=== PATIENT | male | born 1950 | race Caucasian/White ===

== ENCOUNTER 2019-05-08 11:36 | Outpatient (CLI) | payer MEDICARE, SELFPAY ==
[2019-05-08 14:24] LABS: CREATININE 1.03 mg/dL (0.70-1.30); Calculated LDL 111 mg/dL; Cholesterol 195 mg/dL (50-200); HDL Cholesterol 29 mg/dL (40-60); Potassium 4.7 mmol/L (3.5-5.1); Triglyceride 279 mg/dL (30-150)
== END 2019-05-08 11:56 ==
PROVIDERS: PCP Family Medicine; Visit Provider Family Medicine
DX: I10 Essential (primary) hypertension (principal)
CPT/HCPCS: 36415; 80061; 83721; 82565; 84132

== ENCOUNTER 2019-08-12 09:14 | Outpatient (CLI) | payer MEDICARE, SELFPAY ==
[2019-08-12 11:46] LABS: HCT 46.8 % (40.0-50.0); HGB 15.9 g/dL (13.5-17.5); Mean Corpuscular Hemoglobin 30.2 pg (27.0-33.0); Mean Corpuscular Volume 88.8 fL (80-95); Mean Platelet Volume 10.3 fL (8.0-11.0); Platelet Count 277 x1000/uL (130-400); RBC 5.27 m/cumm (4.50-6.00); RBC Distribution Width 13.5 % (11.8-14.1); White Blood Cell Count 7.42 k/cumm (4.4-10.8)
[2019-08-12 12:37] LABS: ESR 10 mm/hr (1-20)
[2019-08-13 11:43] LABS: Rheumatoid Factor <7.5 IU/mL (<12.5)
== END 2019-08-12 09:34 ==
PROVIDERS: PCP Family Medicine; Visit Provider Family Medicine
DX: M25.50 Pain in unspecified joint (principal)
CPT/HCPCS: 36415; 85027; 85652; 86140; 86431

== ENCOUNTER 2019-11-24 15:08 | Emergency (ER) | payer MEDICARE, SELFPAY ==
--- NOTE | 2019-11-24 15:00 | DI.CT_ITS ---
EXAM: CT HEAD - STROKE PROTOCOL CLINICAL HISTORY: L arm weakness TECHNIQUE: Noncontrast COMPARISON: No exams were available for comparison FINDINGS: There is moderate underlying atrophy. No intracranial hemorrhage, mass or acute infarct is seen. Th ere is no evidence skull fracture. The sinuses and mastoid air cells appear clear where visualized. The ventricles are not not abnormally dilated. IMPRESSION: Atrophy. No acute abnormality.
[2019-11-24 15:12] VITALS: BP 141/90; PULSE 105; RESP 23; TEMP 36.4; O2SAT 97
--- NOTE | 2019-11-24 15:15 | DI.RAD_ITS ---
EXAM: XR PORTABLE CHEST AP INDICATION: L arm weakness. COMPARISON: No exams were available for comparison TECHNIQUE: 2D digital imaging was performed. FINDINGS: Heart size is normal. Leads overlie the chest. The lungs are not well inflated but appear clear. No pneumothorax, infiltrate or effusion is seen. IMPRESSION: Limited exam. No acute abnormality. DATA REPOSITORY: RADIATION DOSE DELIVERED:
--- NOTE | 2019-11-24 15:20 | ED.GENADUL_ITS ---
Discharge Plan Disposition Patient Disposition: [facility] Condition: Serious Discharge Details Chief Complaint: CVA/TIA Clinical Impression: Stenosis of right internal carotid artery, Acute CVA (cerebrovascular accident) Primary Care Provider: Mario Williamson ED Provider: Samuel Koo Home Meds and New Rx's Prescriptions: No Action lisinopril-hydrochlorothiazide 10-12.5 mg tablet 1 tab PO DAILY Qty: 90 RF: 3 acetaminophen [Tylenol] 325 MG tablet 650 mg PO Q6H PRN RF: 0 calcium carbonate [Tums] 200 MG tablet,chewable 200 mg PO PRN PRNRF: 0 Discharge Data Discharge Date/Time-TO BE ENTERED AT DEPARTURE: 11/24/19 18:12 Medical Decision Making 69-year-old male with a history of hypertension, former smoker, presents from home via EMS after the abrupt onset of left arm and leg weakness associated with slurred speech at home approximately 45 minutes prior to presentation. His daughter states she was speaking to him on the phone when he abruptly slurred his speech. She called 911 and went to the house. 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 EMS transported to the ED and by the time of arrival reported improving weakness but that the left arm and leg feel heavy. Family states his speech remains slightly slurred but improved. He arrives afebrile with a blood pressure 141/90, able to speak and relate a history. His initial exam reveals left arm and leg weakness without evidence of significant facial droop. CT head without acute findings. I discussed the case with Dr. Lucian Alvarado at [facility] and we agreed to proceed with CTA. CT angiogram here reveals right proximal ICA soft plaque with 80 to 90% stenosis. No intracranial findings. Patient's exam continues to improve and by 4:30 PM he is able to lift the left arm overhead against gravity. Following receipt of the findings of the CT angiogram, I again discussed the case with Dr. Lucian Alvarado. Given the patients ongoing improvement of left-sided strength, do not feel the risk/benefit of thrombolysis weighs in favor of proceeding. We will load with aspirin and Plavix and the patient will be ac cepted in transfer to the neurology service at [facility]. Lab Data Lab results reviewed: Yes I reviewed the patient's lab results. Labs: Laboratory Results - last 24 hr 11/24/19 11/24/19 15:20 15:20 WBC 9.02 RBC 5.34 Hgb 16.3 Hct 45.9 MCV 86.0 MCH 30.5 MCHC 35.5 RDW 13.6 Plt Count 273 MPV 9.5 Immature Gran % 0.1 Neutrophils % 72.6 Lymphocytes % 17.8 Monocytes % 8.3 Eosinophils % 0.9 Basophils % 0.3 Absolute Neutrophils 6.54 Absolute Lymphocytes 1.61 Absolute Monocytes 0.75 H Absolute Eosinophils 0.08 Absolute Basophils 0.03 Sodium 139 Potassium 3.7 Chloride 102 Carbon Dioxide 26.5 Anion Gap 10.5 BUN 21 H Creatinine 1.15 Estimated GFR/1.73 m2 >= 60.00 Glucose 132 H Calcium 9.1 Magnesium 2.0 Total Bilirubin 0.4 AST 19 ALT 26 Alkaline Phosphatase 79 Troponin I < 0.05 Total Protein 7.7 Albumin 3.9 ECG Data Attestation: I personally reviewed and interpreted this ECG (s) as follows: Interpretation: EKG at 1520 hrs. shows borderline sinus tachycardia with a regular rhythm, rate of 100, narrow complex QRS, first-degree AV block, no ST segment elevation HPI General Mode of arrival: ambulatory . Date/Time Provider Initiated Documentation: 11/24/19 15:09 . Limitations to Documentation: no limitations . Information obtained by: patient and EMS . History of Present Illness 69 year old M presents to the emergency department with the chief complaint of Abrupt onset left leg, left arm weakness with slurred speech, Quality is described as constant, and is localized to the left, upper extremity and lower extremity. Patient reports no radiation. Patient started experiencing this minute(s) and it has been other (improving). No relieving factors improve symptom(s), No exacerbating factors reported . Patient did receive the following treatments prior to arrival, none Related Data Home Medications Medication Instructions Recorded Confirmed acetaminophen [Tylenol] 650 mg PO Q6H PRN tab-cap 11/25/12 11/24/19 calcium carbonate [Tums] 200 mg PO PRN PRN 12/27/12 11/24/19 lisinopril 10 1 tab PO DAILY #90 tab 05/08/19 11/24/19 mg-hydrochlorothiazide 12.5 mg tablet Previous Rx's Medication Instructions Recorded lisinopril 10 1 tab PO DAILY #90 tab 05/08/19 mg-hydrochlorothiazide 12.5 mg tablet Allergies Allergy/AdvReac Type Severity Reaction Status Date / Time No Known Allergies Allergy Unverified 11/24/19 15:22 Review of Systems Narrative: Denies headache. No fall or injury. Has a history of hypertension. [facility], LAT[facility] Medical History Arthralgia (Acute) Cold extremities (Acute) Essential hypertension History of prostate cancer Hypertriglyceridemia Osteoarthritis of right knee Surgical History (Updated 03/27/19 @ 12:11 by Fabio Copeland) Prostatectomy 2009; [facility] Repair of inguinal hernia Bilateral 03/25/18-LEFT;DR. MORSE Replacement of total knee joint BILATERAL WITH A RECURRANCE ON THE LEFT WITH REPAIR AGAIN 2009 Total replacement of hip 1996 LEFT 2009 RIGHT Family History Mother , 83 COPD (chronic obstructive pulmonary disease) Diabetes Father , 83 Asthma Sister Stroke Brother No problems noted. Maternal Grandfather , 72 COPD (chronic obstructive pulmonary disease) Paternal Grandfather , 95 No problems noted. Maternal Grandmother , 97 No problems noted. Brother No problems noted. Brother Alcohol abuse Son Alcohol abuse Daughter Depression Son Substance abuse Brother No problems noted. Social History (Updated 04/01/19 @ 10:50 by Kyler Pizano) Smoking/Tobacco Use Status: Former Tobacco Use Second Hand Exposure: Yes Alcohol Intake: current Alcohol Intake frequency: a few times a month Alcohol type: beer Drug use: Never Caregiver/Support person: No Housing: house Communication Needs: None Do you need help understanding health information?: Often Pets and animals: Yes Pets and animals: cat(s) Sexually active: No Do you think of yourself as: straight/heterosexual Current gender identity: male What is your relationship status?: How often do you talk on the phone with friends or family?: three or more times per week How often do you get together with friends or relatives?: three or more times per week How often do you attend oriental orthodox or yarsani services?: decline to answer Do you belong to any clubs or organized social groups?: no Panel score (0-1 are the most socially isolated patients): 1 What type of physical activity do you participate in: none Duration: 15-30 minutes/day Frequency: 1-2 times per week Ana/Scientology: None Special ana needs: No Seatbelt use: always Helmet use: No Drive intox or ride w/intox van driver helper: No Do you feel safe in your relationship?: Yes Exam Narrative Exam Narrative: GEN: awake, alert. Pleasant, well groomed, interactive. HEAD: Normocephalic, atraumatic ENT: Mucous membranes moist, oropharynx unremarkable, External ear exam unr emarkable EYES: PERRL, EOMI NECK: Full ROM, no GARRET, no menigismus CHEST/RESP: Nontender, clear to auscultation bilateral, no wheeze/rhonchi/rales CARDIOVASCULAR: RRR, no murmur, rub channing. 2+ Rad pulse bilateral ABDOMEN: Soft, nontender, no mass. +Bowel sounds EXT: Left arm patient is able to lift against gravity but not against resistance. Patient is able to lift the left leg against gravity, but not against resistance. Right upper and lower extremity unremarkable. Neuro: Patient is conversant, speech is slightly slurred. Do not appreciate significant facial droop. He has left arm and leg weakness as above. Cranial nerves otherwise unremarkable. Psych: Speech fluent, thoughts congruent, affect normal Critical Care Time Critical Care Time Critical Care Time: Yes Attestation: Including bedside care, review of records, review of images, discussion with exchange underwriting consultant and family.
--- NOTE | 2019-11-24 15:30 | DI.CT_ITS ---
EXAM: CT BRAIN AND NECK CTA CLINICAL HISTORY: L ARM/LEG WEAKNESS TECHNIQUE: Post IV contrast during the arterial phase. Axial CT angiography was performed with multi slice acquisition and multiplanar and/or 3D reconstructions. COMPARISON: CT HEAD - STROKE PROTOCOL from 11/24/2019 FINDINGS: There is mainly noncalcified plaque seen at the proximal right internal carotid artery causing severe stenosis. The clot extends over a length of 2.5 cm. Distal to this level, the vessel is normal in di ameter and shows mild calcification. There is tortuosity seen distally. The intracranial internal car otid artery shows mild calcification as well as tortuosity. There is mild to moderate calcific plaque at the proximal left internal carotid artery but no significant stenosis. The distal left internal c arotid artery is also tortuous. The intracranial portion shows mild calcification. The anterior, midd le and posterior cerebral arteries appear patent. Degenerative changes are seen in the cervical spine . There is respiratory motion at the lung apices, which appear grossly clear. IMPRESSION: 2.5 centimeter length of soft plaque is seen in the proximal right internal carotid artery causing se poonam stenosis of 80-90 percent. No significant stenosis in the left internal carotid artery or intra cranial vasculature.
--- NOTE | 2019-11-24 15:35 | NUR.NOTE ---
L forearm 18 G started by EMS prior to arrival
[2019-11-24 15:37] LABS: Abs Immature Grans 0.01 k/cumm (0.0-0.09); Absolute Basophil Count 0.03 k/cumm (0.0-0.2); Absolute Eosinophil Count 0.08 k/cumm (0.0-0.7); Absolute Lymphocyte Count 1.61 k/cumm (1.2-3.4); Absolute Monocyte Count 0.75 k/cumm (0.11-0.7); Absolute Neutrophil Count 6.54 k/cumm (1.2-6.7); Basophils % 0.3; Eosinophils % 0.9; HCT 45.9 % (40.0-50.0); HGB 16.3 g/dL (13.5-17.5); Immature Grans % 0.1 %; Lymphocytes % 17.8; Mean Corp. HGB Concentration 35.5 g/dL (32.0-36.0); Mean Corpuscular Hemoglobin 30.5 pg (27.0-33.0); Mean Platelet Volume 9.5 fL (8.0-11.0); Monocytes % 8.3; Neutrophils % 72.6; Platelet Count 273 x1000/uL (130-400); RBC 5.34 m/cumm (4.50-6.00); RBC Distribution Width 13.6 % (11.8-14.1); White Blood Cell Count 9.02 k/cumm (4.4-10.8)
--- NOTE | 2019-11-24 15:51 | NUR.NOTE ---
pt to CTA
[2019-11-24 15:59] LABS: ALT 26 U/L (16-63); AST 19 U/L (15-37); Albumin 3.9 g/dL (3.4-5.0); Alkaline Phosphatase 79 U/L (46-116); Anion Gap 10.5 mmol/L (3-11); BUN 21 mg/dL (7-18); Bilirubin, Total 0.4 mg/dL (0.2-1.0); CO2 26.5 mmol/L (21.0-32.0); CREATININE 1.15 mg/dL (0.70-1.30); Calcium 9.1 mg/dL (8.5-10.1); Chloride 102 mmol/L (98-107); Glucose 132 mg/dL (74-106); Potassium 3.7 mmol/L (3.5-5.1); Sodium 139 mmol/L (136-145); Total Protein 7.7 g/dL (6.4-8.2)
[2019-11-24 16:02] LABS: Troponin I < 0.05 ng/Ml (<0.06)
[2019-11-24] MEDS: Normal Saline 1,000 ML 1000 ML IV (16:02)
[2019-11-24 16:04] VITALS: BP 128/78; PULSE 95; RESP 15; O2SAT 95
[2019-11-24] MEDS: Normal Saline - Diluent 50 ML VIAL IV (16:11)
[2019-11-24] MEDS: Omnipaque 350 MG/ML 100 ML BTL IJ (16:11)
[2019-11-24 16:39] VITALS: BP 150/85; PULSE 93; RESP 16; TEMP 36.8; O2SAT 99
--- NOTE | 2019-11-24 16:39 | NUR.NOTE ---
Pt able to lift L arm up off the bed, arm drift present
[2019-11-24] MEDS: Aspirin 325 MG TAB PO (16:56)
[2019-11-24] MEDS: Clopidogrel 300 MG TAB 600 MG PO (16:57)
--- NOTE | 2019-11-24 17:29 | NUR.NOTE ---
speech improving, able to swallow and take medication orally. Left arm limited range of motion, unable to move fingers/hand purposely. able to lift L upper extremity off the bed into air, unable to hold it there. able to lift L lower extremity. no deficits on R
--- NOTE | 2019-11-24 17:50 | NUR.NOTE ---
Sitting in bed visiting with family. Alert and oriented, respirations even and unlabored.
[2019-11-24 18:09] VITALS: BP 150/94; PULSE 109; RESP 16; O2SAT 96
--- NOTE | 2019-11-24 18:09 | NUR.NOTE ---
pt stood with assist and voided in urinal. Vish Tripathi arrived for transport, pt transferred to EMS stretcher
== END 2019-11-24 18:12 | disposition short-term general hospital (02) ==
PROVIDERS: Emergency Provider Emergency Medicine; PCP Family Medicine
DX: I63.231 Cerebral infarction due to unspecified occlusion or stenosis of right carotid arteries (principal); R47.81 Slurred speech; I10 Essential (primary) hypertension; Z87.891 Personal history of nicotine dependence
CPT/HCPCS: 36415; 36416; 70496; 70498; 80053; 82962; 93005; 96360; 96361; 99285; 70450; 71045; 83735; 84484; 85025; 93010; J3490

== ENCOUNTER 2020-07-26 09:10 | Outpatient (CLI) | payer MEDICARE, SELFPAY ==
[2020-07-26 12:28] LABS: Uric Acid 6.5 mg/dL (3.5-7.2)
[2020-07-26 12:30] LABS: C-Reactive Protein < 0.05 mg/dL (0.0-0.3)
[2020-07-26 13:12] LABS: Hemoglobin A1C 5.6 % (<5.7)
[2020-07-26 13:50] LABS: ESR 11 mm/hr (1-20)
[2020-08-02 17:36] LABS: Rheumatoid Factor <15 IU/mL (<15)
== END 2020-07-26 09:30 ==
PROVIDERS: PCP Family Medicine; Referring Provider Family Medicine; Visit Provider Family Medicine
DX: R73.9 Hyperglycemia, unspecified (principal); M79.641 Pain in right hand; M79.642 Pain in left hand; F48.8 Other specified nonpsychotic mental disorders; M79.674 Pain in right toe(s); I10 Essential (primary) hypertension
CPT/HCPCS: 36415; 85652; 83036; 84550; 86140; 86431

== ENCOUNTER 2021-03-14 08:59 | Outpatient (CLI) | payer MEDICARE, SELFPAY ==
[2021-03-14 14:00] LABS: CREATININE 1.1 mg/dL (0.70-1.30); Calculated LDL 44 mg/dL (<100); Cholesterol 113 mg/dL (<200); HDL Cholesterol 36 mg/dL (40-60); Triglyceride 168 mg/dL (<150)
[2021-03-14 17:03] LABS: PSA, Diagnostic <0.1 ng/mL (0.0-4.5)
== END 2021-03-14 09:00 | disposition home or self-care (01) ==
LOC: LOS 08:59
PROVIDERS: PCP Family Medicine; Referring Provider Family Medicine; Visit Provider Family Medicine
DX: E11.65 Type 2 diabetes mellitus with hyperglycemia (principal); E78.5 Hyperlipidemia, unspecified; C61 Malignant neoplasm of prostate
CPT/HCPCS: 36415; 80061; 82565; 84153

== ENCOUNTER → 2021-09-11 09:24 | Outpatient (BNVA) | payer MEDICARE, SELFPAY | PROVIDERS: PCP Family Medicine; Referring Provider Family Medicine; Visit Provider Physical Therapy Assistant | DX: Z12.11 Encounter for screening for malignant neoplasm of colon (principal); I10 Essential (primary) hypertension ==

== ENCOUNTER 2021-09-27 03:33 | Outpatient (CLI) | payer MEDICARE, SELFPAY ==
[2021-09-27 11:24] LABS: Source Nasal/Nares
[2021-09-27 15:38] LABS: COVID-19 PCR Negative (Negative)
== END 2021-09-27 03:34 | disposition home or self-care (01) ==
LOC: LBO 03:33
PROVIDERS: PCP Family Medicine; Visit Provider Surgery
DX: Z20.822 Contact with and (suspected) exposure to COVID-19 (principal); Z01.818 Encounter for other preprocedural examination
CPT/HCPCS: 87635

== ENCOUNTER 2021-09-29 09:19 | Day surgery (SDC) | payer MEDICARE, SELFPAY ==
--- NOTE | 2021-09-28 17:55 | W.COLOREPORT ---
Colonoscopy Report Date of procedure: 09/29/21 Pre-op diagnosis general: Family history of colorectal cancer Anesthesia Type: General LMA/ETT Disposition: same day Prep: Miralax/Dulcolax Retraction Time: 10 Procedure Description: After informed consent was obtained the patient was taken to the procedure room and placed in a left decubitous position. Monitors were applied and a time out was done. The patients name, date of , procedure, allergies to medications and metal in their body was reviewed. The patient was then sedated. Once sedated and comfortable a rectal exam was done. External exam was normal. Internal exam revealed a normal sphincter tone and no palpable masses. The scope was then introduced and retrofelexed. No internal hemorrhoids were identified. The scope was then advanced to the cecum w/out difficulty. The TI and appendiceal orifice were identified. The prep :-the warner of the colon are covered with liquid stool that is rather thick. The colon is irrigated with a liter of saline, however, lesion is smaller than 5 mm may have been missed. The scope was then slowly retracted over 10 minutes back into the rectum. Minor diverticular disease confined to the sigmoid colon. There are no polyps. the scope was removed and the patient was woken up and taken back to Same day surgery in stable condition. The patient tolerated the procedure well and there were no immediate complications. Follow up: The patient should follow up in 10 years unless they develop changes in bowel habits or other new gastrointestinal complaints, but provided they are healthy for anesthesia.
--- NOTE | 2021-09-28 17:56 | PDOC.DSDIS_ITS ---
Discharge Plan Disposition Patient Disposition: HOME Condition: Good Discharge Details Reason For Visit: colon scope Attending Provider: Moira Mcmanus Primary Care Provider: Mario Williamson Home Meds and New Rx's Prescriptions: No Action Centrum Silver Men 300-600-300 mcg tablet 1 tab PO DAILY RF: 0 metoprolol succinate 25 mg tablet extended release 24 hr 25 mg PO DAILY Qty: 30 RF: 2 acetaminophen [Tylenol] 325 MG tablet 650 mg PO Q6H PRN RF: 0 aspirin [Adult Low Dose Aspirin] 81 mg tablet,delayed release (DR/EC) 81 mg PO DAILY RF: 0 atorvastatin 80 mg tablet 80 mg PO QHS Qty: 90 RF: 3 calcium carbonate [Tums] 200 MG tablet,chewable 200 mg PO PRN PRNRF: 0 Discharge Instructions Additional Instructions: DSU Colonoscopy Post- Op Instructions Instructions for Everyone who is given Anesthesia: For your safety, please do the following for the next twenty-four (24) hours: *Do Not operate a motor vehicle (car, truck, motorcycle, etc.) *Do Not drink alcoholic beverages or use any recreational drugs for the first 24 hours or while taking pain medications. The medications in your body may have a reaction that can be dangerous. *Do Not make any important decisions or sign any important papers. Findings: Minor diverticular disease confined to the sigmoid colon Follow up: Repeat scope in 5 years if still healthy for anesthesia 1. No lifting over 20 pounds or strenuous activity for the first 24 hours after your procedure. After 24 hours there are no restrictions on your activity but you may feel fatigued for a few days. 2. After you arrive home you may have a light meal and return to your normal diet as you can tolerate it without feeling sick to your stomach. 3. You may have a bloated, gaseous feeling in your belly (abdomen) after a colonoscopy. Passing gas and belching will help. Walking or lying down on your left side with your knees flexed may relieve the discomfort. Call the office at [phone] (Office) or [phone] (Hospital) right away if you notice any of the following: a.Vomiting of blood or ?coffee ground stools?. b.Rectal bleeding 1Tbsp, blood clots or continuous bleeding. c.Severe belly (abdominal) pain. d.A hard distended belly (abdomen) and an inability to pass gas. 4. Please don?t expect to have a normal BM (bowel movement) for 2-3 days after your procedure. 5. If there are questions regarding the findings of your procedure, please contact your doctor 6. If you are unable to contact your doctor with a problem, contact the hospital at [phone]. 7. Continue all your regular medications unless directed otherwise. I understand the above instructions and have no questions. Signature of Patient or Adult Escort Name of Responsible Adult Escort Signature of Nurse Date/Time Activity:: See above Diet:: See above Discharge Orders Discharge Orders: Discharge Order (Routine); Ordered 09/28/21 Ordered By: Moira Mcmanus DS: Diagnosis Discharge Diagnosis (1) Screening for colon cancer: Status: Acute (2) Carotid stenosis, symptomatic w/o infarct: Status: Acute (3) History of right MCA stroke: Status: Acute (4) Hypertension: Status: Chronic (5) Smoker: Status: Acute (6) Family history of malignant neoplasm of colon in relative diagnosed when older than 50 years of age: Status: Acute (7) Diverticula of colon: Status: Acute
[2021-09-29 09:34] VITALS: BP 136/103; PULSE 114; RESP 18; TEMP 36.2; O2SAT 99
[2021-09-29] MEDS: Lactated Ringers 1,000 ML 80 ML IV (09:54)
[2021-09-29 09:58] VITALS: BP 124/89
[2021-09-29 11:26] VITALS: BMI 35.4
--- NOTE | 2021-09-29 11:26 | W.ANESPRE ---
General Info Date of Service Date Performed: 09/29/21 Height: 5 ft 5.5 in Weight: 97.9 kg Body Mass Index (BMI): 35.4 Surgical Procedure: Operation Date: 09/29/21 10:20 Proposed Procedures Side Surgeon johann Mcmanus, DO Meds Allergies and Home Medications Allergies Allergy/AdvReac Type Severity Reaction Status Date / Time No Known Allergies Allergy Verified 09/29/21 09:31 Home Medication Medication Instructions Recorded acetaminophen [Tylenol] 650 mg PO Q6H PRN tab-cap 11/25/12 calcium carbonate [Tums] 200 mg PO PRN PRN 12/27/12 aspirin 81 mg tablet,delayed 81 mg PO DAILY 12/11/19 release qqztunfl-wml-kmohf acid 300 1 tab PO DAILY 02/12/20 mcg-lycopene 600 mcg-lutein 300 mcg tablet atorvastatin 80 mg tablet 80 mg PO QHS #90 tab 12/19/20 metoprolol succinate 25 mg 25 mg PO DAILY #30 tab 09/13/21 tablet,extended release 24 hr Current Visit Medications: Current Medications Generic Name Dose Route Start Last Admin Trade Name Freq PRN Reason Stop Dose Admin Hyoscyamine Sulfate 0.125 mg 09/28/21 17:49 Hyoscyamine 0.125 Mg Sl/Oral/Chew SL DIRECTED PRN Ringer's Solution 1,000 mls @ 80 mls/hr 09/29/21 06:00 09/29/21 09:54 IV 10/28/21 23:59 80 mls/hr INFUSION LYNDA Administration IV Miscellaneous Supplies 1 each 09/29/21 06:00 Iv Access IV 10/28/21 23:59 DIRECTED LYNDA Ondansetron HCl 4 mg 09/28/21 17:49 Ondansetron 4 Mg/2 Ml Vial IVP Q4H PRN PRN Nausea / Vomiting Sodium Chloride 0 ml 09/29/21 06:00 Normal Saline Flush 10 Ml Syr IV 10/28/21 23:59 PRN PRN Sodium Chloride 0 ml 09/29/21 06:00 Normal Saline 10 Ml Vial IJ 10/28/21 23:59 DIRECTED PRN Sterile Water 0 ml 09/29/21 06:00 Water,Injection,Sterile 10 Ml Vial IJ 10/28/21 23:59 DIRECTED PRN PFSH Active Problems Active Problems: Problem Status Onset Code Family history of malignant neoplasm of colon in relative diagnosed when older than 50 years of age Z80.0 Osteoarthritis of right knee Screening for colon cancer Z12.11 Carotid stenosis, symptomatic w/o infarct ~11/24/19 I65.29 History of right MCA stroke ~11/25/19 Z86.73 Hypertension I10 Essential hypertension 09/14/13 I10 Osteoarthritis 11/25/12 M19.90 Primary osteoarthritis of right knee 07/29/17 M17.11 Smoker 03/15/14 F17.200 Medical History Medical History Arthralgia Cellulitis of foot, right Cold extremities Essential hypertension History of prostate cancer Hypertriglyceridemia Ileus Increased BMI better Primary malignant neoplasm of prostate (05/23/10) prostatectomy 2010 [facility] 6 SBO (small bowel obstruction) Surgical History Surgical History History of prostatectomy Prostatectomy 2009; [facility] Repair of inguinal hernia Bilateral 03/25/18-LEFT;DR. [facility]OR[facility] Replacement of total knee joint BILATERAL WITH A RECURRANCE ON THE LEFT WITH REPAIR AGAIN 2009 Status post hip replacement Status post total knee replacement Total replacement of hip 1996 LEFT 2009 RIGHT Tobacco Smoking/Tobacco Use Status: Former Tobacco Use Tobacco: How many years used: 15 Passive smoking exposure: Yes Second hand exposure: Yes Alcohol Alcohol Intake: current Alcohol intake frequency: a few times a week Alcohol type: beer and hard liquor Substance Use Substance use: Never Vital Signs and Lab Results Vital Signs Most Recent Vital Signs in EMR: Most Recent Vital Signs Temp Pulse Resp BP Pulse Ox 36.2 C L 114 H 18 124/89 99 09/29/21 09:34 09/29/21 09:34 09/29/21 09:34 09/29/21 09:58 09/29/21 09:34 Lab Results Blood Type / Crossmatch: No Data to Display Complete Blood Count: No Data to Display Complete Metabolic Panel: No Data to Display Liver Function Panel: No Data to Display Coagulation Panel: No Data to Display Cardiac Panel: No Data to Display Arterial Blood Gas: No Data to Display Venous Blood Gas: No Data to Display Pancreas Panel: No Data to Display Thyroid Panel: No Data to Display Infectious Disease: Coronavirus (COVID-19)(PCR) Negative (Negative) 09/27/21 09:20 09/27/21 Coronavirus 2019 Source Nasal/Nares 09/27/21 09:20 09/27/21 Blood Cultures: No Data to Display Toxicology Panel: No Data to Display Imaging and Studies Imaging and Studies Study information below may be from another EMR and interpreted by another provider. Please see original notes in EMR for more complete details. Echocardiogram Summary: 11/26/19: [facility] [place] EF 65%, Valves normal Anesthesia Assessment and Plan Anesthesia History Personal History: No History of Anesthesia Complications Family History: No Family History of Anesthesia Complications Exercise Tolerance Exercise Tolerance: Metabolic Equivalents<4 Pertinent Negatives Pertinent Negatives: No Symptoms of GERD and No Major Cardiovascular Symptoms or Complaints Cardiac & Pulmonary Exam Cardiac Exam: Normal S1/S2 Heart Sounds Pulmonary Exam: Clear Bilateral Breath Sounds Implantable Cardiac Device Does patient have a Pacemaker or an ICD?: No Airway Exam Known Difficult Airway: No Mallampati Class: 1 Mouth Opening: Normal (> 3cm) Thyromental Distance: Greater than 3 cm Neck Range of Motion: Full ROM Neck Circumference: Normal Teeth Condition: Generalized Poor Dentition ASA Classification ASA Score: ASA 3 Emergency Case?: No NPO Status NPO Status: NPO Clears >2 hours, Solids >8 hours Anesthesia Plan Resuscitation Status: Full Code Anesthesia Technique: General Anesthesia Airway Planned: Natural Airway Monitors Used: Standard Monitors
[2021-09-29 13:03] VITALS: BP 115/79; PULSE 74; RESP 18; TEMP 36.1; O2SAT 95
--- NOTE | 2021-09-29 13:05 | W.ANESPOSTOP ---
Postoperative Evaluation Date, Time and Location Date Performed: 09/29/21 Time Performed: 13:05 Patient Location: Day Surgery Unit Vital Signs Most Recent Imported Vital Signs: Most Recent Vital Signs Temp Pulse Resp BP Pulse Ox 36.1 C L 74 18 115/79 93 09/29/21 13:03 09/29/21 13:03 09/29/21 13:03 09/29/21 13:03 09/29/21 13:03 Pain Score Most Recent Pain Score: Most Recent Pain Score Pain Level 0 09/29/21 13:03 Assessment Mental Status: Awake (Alert & Oriented to Patient Baseline) Airway and Respiratory Function: Patent airway with normal (patient baseline) respiratory exam Cardiovascular Function: Hemodynamically Stable Hydration Status: Adequately Hydrated Nausea & Vomiting: No Nausea or Vomiting Pain: Pt. Denies Any Pain Peripheral Nerve Block: Patient did not receive a nerve block
[2021-09-29 13:34] VITALS: BP 117/93; PULSE 77; RESP 16; TEMP 36.3; O2SAT 96
== END 2021-09-29 14:20 | disposition home or self-care (01) ==
PROVIDERS: PCP Family Medicine; Visit Provider Surgery
PROC: 0DJD8ZZ Inspection of Lower Intestinal Tract, Via Natural or Artificial Opening Endoscopic (ICD-10-PCS; CPT 45378; principal; 2021-09-29 10:15)
DX: Z12.11 Encounter for screening for malignant neoplasm of colon (principal); Z80.0 Family history of malignant neoplasm of digestive organs; I10 Essential (primary) hypertension; F17.210 Nicotine dependence, cigarettes, uncomplicated
CPT/HCPCS: G0105

== ENCOUNTER 2022-06-27 02:58 | Outpatient (CLI) | payer MEDICARE, SELFPAY ==
[2022-06-27 12:41] LABS: Hemoglobin A1C 5.9 % (<5.7)
[2022-06-27 13:19] LABS: Calculated LDL 40 mg/dL (<100); Cholesterol 105 mg/dL (<200); HDL Cholesterol 40 mg/dL (40-60); Triglyceride 129 mg/dL (<150)
== END 2022-06-27 02:59 | disposition home or self-care (01) ==
LOC: LOS 02:59
PROVIDERS: PCP Family Medicine; Visit Provider Family Medicine
DX: E78.5 Hyperlipidemia, unspecified (principal); R73.9 Hyperglycemia, unspecified
CPT/HCPCS: 36415; 80061; 83036

== ENCOUNTER 2023-09-03 09:44 | Outpatient (CLI) | payer MEDICARE, SELFPAY ==
[2023-09-03 13:04] LABS: Hemoglobin A1C 5.6 % (<5.7)
[2023-09-03 13:19] LABS: TSH (W/Ref FT4) 2.08 uIU/mL (0.36-3.74); Vitamin B12 482 pg/mL (193-986)
[2023-09-04 09:21] LABS: Syphilis Serology (RPR) Negative (Negative)
== END 2023-09-03 09:45 | disposition home or self-care (01) ==
LOC: LOS 09:44
PROVIDERS: PCP Family Medicine; Referring Provider Family Medicine; Visit Provider Family Medicine
DX: E11.51 Type 2 diabetes mellitus with diabetic peripheral angiopathy without gangrene; R41.3 Other amnesia; E03.9 Hypothyroidism, unspecified
CPT/HCPCS: 36415; 82607; 83036; 84443; 86592

== ENCOUNTER → 2023-10-31 01:39 | Outpatient (CLI) | payer MEDICARE, SELFPAY ==
--- NOTE | 2023-10-31 | DI.RAD_ITS ---
Exam(s) XR CERVICAL SPINE COMP 4-5V EXAM: XR CERVICAL SPINE COMP 4-5V CLINICAL HISTORY: M54.2 Cervicalgia neck pain. TECHNIQUE: 2D digital imaging was performed. Five views were performed. COMPARISON: No exams were available for comparison FINDINGS: BONES: No fracture or destructive lesion. Vertebral bodies are unremarkable. DISKS: Moderate narrowing of the C5-6 and C6-7 disc spaces. Endplate osteophytes projecting mainly a nteriorly. The right neural foramen are suboptimally profiled. There is no left neural foraminal na rrowing. Mild facet degenerative changes. ALIGNMENT: Cervical spinal alignment is within normal limits. The odontoid and atlantoaxial articulat ions are normal. SOFT TISSUE: Right carotid artery stents. The lung apices are clear. Chronic appearing posterior s oft tissue calcifications. IMPRESSION: Degenerative disc changes at C5-6 and C6-7. Facet degenerative changes DATA REPOSITORY: RADIATION DOSE DELIVERED:
== END ==
PROVIDERS: PCP Family Medicine; Visit Provider Family Medicine
DX: M50.123 Cervical disc disorder at C6-C7 level with radiculopathy (principal)
CPT/HCPCS: 72050

== ENCOUNTER 2024-05-28 20:52 | Emergency (ER) | payer MEDICARE, SELFPAY ==
[2024-05-28 20:58] VITALS: BP 136/83; PULSE 85; RESP 15; TEMP 36.8; O2SAT 96
--- NOTE | 2024-05-28 21:00 | DI.CT_ITS ---
Exam(s) CT HEAD CERVICAL SPINE WO EXAM: CT HEAD CERVICAL SPINE WO CLINICAL HISTORY: Fall, forehead strike. TECHNIQUE: Imaging Protocol: Axial computed tomography images with coronal and sagittal reformatted images were created and reviewed COMPARISON: CT CT BRAIN NECK CTA from 11/24/2019 FINDINGS: There is artifact seen in the posterior fossa limiting evaluation. CT Head: Ventricles and Extra axial spaces: Normal in size and morphology for the patient's age. Hemorrhage: None. Cerebral parenchyma: Subtle areas of decreased attenuation are seen in the white matter most suggesti ve of chronic microvascular ischemic disease. No acute mass effect is seen. No findings to suggest an acute territorial infarct are present. Midline shift: None. Brainstem/Cerebellum: Normal. Calvarium: Normal. Visualized Paranasal sinuses/Mastoids: Clear. Soft Tissues: Unremarkable. CT Cervical Spine: Bones: No acute fracture or subluxation. 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 Ag e-appropriate degenerative changes are seen in the cervical spine. Soft Tissues: There is a right carotid artery stent. There is a 1.8 x 1.1 cm hypodense nodule in the left lobe the thyroid gland. Nonemergent thyroid ultrasound is recommended. Lung Apices: Clear. IMPRESSION: 1. No acute intracranial process. 2. No acute fracture or subluxation in the cervical spine. 3. Left thyroid nodule. Unexpected findings RADIATION DOSE DELIVERED: 1,443.6mGy.cm Total DLP DATA REPOSITORY: All CT scans at this facility are submitted to the National Radiology Data Registry (NRDR) Dose Index Registry (DIR) with the [employer] (A[employer]). RADIATION OPTIMIZATION: All CT scans at this facility use at least one of these dose optimization te chniques: automated exposure control; mA and/or kV adjustment per patient size (includes targeted exa ms where dose is matched to clinical indication); or iterative reconstruction.
--- NOTE | 2024-05-28 21:00 | RT.EKG_ITS ---
APPROVED REPORT Exam: Resting ECG Reason for Exam: Fall Patient Location: E HR:76 bpm ECG Measurements Heart Rate 76 AXIS DC 253 P 83 QRSd 103 QRS -17 QT 365 T 26 QTc 411 Conclusion Sinus rhythm, rate 76 1st degree HB with DC interval 253 No ectopy No STEMI
--- OUTSIDE RECORDS SUMMARY | 2024-05-28 21:19 | XMS_ITS | Encounter Summary ---
[place] [address] Care Team Providers Care Regional Sales Associate Name Role Phone Mario Williamson MD Primary Care Provider [phone] Encounter Details Date Type Department Care Team (Late st Contact Info) Description 04/13/2020 12:30 PM EDT Tech Visit [place] [id number] Rita Waters, SKYLER Carotid stenosis, symptomatic, with infarction Social History Tobacco Use Types Packs/Day Years Used Date Smoking Tobacco: Former Cigarettes Smokeless Tobacco: Never Sex and Gender Information Value Date Recorded Sex Assigned at Not on file Gender Identity Not on file Sexual Orientation Not on file documented as of this encounter Plan of Treatment Not on file documented as of this encounter Procedures Procedure Name Priority Date/Time Associated Diagnosis Comments CAROTID DUPLEX, BILATERAL Routine 04/13/2020 12:31 PM EDT Carotid stenosis, symptomatic, with infarction documented in this encounter Results * Carotid Duplex, Bilateral (04/13/2020 12:31 PM EDT) VB Text Report Department: Vascular Surgery Lab Patient: [id number] (JEANNIE MARTE) CPT: 42831 ICD10: I63.239;I65.23 Referring Physician: SAMEERA LUONG MD ?? Phone: Indications: ??S/P R TCAR ICD10 Diagnosis Code: I63.239 Findings: ICA Proximal, Right ? PSV (cm/s): 52 ? EDV (cm/s): 17 ? ICA/CCA: 0.6 ? %Stenosis: 16-49% ICA Middle, Right ? PSV (cm/s): 44 ? EDV (cm/s): 14 ? ICA/CCA: 0.5 ICA Distal, Right ? PSV (cm/s): 46 ? EDV (cm/s): 17 ? ICA/CCA: 0.5 CCA Distal, Right ? PSV (cm/s): 84 ? EDV (cm/s): 23 ? %Stenosis: <50% CCA Proximal, Right ? PSV (cm/s): 70 ? EDV (cm/s): 13 External Carotid Artery, Right ? PSV (cm/s): 232 ? EDV (cm/s): 42 ? %Stenosis: >50% Vertebral, Right ? PSV (cm/s): 36 ? EDV (cm/s): 12 ? Direction of Flow: Antegrade ICA Proximal, Left ? PSV (cm/s): 54 ? EDV (cm/s): 16 ? ICA/CCA: 0.7 ? Plaque Structure: Echogenic ? Plaque Surface: Irregular ? %Stenosis: <15% ICA Middle, Left ? PSV (cm/s): 54 ? EDV (cm/s): 16 ? ICA/CCA: 0.7 ICA Distal, Left ? PSV (cm/s): 43 ? EDV (cm/s): 17 ? ICA/CCA: 0.6 CCA Distal, Left ? PSV (cm/s): 77 ? EDV (cm/s): 18 ? %Stenosis: Minimal CCA Proximal, Left ? PSV (cm/s): 70 ? EDV (cm/s): 17 External Carotid Artery, Left ? PSV (cm/s): 86 ? EDV (cm/s): 14 ? %Stenosis: <50% Vertebral, Left ? PSV (cm/s): 39 ? EDV (cm/s): 14 ? Direction of Flow: Antegrade Interpretation: RIGHT: Widely patent proximal internal carotid artery stent with an hour glass shape causing 16-49% stenosis when compared to the more distal [place] internal carotid artery. No identifiable change from previous exam. The bifurcation level is in the mid neck. LEFT: There is irregular plaque in the proximal internal carotid artery causing <15% stenosis when compared to the more distal internal carotid artery. The bifurcation level is in the mid neck. Vertebral Artery Data: Patent vertebral arteries with normal antegrade Doppler waveforms and velocities bilaterally. Previous Carotid Studies: Date ?RIGHT ICA Stenosis ??PSV ?? Ratio ?? LEFT ICA Stenosis ?? PSV ?? Ratio ? 16-49% ? 82 ?1.00 ? <15% ? 54 ?1.10 Current Exam ? 16-49% ? 52 ?0.60 ? <15% ? 54 ?0.70 Electronically Signed by: SAMEERA LUONG MD on 2020-04-14 08:43:15 AM VASCUBASE VB Text Report End of Report VASCUBASE 04/13/2020 12:3 1 PM EDT Sameera Luong MD VASCULAR ORDERABLES VASCUBASE documented in this encounter Visit Diagnoses Diagnosis Carotid stenosis, symptomatic, with infarction Occlusion and stenosis of carotid artery with cerebral infarction documented in this encounter Care Teams Regional Sales Associate Relationship Specialty Start Date End Date Mario Williamson MD [address] [place] [address] [address] [place] [address] PCP - General Family Medicine 11/24/19 documented as of this encounter
--- OUTSIDE RECORDS SUMMARY | 2024-05-28 21:19 | XMS_ITS | Encounter Summary ---
Author Organization [facility] [place] [address] Care Team Providers Care Line Manager Name Role Phone Mario Williamson MD Primary Care Provider [phone] Reason for Visit * Consultation (Routine) - Closed Specialty Diagnoses / Procedures Referred By Contaleks t Referred To Contact Neurology Diagnoses stroke Inez Mari MD [address] [place] [id number] [facility] [address] [place] [id number] Referral ID Status Reason Start Date Expiration Date Visits Re quested Visits Authorized [id number] Closed 12/01/2019 11/30/2020 1 1 Encounter Details Date Type Department Care Team (Latest Contact Info) Description 01/12/2020 9:00 AM EDT TH Visit (TeleHealth) [place] [phone] Kiran Galdamez PA [facility] [place] [address] Cerebrovascular accident (CVA), unspecified mechanism Social History Tobacco Use Types Packs/Day Years Used Date Smoking Tobacco: Never Assessed Sex and Gender Information Value Date Recorded Sex Assigned at Not on file Gender Identity Not on file Sexual Orientation Not on file documented as of this encounter Progress Notes * Kiran Galdamez PA - 01/12/2020 9:00 AM EDT [facility] Disease [facility] Stroke Program Department [place] [address] t: [phone] / f: [phone] TELEPHONE ENCOUNTER Date of Appointment: 01/12/2020 Purpose of visit: Post-discharge follow-up I provided care to the patient today via telephone call. The total time associated with this visit was 12 minutes. Patient verbally consents to this telephone visit and understands that this visit may be billed, similar to a clinic office visit. 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 He was admitted to after deferring TPA at [facility] for R MCA symptoms of left hemiparesis, facial droop, dysarthria with NIHSS 3. CTA showed R ICA bifurcation stenotic plaque. Transferred for considerationsurgical intervention.S/p TCAR w/ stent 3/ (Dr Nice). Was discharged on dual antiplatelet therapy. Ziopatch placed at discharged showed no Afib. Today, he reports doing well. Feels he has returned to normal and is back at home. No repeat eventsor new symptoms. Had about 5 days of acute rehab ad [facility]. Left hand still feels a little numb when he uses it but doesn't interfere with his activities. He denies problems with vision, speech,memory, strength, sensation, balance, coordination, walking. He is fully retired. Works around the house, has a car he likes to kesha on. Has new blood pressure cuff, bp 125/81 this morning. Just got off the phone with his PCP who is following closely. Medications recently filled and is compliant with these. Had telephone follow-up with Dr. Nice his vascular surgeon, who recommended he stay of dual antiplatelet therapy for now until f/u CUS can be arranged. Modified [place] Scale (MRS) 0: No symptoms at all 1: No significant disability despite symptoms; able to carry out all usual duties and activities 2: Slight disability; unable to carry out all previous activities, but able to look after own affairs without assistance 3: Moderate disability; requiring some help, but able to walk without assistance 4: Moderate disability; unable to walk without assistance and unable to attend to own bodily needs without assistance 5: Severe disability; bedridden, incontinent and requiring constant nursing care and attention 6: DECISION MAKING/PLAN Skye Morris??is a 69 y.o.??right handed male with right MCA infarcts in November 2019. Stable from a stroke perspective and has made a good functional recovery. He inquired about driving and from his description I do not hear anything that should prevent him from driving. 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
--- OUTSIDE RECORDS SUMMARY | 2024-05-28 21:19 | XMS_ITS | Encounter Summary ---
[place] [address] Care Team Providers Care Corporate Pilot Name Role Phone Mario Williamson MD Primary Care Provider [phone] Encounter Details Date Type Department Care Team (Late st Contact Info) Description 07/20/2022 12:30 PM EDT Tech [place] [phone] Ayan Acosta, RVT Carotid stenosis, symptomatic, with infarction; Cerebrovascular accident (CVA), unspecified mechanism Social History Tobacco Use Types Packs/Day Years Used Date Smoking Tobacco: Former Cigarettes 0.5 20 Cigars Smokeless Tobacco: Former Quit: 1999 Sex and Gender Information Value Date Recorded Sex Assigned at Not on file Gender Identity Not on file Sexual Orientation Not on file documented as of this encounter Plan of Treatment Not on file documented as of this encounter Procedures Procedure Name Priority Date/Time Associated Diagnosis Comments CAROTID DUPLEX, BILATERAL Routine 07/20/2022 12:37 PM EDT Carotid stenosis, symptomatic, with infarction Cerebrovascular accident (CVA), unspecified mechanism documented in this encounter Results * Carotid Duplex, Bilateral (07/20/2022 12:37 PM EDT) VB Text Report Department: Vascular Surgery Lab Patient: [id number] (SKYE MARTE) CPT: 44707 Referring Physician: SAMEERA LUONG MD ?? Phone: Indications: hx RIGHT TCAR Findings: Stent 1 - Pre ? PSV (cm/s): 78 ? EDV (cm/s): 20 ? Location: Right Stent Stent 1 - Prox ? PSV (cm/s): 72 ? EDV (cm/s): 20 ? Location: Right Stent Stent 1 - Mid ? PSV (cm/s): 46 ? EDV (cm/s): 13 ? Location: Right Stent Stent 1 - Distal ? PSV (cm/s): 43 ? EDV (cm/s): 13 ? Location: Right Stent Stent 1 - Post ? PSV (cm/s): 59 ? EDV (cm/s): 14 ? Location: Right Stent ICA Proximal, Right ? PSV (cm/s): 46 ? EDV (cm/s): 16 ? ICA/CCA: 0.6 ? Plaque Structure: Echogenic ? Plaque Surface: Irregular ? %Stenosis: 16-49% ICA Distal, Right ? PSV (cm/s): 51 ? EDV (cm/s): 18 ? ICA/CCA: 0.7 CCA Distal, Right ? PSV (cm/s): 73 ? EDV (cm/s): 19 ? %Stenosis: <50% CCA Proximal, Right ? PSV (cm/s): 69 ? EDV (cm/s): 18 External Carotid Artery, Right ? PSV (cm/s): 187 ? EDV (cm/s): 25 ? %Stenosis: <50% Vertebral, Right ? PSV (cm/s): 39 ? EDV (cm/s): 11 ? Direction of Flow: Antegrade ICA Proximal, Left ? PSV (cm/s): 48 ? EDV (cm/s): 18 ? ICA/CCA: 0.7 ? Plaque Structure: Echogenic ? Plaque Surface: Irregular ? %Stenosis: 16-49% ICA Distal, Left ? PSV (cm/s): 46 ? EDV (cm/s): 18 ? ICA/CCA: 0.7 CCA Distal, Left ? PSV (cm/s): 70 ? EDV (cm/s): 19 ? %Stenosis: Minimal CCA Proximal, Left ? PSV (cm/s): 99 ? EDV (cm/s): 20 External Carotid Artery, Left ? PSV (cm/s): 103 ? EDV (cm/s): 22 ? %Stenosis: <50% Vertebral, Left ? PSV (cm/s): 59 ? EDV (cm/s): 20 ? Direction of Flow: Antegrade Interpretation: RIGHT: There is smooth plaque in the common carotid artery causing <50% stenosis. Hourglass shaped stent in the proximal internal carotid artery causing 16-49% stenosis when compared to the more distal internal carotid artery. The bifurcation level is in the mid neck. No significant change compared to previous exam. LEFT: There is bulky irregular plaque in the proximal internal carotid artery causing 16-49% stenosis (low end of range) when compared to the more distal internal carotid artery. The bifurcation level is in the mid neck. No significant change compared to previous exam. Vertebral Artery Data: Patent vertebral arteries with normal antegrade Doppler waveforms and velocities bilaterally. Previous Carotid Studies: Date ?RIGHT ICA Stenosis ??PSV ?? Ratio ?? LEFT ICA Stenosis ?? PSV ?? Ratio ? 16-49% ? 82 ?1.00 ? <15% ? 54 ?1.10 ? 16-49% ? 52 ?0.60 ? <15% ? 54 ?0.70 ? 16-49% ? 71 ?0.90 ? 16-49% ? 55 ?0.60 ? 16-49% ? 91 ?1.20 ? 16-49% ? 65 ?0.90 Current Exam ? 16-49% ? 46 ?0.70 ? 16-49% ? 48 ?0.70 Electronically Signed by: SAMEERA LUONG MD on 2022-07-24 10:57:00 AM VASCUBASE VB Text Report End of Report VASCUBASE 07/20/2022 12:3 7 PM EDT Sameera Luong MD VASCULAR ORDERABLES VASCUBASE documented in this encounter Visit Diagnoses Diagnosis Carotid stenosis, symptomatic, with infarction Occlusion and stenosis of carotid artery with cerebral infarction Cerebrovascular accident (CVA), unspecified mechanism documented in this encounter Care Teams Corporate Pilot Relationship Specialty Start Date End Date Mario Williamson MD [address] [place] [address] [address] [place] [address] PCP - General Family Medicine 11/24/19 documented as of this encounter
--- OUTSIDE RECORDS SUMMARY | 2024-05-28 21:19 | XMS_ITS | Encounter Summary ---
Author Organization [facility] [place] [address] Care Team Providers Care Health Unit Clerk Name Role Phone Mario Williamson MD Primary Care Provider [phone] Encounter Details Date Type Department Care Team (Late st Contact Info) Description 09/26/2020 2:00 PM EST Office Visit [place] [address] Sameera Luong MD [facility] [place] [address] Carotid stenosis, symptomatic, with infarction; Cerebrovascular accident (CVA), unspecified mechanism Social History Tobacco Use Types Packs/Day Years Used Date Smoking Tobacco: Former Cigarettes 0.5 20 Cigars Smokeless Tobacco: Former Quit: 1999 Sex and Gender Information Value Date Recorded Sex Assigned at Not on file Gender Identity Not on file Sexual Orientation Not on file documented as of this encounter Last Filed Vital Signs Vital Sign Reading Time Taken Comments Blood Pressure 136/81 09/26/2020 2:01 PM EST Pulse 83 09/26/2020 2:01 PM EST Temperature - - Respiratory Rate 16 09/26/2020 2:01 PM EST Oxygen Saturation - - Inhaled Oxygen Concentration - - Weight 102.1 kg (225 lb) 09/26/2020 2:01 PM EST Height 167.6 cm (5' 6) 09/26/2020 2:01 PM EST Body Mass Index 36.32 09/26/2020 2:01 PM EST documented in this encounter Progress Notes * Sameera Luong MD - 09/26/2020 2:00 PM EST Images from the original note were not included. Section of Vascular Surgery [facility] [place] [address] [address] OUTPATIENT VASCULAR SURGERY FOLLOW-UP SERVICE DATE: 09/26/2020 SERVICE TIME: 2:17 PM PRIMARY CARE PHYSICIAN: Mario Williamson MD REFERRING PROVIDER: Mario Williamson MD [address] [place] [address] [address] Consult requested for an opinion regarding the evaluation and treatment of the above. My final impression and recommendations will be communicated back to the requesting physician by way of the shared medical record or letter via US mail. Reason for Visit: f/u R TCAR History of Present Illness: Skye Marte is a 69 y.o. male s/p R TCAR (11/25/2019 - [place]) for symptomatic carotid stenosis and R MCA stroke. Since procedure he denies any new neurologic events. Patientdenies any new symptoms of TIA/stroke, history of numbness or weakness of upper of lower extremities, amaurosis fugax, or speech or word finding difficulties. He reports since stroke he has shorter temper. Continues to have mild L hand numbness, but not disruptive t live. Workup regarding event otherwise unremakrable. Ziopatch negative. Continues on ASA 81mg and atorvastatin 80mg daily. Currently not taking any BP meds. Currently not smoking Past Medical History: Diagnosis Date ??? Carotid stenosis, symptomatic w/o infarct, right 11/27/2019 11/25/2019: Right internal carotid artery TCAR (transcarotid artery revascularization) with ENROUTE transcarotid neuroprotection and stent system (10x30 Enroute Stent, 10x 40 Enroute Stent) ??? 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 PRO PLACE TRANSCATHETER STENT, CCA W EMBOLIC PROECT Right 11/25/2019 @TRANSCATH INTRAVASCULAR STENT,CAROTID,PERC,W\EMBOLIC PROT. (WRVU 18) performed by Sameera Luong MD at [facility] MAIN OR No family history on file. Social History Tobacco Use ??? Smoking status: Former Smoker Packs/day: 0.50 Years: 20.00 Pack years: 10.00 Types: Cigarettes, Cigars ??? Smokeless tobacco: Former User Quit date: 1999 Substance Use Topics ??? Alcohol use: Not on file ??? Drug use: Not on file Current Outpatient Medications Medication Sig Dispense Refill ??? multivitamin with minerals and lutein (Multivitamin 50 Plus) Tablet Take by mouth. ??? atorvastatin (Lipitor) 80 mg Tablet Take 1 tablet by mouth every evening. 90 tablet 3 ??? aspirin 81 mg Tablet, Chewable Take 81 mg by mouth daily. 30 tablet 3 ??? acetaminophen (Tylenol) 500 mg Tablet Take 1 tablet by mouth every 6 hours as needed for Pain or Fever (pain or temperature greater than 100 degrees F (measured by mouth)). 30 tablet 1 No current facility-administered medications for this visit. No Known Allergies COMPLETE REVIEW OF SYSTEMS GENERAL: No weight loss, malaise or fevers. HEENT: Negative for frequent or significant headaches NECK: Negative for pain and significant neck swelling RESPIRATORY: Negative for cough, wheezing or shortness of breath. CARDIOVASCULAR: Negative for chest pain, or palpitations. GI: Negative for abdominal discomfort, change in bowel habits, hematochezia, melena, nausea, vomiting : No history of dysuria, negative for CKD or ESRD Endo: No hx of DM MUSCULOSKELETAL: Negative for new joint pain. SKIN: Negative for new lesions. Chronic skin changes/ulcers PSYCH: Negative HEMATOLOGY/LYMPHOLOGY: Negative for prolonged bleeding, no history of clotting. NEURO: No new symptoms of TIA, amaurosis, weakness, or difficultly speaking +see HPI All other reviewed and negative other than HPI. Physical Exam: PHYSICAL EXAM Physical Exam Performed BP 136/81 (BP Location (NBP): Right arm, Patient Position: Sitting, BP Cuff Sizes: Adult (25-34 cm)) Pulse 83 Resp 16 Ht 167.6 cm (5' 6) Wt 102.1 kg (225 lb) BMI 36.32 kg/m?? CONSTITUTIONAL: alert, well developed, well nourished, in no acute distress NEUROLOGIC/PSYCHIATRIC: Grossly normal HEENT: normal atraumatic, no neck masses, normal thyroid, no jvd. R neck incision well healed LUNGS: breathing comfortably on RA HEART: regular rate and rhythm INTEGUMENTARY: Wound - nonr SURGICAL SITES: Rneck incision well healed MUSCULOSKELETAL: negative Pulses/Signals: b/l 2+ radial and brachial pulses DATA: Radiology: 09/26/2019 - Carotid duplex Stent 1 - Pre ?PSV (cm/s): 89 ?EDV (cm/s): 25 ?Location: Right CCA Distal Stent 1 - Prox ?PSV (cm/s): 82 ?EDV (cm/s): 22 ?Location: Right CCA Distal Stent 1 - Mid ?PSV (cm/s): 71 ?EDV (cm/s): 17 ?Location: Right ICA Prox Stent 1 - Distal ?PSV (cm/s): 44 ?EDV (cm/s): 18 ?Location: Right ICA Mid Stent 1 - Post ?PSV (cm/s): 49 ?EDV (cm/s): 17 ?Location: Right ICA Mid ICA Proximal, Right ?PSV (cm/s): 71 ?EDV (cm/s): 17 ?ICA/CCA: 0.9 ?Plaque Structure: Echogenic ?Plaque Surface: Smooth ?%Stenosis: 16-49% ICA Distal, Right ?PSV (cm/s): 46 ?EDV (cm/s): 16 ?ICA/CCA: 0.6 CCA Distal, Right ?PSV (cm/s): 75 ?EDV (cm/s): 19 ?Plaque Structure: Echogenic ?Plaque Surface: Irregular ?%Stenosis: <50% CCA Proximal, Right ?PSV (cm/s): 92 ?EDV (cm/s): 19 External Carotid Artery, Right ?PSV (cm/s): 158 ?EDV (cm/s): 22 ?%Stenosis: <50% Vertebral, Right ?PSV (cm/s): 28 ?EDV (cm/s): 9 ?Direction of Flow: Antegrade ICA Proximal, Left ?PSV (cm/s): 55 ?EDV (cm/s): 18 ?ICA/CCA: 0.6 ?Plaque Structure: Echogenic ?Plaque Surface: Irregular ?%Stenosis: 16-49% ICA Middle, Left ?PSV (cm/s): 48 ?EDV (cm/s): 20 ?ICA/CCA: 0.5 ICA Distal, Left ?PSV (cm/s): 46 ?EDV (cm/s): 17 ?ICA/CCA: 0.5 CCA Distal, Left ?PSV (cm/s): 88 ?EDV (cm/s): 21 ?%Stenosis: Minimal CCA Proximal, Left ?PSV (cm/s): 93 ?EDV (cm/s): 19 External Carotid Artery, Left ?PSV (cm/s): 133 ?EDV (cm/s): 21 ?%Stenosis: <50% Vertebral, Left ?PSV (cm/s): 39 ?EDV (cm/s): 16 ?Direction of Flow: Antegrade ? Interpretation: ?? RIGHT: The proximal margin of the stent has plaque extending from the [place] common carotid artery causing 30-40% stenosis by e-calipers. This represents a progression compared to previous exam. The proximal internal carotid artery mid stent has an hour glass shape causing 16-49% stenosis when compared to the more distal internal carotid artery. The remainder of the stent is patent with no evidence of plaque. The bifurcation level is in the mid neck. ? LEFT: There is bulky irregular plaque in the proximal internal carotid artery causing 16-49% stenosis when compared to the more distal internal carotid artery. Progression when compared to the previous exam. The bifurcation level is in the mid neck. ? Vertebral Artery Data: Patent vertebral arteries with normal antegrade Doppler waveforms and velocities bilaterally. ?? Previous Carotid Studies: Date ?RIGHT ICA Stenosis ??PSV ?? Ratio ?? LEFT ICA??Stenosis ?? PSV ?? Ratio ? 16-49% ? 82 ?1.00 ? <15% ? 54 ?1.10 ? 16-49% ? 52 ?0.60 ? <15% ? 54 ?0.70 Current Exam ? 16-49% ? 71 ?0.90 ? 16-49% ? 55 ?0.60 ?? 12/02/2019 - Ziopatch 1. Predominant rhythm is sinus. 2. No reported symptoms. 3. No sustained arrhythmias. 4. No atrial fibrillation or atrial flutter is observed. ??11/25/2019 - Echo 1. The left ventricular chamber size is normal. The quantitative left ventricular ejection fraction by biplane Valles's method is 65%. There are no left ventricular segmental wall motion abnormalities. Left ventricular diastolic function is normal. 2. Right ventricular global systolic function is normal. Pulmonary artery hypertension could not be assessed due to inadequate tricuspid regurgitation jet. 3. The left atrium is normal in size. The right atrium appears normal. 4. There are no hemodynamically significant valvular lesions. 5. The inferior vena cava is poorly visualized. 6. There are no prior echocardiograms available for comparison. I have personally reviewed the following images/data: duplex Impression: 69 y.o. male 9mo s/p R TCAR for R MCA stroke and symptomatic carotid stenosis. Remains w/out new neurologic events. Mild R CCA stenosis otherwise no evidence of significant stenosis w/in R ICA stent. Will plan to continue ASA and statin and surveillance. Congratulated him on remaining abstinent from cigarettes. Given age 69, past hx >100cig in lifetime recommended AAA screening which he has not had yet at next visit. Plan: - AAA screening - carotd duplex 6 mo - continue ASA and statin indefinitely SIGNATURE: Sameera Luong MD PATIENT NAME: Skye Marte DATE: September 26, 2020 TIME: 2:17 PM documented in this encounter Plan of Treatment Not on file documented as of this encounter Results * AAA Duplex, Complete/Bilateral (06/14/2021 8:33 AM EDT) VB Text Report Department: Vascular Surgery Lab Patient: [id number] (SKYE MARTE) CPT: 48512 ICD10: I63.239;I63.9 Referring Physician: SAMEERA LUONG MD ?? Phone: Indications: ??hx stroke ICD10 Diagnosis Code: I63.239, I63.9 Findings: Unilateral ?PSV (cm/s) ??EDV (cm/s) ??Diam AP (cm) ??Diam Lateral (cm) ?? Distal Aorta ?82 ? 1 ? 2.0 ?2.1 ?? Right ?PSV (cm/s) ??EDV (cm/s) ?? External Iliac Artery, Proximal ?47 ? 1 ?? External Iliac Artery, Mid ? 60 ? 1 ?? External Iliac Artery, Distal ?49 ? 1 ?? Left ? PSV (cm/s) ??EDV (cm/s) ?? External Iliac Artery, Proximal ?36 ? 0 ?? External Iliac Artery, Mid ? 45 ? 1 ?? External Iliac Artery, Distal ?43 ? 1 ?? Interpretatio n: Much of the abdominal aorta as well as the bilateral common iliac arteries not visualized due to bowel gas. The distal aorta is patent and without evidence of stenosis or aneurysm. Patent external iliac arteries with no evidence of stenosis. Comparison: ??No previous study in our vascular lab database for comparison. Electronicall y Signed by: SAMEERA LUONG MD on 2021-06-15 07:03:36 AM [facility] VB Text Report End of Report [facility] 06/14/2021 8:33 AM EDT Sameera Luong MD VASCULAR ORDERABLES [facility] * Carotid Duplex, Bilateral (06/14/2021 8:33 AM EDT) VB Text Report Department: Vascular Surgery Lab Patient: [id number] (SKYE MARTE) CPT: 15888 ICD10: I63.9;I63.239;I 65.23 Referring Physician: SAMEERA LUONG MD ?? Phone: Indications: hx RIGHT TCAR ICD10 Diagnosis Code: I63.9, I63.239 Findings: Stent 1 - Pre ? PSV (cm/s): 86 ? EDV (cm/s): 24 ? Location: Right Stent Stent 1 - Prox ? PSV (cm/s): 71 ? EDV (cm/s): 20 ? Location: Right Stent Stent 1 - Mid ? PSV (cm/s): 72 ? EDV (cm/s): 18 ? Location: Right Stent Stent 1 - Distal ? PSV (cm/s): 41 ? EDV (cm/s): 14 ? Location: Right Stent Stent 1 - Post ? PSV (cm/s): 39 ? EDV (cm/s): 15 ? Location: Right Stent ICA Proximal, Right ? PSV (cm/s): 91 ? EDV (cm/s): 31 ? ICA/CCA: 1.2 ? Plaque Structure: Echogenic ? Plaque Surface: Irregular ? %Stenosis: 16-49% ICA Distal, Right ? PSV (cm/s): 61 ? EDV (cm/s): 25 ? ICA/CCA: 0.8 CCA Distal, Right ? PSV (cm/s): 73 ? EDV (cm/s): 26 ? %Stenosis: <50% CCA Proximal, Right ? PSV (cm/s): 105 ? EDV (cm/s): 26 External Carotid Artery, Right ? PSV (cm/s): 145 ? EDV (cm/s): 13 ? %Stenosis: <50% Vertebral, Right ? PSV (cm/s): 41 ? EDV (cm/s): 14 ? Direction of Flow: Antegrade ICA Proximal, Left ? PSV (cm/s): 65 ? EDV (cm/s): 26 ? ICA/CCA: 0.9 ? Plaque Structure: Echogenic ? Plaque Surface: Irregular ? %Stenosis: 16-49% ICA Distal, Left ? PSV (cm/s): 51 ? EDV (cm/s): 20 ? ICA/CCA: 0.7 CCA Distal, Left ? PSV (cm/s): 72 ? EDV (cm/s): 20 ? %Stenosis: Minimal CCA Proximal, Left ? PSV (cm/s): 113 ? EDV (cm/s): 29 External Carotid Artery, Left ? PSV (cm/s): 88 ? EDV (cm/s): 15 ? %Stenosis: <50% Vertebral, Left ? PSV (cm/s): 74 ? EDV (cm/s): 27 ? Direction of Flow: Antegrade Interpretation: RIGHT: [...] 71 ?0.90 ? 16-49% ? 55 ?0.60 Current Exam ? 16-49% ? 91 ?1.20 ? 16-49% ? 65 ?0.90 Electronically Signed by: SAMEERA LUONG MD on 2021-06-15 07:02:54 AM [facility] VB Text Report End of Report [facility] 06/14/2021 8:33 AM EDT Sameera Luong MD VASCULAR ORDERABLES Performing Organization Address City/State/[facility] Co de Phone Number VASCU[facility] documented in this encounter Visit Diagnoses Diagnosis Carotid stenosis, symptomatic, with infarction Occlusion and stenosis of carotid artery with cerebral infarction Cerebrovascular accident (CVA), unspecified mechanism documented in this encounter Care Teams Health Unit Clerk Relationship Specialty Start Date End Date Mario Williamson MD [address] [place] [address] PCP - General Family Medicine 11/24/19 documented as of this encounter
--- OUTSIDE RECORDS SUMMARY | 2024-05-28 21:19 | XMS_ITS | Encounter Summary ---
Author Organization [facility] Address [address] [place] [address] Care Team Providers Care Shingle Inspector Name Role Phone Israel Aguirre DO Primary Care Provider [phone] Encounter Details Date Type Department Care Team (Late st Contact Info) Description 05/26/2010 Results Only [facility] [phone] Reggie Sanchez MD [address] [address] Social History Tobacco Use Types Packs/Day Years Used Date Smoking Tobacco: Never Assessed Sex and Gender Information Value Date Recorded Sex Assigned at Not on file Gender Identity Not on file Sexual Orientation Not on file documented as of this encounter Plan of Treatment Not on file documented as of this encounter Procedures Procedure Name Priority Date/Time Associated Diagnosis Comments SURGICAL PATHOLOGY Routine 05/26/2010 0:00 EDT documented in this encounter Results * SURGICAL PATHOLOGY (05/26/2010 0:00 EDT) Pathology Report: SURGICAL PATHOLOGY REPORT ? Reports generated via electronic interface contain original data; ? however they are lacking the format of the original report. ? Caution should be taken when reading/interpreti ng unformatted reports. ? Name: ? ROSANNA, SKYE C ? Accession #: ? [id number] ? : ? 1950 (Age: 59) ??M ? Collect Date: ? 05/26/2010 ? Location: ? [facility] ? Receive Date: ? 05/27/2010 ? Provider: REGGIE NISBET MD ? Copy to: DELROY DARIUS PA ? Final Pathologic Diagnosis: ? A. ?Prostate, right medial apex, needle biopsy: ? 1. ?Atypical small acinar proliferation (AYAN). ? B. ?Prostate, right lateral apex, needle biopsy: ? 1. ?Benign prostatic tissue. ? 2. ? Negative for malignancy. ? C. ?Prostate, right medial mid, needle biopsy: ? 1. ?Benign prostatic tissue. ? 2. ? Negative for prostatic adenocarcinoma. ? D. ?Prostate, right lateral mid, needle biopsy: ? 1. ?Adenocarcinoma. ? - Histologic grade: ?- Primary (predominant) Concordia pattern: ??Grade 3. ?- Secondary (worst remaining) David pattern: ??Grade 3. ?- Total Concordia score: ??6. ? - Number of cores positive/total number of cores: ??1/1. ? - 60% of the core involved by tumor. ? - Perineural invasion: ??Not identified. ?2. ?? High grade prostatic intraepithelial neoplasia (PIN): ??Not ? identified. ? E. ?? Prostate, right medial base, needle biopsy: ? 1. ?? Benign prostatic tissue. ? 2. ?? Negative for prostatic adenocarcinoma. ? F. ?? Prostate, right lateral base, needle biopsy: ? 1. ?? Benign prostatic tissue. ? 2. ?? Negative for prostatic adenocarcinoma. ? G. ?? Prostate, left medial apex, needle biopsy: ? 1. ?? Focal acute prostatitis and atrophy. ? 2. ?? Negative for prostatic adenocarcinoma. ? H. ?? Prostate, left lateral apex, needle biopsy: ? 1. ?? Prostatic atrophy. ? 2. ?? Negative for prostatic adenocarcinoma. ? I. ? Prostate, left medial mid, needle biopsy: ?1. ?? Focal chronic prostatitis. ?2. ?? Negative for prostatic adenocarcinoma. ? J. ?Prostate, left lateral mid, needle biopsy: ?1. ?? Benign prostatic tissue. ?2. ?? Negative for prostatic adenocarcinoma. ? K. ?? Prostate, left medial base, needle biopsy: ?1. ?? Benign prostatic tissue. ?2. ?? Negative for prostatic adenocarcinoma. ? L. ?? Prostate, left lateral base, needle biopsy: ?1. ?? Benign prostatic tissue. ?2. ?? Negative for prostatic adenocarcinoma. ?3. ?? Fragment of normal colonic mucosa ? Document reviewed and electronically signed by: ? Cintia Mclean MD ? Report ??Date: 06/01/2010 15:48 ? By the signature above, the attending physician certifies that he/she has ? personally conducted a gross and/or microscopic examination of the described ? specimens and rendered or confirmed the above diagnosis. ? Specimen(s) Received: ? TRUS bx prostate: ? A. ?Rt med apex (#1) ? B. ? Rt lat apex (#2) ? C. ? Rt med mid (#3) ? D. ? Rt lat mid (#4) ? E. ? Rt med base (#5) ? F. ? Rt lat base (#6) ? G. ? Lt med apex (#7) ? H. ? Lt lat apex (#8) ? I. ? Lt med mid (#9) ? J. ? Lt lat mid (#10) ? K. ? Lt med base (#11) ? L. ? Lt lat base (#12) ? Clinical History: ? Elevated PSA ? Gross Description: ? Received in formalin labelled [place], Skye and right medial apex is a ? single 1.3 cm in length by 0.1 cm in diameter garcia-white soft tissue core. ? Submitted in toto in (A). ? Received in formalin labelled Skye Morris and right lateral apex is a single 0.7 cm in length by 0.1 cm in diameter garcia-white soft tissue core. ??Submitted in toto in (B). ? Received in formalin labelled Skye Morris and right medial mid is a single ?? 1.4 cm in length by 0.1 cm in diameter garcia-white soft tissue core. ??Submitted in toto in (C). ? Received in formalin labelled Skye Morris and right lateral mid is a single ?? 0.7 cm in length by 0.1 cm in diameter garcia-white white soft tissue core. ? Submitted in toto in (D). ? Received in formalin labelled Skye Morris and right medial base is a single ?? 1.2 cm in length by 0.1 cm in diameter soft tissue core. ??Submitted in toto in ?? (E). ? Received in formalin labelled Skye Morris and right lateral base is a single 0.5 cm in length by 0.1 cm in diameter garcia-white soft tissue core. ??Submitted in toto in (F). ? Received in formalin labelled Skye Morris and left medial apex is a single ?? 1.9 cm in length by 0.1 cm in diameter garcia-white soft tissue core. ??Submitted in toto in (G). ? Received in formalin labelled Skye Morris and left lateral apex is a single ?? 1.7 cm in length by 0.1 cm in diameter garcia-white soft tissue core. ??Submitted in toto in (H). ? Received in formalin labelled Skye Morris and left medial mid is a single 1.6 cm in length by 0.1 cm in diameter garcia-white soft tissue core. ??Submitted in ? toto in (I). ? Received in formalin labelled Skye Morris and left lateral mid is a single ?? 1.7 cm in length by 0.1 cm in diameter garcia-white soft tissue core. ??Submitted in toto in (J). ? Received in formalin labelled Skye Morris and left medial base is a single ?? 1.4 cm in length by 0.1 cm in diameter garcia-white soft tissue core. ??Submitted in toto in (K). ? Received in formalin labelled [place], Skye and left lateral base is a single ?? 1.3 cm in length by 0.1 cm in diameter garcia-white soft tissue core. ??Submitted in toto in (L). ??(L. [place])/mms ? End of Report ? [facility] 05/26/2010 05/27/2010 8:3 8 EDT Reggie Sanchez MD PATHOLOGY ORDERABLES [facility] [address] [place] [address] documented in this encounter Visit Diagnoses Not on filedocumented in this encounter Care Teams Shingle Inspector Relationship Specialty Start Date End Date Israel Aguirre, [address] [place] [address] PCP - General 03/02/09 05/31/10 documented as of this encounter
--- OUTSIDE RECORDS SUMMARY | 2024-05-28 21:19 | XMS_ITS | Encounter Summary ---
Author Organization [facility] Address [address] [place] [address] Care Team Providers Care Distribution Lead Name Role Phone Unknown, Provider Primary Care Provider [phone] Encounter Details Date Type Department Care Team ([facility] st Contact Info) Description 09/03/2023 Lab Requisition [facility] Pathology & Laboratory Medicine - [address] [address] Outr Resulting Lab, Provider Social History Tobacco Use Types Packs/Day Years Used Date Smoking Tobacco: Never Assessed Sex and Gender Information Value Date Recorded Sex Assigned at Not on file Gender Identity Not on file Sexual Orientation Not on file documented as of this encounter Plan of Treatment Not on file documented as of this encounter Procedures Procedure Name Priority Date/Time Associated Diagnosis Comments SYPHILIS SEROLOGY Routine 09/03/2023 9:32 EST documented in this encounter Results * SYPHILIS SEROLOGY (09/03/2023 9:32 EST) Syphilis Serology Negative Negative 09/04/2023 9:16 EST [facility] Blood VENOUS BLOOD / Unknown 09/03/2023 9:32 EST 09/03/2023 17:15 EST Provider Outr Resulting Lab IMMUNOLOGY A ND SEROLOGY ORDERABLES [facility] [address] [place] [address] documented in this encounter Visit Diagnoses Not on filedocumented in this encounter Care Teams Distribution Lead Relationship Specialty Start Date End Date Unknown, ProviderMD PCP - General 06/01/10 documented as of this encounter
--- OUTSIDE RECORDS SUMMARY | 2024-05-28 21:19 | XMS_ITS | Clinical Summary ---
Author Organization [facility] Address [address] [place] [address] Care Team Providers Care General Education Instructor Name Role Phone Unknown, Provider Primary Care Provider [phone] Social History Tobacco Use Types Packs/Day Years Used Date Smoking Tobacco: Never Assessed Sex and Gender Information Value Date Recorded Sex Assigned at Not on file Gender Identity Not on file Sexual Orientation Not on file Plan of Treatment Health Maintenance Due Date Last Done Comments Hepatitis C Screen 1950 RSV Immunization ( o r 60+ Years) (1 - 1-dose 60+ series) 2011 Fall Risk Screening 2016 COVID-19 Vaccine ( season) 2023 Care Teams General Education Instructor Relationship Specialty Start Date End Date Unknown, Provider, PCP - General 06/01/10
--- OUTSIDE RECORDS SUMMARY | 2024-05-28 21:19 | XMS_ITS | Encounter Summary ---
Author Organization [facility] Address [place] [id number] Care Team Providers Care Marketing Operations Manager Name Role Phone Mario Williamson MD Primary Care Provider [phone] Reason for Referral * Diagnostic Test (Routine) - Closed Specialty Diagnoses / Procedures Referred By Contac t Referred To Contact Diagnoses Cerebrovascular accident (CVA), unspecified mechanism Procedures Kiran Sorensen PA [facility] [place] [address] Referral ID Status Reason Start Date Expiration Date V isits Requested Visits Authorized [id number] Closed Specialty Service Requested 11/26/2019 11/25/2020 1 1 Reason for Visit * Diagnostic Test (Routine) - Closed Specialty Diagnoses / Procedures Referred By Contac t Referred To Contact Diagnoses Cerebrovascular accident (CVA), unspecified mechanism Procedures Kiran Sorensen PA [facility] [place] [address] Referral ID Status Reason Start Date Expiration Date V isits Requested Visits Authorized [id number] Closed Specialty Service Requested 11/26/2019 11/25/2020 1 1 Encounter Details Date Type Department Care Team (Latest Contact Info) Description 12/02/2019 10:25 AM EDT - 12/02/2019 11:59 PM EDT Hospital Encounter Non[place] [address] Martha Price MD [facility] [place] [address] Cerebrovascular accident (CVA), unspecified mechanism Discharge Disposition: Home Social History Tobacco Use Types Packs/Day Years Used Date Smoking Tobacco: Never Assessed Sex and Gender Information Value Date Recorded Sex Assigned at Not on file Gender Identity Not on file Sexual Orientation Not on file documented as of this encounter Medications at Time of Discharge Medication Sig Dispensed Refills Start Date End Date atorvastatin (Lipitor) 80 mg Tablet Take 1 tablet by mouth every evening. 90 tablet 3 11/27/2019 aspirin 81 mg Tablet, Chewable Take 81 mg by mouth daily. 30 tablet 3 11/28/2019 acetaminophen (Tylenol) 500 mg Tablet Take 1 tablet by mouth every 6 hours as needed for Pain or Fever (pain or temperature greater than 100 degrees F (measured by mouth)). 30 tablet 1 11/27/2019 clopidogreL (Plavix) 75 mg Tablet Take 1 tablet by mouth daily. 90 tablet 3 11/28/2019 09/26/2020 documented as of this encounter Plan of Treatment Not on file documented as of this encounter Procedures Procedure Name Priority Date/Time Associated Diagnosis Comments ZIOPATCH Routine 12/02/2019 10:40 AM EDT Cerebrovascular accident (CVA), unspecified mechanism documented in this encounter Results * Ziopatch (12/02/2019 10:40 AM EDT) Anatomical Region Laterality Modality Other Narrative 12/22/2019 8:[address] [facility] ? Zio Patch? Ambulatory Cardiac Event Monitor Report Indication: stroke Duration of recording ? 13 days 22 hours Summary Data Predominant rhythm ? sinus rhythm with prolonged [place] interval Wenckebach physiology is noted during normal sleeping hours. Minimum sinus rate 48 bpm Maximum sinus rate 149 bpm Average heart rate 83 bpm Atrial fibrillation none Ectopic beats <1% atrial premature beats (APC? s) <1% ventricular premature beats (VPC's) No runs of SVT were detected No high grade ectopy Triggered and Patient Diary Events There were 0 triggered and 0 patient diary events: Conclusion(s): ?? 1) Predominant rhythm is sinus. 2) No reported symptoms. 3) No sustained arrhythmias. 4) No atrial fibrillation or atrial flutter is observed. Ayan Silva MD [facility] Cardiac Electrophysiology 12/22/2019 8:31 AM Martha Price MD [facility] documented in this encounter Visit Diagnoses Diagnosis Cerebrovascular accident (CVA), unspecified mechanism documented in this encounter Care Teams Marketing Operations Manager Relationship Specialty Start Date End Date Mario Williamson MD [address] [place] [address] PCP - General Family Medicine 11/24/19 documented as of this encounter
--- OUTSIDE RECORDS SUMMARY | 2024-05-28 21:19 | XMS_ITS | Encounter Summary ---
[place] [address] Care Team Providers Care Exhibit Preparator Name Role Phone Mario Williamson MD Primary Care Provider [phone] Encounter Details Date Type Department Care Team (Late st Contact Info) Description 07/02/2023 Telephone [place] [address] Selma Vogel Social History Tobacco Use Types Packs/Day Years Used Date Smoking Tobacco: Former Cigarettes 0.5 20 Cigars Smokeless Tobacco: Former Quit: 2000 Sex and Gender Information Value Date Recorded Sex Assigned at Not on file Gender Identity Not on file Sexual Orientation Not on file documented as of this encounter Miscellaneous Notes * Telephone Encounter - Selma Vogel - 07/02/2023 4:22 PM EDT LVM X1 SG B CAR DUP - Carotid Stenosis 1Y f/u with Dr Nice, Jenelle Michael or Molly Peña 07-02-23 sg documented in this encounter Plan of Treatment Not on file documented as of this encounter Visit Diagnoses Not on filedocumented in this encounter Care Teams Exhibit Preparator Relationship Specialty Start Date End Date Mario Williamson MD [address] [place] [address] PCP - General Family Medicine 11/24/19 documented as of this encounter
--- OUTSIDE RECORDS SUMMARY | 2024-05-28 21:19 | XMS_ITS | Referral Summary ---
Author Organization [facility] Address [address] [place] [address] Care Team Providers Care Rehab Nursing Tech Name Role Phone Unknown, Provider Primary Care Provider [phone] Social History Tobacco Use Types Packs/Day Years Used Date Smoking Tobacco: Never Assessed Sex and Gender Information Value Date Recorded Sex Assigned at Not on file Gender Identity Not on file Sexual Orientation Not on file Plan of Treatment Not on file Care Teams Rehab Nursing Tech Relationship Specialty Start Date End Date Unknown, Provider, PCP - General 06/01/10
--- OUTSIDE RECORDS SUMMARY | 2024-05-28 21:19 | XMS_ITS | Encounter Summary ---
[place] [address] Care Team Providers Care Restaurant Assistant Name Role Phone Mario Williamson MD Primary Care Provider [phone] Encounter Details Date Type Department Care Team (Late st Contact Info) Description 09/20/2023 2:00 PM EST Tech Visit [place] [address] Ayan Acosta, RVT Presence of internal carotid stent Social History Tobacco Use Types Packs/Day Years [...] Associated Diagnosis Comments CAROTID DUPLEX, BILATERAL Routine 09/20/2023 1:48 PM EST Presence of internal carotid stent documented in this encounter Results * Carotid Duplex, Bilateral (09/20/2023 1:48 PM EST) VB Text Report Department: Vascular Surgery Lab Patient: [id number] (SKYE MARTE) CPT: 86078 Referring Physician: SAMEERA LUONG MD ?? Phone: Indications: hx RIGHT ICA stenting Findings: Stent 1 - Pre ? PSV (cm/s): 89 ? EDV (cm/s): 24 ? Location: Right Stent Stent 1 - Prox ? PSV (cm/s): 90 ? EDV (cm/s): 25 ? Location: Right Stent Stent 1 - Mid ? PSV (cm/s): 62 ? EDV (cm/s): 16 ? Location: Right Stent Stent 1 - Distal ? PSV (cm/s): 46 ? EDV (cm/s): 17 ? Location: Right Stent Stent 1 - Post ? PSV (cm/s): 39 ? EDV (cm/s): 12 ? Location: Right Stent ICA Proximal, Right ? PSV (cm/s): 65 ? EDV (cm/s): 15 ? ICA/CCA: 0.8 ? Plaque Structure: Echogenic ? Plaque Surface: Irregular ? %Stenosis: 16-49% ICA Distal, Right ? PSV (cm/s): 51 ? EDV (cm/s): 20 ? ICA/CCA: 0.6 CCA Distal, Right ? PSV (cm/s): 83 ? EDV (cm/s): 22 ? %Stenosis: <50% CCA Proximal, Right ? PSV (cm/s): 115 ? EDV (cm/s): 26 External Carotid Artery, Right ? PSV (cm/s): 171 ? EDV (cm/s): 19 ? %Stenosis: <50% Vertebral, Right ? PSV (cm/s): 38 ? EDV (cm/s): 8 ? Direction of Flow: Antegrade ICA Proximal, Left ? PSV (cm/s): 57 ? EDV (cm/s): 23 ? ICA/CCA: 0.8 ? Plaque Structure: Echogenic ? Plaque Surface: Irregular ? %Stenosis: 16-49% ICA Distal, Left ? PSV (cm/s): 53 ? EDV (cm/s): 22 ? ICA/CCA: 0.7 CCA Distal, Left ? PSV (cm/s): 72 ? EDV (cm/s): 18 ? %Stenosis: <50% CCA Proximal, Left ? PSV (cm/s): 131 ? EDV (cm/s): 25 External Carotid Artery, Left ? PSV (cm/s): 119 ? EDV (cm/s): 23 ? %Stenosis: <50% Vertebral, Left ? PSV (cm/s): 36 ? EDV (cm/s): 12 ? Direction of Flow: Antegrade Interpretation: RIGHT: [...] 91 ?1.20 ? 16-49% ? 65 ?0.90 ? 16-49% ? 46 ?0.70 ? 16-49% ? 48 ?0.70 Current Exam ? 16-49% ? 65 ?0.80 ? 16-49% ? 57 ?0.80 Electronically Signed by: CARMEN IVY on 2023-09-24 04:44:58 PM [facility] VB Text Report End of Report [facility] 09/20/2023 1:48 PM EST Sameera Luong MD VASCULAR ORDERABLES [facility] documented in this encounter Visit Diagnoses Diagnosis Presence of internal carotid stent documented in this encounter Care Teams Restaurant Assistant Relationship Specialty Start Date End Date Mario Williamson MD [address] [place] [address] PCP - General Family Medicine 11/24/19 documented as of this encounter
--- OUTSIDE RECORDS SUMMARY | 2024-05-28 21:19 | XMS_ITS | Encounter Summary ---
Author Organization [facility] Address [address] [place] [address] Care Team Providers Care Head Porter Baggage Name Role Phone Unknown, Provider MD Primary Care Provider Encounter Details Date Type Department Care Team (Late st Contact Info) Description 03/14/2021 Lab Requisition [facility] Pathology & Laboratory Medicine - [address] [address] Outr Resulting Lab, Provider Social History Tobacco [...] Procedure Name Priority Date/Time Associated Diagnosis Comments PSA TOTAL, DIAGNOSTIC Routine 03/14/2021 9:32 EDT documented in this encounter Results * PSA TOTAL, DIAGNOSTIC (03/14/2021 9:32 EDT) PSA <0.1 0.0 - 4.5 ng/mL 03/14/2021 16:58 EDT [facility] Blood VENOUS BLOOD / Unknown 03/14/2021 9:32 EDT 03/14/2021 15:51 EDT Narrative [facility] - 03/14/2021 16:58 EDT NOTE: Serum PSA concentration should not be interpreted as absolute evidence for the presence or absence of malignant disease. Assayed on Siemens OutsmartIA Healthy Harvestaur XPT using chemiluminescent technology.??Values obtained by using different assay methods cannot be used interchangeably. Provider Outr Resulting Lab CHEMISTRY & BLOOD GAS ORDERABLES [facility] [address] [place] [address] documented in this encounter Visit Diagnoses Not on filedocumented in this encounter Care Teams Head Porter Baggage Relationship Specialty Start Date End Date Unknown, Provider, PCP - General 06/01/10 documented as of this encounter
--- OUTSIDE RECORDS SUMMARY | 2024-05-28 21:19 | XMS_ITS | Encounter Summary ---
Author Organization [facility] [place] [address] Care Team Providers Care Electrician Rectifier Maintenance Name Role Phone Mario Williamson MD Primary Care Provider [phone] Reason for Referral * Diagnostic Test (Priority 1) - Closed Specialty Diagnoses / Procedures Referred By Contac t Referred To Contact Diagnoses Presence of internal carotid stent Procedures Carotid Duplex, Bilateral Sameera Luong MD [facility] [place] [place] [address] [facility] Vascular Lab [address], [place] [address] Referral ID Status Reason Start Date Expiration Date V isits Requested Visits Authorized [id number] Closed Specialty Service Requested 07/20/2022 07/20/2023 1 1 Encounter Details Date Type Department Care Team (Late st Contact Info) Description 07/20/2022 1:45 PM EDT Office [place] [address] Sameera Luong MD [facility] [place] [address] Internal carotid artery stent present; Presence of internal carotid stent Social History [...] Sign Reading Time Taken Comments Blood Pressure 111/72 07/20/2022 1:40 PM EDT Pulse 80 07/20/2022 1:36 PM EDT Temperature - - Respiratory Rate - - Oxygen Saturation 98% 07/20/2022 1:36 PM EDT Inhaled Oxygen Concentration - - Weight 95.3 kg (210 lb) 07/20/2022 1:36 PM EDT Height 167.6 cm (5' 6) 07/20/2022 1:36 PM EDT p atient reporte Body Mass Index 33.89 07/20/2022 1:36 PM EDT documented in this encounter Progress Notes * Sameera Luong MD - 07/20/2022 1:45 PM EDT Images from the original note were not included. Section of Vascular Surgery [facility] [place] [address] OUTPATIENT VASCULAR SURGERY FOLLOW-UP SERVICE DATE: 07/20/2022 SERVICE TIME: 2:08 PM PRIMARY CARE PHYSICIAN: Mario Williamson MD REFERRING PROVIDER: Mario Williamson MD [address] [address] Reason for Visit: Follow up after TCAR History of Present Illness: Skye Marte is a 71 y.o. 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 He is here for his routine duplex follow up. Hehas been otherwise feeling well with no changes in his health. He denies TIA, weakness, numbness, slurred speech, amarosis fugax. He takes ASA and atorvastatin. Blood pressure is well controlled. He is to smoke pipes and cigars, however he has remained abstinent. He denies any new hospitalizations or medical issues. He is enjoying walking with his new grand puppy. Past Medical History: Diagnosis Date ??? Carotid [...] 18) performed by Sameera Luong MD at [facility] MAIN OR No family history on file. Social History Tobacco Use ??? Smoking status: Former Smoker Packs/day: 0.50 Years: 20.00 Pack years: 10.00 Types: Cigarettes, Cigars ??? Smokeless tobacco: Former User Quit date: 1999 Current Outpatient Medications Medication Sig Dispense Refill [...] F (measured by mouth)). 30 tablet 1 ??? metoprolol succinate XL (Toprol-XL) 25 mg Tablet Sustained Release 24 hr Take 25 mg by mouth daily. No current facility-administered medications for this visit. No Known Allergies COMPLETE REVIEW OF SYSTEMS All other reviewed and negative other than HPI. Physical Exam: PHYSICAL EXAM Physical Exam Performed BP 111/72 (BP Location (NBP): Left arm, Patient Position: Sitting, BP Cuff Sizes: Large Adult (32-43 cm)) Pulse 80 Ht 167.6 cm (5' 6) Comment: patient reporte Wt 95.3 kg (210 lb) SpO2 98% BMI 33.89 kg/m?? CONSTITUTIONAL: alert, well developed, well nourished, in no acute distress NEUROLOGIC/PSYCHIATRIC: Grossly normal HEENT: normal atraumatic. No audible carotid bruits b/l. Right neck incision well-healed. LUNGS: Normal. HEART: RRR ABDOMEN: soft, nontender, no palpable masses, obese SURGICAL SITES: well healed scar on the R clavicle MUSCULOSKELETAL: negative Pulses/Signals: 2+ radial pulses bilaterally, bilateral femoral pulses DATA: Radiology: I have personally reviewed the following images/data: Carotid duplex 07/20/2022 carotid duplex Stent 1 - Pre ?PSV (cm/s): 78 ?EDV (cm/s): 20 ?Location: Right Stent Stent 1 - Prox ?PSV (cm/s): 72 ?EDV (cm/s): 20 ?Location: Right Stent Stent 1 - Mid ?PSV (cm/s): 46 ?EDV (cm/s): 13 ?Location: Right Stent Stent 1 - Distal ?PSV (cm/s): 43 ?EDV (cm/s): 13 ?Location: Right Stent Stent 1 - Post ?PSV (cm/s): 59 ?EDV (cm/s): 14 ?Location: Right Stent ICA Proximal, Right ?PSV (cm/s): 46 ?EDV (cm/s): 16 ?ICA/CCA: 0.6 ?Plaque Structure: Echogenic ?Plaque Surface: Irregular ?%Stenosis: 16-49% ICA Distal, Right ?PSV (cm/s): 51 ?EDV (cm/s): 18 ?ICA/CCA: 0.7 CCA Distal, Right ?PSV (cm/s): 73 ?EDV (cm/s): 19 ?%Stenosis: <50% CCA Proximal, Right ?PSV (cm/s): 69 ?EDV (cm/s): 18 External Carotid Artery, Right ?PSV (cm/s): 187 ?EDV (cm/s): 25 ?%Stenosis: <50% Vertebral, Right ?PSV (cm/s): 39 ?EDV (cm/s): 11 ?Direction of Flow: Antegrade ICA Proximal, Left ?PSV (cm/s): 48 ?EDV (cm/s): 18 ?ICA/CCA: 0.7 ?Plaque Structure: Echogenic ?Plaque Surface: Irregular ?%Stenosis: 16-49% ICA Distal, Left ?PSV (cm/s): 46 ?EDV (cm/s): 18 ?ICA/CCA: 0.7 CCA Distal, Left ?PSV (cm/s): 70 ?EDV (cm/s): 19 ?%Stenosis: Minimal CCA Proximal, Left ?PSV (cm/s): 99 ?EDV (cm/s): 20 External Carotid Artery, Left ?PSV (cm/s): 103 ?EDV (cm/s): 22 ?%Stenosis: <50% Vertebral, Left ?PSV (cm/s): 59 ?EDV (cm/s): 20 ?Direction of Flow: Antegrade ? Interpretation: ?? RIGHT: There is smooth plaque in the common carotid artery causing <50% stenosis. Hourglass shaped stent in the proximal internal carotid artery causing 16-49% stenosis when compared to the more distal internal carotid artery. The bifurcation level is in the mid neck. No significant change compared to previous exam. ? LEFT: There is bulky irregular plaque in the proximal internal carotid artery causing 16-49% stenosis (low end of range) when compared to the more distal internal carotid artery. The bifurcation level is in the mid neck. No significant change compared to previous exam. ? Vertebral Artery Data: Patent vertebral arteries with normal antegrade Doppler waveforms and velocities bilaterally. ? Previous Carotid Studies: Date ?RIGHT ICA Stenosis [...] 46 ?0.70 ? 16-49% ? 48 ?0.70 ?? Personally reviewed carotid duplex. Impression: Skye Marte is a 70 y.o. male with history of R TCAR 11/2019 from a R MCA stroke who hasbeen doing well since his last follow up visit. Remains asymptomatic from a neurologic standpoint and without evidence of restenosis on duplex. He has repeat duplex that has been stable and his AAA screening shows no aneurysm. Plan: Follow up in 1 year with carotid duplex or earlier with any symptoms. Continue ASA 81mg and lipitor 80mg daily indefinitely SIGNATURE: Sameera Luong MD PATIENT NAME: Skye Marte DATE: July 20, 2022 TIME: 2:08 PM documented in this encounter Plan of Treatment Not on file documented as of this encounter Results * Carotid Duplex, Bilateral (09/20/2023 1:48 PM EST) VB Text Report Department: Vascular Surgery Lab Patient: [id number] (SKYE MARTE) CPT: 25818 Referring Physician: SAMEERA LUONG MD ?? Phone: [...] documented in this encounter Visit Diagnoses Diagnosis Internal carotid artery stent present Presence of internal carotid stent documented in this encounter Care Teams Electrician Rectifier Maintenance Relationship Specialty Start Date End Date Mario Williamson MD [address] [place] [address] [address] [place] [address] PCP - General Family Medicine 11/24/19 documented as of this encounter
--- OUTSIDE RECORDS SUMMARY | 2024-05-28 21:19 | XMS_ITS | Encounter Summary ---
Author Organization [facility] Address [address] [place] [address] Care Team Providers Care Log Skidder Name Role Phone Unknown, Provider Primary Care Provider Encounter Details Date Type Department Care Team ([facility] st Contact Info) Description 08/12/2019 Lab Requisition [facility] Pathology & Laboratory Medicine - [facility] [address] [place] [address] Unknown, Provider, Social History Tobacco Use Types Packs/Day Years Used Date Smoking Tobacco: Never Assessed Sex and Gender Information Value Date Recorded Sex Assigned at Not on file Gender Identity Not on file Sexual Orientation Not on file documented as of this encounter Plan of Treatment Not on file documented as of this encounter Procedures Procedure Name Priority Date/Time Associated Diagnosis Comments RHEUMATOID FACTOR Routine 08/12/2019 9:17 EST documented in this encounter Results * RHEUMATOID FACTOR (08/12/2019 9:17 EST) Rheumatoid Factor <7.5 <12.5 IU/mL 08/13/2019 11:39 EST [facility] Blood VENOUS BLOOD / Unknown Non-Lab Collect / Unknown 08/12/2019 9:17 EST 08/12/2019 16:48 EST Provider Unknown CHEMISTRY & BLOOD GA S ORDERABLES [facility] [address] [place] [address] documented in this encounter Visit Diagnoses Not on filedocumented in this encounter Care Teams Log Skidder Relationship Specialty Start Date End Date Unknown, Provider, PCP - General 06/01/10 documented as of this encounter
--- OUTSIDE RECORDS SUMMARY | 2024-05-28 21:19 | XMS_ITS | Encounter Summary ---
Author Organization [facility] Address [place] [address] Care Team Providers Care Log Turner Name Role Phone Mario Williamson MD Primary Care Provider [phone] [phone] Encounter Details Date Type Department Care Team (Late st Contact Info) Description 06/14/2021 10:30 AM EDT Office Visit [place] [address] Renetta Nice MD [facility] [place] [address] Carotid stenosis, symptomatic, with infarction; Cerebrovascular accident (CVA), unspecified mechanism; Internal carotid artery stent present Social History Tobacco Use Types Packs/Day Years Used Date Smoking Tobacco: Former Cigarettes 0.5 20 Cigars Smokeless Tobacco: Former Quit: 1999 Sex and Gender Information Value Date Recorded Sex Assigned at Not on file Gender Identity Not on file Sexual Orientation Not on file documented as of this encounter Last Filed Vital Signs Vital Sign Reading Time Taken Comments Blood Pressure 130/93 06/14/2021 9:55 AM EDT Pulse 76 06/14/2021 9:54 AM EDT Temperature - - Respiratory Rate - - Oxygen Saturation - - Inhaled Oxygen Concentration - - Weight 102.1 kg (225 lb) 06/14/2021 9:54 AM EDT Height 167.6 cm (5' 6) 06/14/2021 9:54 AM EDT Body Mass Index 36.32 06/14/2021 9:54 AM EDT documented in this encounter Progress Notes * Kira Danielson MD - 06/14/2021 10:30 AM EDT Images from the original note were not included. Section of Vascular Surgery [facility] [place] [place] [address] [place] [address] OUTPATIENT VASCULAR SURGERY FOLLOW-UP SERVICE DATE: 06/14/2021 SERVICE TIME: 10:29 AM PRIMARY CARE PHYSICIAN: Mario Williamson MD REFERRING PROVIDER: Mario Williamson MD [address] [place] [address] [address] [facility] [address] [place] [address] Reason for Visit: Follow up after TCAR History of Present Illness: Skye Morris is a 70 y.o. 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 He is here for his routine duplex follow up. Hehas been otherwise feeling well with no changes in his health. He denies TIA, weakness, numbness, slurred speech, amarosis fugax. He continues to not smoke. He takes ASA and atorvastatin. Past Medical History: Diagnosis Date ??? Carotid [...] INTRAVASCULAR STENT,CAROTID,PERC,W\EMBOLIC PROT. (WRVU 18) performed by Renetta Nice MD at [facility] MAIN OR No family history on [...] Exam: PHYSICAL EXAM Physical Exam Performed BP (!) 130/93 (BP Location (NBP): Left arm, Patient Position: Sitting, BP Cuff Sizes: Adult (25-34 cm)) Pulse 76 Ht 167.6 cm (5' 6) Wt 102.1 kg (225 lb) BMI 36.32 kg/m?? CONSTITUTIONAL: alert, well developed, well nourished, in no acute distress NEUROLOGIC/PSYCHIATRIC: Grossly normal HEENT: normal atraumatic. No audible carotid bruits b/l LUNGS: Normal. HEART: RRR ABDOMEN: soft, nontender, no palpable masses, obese SURGICAL SITES: well healed scar on the R clavicle MUSCULOSKELETAL: negative Pulses/Signals: 2+ radial pulses bilaterally, bilateral femoral pulses DATA: Radiology: I have personally reviewed the following images/data: Carotid duplex 06/14/2021 carotid duplex Findings: ?? Stent 1 - Pre ?PSV (cm/s): 86 ?EDV (cm/s): 24 ?Location: Right Stent Stent 1 - Prox ?PSV (cm/s): 71 ?EDV (cm/s): 20 ?Location: Right Stent Stent 1 - Mid ?PSV (cm/s): 72 ?EDV (cm/s): 18 ?Location: Right Stent Stent 1 - Distal ?PSV (cm/s): 41 ?EDV (cm/s): 14 ?Location: Right Stent Stent 1 - Post ?PSV (cm/s): 39 ?EDV (cm/s): 15 ?Location: Right Stent ICA Proximal, Right ?PSV (cm/s): 91 ?EDV (cm/s): 31 ?ICA/CCA: 1.2 ?Plaque Structure: Echogenic ?Plaque Surface: Irregular ?%Stenosis: 16-49% ICA Distal, Right ?PSV (cm/s): 61 ?EDV (cm/s): 25 ?ICA/CCA: 0.8 CCA Distal, Right ?PSV (cm/s): 73 ? EDV (cm/s): 26 ?%Stenosis: <50% CCA Proximal, Right ?PSV (cm/s): 105 ?EDV (cm/s): 26 External Carotid Artery, Right ?PSV (cm/s): 145 ?EDV (cm/s): 13 ?%Stenosis: <50% Vertebral, Right ?PSV (cm/s): 41 ?EDV (cm/s): 14 ?Direction of Flow: Antegrade ICA Proximal, Left ?PSV (cm/s): 65 ?EDV (cm/s): 26 ?ICA/CCA: 0.9 ?Plaque Structure: Echogenic ?Plaque Surface: Irregular ?%Stenosis: 16-49% ICA Distal, Left ?PSV (cm/s): 51 ?EDV (cm/s): 20 ?ICA/CCA: 0.7 CCA Distal, Left ?PSV (cm/s): 72 ?EDV (cm/s): 20 ?%Stenosis: Minimal CCA Proximal, Left ?PSV (cm/s): 113 ?EDV (cm/s): 29 External Carotid Artery, Left ?PSV (cm/s): 88 ?EDV (cm/s): 15 ?%Stenosis: <50% Vertebral, Left ?PSV (cm/s): 74 ?EDV (cm/s): 27 ?Direction of Flow: Antegrade ? Interpretation: ?? [...] ?0.60 Current Exam ? 16-49% ? 91 ? 1.20 ? 16-49% ? 65 ?0.90 Impression: Skye Morris is a 70 y.o. male with history of R TCAR 11/2019 from a R MCA stroke who hasbeen doing well since his last follow up visit. He has repeat duplex that has been stable and his AAA screening shows no aneurysm. Plan: Follow up in 1 year with carotid duplex or earlier with any symptoms. SIGNATURE: Kira Danielson MD PATIENT NAME: Skye Morris DATE: June 14, 2021 TIME: 10:29 AM I have seen the patient in person and reviewed the resident's above history and I agree with the details as written. The assessment and plan were formulated in discussion with me and I agree with them as documented. Mr. Morris is here for follow-up after right TCAR in November 2019 after a right MCA stroke with concernfor embolic event. Patient has done well and remains on his aspirin and statin, as well as abstinent of cigarettes. His carotid duplex today remains stable with less than 50% bilateral carotid stenosis without significant changes in these velocities. He also remains asymptomatic from a neurologic st andpoint without any symptoms of TIA or stroke, no new numbness or weakness on either side of his body changes in his speech or visual changes. Otherwise he remains healthy, got his Covid vaccines, and has not had any new hospitalizations or medical issues. AAA duplex where visible no aneurysm of distal aorta or iliacs. Discussed with him I recommend continuation of medical management we will see him back in 1 year with a repeat carotid duplex. Renetta Nice MD documented in this encounter Plan of Treatment Not on file documented as of this encounter Visit Diagnoses Diagnosis Carotid stenosis, symptomatic, with infarction Occlusion and stenosis of carotid artery with cerebral infarction Cerebrovascular accident (CVA), unspecified mechanism Internal carotid artery stent present documented in this encounter Care Teams Log Turner Relationship Specialty Start Date End Date Mario Williamson MD [address] [place] [address] [address] [place] [address] PCP - General Family Medicine 11/24/19 documented as of this encounter
--- OUTSIDE RECORDS SUMMARY | 2024-05-28 21:19 | XMS_ITS | Encounter Summary ---
Author Organization [facility] Address [facility] [place] [address] Care Team Providers Care Clinical Nursing Manager Name Role Phone Mario Williamson MD Primary Care Provider [phone] [phone] Encounter Details Date Type Department Care Team (Latest Contact Info) Description 12/25/2019 11:00 AM EDT TH Visit (TeleHealth) [place] [address] Renetta Nice MD [facility] [place] [address] Cerebrovascular accident (CVA), unspecified mechanism; Carotid stenosis, symptomatic, with infarction; Postop check Social History Tobacco Use Types Packs/Day Years Used Date Smoking Tobacco: Never Assessed Sex and Gender Information Value Date Recorded Sex Assigned at Not on file Gender Identity Not on file Sexual Orientation Not on file documented as of this encounter Progress Notes * Renetta Nice MD - 12/25/2019 11:00 AM EDT Images from the original note were not included. Section of Vascular Surgery [facility] [place] [address] VASCULAR SURGERY POSTOP FOLLOW-UP - PHONE APPOINTMENT SERVICE DATE: 12/25/2019 SERVICE TIME:11:06 AM PRIMARY CARE PHYSICIAN: Mario Williamson MD REFERRING PROVIDER: Mario Williamson MD [address] [place] [address] Patient verbally consents to this telephone visit and understands that this visit may be billed, similar to a clinic office visit. Operation: 11/25/2019 ([place]) - R TCAR History of Present Illness: Skye Morris is a 69 y.o. male here for one-month follow-up after his right trans-carotid artery revascularization and stenting for symptomatic right carotid stenosis and MCA stroke. Patient states that he is doing well since discharge. He was at rehab and feels that he is continuing to get stronger. He reports that he does have some stiffness in his left hand, most notably his thumb, however this has improved since his admission. He denies any new neurologic symptoms, specifically no new numbness or weakness in his upper or lower extremities, speech difficulties, or issues with his vision or amaurosis fugax. He continues on his aspirin and Plavix daily. He reports that his incision up over his carotid is well-healed without issues. Impression: 69 y.o. male 1 month postop for right TCAR for symptomatic carotid stenosis and MCA stroke with continued improvement of his neurologic deficits, and no new symptoms. He is well-healed from his incision and continues on his aspirin and Plavix without any issues. He reports that he does have refills. Given the current COVID pandemic we did not bring him in for a carotid duplex, however we will try to do this in the next few months. I discussed with him that he has to be on Plavix for a minimum of1 month, which is he he has essentially completed, however I would like to maintain him on Plavix if he is able to tolerate for a minimum of 3 months, however I will reassess his duplex once safe to bring him in from a pandemic standpoint and based on the appearance of his duplex will make a final decision as to how long we would like to continue the Plavix. He will need to be on aspirin and statin indefinitely. Plan: - follow-up when safe to do so from COVID pandemic standpoint with carotid duplex - continue ASA and plavix until follow-up at that time will decide duration of plavix, will need landon on statin and ASA indefinitely SIGNATURE: Renetta Nice MD PATIENT NAME: Skye Morris DATE: December 25, 2019 TIME: 11:06 AM I provided care to the patient today via telephone call. The total time associated with this visit was 11 minutes. documented in this encounter Plan of Treatment Not on file documented as of this encounter Visit Diagnoses Diagnosis Cerebrovascular accident (CVA), unspecified mechanism Carotid stenosis, symptomatic, with infarction Occlusion and stenosis of carotid artery with cerebral infarction Postop check Follow-up examination, following unspecified surgery documented in this encounter Care Teams Clinical Nursing Manager Relationship Specialty Start Date End Date Mario Williamson MD [address] [place] [address] PCP - General Family Medicine 11/24/19 documented as of this encounter
--- OUTSIDE RECORDS SUMMARY | 2024-05-28 21:19 | XMS_ITS | Encounter Summary ---
[place] [address] Care Team Providers Care Assistant Professor Of History Name Role Phone Mario Williamson MD Primary Care Provider [phone] [phone] Reason for Referral * Diagnostic Test (Routine) - Authorized Specialty Diagnoses / Procedures Referred By Contac t Referred To Contact Diagnoses Presence of internal carotid stent Cerebrovascular accident (CVA), unspecified mechanism Procedures Carotid Duplex, Bilateral Jenelle Michael APRN [facility] [place] [address] [facility] Vascular Lab [address] [address] Referral ID Status Reason Start Date Expiration Date Visits Requested Visits Authorized [id number] Authorized Specialty Service Requested 10/03/2023 10/02/2024 1 1 Encounter Details Date Type Department Care Team (Late st Contact Info) Description 09/20/2023 3:00 PM EST Office Visit [place] [address] Jenelle Michael APRN [facility] [place] [address] Presence of internal carotid stent; Cerebrovascular accident (CVA), unspecified mechanism Social History [...] Sign Reading Time Taken Comments Blood Pressure 111/71 09/20/2023 2:34 PM EST Pulse 90 09/20/2023 2:34 PM EST Temperature - - Respiratory Rate - - Oxygen Saturation - - Inhaled Oxygen Concentration - - Weight 93.4 kg (206 lb) 09/20/2023 2:34 PM EST Height 167.6 cm (5' 6) 09/20/2023 2:34 PM EST Body Mass Index 33.25 09/20/2023 2:34 PM EST documented in this encounter Progress Notes * Jenelle Michael, BUILDING MAINTENANCE SUPERINTENDENT - 09/20/2023 3:00 PM EST Images from the original note were not included. Section of Vascular Surgery [facility] [place] [address] OUTPATIENT VASCULAR SURGERY FOLLOW-UP SERVICE DATE: 10/03/2023 SERVICE TIME: 1:18 PM PRIMARY CARE PHYSICIAN: Mario Williamson MD REFERRING PROVIDER: No referring provider defined for this encounter. Reason for Visit: Follow up after TCAR History of Present Illness: Skye Morris is a 72 y.o. 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 He is here for his routine duplex follow up. Hehas been otherwise feeling well with no changes in his health. He denies TIA, weakness, numbness, slurred speech, amarosis fugax. Pt's daughter endorses worsening memory difficulty, pt was started onAricept by PCP recently. He takes ASA and atorvastatin. He is a former cigar smoker. Past Medical History: Diagnosis Date Carotid stenosis, symptomatic w/o infarct, right 11/27/2019 11/25/2019: Right internal carotid artery TCAR (transcarotid artery revascularization) with ENROUTE transcarotid neuroprotection and stent system (10x30 Enroute Stent, 10x 40 Enroute Stent) Stroke due to embolism of right middle cerebral artery Past Surgical History: Procedure Laterality Date PRO PLACE TRANSCATHETER STENT, CCA W EMBOLIC PROECT Right 11/25/2019 @TRANSCATH INTRAVASCULAR STENT,CAROTID,PERC,W\EMBOLIC PROT. (WRVU 18) performed by Renetta Nice MD at [facility] MAIN OR No family history on file. Social History Tobacco Use Smoking status: Former Packs/day: 0.50 Years: 20.00 Additional pack years: 0.00 Total pack years: 10.00 Types: Cigarettes, Cigars Smokeless tobacco: Former Quit date: 1999 Current Outpatient Medications Medication Sig Dispense Refill donepeziL (Aricept) 5 mg tablet Take 1 tablet by mouth daily. multivitamin with minerals and lutein (Multivitamin 50 Plus) Tablet Take by mouth. atorvastatin (Lipitor) 80 mg Tablet Take 1 tablet by mouth every evening. 90 tablet 3 aspirin 81 mg Tablet, Chewable Take 81 mg by mouth daily. 30 tablet 3 acetaminophen (Tylenol) 500 mg Tablet Take 1 tablet by mouth every 6 hours as needed for Pain or Fever (pain or temperature greater than 100 degrees F (measured by mouth)). 30 tablet 1 metoprolol succinate XL (Toprol-XL) 25 mg Tablet Sustained Release 24 hr Take 25 mg by mouth daily. No current facility-administered medications for this visit. No Known Allergies COMPLETE REVIEW OF SYSTEMS All other reviewed and negative other than HPI. Physical Exam: PHYSICAL EXAM Physical Exam Performed BP 111/71 (BP Location (NBP): Right arm, Patient Position: Sitting, BP Cuff Sizes: Adult (25-34 cm)) Pulse 90 Ht 167.6 cm (5' 6) Wt 93.4 kg (206 lb) BMI 33.25 kg/m?? CONSTITUTIONAL: alert, well developed, well nourished, in no acute distress NEUROLOGIC/PSYCHIATRIC: Grossly normal HEENT: normal atraumatic. No audible carotid bruits b/l. Right neck incision well-healed. LUNGS: Normal. HEART: RRR ABDOMEN: soft, nontender, no palpable masses, obese SURGICAL SITES: well healed scar on the R clavicle MUSCULOSKELETAL: negative Pulses/Signals: 2+ radial pulses bilaterally, bilateral femoral pulses DATA Studies: 09/20/2023 Carotid Duplex Findings: Stent 1 - Pre PSV (cm/s): 89 EDV (cm/s): 24 Location: Right Stent Stent 1 - Prox PSV (cm/s): 90 EDV (cm/s): 25 Location: Right Stent Stent 1 - Mid PSV (cm/s): 62 EDV (cm/s): 16 Location: Right Stent Stent 1 - Distal PSV (cm/s): 46 EDV (cm/s): 17 Location: Right Stent Stent 1 - Post PSV (cm/s): 39 EDV (cm/s): 12 Location: Right Stent ICA Proximal, Right PSV (cm/s): 65 EDV (cm/s): 15 ICA/CCA: 0.8 Plaque Structure: Echogenic Plaque Surface: Irregular %Stenosis: 16-49% ICA Distal, Right PSV (cm/s): 51 EDV (cm/s): 20 ICA/CCA: 0.6 CCA Distal, Right PSV (cm/s): 83 EDV (cm/s): 22 %Stenosis: <50% CCA Proximal, Right PSV (cm/s): 115 EDV (cm/s): 26 External Carotid Artery, Right PSV (cm/s): 171 EDV (cm/s): 19 %Stenosis: <50% Vertebral, Right PSV (cm/s): 38 EDV (cm/s): 8 Direction of Flow: Antegrade ICA Proximal, Left PSV (cm/s): 57 EDV (cm/s): 23 ICA/CCA: 0.8 Plaque Structure: Echogenic Plaque Surface: Irregular %Stenosis: 16-49% ICA Distal, Left PSV (cm/s): 53 EDV (cm/s): 22 ICA/CCA: 0.7 CCA Distal, Left PSV (cm/s): 72 EDV (cm/s): 18 %Stenosis: <50% CCA Proximal, Left PSV (cm/s): 131 EDV (cm/s): 25 External Carotid Artery, Left PSV (cm/s): 119 EDV (cm/s): 23 %Stenosis: <50% Vertebral, Left PSV (cm/s): 36 EDV (cm/s): 12 Direction of Flow: Antegrade Interpretation: RIGHT: There [...] normal antegrade Doppler waveforms and velocities bilaterally. Impression: 72 y.o. male with history of R TCAR 11/2019 from a R MCA stroke who has been doing well since his last follow up visit. Remains asymptomatic from a neurologic standpoint and without evidence of restenosis on duplex today. L ICA stenosis remains stable, 16-49%. Reviewed with pt and daughter that carotid stenosis would not contribute to memory issues and they should continue with PCP recs. May consider neurology referral in future, defer to PCP. Plan: Follow up in 1 year with carotid duplex or earlier with any symptoms. Continue ASA 81mg and lipitor 80mg daily indefinitely. Jenelle Michael APRN Department of Vascular Surgery documented in this encounter Plan of Treatment Not on file documented as of this encounter Visit Diagnoses Diagnosis Presence of internal carotid stent Cerebrovascular accident (CVA), unspecified mechanism documented in this encounter Care Teams Assistant Professor Of History Relationship Specialty Start Date End Date Mario Williamson MD [address] [place] [address] PCP - General Family Medicine 11/24/19 documented as of this encounter
--- OUTSIDE RECORDS SUMMARY | 2024-05-28 21:19 | XMS_ITS | Encounter Summary ---
Author [place] [address] Care Team Providers Care Toggler Name Role Phone Mario Williamson MD Primary Care Provider [phone] [phone] Encounter Details Date Type Department Care Team (Late st Contact Info) Description 09/26/2020 1:00 PM EST Tech [place] [id number] Luis Reich, SKYLER Carotid stenosis, symptomatic, with infarction Social [...] Associated Diagnosis Comments CAROTID DUPLEX, BILATERAL Routine 09/26/2020 12:34 PM EST Carotid stenosis, symptomatic, with infarction documented in this encounter Results * Carotid Duplex, Bilateral (09/26/2020 12:34 PM EST) VB Text Report Department: Vascular Surgery Lab Patient: [id number] (SKYE MARTE) CPT: 95794 ICD10: I63.239;I65.23 Referring Physician: SAMEERA LUONG MD ?? Phone: Indications: TCAR, right CCA to ICA stent. ICD10 Diagnosis Code: I63.239 Findings: Stent 1 - Pre ? PSV (cm/s): 89 ? EDV (cm/s): 25 ? Location: Right CCA Distal Stent 1 - Prox ? PSV (cm/s): 82 ? EDV (cm/s): 22 ? Location: Right CCA Distal Stent 1 - Mid ? PSV (cm/s): 71 ? EDV (cm/s): 17 ? Location: Right ICA Prox Stent 1 - Distal ? PSV (cm/s): 44 ? EDV (cm/s): 18 ? Location: Right ICA Mid Stent 1 - Post ? PSV (cm/s): 49 ? EDV (cm/s): 17 ? Location: Right ICA Mid ICA Proximal, Right ? PSV (cm/s): 71 ? EDV (cm/s): 17 ? ICA/CCA: 0.9 ? Plaque Structure: Echogenic ? Plaque Surface: Smooth ? %Stenosis: 16-49% ICA Distal, Right ? PSV (cm/s): 46 ? EDV (cm/s): 16 ? ICA/CCA: 0.6 CCA Distal, Right ? PSV (cm/s): 75 ? EDV (cm/s): 19 ? Plaque Structure: Echogenic ? Plaque Surface: Irregular ? %Stenosis: <50% CCA Proximal, Right ? PSV (cm/s): 92 ? EDV (cm/s): 19 External Carotid Artery, Right ? PSV (cm/s): 158 ? EDV (cm/s): 22 ? %Stenosis: <50% Vertebral, Right ? PSV (cm/s): 28 ? EDV (cm/s): 9 ? Direction of Flow: Antegrade ICA Proximal, Left ? PSV (cm/s): 55 ? EDV (cm/s): 18 ? ICA/CCA: 0.6 ? Plaque Structure: Echogenic ? Plaque Surface: Irregular ? %Stenosis: 16-49% ICA Middle, Left ? PSV (cm/s): 48 ? EDV (cm/s): 20 ? ICA/CCA: 0.5 ICA Distal, Left ? PSV (cm/s): 46 ? EDV (cm/s): 17 ? ICA/CCA: 0.5 CCA Distal, Left ? PSV (cm/s): 88 ? EDV (cm/s): 21 ? %Stenosis: Minimal CCA Proximal, Left ? PSV (cm/s): 93 ? EDV (cm/s): 19 External Carotid Artery, Left ? PSV (cm/s): 133 ? EDV (cm/s): 21 ? %Stenosis: <50% Vertebral, Left ? PSV (cm/s): 39 ? EDV (cm/s): 16 ? Direction of Flow: Antegrade Interpretation: RIGHT: The proximal margin of the stent has plaque extending from the [place] common carotid artery causing 30-40% stenosis by e-calipers. This represents a progression compared to previous exam. The proximal internal carotid artery mid stent has an hour glass shape causing 16-49% stenosis when compared to the more distal internal carotid artery. The remainder of the stent is patent with no evidence of plaque. The bifurcation level is in the mid neck. LEFT: There is bulky irregular plaque in [...] 71 ?0.90 ? 16-49% ? 55 ?0.60 Electronically Signed by: SAMEERA LUONG MD on 2020-09-27 07:35:12 AM [facility] VB Text Report End of Report [facility] 09/26/2020 12:3 4 PM EST Sameera Luong MD VASCULAR ORDERABLES [facility] documented in this encounter Visit Diagnoses Diagnosis Carotid stenosis, symptomatic, with infarction Occlusion and stenosis of carotid artery with cerebral infarction documented in this encounter Care Teams Toggler Relationship Specialty Start Date End Date Mario Williamson MD [address] [place] [address] PCP - General Family Medicine 11/24/19 documented as of this encounter
--- OUTSIDE RECORDS SUMMARY | 2024-05-28 21:19 | XMS_ITS | Encounter Summary ---
Author Organization [facility] [place] [address] Care Team Providers Care Public Policy Analyst Name Role Phone Mario Williamson MD Primary Care Provider [phone] [phone] Encounter Details Date Type Department Care Team (Latest Contact Info) Description 09/20/2023 Travel Social History Tobacco Use Types Packs/Day Years [...] on filedocumented in this encounter Care Teams Public Policy Analyst Relationship Specialty Start Date End Date Mario Williamson MD [address] [place], [place] [id number] PCP - General Family Medicine 11/24/19 documented as of this encounter
--- OUTSIDE RECORDS SUMMARY | 2024-05-28 21:19 | XMS_ITS | Encounter Summary ---
Author Organization [facility] [place] [address] Care Team Providers Care Laborer Pipelines Name Role Phone Mario Williamson MD Primary Care Provider [phone] Encounter Details Date Type Department Care Team (Latest Contact Info) Description 07/20/2022 Travel Social History Tobacco Use Types Packs/Day [...] on filedocumented in this encounter Care Teams Laborer Pipelines Relationship Specialty Start Date End Date Mario Williamson MD [address] [place], [place] [id number] PCP - General Family Medicine 11/24/19 documented as of this encounter
--- OUTSIDE RECORDS SUMMARY | 2024-05-28 21:19 | XMS_ITS | Encounter Summary ---
Author Organization [facility] [place] [address] Care Team Providers Care Scarfer Operator Name Role Phone Mario Williamson MD Primary Care Provider [phone] [phone] Reason for Visit * Reason Onset Date Comments TeleHealth 01/11/2020 Appt 01/12/20 Encounter Details Date Type Department Care Team (Late st Contact Info) Description 01/11/2020 [place] [address] Kiran Galdamez PA [facility] [place] [address] TeleHealth (Appt 01/12/20) Social History Tobacco Use Types Packs/Day Years Used Date Smoking Tobacco: Never Assessed Sex and Gender Information Value Date Recorded Sex Assigned at Not on file Gender Identity Not on file Sexual Orientation Not on file documented as of this encounter Miscellaneous Notes * Telephone Encounter - Alisson Cooper CMA - 01/11/2020 1:02 PM EDT Spoke with patient to review medications and allergies prior to upcoming tele- appointment scheduled with Neurology provider. documented in this encounter Plan of Treatment Not on file documented as of this encounter Visit Diagnoses Not on filedocumented in this encounter Care Teams Scarfer Operator Relationship Specialty Start Date End Date Mario Williamson MD [address] [facility] 1 [place] [address] PCP - General Family Medicine 11/24/19 documented as of this encounter
--- OUTSIDE RECORDS SUMMARY | 2024-05-28 21:19 | XMS_ITS | Encounter Summary ---
Author Organization Health system Address [address] [place] [address] Care Team Providers Care Genetics Physician Name Role Phone Unknown, Provider Primary Care Provider Encounter Details Date Type Department Care Team (Late st Contact Info) Description 08/17/2020 Lab Requisition [facility] Pathology & Laboratory Medicine - [address] [address] Outr Resulting Lab, Provider Social History Tobacco [...] on filedocumented in this encounter Care Teams Genetics Physician Relationship Specialty Start Date End Date Unknown, ProviderMD PCP - General 06/01/10 documented as of this encounter
--- OUTSIDE RECORDS SUMMARY | 2024-05-28 21:19 | XMS_ITS | Encounter Summary ---
Author Organization [facility] [place] [address] Care Team Providers Care Drafter Directional Survey Name Role Phone Mario Williamson MD Primary Care Provider [phone] [phone] Reason for Referral * Diagnostic Test (Routine) - Closed Specialty Diagnoses / Procedures Referred By Contac t Referred To Contact Diagnoses Carotid stenosis, symptomatic, with infarction Cerebrovascular accident (CVA), unspecified mechanism Procedures Carotid Duplex, Bilateral Sameera Luong MD [facility] [place] [address] [facility] Vascular Lab [address] [place] [address] Referral ID Status Reason Start Date Expiration Date V isits Requested Visits Authorized [id number] Closed Specialty Service Requested 06/26/2021 06/26/2022 1 1 Encounter Details Date Type Department Care Team (Late st Contact Info) Description 06/14/2021 Orders [place] [address] Radha Coughlin RN Carotid stenosis, symptomatic, with infarction; Cerebrovascular accident [...] Text Report Department: Vascular Surgery Lab Patient: [id number] (SKYE MARTE) CPT: 64915 Referring Physician: SAMEERA LUONG MD ?? Phone: [...] mechanism documented in this encounter Care Teams Drafter Directional Survey Relationship Specialty Start Date End Date Mario Williamson MD [address] [place] [address] PCP - General Family Medicine 11/24/19 documented as of this encounter
--- OUTSIDE RECORDS SUMMARY | 2024-05-28 21:19 | XMS_ITS | Encounter Summary ---
[place] [address] Care Team Providers Care Engineer Conductor Name Role Phone Mario Williamson MD Primary Care Provider [phone] [phone] Encounter Details Date Type Department Care Team (Late st Contact Info) Description 06/14/2021 8:30 AM EDT Tech [place] [id number] Ayan Acosta, RVT Carotid stenosis, symptomatic, with [...] Procedure Name Priority Date/Time Associated Diagnosis Comments PRG DUPLEX SCAN AORTA,IVC,ILIAC VASCL,BP GRFT; COMPLETE STUDY Routine 06/14/2021 8:33 AM EDT Carotid stenosis, symptomatic, with infarction Cerebrovascular accident (CVA), unspecified mechanism PRG DUPLEX SCAN EXTRACRANIAL ART; COMPLETE BILAT STUDY Routine 06/14/2021 8:33 AM EDT Carotid stenosis, symptomatic, with infarction Cerebrovascular accident (CVA), unspecified mechanism documented in this encounter Results * Carotid Duplex, Bilateral (06/14/2021 8:33 AM EDT) VB Text Report Department: Vascular Surgery Lab Patient: [id number] (SKYE MARTE) CPT: 46177 ICD10: I63.9;I63.239;I 65.23 Referring Physician: SAMEERA LUONG [...] Sameera Luong MD VASCULAR ORDERABLES VASCUBASE * AAA Duplex, Complete/Bilateral (06/14/2021 8:33 AM EDT) VB Text Report Department: Vascular Surgery Lab Patient: [id number] (SKYE MARTE) CPT: 93887 ICD10: I63.239;I63.9 Referring Physician: SAMEERA LUONG MD [...] mechanism documented in this encounter Care Teams Engineer Conductor Relationship Specialty Start Date End Date Mario Williamson MD [address] [facility] 1 [place] [address] PCP - General Family Medicine 11/24/19 documented as of this encounter
--- OUTSIDE RECORDS SUMMARY | 2024-05-28 21:19 | XMS_ITS | Encounter Summary ---
Author Organization [facility] Address [address] [place] [address] Care Team Providers Care Bakery Pastry Internship Name Role Phone TimothyIsrael mcfarland DO Primary Care Provider [phone]- [phone] Encounter Details Date Type Department Care Team (Late st Contact Info) Description 03/02/2009 Orders Only [facility] Laboratory Services - [facility] [address] [place], [place] [id number] Jm Edwards MD [address] [place] [address] [place] [address] Social History Tobacco Use Types Packs/Day Years Used Date Smoking Tobacco: Never Assessed Sex and Gender Information Value Date Recorded Sex Assigned at Not on file Gender Identity Not on file Sexual Orientation Not on file documented as of this encounter Plan of Treatment Not on file documented as of this encounter Procedures Procedure Name Priority Date/Time Associated Diagnosis Comments SURGICAL PATHOLOGY Routine 03/02/2009 0:00 EDT documented in this encounter Results * SURGICAL PATHOLOGY (03/02/2009 0:00 EDT) Pathology Report: SURGICAL PATHOLOGY REPORT ? Reports generated via electronic interface contain original data; ? however they are lacking the format of the original report. ? Caution should be taken when reading/interpreting unformatted reports. ? Name: ? SKYE MARTE ? Accession #: ? [id number] ? : ? 1950 (Age: 58) ??M ? Collect Date: ? 03/02/2009 ? Location: ? [facility] ? Receive Date: ? 03/02/2009 ? Provider: JM EDWARDS MD ? Copy to: DEVYN LYNNE MD ? Final Pathologic Diagnosis: ? Bone and soft tissue of hip, left, biopsy: ? 1. ?Fragments of viable bone and reactive soft tissue with foreign body giant cell reaction to polarizable material. ? 2. ? Abundant portions of necrotic tissue with calcifications. ? 3. ? No evidence for acute or chronic osteomyelitis. ??See comment. ? Comment: ? This case was reviewed at the intradepartmental consultation conference. ?? In addition, this case was discussed with Dr. Jm Edwards via telephone on ?? March 10, 2009. ??(Dr. Gandhi)/katherinen ? Document reviewed and electronically signed by: ? Gurinder Gandhi MD ? Report ??Date: 03/10/2009 14:59 ? By the signature above, the attending physician certifies that he/she has ? personally conducted a gross and/or microscopic examination of the described ? specimens and rendered or confirmed the above diagnosis. ? Specimen(s) Received: ? Lt hip bx ? Clinical History: ? 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 # polys/HPF; osteolysis Lt hip, R/O infection ? Gross Description: ? Received in formalin labelled Skye Marte and Lt hip bx is a 4.0 x 2.5 x 1.0 cm aggregate of multiple light garcia and garcia-white, soft to friable fragments of tissue as well as a 2.0 x 1.5 x 1.0 cm aggregate of several hard fragments of light garcia bone. ??The fragments of bone on one side have garcia-fortune to focally ? white periosteum. ??Senior Java Software Developer sections of the specimen are submitted as ? follows: ? BLOCK CAT ? A1, A2 ?Soft to focally friable tissue ? A3 ?Three sections of bone, submitted for decalcification ? (J. Tessitore)/kmm ? End of Report ? RENATA KELLY 03/02/2009 03/02/2009 10: 20 EDT Jm Edwards MD PATHOLOGY ORDERABLE S [facility] [address] [place] [address] documented in this encounter Visit Diagnoses Not on filedocumented in this encounter Care Teams Bakery Pastry Internship Relationship Specialty Start Date End Date Israel Aguirre DO [address] [place] [address] PCP - General 03/02/09 05/31/10 documented as of this encounter
--- OUTSIDE RECORDS SUMMARY | 2024-05-28 21:19 | XMS_ITS | Encounter Summary ---
Author Organization [facility] Address [facility] [place] [address] Care Team Providers Care Pearl Technician Name Role Phone Mario Williamson MD Primary Care Provider [phone] [phone] Reason for Visit * Reason Comments Carotid Stenosis carotid stenosis Encounter Details Date Type Department Care Team (Late st Contact Info) Description 04/13/2020 2:00 PM EDT Office [place] [address] Sameera Luong MD [facility] [place] [address] Carotid stenosis, symptomatic, with infarction Social History Tobacco Use Types Packs/Day Years Used Date Smoking Tobacco: Former Cigarettes Smokeless Tobacco: Never Sex and Gender Information Value Date Recorded Sex Assigned at Not on file Gender Identity Not on file Sexual Orientation Not on file documented as of this encounter Last Filed Vital Signs Vital Sign Reading Time Taken Comments Blood Pressure 143/81 04/13/2020 2:09 PM EDT Pulse 64 04/13/2020 2:09 PM EDT Temperature - - Respiratory Rate 18 04/13/2020 2:09 PM EDT Oxygen Saturation - - Inhaled Oxygen Concentration - - Weight 90.7 kg (200 lb) 04/13/2020 2:09 PM EDT Height 167.6 cm (5' 6) 04/13/2020 2:09 PM EDT Body Mass Index 32.28 04/13/2020 2:09 PM EDT documented in this encounter Progress Notes * Sameera Luong MD - 04/13/2020 2:00 PM EDT VASCULAR SURGERY POSTOP FOLLOW-UP SERVICE DATE: 04/13/2020 SERVICE TIME: 2:27 PM PRIMARY CARE PHYSICIAN: Mario Williamson MD REFERRING PROVIDER: Mario Williamson MD [address] [place] [address] Operation: Right internal carotid artery TCAR (transcarotid artery revascularization) with ENROUTE transcarotid neuroprotection and stent system (10x30 Enroute Stent, 10x 40 Enroute Stent) History of Present Illness: Skye Marte is a 69 y.o. male is here for postop following right TCA ERfor symptomatic right carotid stenosis and MCA stroke. Patient remains asymptomatic since we last saw him. He remains on aspirin and Plavix. He continues to do well. He denies any new neurologic symptoms. He denies any new numbness or tingling, weakness, speech changes, vision changes. He reports that is slowly returning back to his baseline, and is quite pleased. He is not smoking. Physical Exam: PHYSICAL EXAM Physical Exam Performed BP 143/81 (BP Location (NBP): Right arm, Patient Position: Sitting) Pulse 64 Resp 18 Ht 167.6cm (5' 6) Wt 90.7 kg (200 lb) BMI 32.28 kg/m?? CONSTITUTIONAL: alert, well developed, well nourished, in no acute distress NEUROLOGIC/PSYCHIATRIC: Grossly normal HEENT: normal atraumatic. LUNGS: Normal. HEART: regular rate and rhythm SURGICAL SITES: R neck incision well healed MUSCULOSKELETAL: negative Pulses/Signals: Brachial Radial Right 2/2 2/2 Left 2/2 2/2 DATA: Radiology: 04/13/2020 carotid duplex ICA Proximal, Right ?PSV (cm/s): 52 ?EDV (cm/s): 17 ?ICA/CCA: 0.6 ?%Stenosis: 16-49% ICA Middle, Right ?PSV (cm/s): 44 ?EDV (cm/s): 14 ?ICA/CCA: 0.5 ICA Distal, Right ?PSV (cm/s): 46 ?EDV (cm/s): 17 ?ICA/CCA: 0.5 CCA Distal, Right ?PSV (cm/s): 84 ?EDV (cm/s): 23 ?%Stenosis: <50% CCA Proximal, Right ?PSV (cm/s): 70 ?EDV (cm/s): 13 External Carotid Artery, Right ?PSV (cm/s): 232 ?EDV (cm/s): 42 ?%Stenosis: >50% Vertebral, Right ?PSV (cm/s): 36 ?EDV (cm/s): 12 ?Direction of Flow: Antegrade ICA Proximal, Left ?PSV (cm/s): 54 ?EDV (cm/s): 16 ?ICA/CCA: 0.7 ?Plaque Structure: Echogenic ?Plaque Surface:??Irregular ?%Stenosis: <15% ICA Middle, Left ?PSV (cm/s): 54 ?EDV (cm/s): 16 ?ICA/CCA: 0.7 ICA Distal, Left ?PSV (cm/s): 43 ?EDV (cm/s): 17 ?ICA/CCA: 0.6 CCA Distal, Left ?PSV (cm/s): 77 ?EDV (cm/s): 18 ?%Stenosis: Minimal CCA Proximal, Left ?PSV (cm/s): 70 ?EDV (cm/s): 17 External Carotid Artery, Left ?PSV (cm/s): 86 ?EDV (cm/s): 14 ?%Stenosis: <50% Vertebral, Left ?PSV (cm/s): 39 ?EDV (cm/s): 14 ?Direction of Flow: Antegrade ? Interpretation: ?? RIGHT: Widely patent proximal internal carotid artery stent with an hour glass shape causing 16-49% stenosis when compared to the more distal te[place]moak internal carotid artery. No identifiable change from previous exam. The bifurcation level is in the mid neck. ? LEFT: There is irregular plaque in the [...] 52 ?0.60 ? <15% ? 54 ?0.70 I have personally reviewed the following images/data: duplex Impression: 69 y.o. male status post right TCA ER for symptomatic carotid stenosis and MCA stroke. Patient is doing very well with excellent recovery and resolution of preoperative findings on duplex. He is currently on aspirin and Plavix, and he has been on dual therapy for 1 month, however recommend he continues for 3 more months he just picked up a 90-day prescription. He can complete this andthen continue on aspirin and his statin indefinitely. I stressed to him that he should never stop his aspirin unless there is a very serious contraindication. Patient otherwise doing well we will plan to follow-up with him in 6 months with a repeat carotid duplex. SIGNATURE: Sameera Luong MD PATIENT NAME: Skye Marte DATE: April 13, 2020 TIME: 2:27 PM documented in this encounter Plan of Treatment Not on file documented as of this encounter Results * Carotid Duplex, Bilateral (09/26/2020 12:34 PM EST) VB Text Report Department: Vascular Surgery Lab Patient: [id number] (SKYE MARTE) CPT: 08140 ICD10: I63.239;I65.23 Referring Physician: SAMEERA LUONG MD [...] the stent has plaque extending from the te-moak common carotid artery causing 30-40% stenosis by [...] infarction documented in this encounter Care Teams Pearl Technician Relationship Specialty Start Date End Date Mario Williamson MD [address] [place] [address] PCP - General Family Medicine 11/24/19 documented as of this encounter
--- OUTSIDE RECORDS SUMMARY | 2024-05-28 21:19 | XMS_ITS | Clinical Summary ---
Author Organization [facility] Address [facility] [place] [address] Care Team Providers Care Manager Channel Name Role Phone Mario Williamson MD Primary Care Provider [phone] [phone] Allergies No known active allergies Medications Medication Sig Dispensed Refills Start Date End Date Status atorvastatin (Lipitor) 80 mg Tablet Take 1 tablet by mouth every evening. 90 tablet 3 11/27/2019 Active aspirin 81 mg Tablet, Chewable Take 81 mg by mouth daily. 30 tablet 3 11/28/2019 Active acetaminophen (Tylenol) 500 mg Tablet Take 1 tablet by mouth every 6 hours as needed for Pain or Fever (pain or temperature greater than 100 degrees F (measured by mouth)). 30 tablet 1 11/27/2019 Active multivitamin with minerals and lutein (Multivitamin 50 Plus) Tablet Take by mouth. Active metoprolol succinate XL (Toprol-XL) 25 mg Tablet Sustained Release 24 hr Take 25 mg by mouth daily. 06/12/2022 Active donepeziL (Aricept) 5 mg tablet Take 1 tablet by mouth daily. 09/04/2023 Active Active Problems Problem Noted Date Diagnosed Date Essential hypertension 12/01/2019 Hyperlipidemia 12/01/2019 At risk for falls 12/01/2019 Dysphagia as late effect of stroke 12/01/2019 Left arm weakness 12/01/2019 Stroke 11/24/2019 Resolved Problems Problem Noted Date Diagnosed Date Resolved Date Carotid artery stenosis, symptomatic, right 11/27/2019 12/01/2019 Overview (11/27/2019): 11/25/2019: Right internal carotid artery TCAR (transcarotid artery revascularization) with ENROUTE transcarotid neuroprotection and stent system (10x30 Enroute Stent, 10x 40 Enroute Stent) Social History Tobacco Use Types Packs/Day Years Used Date Smoking Tobacco: Former Cigarettes 0.5 20 Cigars Smokeless Tobacco: Former Quit: 1999 Sex and Gender Information Value Date Recorded Sex Assigned at Not on file Gender Identity Not on file Sexual Orientation Not on file Last Filed Vital Signs Vital Sign Reading Time Taken Comments Blood Pressure 111/71 09/20/2023 2:34 PM EST Pulse 90 09/20/2023 2:34 PM EST Temperature 36.8 ??C (98.2 ??F) 11/27/2019 12:[address] Respiratory Rate 16 09/26/2020 2:01 PM EST Oxygen Saturation 98% 07/20/2022 1:36 PM EDT Inhaled Oxygen Concentration - - Weight 93.4 kg (206 lb) 09/20/2023 2:34 PM EST Height 167.6 cm (5' 6) 09/20/2023 2:34 PM EST Body Mass Index 33.25 09/20/2023 2:34 PM EST Plan of Treatment Health Maintenance Due Date Last Done Comments CT Colonography 1950 Colonoscopy 1950 Colorectal Cancer Screening 1950 FIT DNA 1950 FIT 1950 Sigmoidoscopy (10 year) with FIT yearly 1950 Sigmoidoscopy 1950 Hepatitis C Screening 1969 Tdap adult 1970 Tetanus vaccine 1970 Zoster vaccine (1 of 2) 2001 Pneumoccocal Vaccine: 65+ (1 of 1 - PCV) 2016 Covid-19 Vaccine ( - 2022-2 4 season) 2023 Influenza (Flu) vaccine (1 o f 1 - Influenza standard series) 05/24/2024 Diabetes Screening (HgbA1C o r Glucose) Discontinued 11/26/2019, 11/25/2019, 11/25/2019 AAA Screen Completed 06/14/2021 Medical Devices Implanted Type Area Group Burner Machine Device Identifier Shelf Expiration Date Model / Serial / Lot Stent,Tcar,En route,[id number]) (Autoreq) - [id number] Implanted:Qty : 1 on 11/25/2019 by Josias Buckley MD at [facility] IMPLANTS Right: Carotid [employer] 02/21/2020 SR-1030-C S / / [id number] Stent,Tcar,En route,[id number] ([id number]) ([employer]) - [id number] Implanted:Qty : 1 on 11/25/2019 by Josias Buckley MD at [facility] IMPLANTS Right: Carotid [employer] [address] 02/21/2020 SR-1030-C S / / [id number] Procedures Procedure Name Priority Date/Time Associated Diagnosis Comments PRG DUPLEX SCAN AORTA,IVC,ILIAC VASCL,BP GRFT; COMPLETE STUDY Routine 06/14/2021 8:33 AM EDT Carotid stenosis, symptomatic, with infarction Cerebrovascular accident (CVA), unspecified mechanism BASIC METABOLIC PANEL Routine 11/26/2019 5:59 AM EST from Last 3 Months or Most Recently Relevant to Health Maintenance Results * AAA Duplex, Complete/Bilateral (06/14/2021 8:33 AM EDT) VB Text Report Department: Vascular Surgery Lab Patient: [id number] (SKYE MARTE) CPT: 87367 ICD10: I63.239;I63.9 Referring Physician: SAMEERA LUONG MD [...] Sameera Luong MD VASCULAR ORDERABLES VASCUBASE * Basic Metabolic Panel (non-fasting) (11/26/2019 5:59 AM EST) Glucose 86 65 - 199 mg/dL [facility] Comment:Diabetes: >=200 mg/d L plus symptoms Blood Urea Nitrogen 10 10 - 20 mg/dL [facility] Creatinine 0.89 0.80 - 1.50 mg/dL [facility] Sodium 139 135 - 145 mmol/L [facility] Potassium 3.8 3.5 - 5.0 mmol/L [facility] Comment: Please note: ??Patients with WBC >100,000 may have falsely elevated Potassium levels. ??For accurate Potassium quantification in these patients send serum separator tube (gold top) for subsequent determinations. ??Contact the Clinical Chemistry Laboratory if there are any questions. Chloride 106 98 - 107 mmol/L [facility] Carbon Dioxide 22 22 - 31 mmol/L [facility] Anion Gap 11 5 - 15 mmol/L [facility] Calcium 8.7 8.5 - 10.5 mg/dL [facility] Est Glomerular Filtration Rate 88 >=60 mL/min/1. 73 m?? [facility] Comment: The eGFR was calculated using the CKD-EPI equation. As with all creatinine based estimates of kidney function, eGFR values calculated with the CKD-EPI equation are not accurate in patients with acute kidney failure, extremes of body mass or the acutely ill. [email or web address] eGFR 102 >=60 mL/min/1. 73 m?? [facility] Comment: The eGFR was calculated using the CKD-EPI equation. As with all creatinine based estimates of kidney function, eGFR values calculated with the CKD-EPI equation are not accurate in patients with acute kidney failure, extremes of body mass or the acutely ill. [email or web address] Blood specimen (specimen) 11/26/2019 5:59 AM EST 11/26/2019 6:12 AM EST Narrative Resulting Agency Comment Spec In Lab Martha Price MD CHEMISTRY ORDERABL ES [facility] [place] [address] from Last 3 Months or Most Recently Relevant to Health Maintenance Advance Directives Documents on File Type Date Recorded Patient Actuarial Science Professor Expl anation Advance Directives and Livin g Will 11/27/2019 4:19 PM 11/27/2019 * Full Code (Latest Code Status on File) Date Activated Date Inactivated Comments 11/25/2019 11:37 AM 11/27/2019 7:17 PM Question Answer Comments Does patient have capacity to make decision: Yes * Suspended DNR Date Activated Date Inactivated Comments 11/25/2019 10:24 AM 11/25/2019 11:37 AM Question Answer Comments Does patient have capacity t o make decision: Yes Order Status: Suspended DNR until new order pl aced Content of discussion: emili-procedural f or carotid surgery, children as decision makers * DNR Date Activated Date Inactivated Comments 11/24/2019 8:57 PM 11/25/2019 10:24 AM Question Answer Comments Does patient have capacity to make decision: Yes Care Teams Manager Channel Relationship Specialty Start Date End Date Mario Williamson MD [address] [place] [address] PCP - General Family Medicine 11/24/19
--- OUTSIDE RECORDS SUMMARY | 2024-05-28 21:19 | XMS_ITS | Encounter Summary ---
[place] [address] Care Team Providers Care Windshield Wiper Repairer Name Role Phone Mario Williamson MD Primary Care Provider [phone] [phone] Encounter Details Date Type Department Care Team (Late st Contact Info) Description 01/05/2020 Orders Only Vascular [place] [address] Loretta Rosales, GRAEME Carotid stenosis, symptomatic, with infarction Social History [...] Text Report Department: Vascular Surgery Lab Patient: [id number] (LEYLASKYE Mar) CPT: 91325 ICD10: I63.239;I65.23 Referring Physician: SAMEERA LUONG MD [...] stenosis when compared to the more distal [place] internal carotid artery. No identifiable change from [...] infarction documented in this encounter Care Teams Windshield Wiper Repairer Relationship Specialty Start Date End Date Mario Williamson MD [address] [place] [address] PCP - General Family Medicine 11/24/19 documented as of this encounter
--- OUTSIDE RECORDS SUMMARY | 2024-05-28 21:19 | XMS_ITS | Encounter Summary ---
Author Organization [facility] Address [address] [place] [address] Care Team Providers Care Warehouse Distribution Specialist Name Role Phone Unknown, Provider Primary Care Provider [phone] Encounter Details Date Type Department Care Team (Late st Contact Info) Description 07/25/2010 Results Only [facility] [phone] Reggie Sanchez MD [address] [address] Social History Tobacco Use Types [...] Date/Time Associated Diagnosis Comments SURGICAL PATHOLOGY Routine 07/25/2010 0:00 EDT documented in this encounter Results * SURGICAL PATHOLOGY (07/25/2010 0:00 EDT) Pathology Report: SURGICAL PATHOLOGY REPORT ? Reports generated via electronic interface contain original data; ? however they are lacking the format of the original report. ? Caution should be taken when reading/interpreti ng unformatted reports. ? Name: ? PIKE, SKYE C ? Accession #: ? [id number] ? : ? 1950 (Age: 59) ??M ? Collect Date: ? 07/25/2010 ? Location: ? [facility] ? Receive Date: ? 07/26/2010 ? Provider: REGGIE NISBET MD ? Copy to: DELROY DARIUS PA ? Final Pathologic Diagnosis: ?Prostate, radical prostatectomy without pelvic lymph node ? dissection: ? 1. ?Adenocarcinoma. ? - Histologic grade: ? - Primary David pattern: Grade 3. ? - Secondary David pattern: Grade 3. ?- Tertiary Framingham pattern: Not applicable. ? - Total Framingham score: 6. ? - Tumor is unilateral and involves the right side (blocks A14, 18, 22 and 29). ? - Less than 5% of prostate is involved by tumor. ? - Extraprostatic extension is not identified. (AJCC: pT2a, pNX). ? - Surgical resection margins: Uninvolved by invasive ? carcinoma. ? - Perineural and intraneural invasion: Present. ? - Lymph-vascular invasion: ??Not identified. ? - Seminal vesicle muscular wall invasion: Not identified. ? - Neoadjuvant treatment effect: No prior treatment. ? 2. ?? High-grade prostatic intraepithelial neoplasia (PIN) present (A18). ? 3. ?? Non-neoplastic prostate shows nodular hyperplasia, chronic ? inflammation, and atrophy. ?4. ?? Calcified vas deferens, bilateral. ? Document reviewed and electronically signed by: ? LIAN MARTIN MD ? Report ??Date: 07/28/2010 16:41 ? By the signature above, the attending physician certifies that he/she has ? personally conducted a gross and/or microscopic examination of the described ? specimens and rendered or confirmed the above diagnosis. ? Specimen(s) Received: ? Prostate ? Clinical History: ? Prostate cancer ? Gross Description: ? Received in formalin labelled Skye Morris and #1 prostate is the product of a radical prostatectomy that includes bilateral attached seminal vesicles and vasa deferentia. ??The prostate, following removal of the bilateral seminal ? vesicles and vasa deferentia, weighs 38 grams. ??The prostate measures 4.7 cm ? right to left, 4.5 cm apex to base and 3.5 cm anterior to posterior. ??The right vas deferens measures 3.1 cm in length by 0.7 cm in diameter. ??The left vas ? deferens measures 3.3 cm in length by 0.7 cm in diameter. ??The right seminal ? vesicle measures 3.3 x 1.2 x 1.2 cm and the left seminal vesicle measures 2.9 x 1.4 x 0.9 cm. ??The prostate is fixed in formalin for one day. ??The posterior ? surgical margin of the prostate is inked blue, the right side is inked red and ?? the left side is inked black. ??The prostate is serially sectioned from apex ? (level 1) to base (level 8) revealing a garcia-white nodular cut surface. ??Sections of the right and left vasa deferentia and seminal vesicles are unremarkable. ? The entire prostate and communications representative sections of the right and left seminal ?? vesicles and vasa deferentia are submitted as follows: ? BLOCK CAT A1, A2 ?Right apex, perpendicular sections ? A3, A4 ?Left apex, perpendicular sections ? A5 ?Level 2, right side ? A6 ?Level 2, left side ? A7 ?Level 3, right side ? A8 ?Level 3, left side ? A9 ?Level 4, right anterolateral ? A10 ?Level 4, right posterolateral ? A11 ?Level 4, left posterolateral ? A12 ?Level 4, left anterolateral ? A13 ?Level 5, right anterolateral ? A14 ?Level 5, right posterolateral ? A15 ?Level 5, left posterolateral ? A16 ?Level 5, left anterolateral ? A17 ?Level 6, right anterolateral ? A18 ?Level 6, right posterolateral ? A19 ?Level 6, left posterolateral ? A20 ?Level 6, left anterolateral ? A21 ?Level 7, right anterolateral ? A22 ?Level 7, right posterolateral ? A23 ?Level 7, left posterolateral ? A24 ?Level 7, left anterolateral ? A25-A27 ? Right base, perpendicular sections ? A28-A30 ? Left base, perpendicular sections ? A31 ?Cross section of right vas deferens surgical margin, en face ? A32 ?Cross section of left vas deferens surgical margin, en face ? A33 ?Personnel Manager section of right seminal vesicle adjacent to ? prostate ? A34 ?Personnel Manager section of left seminal vesicle adjacent to prostate (J. Denise)/tmg ? End of Report ? RENATA KELLY 07/25/2010 07/26/2010 9:5 0 EDT Reggie Sanchez MD PATHOLOGY ORDERABLES Performing Organization Address City/State/[facility] [place] [address] documented in this encounter Visit Diagnoses Not on filedocumented in this encounter Care Teams Warehouse Distribution Specialist Relationship Specialty Start Date End Date Unknown, Provider, PCP - General 06/01/10 documented as of this encounter
--- OUTSIDE RECORDS SUMMARY | 2024-05-28 21:20 | XMS_ITS | Continuity of Care Document ---
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) - Carotid stenosis, right(Discharge Diagnosis) - 11/27/19 Acute right MCA stroke(Discharge Diagnosis) - 11/27/19 Hemiplegia and hemiparesis following cerebral infarction affecting left dominant side(Final) - Facial weakness following cerebral infarction(Final) - Dysarthria following cerebral infarction(Final) - Dysphagia following cerebral infarction(Final) - Personal history of nicotine dependence(Final) - Discharge Disposition: Home or Self Care Attending Physician: Inez Mari MD Admitting Physician: Inez Mari MD Referring Physician: Martha Price MD Allergies, Adverse Reactions, Alerts No Known Allergies Assessment and Plan Extracted from: Title:Rehab discharge summary Author:Inez Mari MD Date:12/02/19 History of Present Illness Mr Marte is a 69 yo man who is a smoker, who presented to [facility] with left hemiparesis and hemisensory impairment, facial droop, and dysarthria. RMCA distribution stroke and MERLENE stenosis found as etiology. He declined TPA at outside hospital, and was referred to [facility] for consideration of vascular surgery on 11/24/19. He was admitted 11/23 for transcarotid artery revascularization. He was placed on ASA statin and plavix. ASA and plavix to continue indefinitely. Ziopatch recommended at discharge, but deferred to outpatient. He is on an altered diet for dysphagia. Prior to discharge from , the patient had a fall in the bathroom. No residual confusion and CT head and neuro exam unchanged. The patient was evaluated by PT OT and MICA PARTS SPRAYER throughout their stay and given residual deficits, it was felt beneficial to transfer to an acute rehabilitation level of care for intensive PT OT and MICA PARTS SPRAYER with the goal of optimizing function and eventual return home. Health Status Allergies: Allergic Reactions (All) No Known Allergies, Allergies (1) Active Reaction No Known Allergies None Documented Current medications: Home Medications (7) Active acetaminophen 500 mg oral tablet 1,000 mg = 2 tab(s), PRN, Oral, q6hr aspirin 81 mg oral tablet, chewable 81 mg = 1 tab(s), Oral, Daily Atorvastatin 80mg tablet 80 mg = 1 tab(s), Oral, HS Colace 100 mg oral capsule 100 mg = 1 cap(s), PRN, Oral, BID MiraLax 17 gm = 1 packet(s), PRN, Oral, Daily Plavix 75 mg oral tablet 75 mg = 1 tab(s), Oral, Daily senna 8.6 mg oral tablet 17.2 mg = 2 tab(s), PRN, Oral, HS Problem list (past medical history): All Problems No Chronic Problems / NKP, Active Problems (1) No Chronic Problems Physical Examination VS/Measurements Vital Signs (last 24 hrs) Last Charted Temp Oral 36.2 DegC (NOV 30 08:) Heart Rate Peripheral 78 bpm (NOV 30 08:) Resp Rate 18 br/min (NOV 29 20:00) SBP 120 mmHg (NOV 30:) DBP 82 mmHg (NOV 30:) SpO2 96 % (NOV 30:) Extracted from: Title:Discharge Note Author:Mabel Daly ate:12/02/19 Discharge Plan Acute right MCA stroke??I63.511 Carotid stenosis, right??I65.21 Patient Education Warning Signs of a Stroke (TRACEY ROONYE) Supporting Someone After a Stroke Sexual Activity After a Stroke Hospital Discharge After a Stroke Driving After a Stroke Carotid Artery Disease Carotid Angioplasty With Stent, Dakj-ag-Azsw Carotid Angioplasty With Stent, Care After Follow Up With When Contact Information [facility] Vascular Surgery 12/25/2019 01:45 PM EDT [place], [place] Additional Instructions: [facility] Vascular Lab 3V @ 1:45pm, @ 2:15pm Mario Williamson MD 12/11/2019 08:20 AM EDT [facility] Additional Instructions: follow-up Appt with your PCP Instructional Systems Designer 12/02/2019 11:00 AM EDT [facility] Additional Instructions: [facility] Cardiology 4A - Zio patch placement OP OT Additional Instructions: Neurology, [facility] ?? Additional Instructions: f/u stroke - Referral sent/Appt requested - office to call you at home with Appt Functional Status 12/02/19 History of Fall in Last 3 Months [place] Y es History of Falls in Last 3 Months [place]on Yes Mobility Stanton Slightly limited 11/30/19 ADLs Minimal assistance 11/27/19 Ambulatory Devices Walker Medications acetaminophen 500 mg oral tablet 1,000 mg = 2 tab(s), Oral, q6hr, PRN PRN Pain, 0 Refill(s) Start Date: 12/01/19 Status: Ordered aspirin 81 mg oral tablet, chewable 81 mg = 1 tab(s), Oral, Daily, 0 Refill(s) Start Date: 12/01/19 Status: Ordered Atorvastatin 80mg tablet 80 mg = 1 tab(s), Oral, HS, # 30 tab(s), 0 Refill(s) Start Date: 12/01/19 Status: Ordered Colace 100 mg oral capsule 100 mg = 1 cap(s), Oral, BID, PRN PRN Constipation, 0 Refill(s) Start Date: 12/01/19 Status: Ordered MiraLax 17 gm 1 packet(s), Oral, Daily, PRN PRN Constipation, 0 Refill(s) Start Date: 12/01/19 Status: Ordered Plavix 75 mg oral tablet 75 mg = 1 tab(s), Oral, Daily, # 30 tab(s), 0 Refill(s) Start Date: 12/01/19 Status: Ordered senna 8.6 mg oral tablet 17.2 mg = 2 tab(s), Oral, HS, PRN PRN Constipation, 0 Refill(s) Start Date: 12/01/19 Status: Ordered Mental Status 12/02/19 Sensory Perception Stanton No impairment Level of Consciousness Alert Problem List No Known Problems Results Laboratory List Name Date .Hemogram (CBC DH) 11/28/19 Basic Metabolic Panel DH 11/28/19 Most recent to oldest [Reference Range]: 1 Anion Gap DH [5-15 mmol/L] 11 mmol/L (11/28/19 5:15 AM) Chloride Lvl DH [98-107 mmol/L] 106 mmol /L (11/28/19 5:15 AM) CO2 DH [22-31 mmol/L] 25 mmol/L (11/28/19 5:15 AM) Est GFR DH [>=60] 94 1 (11/28/19 5:15 AM) Glucose Lvl DH [65-99 mg/dL] 114 mg/dL *HI* (11/28/19 5:15 AM) Potassium Lvl DH [3.5-5.0 mmol/L] 3.9 mm ol/L (11/28/19 5:15 AM) Sodium Lvl DH [135-145 mmol/L] 142 mmol/ L (11/28/19 5:15 AM) BUN DH [10-20 mg/dL] 13 mg/dL (11/28/19 5:15 AM) Calcium Lvl DH [8.5-10.5 mg/dL] 8.8 mg/d L (11/28/19 5:15 AM) Creatinine [0.80-1.50 mg/dL] .76 mg/dL *LOW* (11/28/19 5:15 AM) Creatinine 0.89 mg/dL (11/26/19 5:59 AM) GFR - DH [>=60] 109 2 (11/28/19 5:15 AM) Hct DH [40.5-48.5 %] 41.0 % (11/28/19 5:15 AM) Hgb DH [13.7-16.5 gm/dL] 14.1 gm/dL (11/28/19 5:15 AM) MCHC DH [32.0-35.7 pg] 34.4 pg (11/28/19 5:15 AM) MCH DH [27.5-32.1 pg] 30.1 pg (11/28/19 5:15 AM) MCV DH [82.9-93.1 fL] 87.6 fL (11/28/19 5:15 AM) MPV DH [7.6-12.9 fL] 9.9 fL (11/28/19 5:15 AM) Platelet DH [145-357 x10(3)/mcL] 216 x10 (3)/mcL (11/28/19 5:15 AM) RBC DH [4.58-5.54 x10(6)/mcL] 4.68 x10(6 )/mcL (11/28/19 5:15 AM) RDWCV DH [11.4-13.8 x10(6)/mcL] 13.0 x10 (6)/mcL (11/28/19 5:15 AM) RDWSD DH [36.0-45.0 fL] 41.2 fL (11/28/19 5:15 AM) WBC DH [4.0-9.5 x10(3)/mcL] 6.9 x10(3)/m cL (11/28/19 5:15 AM) 1Result Comment: The eGFR was calculated using the CKD-EPI equation. As with all creatinine based estimates of kidney function, eGFR values calculated with the CKD-EPI equation are not accurate in patients with acute kidney failure, extremes of body mass or the acutely ill. http://[employer]/DHMCnkf 2Result Comment: The eGFR was calculated using the CKD-EPI equation. As with all creatinine based estimates of kidney function, eGFR values calculated with the CKD-EPI equation are not accurate in patients with acute kidney failure, extremes of body mass or the acutely ill. http://[employer]/DHMCnkf Vital Signs Most recent to oldest [Reference Range]: 1 2 3 Temperature Oral [35.8-37.3 DegC] 36.7 DegC (12/02/19 8:09 AM) 36.2 DegC (12/01/19 8:00 AM) 36.6 DegC (11/30/19 8:00 PM) Temperature Oral (DegF) 98.06 DegF (12/02/19 8:09 AM) 97.7 DegF (11/30/19 7:52 AM) Peripheral Pulse Rate [60-100 bpm] 78 bpm (12/02/19 8:09 AM) 78 bpm (12/01/19 8:00 AM) 69 bpm (11/30/19 8:00 PM) Respiratory Rate [14-20 br/min] 18 br/min (12/02/19 8:09 AM) 18 br/min (11/30/19 8:00 PM) 17 br/min (11/30/19 7:52 AM) Blood Pressure [90-140/60-90 mmHg] 113/70mmHg (12/02/19 8:09 AM) 120/82mmHg (12/01/19 8:00 AM) 113/76mmHg (11/30/19 8:00 PM) Mean Arterial Pressure, Cuff 89 mmHg (11/29/19 7:00 PM) 84 mmHg (11/28/19 8:00 PM) 83 mmHg (11/28/19 8:36 AM) BP Site Right arm (12/02/19 8:09 AM) Right arm (11/30/19 8:00 PM) Right arm (11/30/19 7:52 AM) SpO2 [92-100 %] 96 % (12/02/19 8:09 AM) 96 % (12/01/19 8:00 AM) 98 % (11/30/19 8:00 PM) Blood Pressure Supine 121/81mmHg (11/28/19 2:00 AM) Oxygen Activity Ongoing (11/30/19 7:52 AM) Height 167.6 cm (11/27/19 7:17 PM) Height/Length Measured (inches) 66 in (11/27/19 7:17 PM) Height/Length Dosing 167.6 cm (11/27/19 7:17 PM) Weight 101.5 kg (11/27/19 7:17 PM) 101.5 kg (11/27/19 7:17 PM) Weight Measured (lbs) 223.3 lb (11/27/19 7:17 PM) Weight Dosing 101.5 kg (11/27/19 7:17 PM) 101.5 kg (11/27/19 7:17 PM) 91.627 kg (11/27/19 4:30 PM) Social History Social History Type Response Smoking Status Former smoker, quit more than 30 days ago; Tobacco use per day: Pt quit soking cigars 30 years ago; entered on: 11/27/19 Sex Hospital Discharge Instructions Patient Education 12/01/2019 12:07:57 Warning Signs of a Stroke (TRACEY A. WHITE) Warning Signs of a Stroke A stroke is a medical emergency and should be treated right away???every second counts. A stroke iscaused by a decrease or block in blood flow to the brain. When this occurs, certain areas of the brain do not get enough oxygen, and brain cells begin to . A stroke can lead to brain damage and can sometimes be life-threatening. However, if someone havinga stroke gets medical treatment right away, he or she has better chances of surviving and recovering from the stroke. Being able to recognize the symptoms of a stroke is very important. Types of strokes There are two main types of strokes: ??? Ischemic strokes. This is the most common type of stroke. These strokes happen when a blood vessel that supplies blood to the brain is being blocked. ??? Hemorrhagic strokes. These strokes result from bleeding in the brain due to a blood vessel leaking or bursting (rupturing). A transient ischemic attack (TIA) is a warning stroke that causes stroke-like symptoms that go away quickly. Unlike a stroke, a TIA does not cause permanent damage to the brain. However, the symptoms of a TIA are the same as a stroke, and they also require medical treatment right away. Having a TIA is a sign that you are at higher risk for a permanent stroke. Warning signs of a stroke The symptoms of stroke may vary and will reflect the part of the brain that is involved. Symptoms usually happen suddenly. BE FAST is an easy way to remember the main warning signs of a stroke. B - Balance Signs are dizziness, sudden trouble walking, or loss of balance. E - Eyes Signs are trouble seeing or a sudden change in vision. F - Face Signs are sudden weakness or numbness of the face, or the face or eyelid drooping on one side. A - Arms Signs are weakness or numbness in an arm. This happens suddenly and usually on one side of the body. S - Speech Signs are sudden trouble speaking, slurred speech, or trouble understanding what people say. T - Time Time to call emergency services. Write down what time symptoms started. Other signs of a stroke Some less common signs of a stroke include: ??? A sudden, severe headache with no known cause. ??? Nausea or vomiting. ??? Seizure. A stroke may be happening even if only one BE FAST symptoms is present. These symptoms may represent a serious problem that is an emergency. Do not wait to see if the symptoms will go away. Get medical help right away. Call your local emergency services (911 in the [place] Do not drive yourself to the hospital. Summary ??? A stroke is a medical emergency and should be treated right away???every second counts. ??? BE FAST is an easy way to remember the main warning signs of a stroke. ??? Call local emergency services right away if you or someone else has any stroke symptoms, even if the symptoms go away. ??? Make note of what time the first symptoms appeared. Emergency responders or emergency room staff will need to know this information. ??? Do not wait to see if symptoms will go away. Call 911 even if only one of the BE FAST symptoms appears. This information is not intended to replace advice given to you by your health care provider. Make sure you discuss any questions you have with your health care provider. Document Released: 12/27/2017 Document Revised: 12/27/2017 Document Reviewed: 12/27/2017 [employer] Interactive Patient Education ?? 2019 [employer]ribute. 12/01/2019 12:07:57 Supporting Someone After a Stroke Supporting Someone After a Stroke Caregivers provide essential physical and emotional support to people who have had a stroke. If youare supporting someone who has had a stroke, you play an important role in coordinating schedules, helping your loved one to communicate, and helping with the overall rehabilitation plan. What do I need to know about my loved one's recovery? Recovering from a stroke can take weeks, months, or years. Some people may be able to return to a normal lifestyle, and other people may have permanent problems with movement (mobility), thinking, behavior, or communication. Understanding your loved one's condition can help you manage the role of ca regiver. Your loved one's health care team may rely on you to provide information such as medical history and current medicines. How can I support my friend or family member? Planning for discharge from the hospital Ask to meet with a oncology social worker or a stroke post acute care registered nurse, if one is available. This person canhelp you to plan for discharge. Before you leave the hospital, make sure you understand: ??? The recovery process after a stroke. ??? Physical, emotional, behavioral, and other changes that may affect your loved one after a stroke. ??? The treatments for stroke, including the medicines that your loved one has to take. ??? How to lower the risk of another stroke. ??? Diet and exercise changes for your loved one. ??? Whether you will need extra help at home. ??? Whether your loved one will need help using the bathroom, bathing, eating, or doing other activities. ??? Changes you have to make at home to make it safe for your loved one. ??? Whether you need to get special devices or equipment for your loved one. General help ??? Help your loved one establish a daily routine. This may include setting reminders or having a shared day special events planner or calendar. ??? Encourage rest. Your loved one may need frequent breaks during social situations or other activities. ??? Be patient. Your loved one may take longer to complete tasks and to process information. ??? When giving instructions, give only one instruction at a time or give [id number] lists. Multitasking can be difficult after a stroke. ??? Offer assistance with hotel houseman or other daily tasks. Make freezer meals that can be reheated. ??? Do not set expectations about your loved one's recovery. Medical visits ??? Gently remind your loved one of tasks and medical visits if he or she is forgetful. ??? Provide transportation to and from appointments. ??? Attend rehabilitation appointments with your loved one. By being involved in the rehabilitationplan, you can encourage your loved one and help with exercises and therapy activities at home. Preventing falls ??? Follow instructions to prevent falls in your loved one's home. These may include: ??? Installing grab bars in bathrooms and handrails in stairways. ??? Using night-lights in the bedroom, bathroom, or hallways. ??? Removing rugs and mats or making them stick to the floor. ??? Keeping walkways clear by removing cords and clutter from the floor. Managing finances ??? Help to manage your loved one's finances. Talk with a oncology social worker or legal professional if: ??? Your loved one is unable to return to work and is in need of financial help. ??? You need help paying medical bills. ??? You need to establish guardianship over finances. ??? You need help with estate planning. How should I care for myself? Helping a loved one recover from a stroke can be rewarding, and it can also be challenging and stressful at times. Make sure to care for your own well-being during this time. Lifestyle ??? Rest. Try to get 7???9 hours of uninterrupted sleep each night. ??? Eat a balanced diet that includes fresh fruits and vegetables, whole grains, lean proteins, andlow-fat dairy. ??? Exercise for 30 or more minutes on 5 or more days each week. ??? Find ways to manage stress. These may include: ??? Deep breathing, yoga, or meditation. ??? Spending time outdoors. ??? Journaling. Finding support ??? Ask for help. Take a break if you are the primary caregiver to your loved one. ??? Spend time with supportive people. ??? Join a support group with other caregivers or family members of people who have had a stroke. ??? If you experience new or worsening depression or anxiety, seek counseling from a mental health professional. Where to find more information You may find more information about supporting someone who has had a stroke from: ??? National Stroke Association: www.stroke.org/we-can-help/ufizzqamsq-irw-elbtvg ??? [place] [employer] Association: www.strokeassociation.org/STROKEORG Summary ??? Caregivers provide essential physical and emotional support to people who have had a stroke. ??? Before you leave the hospital, make sure you understand how to care for someone who has had a stroke. ??? It is normal to have many different emotions while caring for someone who has had a stroke. Make sure to care for your own well-being during this time. This information is not intended to replace advice given to you by your health care provider. Make sure you discuss any questions you have with your health care provider. Document Released: 12/27/2017 Document Revised: 12/27/2017 Document Reviewed: 12/27/2017 [employer] Interactive Patient Education ?? 2019 [employer]ribute. 12/01/2019 12:07:57 Sexual Activity After a Stroke Sexual Activity After a Stroke You may have questions about sexual activity after a stroke. A stroke causes physical and emotionalchanges. These may include physical changes that affect your ability to have sex or intimacy. You may also go through emotional changes that affect your desire for sexual activity. These changes can be frustrating for you and for your partner, but there are ways to maintain intimacy. When can I resume sexual activity? As soon as you are feeling better, you may resume sexual activity. Your ability to engage in sexualactivity may depend on your recovery, medicines, and treatments. What are some sexual changes I might experience after a stroke? It is common to have sexual changes after a stroke. You may have: ??? Fears that sexual activity could cause another stroke. ??? Changes in self-image or confidence. ??? Medicines that affect your desire and ability to have sex. ??? Physical changes that affect your ability to have sex. These may include trouble moving, weakness, paralysis, stiffness, and pain. ??? Depression and anxiety. These may affect your desire to have sex. ??? Problems talking before, during, and after sex because of speech difficulty or loss. ??? Sexual dysfunction. This may include not being able to have an erection or an orgasm. What are some ideas for intimacy? Talk with your partner about sex. ??? Start sexual activities slowly. ??? Try massages or other intimate activities. ??? Find comfortable positions. ??? Try new positions. ??? Spend more time alone with your partner. ??? Hug and cuddle your partner. What are some treatments for sexual dysfunction? Difficulty with sexual activity is common after a brain injury. Sexual intimacy is a sensitive topic, but it is important for your overall recovery. Talk with a therapist or health care provider to find a treatment plan that is right for you. Treatment for sexual dysfunction may include: ??? Talk therapy and relationship counseling. This may include therapy for couples. ??? Sex therapy. This includes working with a sex therapist. ??? Changing medicines. Some medicines have side effects that cause sexual dysfunction. ??? Taking medicines to get an erection. ??? Using a mechanical device to get an erection. One example is a vacuum pump that uses suction tocreate an erection. ??? Using lubricating gels and creams. Where to find more information: You may find more information about sexual activity after a stroke by: ??? Talking with a certified sex therapist or your health care provider. ??? Looking for local organizations that offer resources and support. ??? Searching for information online from trusted sources such as: ??? [place] [employer] Association: www.strokeassociation.org Summary ??? It is common to have sexual changes after a stroke. ??? Sexual intimacy is a sensitive but important topic for your overall recovery. Talk with a therapist or health care provider to find a treatment plan that is right for you. ??? You may need treatment for sexual dysfunction. This may include talk therapy, changing your medicines, and other treatments. This information is not intended to replace advice given to you by your health care provider. Make sure you discuss any questions you have with your health care provider. Document Released: 12/26/2017 Document Revised: 12/26/2017 Document Reviewed: 12/26/2017 [employer] Interactive Patient Education ?? 2019 [employer]ribute. 12/01/2019 12:07:57 Hospital Discharge After a Stroke Hospital Discharge After a Stroke Being discharged from the hospital after a stroke can feel overwhelming. Many things may be different, and it is normal to feel scared or anxious. Some stroke survivors may be able to return to theirhomes, and others may need more specialized care on a temporary or permanent basis. Your stroke care team will work with you to develop a discharge plan that is best for you. Ask questions if you do not understand something. Invite a friend or family member to participate in discharge planning. Understanding and following your discharge plan can help to prevent another stroke or other problems. Understanding your medicines After a stroke, your health care provider may prescribe one or more types of medicine. It is important to take medicines exactly as told by your health care provider. Serious harm, such as another stroke, can happen if you are unable to take your medicine exactly as prescribed. Make sure you understand: ??? What medicine to take. ??? Why you are taking the medicine. ??? How and when to take it. ??? If it can be taken with your other medicines and herbal supplements. ??? Possible side effects. ??? When to call your health care provider if you have any side effects. ??? How you will get and pay for your medicines. Medical assistance programs may be able to help you pay for prescription medicines if you cannot afford them. If you are taking an anticoagulant, be sure to take it exactly as told by your health care provider. This type of medicine can increase the risk of bleeding because it works to prevent blood from clotting. You may need to take certain precautions to prevent bleeding. You should contact your health care provider if you have: ??? Bleeding or bruising. ??? A fall or other injury to your head. ??? Blood in your urine or stool (feces). Planning for home safety Take steps to prevent falls, such as installing grab bars or using a shower chair. Ask a friend or family member to get needed things in place before you go home if possible. A therapist can come to your home to make recommendations for safety equipment. Ask your health care provider if you would benefit from this service or from home care. Getting needed equipment Ask your health care provider for a list of any medical equipment and supplies you will need at home. These may include items such as: ??? Walkers. ??? Canes. ??? Wheelchairs. ??? Hand-strengthening devices. ??? Special eating utensils. Medical equipment can be rented or purchased, depending on your insurance coverage. Check with your[employer] company about what is covered. Keeping follow-up visits After a stroke, you will need to follow up regularly with a health care provider. You may also needrehabilitation, which can include physical therapy, occupational therapy, or speech-language therapy. Keeping these appointments is very important to your recovery after a stroke. Be sure to bring yourmedicine list and discharge papers with you to your appointments. If you need help to keep track ofyour schedule, use a calendar or appointment reminder. Preventing another stroke Having a stroke puts you at risk for another stroke in the future. Ask your health care provider what actions you can take to lower the risk. These may include: ??? Increasing how much you exercise. ??? Making a healthy eating plan. ??? Quitting smoking. ??? Managing other health conditions, such as high blood pressure, high cholesterol, or diabetes. ??? Limiting alcohol use. Knowing the warning signs of a stroke Make sure you understand the signs of a stroke. Before you leave the hospital, you will receive information outlining the stroke warning signs. Share these with your friends and family members. BE FAST is an easy way to remember the main warning signs of a stroke: ??? B - Balance. Signs are dizziness, sudden trouble walking, or loss of balance. ??? E - Eyes. Signs are trouble seeing or a sudden change in vision. ??? F - Face. Signs are sudden weakness or numbness of the face, or the face or eyelid drooping on one side. ??? A - Arms. Signs are weakness or numbness in an arm. This happens suddenly and usually on one side of the body. ??? S - Speech. Signs are sudden trouble speaking, slurred speech, or trouble understanding what people say. ??? T - Time. Time to call emergency services. Write down what time symptoms started. Other signs of stroke may include: ??? A sudden, severe headache with no known cause. ??? Nausea or vomiting. ??? Seizure. These symptoms may represent a serious problem that is an emergency. Do not wait to see if the symptoms will go away. Get medical help right away. Call your local emergency services (911 in the [place] Do not drive yourself to the hospital. Make note of the time that you had your first symptoms. Your emergency responders or emergency roomstaff will need to know this information. Summary ??? Being discharged from the hospital after a stroke can feel overwhelming. It is normal to feel scared or anxious. ??? Make sure you take medicines exactly as told by your health care provider. ??? Know the warning signs of a stroke, and get help right way if you have any of these symptoms. BE FAST is an easy way to remember the main warning signs of a stroke. This information is not intended to replace advice given to you by your health care provider. Make sure you discuss any questions you have with your health care provider. Document Released: 12/13/2017 Document Revised: 12/13/2017 Document Reviewed: 12/13/2017 [employer] Interactive Patient Education ?? 2019 [employer] 12/01/2019 12:07:57 Driving After a Stroke Driving After a Stroke Driving can be dangerous after a stroke because a stroke can cause physical, emotional, cognitive, and behavioral changes. Damage to your brain and other parts of your nervous system may affect your ability to drive. You may have weakness, stiffness, and pain, and have problems moving, talking, seeing, touching, or problem-solving. A stroke can also cause inability to move (paralysis) on one sideof your body. Can I return to driving? Ask your health care provider when it is safe for you to drive. Laws on driving after a stroke varyby state. Your health care provider may recommend that you: ??? Get a driving evaluation to have your vision, thinking, reaction time, and driving skills tested. ??? Take a driving rehabilitation program for people who have had a stroke. ??? Take a driving class or a retraining program. How is driving affected by a stroke? A family member may be the first to notice that it is not safe for you to drive. You may have problems with: ??? Your vision. ??? Talking and communicating. ??? Weakness, pain, and stiffness in your arms or legs. ??? Responding to changes on the road. ??? Using the steering wheel, pedals, and other parts of the car. ??? Thinking while driving. ??? Judgment on the road. What are some signs that it may not be safe for me to drive? Signs that driving may be unsafe for you include: ??? Driving too fast or too slowly. ??? Needing help from others while driving. ??? Not paying attention to street signs or signals. ??? Making bad decisions while driving. ??? Not keeping enough distance between cars. ??? Drifting into other lanes. ??? Becoming confused, angry, or frustrated. ??? Getting lost in familiar places. ??? Having accidents while driving. What is adaptive equipment? Adaptive equipment refers to devices that can help people who have had a stroke to drive and do other activities. You may need: ??? A wheelchair-accessible car. ??? Special hand controls in the car. ??? Pedal extensions for the car. ??? A seat base to help you stay positioned in your seat. ??? Lifts and ramps to help you get in and out of the car. Summary ??? Damage to your brain and other parts of your nervous system may affect your ability to drive. ??? Ask your health care provider when it is safe for you to drive again. You may need to take steps such as getting a driving evaluation or taking a driving class. ??? A family member may be the first to notice that it is not safe for you to drive. ??? You may need adaptive equipment to drive safely. This information is not intended to replace advice given to you by your health care provider. Make sure you discuss any questions you have with your health care provider. Document Released: 12/16/2017 Document Revised: 12/16/2017 Document Reviewed: 12/16/2017 [employer] Interactive Patient Education ?? 2019 [employer] 12/01/2019 12:07:57 Carotid Artery Disease Carotid Artery Disease The carotid arteries are the two main arteries on either side of the neck. They supply blood to thebrain, face, and neck. Carotid artery disease, also called carotid artery stenosis, is the narrowing or blockage of one or both carotid arteries. Carotid artery disease increases your risk for a stroke or a transient ischemic attack (TIA). A TIA is an episode in which blood flow to the brain is temporarily blocked. A TIA is considered a warning stroke. What are the causes? This condition is primarily caused by buildup of plaque inside the carotid arteries (atherosclerosis). What increases the risk? The following factors may make you more likely to develop this condition: ??? High cholesterol (dyslipidemia). ??? High blood pressure (hypertension). ??? Smoking. ??? Obesity. ??? Diabetes. ??? Family history of cardiovascular disease. ??? Inactivity or lack of regular exercise. ??? Being male. Men have an increased risk of developing atherosclerosis earlier in life than women. ??? Old age. What are the signs or symptoms? This condition may not have any signs or symptoms until a stroke or TIA occurs. In some cases, yourdoctor may be able to hear a whooshing sound (bruit) which can indicate a change in blood flow due to plaque buildup. An eye exam can also help identify signs of the condition. How is this diagnosed? This condition may be diagnosed by: ??? A physical exam. ??? Your family and medical history. ??? Specific tests that look at the blood flow in the carotid arteries. These tests include: ??? Carotid artery ultrasound. This test uses sound waves to create pictures of your arteries and show whether they are narrow or blocked. ??? Carotid or cerebral angiography. During this test, a special dye will be injected into a vein. The dye will show up on an X-ray to help highlight your arteries. ??? Computerized tomographic angiography (CTA). During this test, a special dye will be injected into a vein. The dye will show up on the CT scan to help highlight your arteries. ??? Magnetic resonance angiography (MRA). During this test, a special dye will be injected into a vein. The dye will show up on the MRI to help highlight your arteries. How is this treated? Treatment of this condition may include a combination of treatments. Treatment options include: ??? Lifestyle changes such as: ??? Quitting smoking. ??? Exercising regularly or as directed by your health care provider. ??? Eating a heart-healthy diet. ??? Managing stress. ??? Maintaining a healthy weight. ??? Medicines to control: ??? Blood pressure. ??? Cholesterol. ??? Blood clotting. ??? Surgery. You may have: ??? A carotid endarterectomy. This is a surgery to remove the blockages in the carotid arteries. ??? A carotid angioplasty with stenting. This is a procedure in which a wire mesh (stent) is used to widen the blocked carotid arteries. Follow these instructions at home: Lifestyle ??? Follow your health care provider's instructions about your diet. It is important to eat a healthy diet that is low in saturated fats and includes plenty of fresh fruits, vegetables, and lean meats. You should avoid high-fat, high-sodium foods as well as foods that are fried, overly processed, or have poor nutritional value. ??? Maintain a healthy weight. ??? Stay physically active. It is recommended that you get at least 150 minutes of moderate exercise or 75 minutes of strenuous exercise each week. ??? Do not use any products that contain nicotine or tobacco, such as cigarettes and e-cigarettes. If you need help quitting, ask your health care provider. ??? Limit alcohol intake to no more than 1 drink a day for non- women and 2 drinks a day for men. One drink equals 12 oz. of beer, 5 oz. of wine, or 1?? oz. of hard liquor. ??? Do not use illegal drugs. ??? Manage your stress. Ask your health care provider for stress management tips. General instructions ??? Take nhdo-kpy-pebhsge and prescription medicines only as told by your health care provider. ??? Keep all follow-up visits as told by your health care provider. This is important. Get help right away if: ??? You have any symptoms of stroke or TIA. The acronym BEFAST is an easy way to remember the main warning signs of stroke. ??? B = Balance problems. Signs include dizziness, sudden trouble walking, or loss of balance ??? E = Eye problems. This includes trouble seeing or a sudden change in vision. ??? F = Face changes. This includes sudden weakness or numbness of the face, or the face or eyelid drooping to one side. ??? A = Arm weakness or numbness. This happens suddenly and usually on one side of the body. ??? S = Speech problems. This includes trouble speaking or trouble understanding speech. ??? T = Time. Time to call 911 or seek emergency care. Do not wait to see if symptoms go away. Makenote of the time your symptoms started. ??? Other signs of stroke may include: ??? A sudden, severe headache with no known cause. ??? Nausea or vomiting. ??? Seizure. These symptoms may represent a serious problem that is an emergency. Do not wait to see if the symptoms will go away. Get medical help right away. Call your local emergency services (911 in the [place] Do not drive yourself to the hospital. Summary ??? Carotid artery disease, also called carotid artery stenosis, is the narrowing or blockage of one or both carotid arteries. ??? Carotid artery disease increases your risk for a stroke or a transient ischemic attack (TIA). ??? This condition can be treated with lifestyle changes, medicines, surgery, or a combination of these treatments. ??? Do not use any products that contain nicotine or tobacco, such as cigarettes and e-cigarettes. If you need help quitting, ask your health care provider. This information is not intended to replace advice given to you by your health care provider. Make sure you discuss any questions you have with your health care provider. Document Released: 12/01/2012 Document Revised: 10/14/2017 Document Reviewed: 10/14/2017 [employer] Interactive Patient Education ?? 2019 [employer]. 12/01/2019 12:07:57 Carotid Angioplasty With Stent, [id number] Carotid Angioplasty With Stent Carotid angioplasty is a surgery to widen or open an artery in the neck (carotid artery). The surgery is done by placing a small piece of metal (stent) into the artery. The stent helps to keep the artery open so that blood flows to the brain. This surgery is done when an artery gets blocked or getstoo narrow. What happens before the procedure? Ask your doctor about: ??? Changing or stopping your normal medicines. This is especially important if you take diabetes medicines or blood thinners. ??? Taking medicines such as aspirin and ibuprofen. These medicines can thin your blood. Do not take these medicines before your procedure if your doctor tells you not to. ??? Follow instructions from your doctor about what you cannot eat or drink. ??? Do not use any tobacco products for at least 24 hours before your procedure. This includes cigarettes, chewing tobacco, or e-cigarettes. ??? Ask your doctor how your surgical area will be marked or identified. ??? You may be given antibiotic medicine to help prevent infection. ??? You may have blood tests done. ??? Plan to have someone take you home after the procedure. ??? If you go home right away, plan to have someone with you for 24 hours. What happens during the procedure? To reduce your risk of infection: ??? Your health care team will wash or sanitize their hands. ??? Your skin will be washed with soap. ??? An IV tube will be put into one of your veins. ??? You will be given one or more of the following: ??? A medicine to help you relax (sedative). ??? A medicine to make you fall asleep (general anesthetic). ??? A cut (incision) will be made. Usually the cut will be in your groin. Sometimes, the cut may bein your wrist or forearm instead. ??? A tube (catheter) will be put through your cut. The tube will be moved into your artery. An X-ray machine (fluoroscope) will be used to help with this. ??? Dye will be put into the tube. The dye will travel to the narrow or blocked part of your artery. ??? X-rays will be done. These will show where your artery is narrow or blocked. You may be given instructions about breathing, swallowing, moving, or talking during X-rays. ??? A filter (distal protection device) will be put into your artery. This will trap buildup that comes loose. ??? A small balloon will be put into your artery. It will be blown up to widen your artery. ??? The balloon will be removed. ??? The stent will be placed in your artery. ??? A small balloon will be put into your artery. It will be blown up to expand the stent. ??? The balloon will be removed. ??? The tube and filter will be removed. ??? Your cut may be closed with stitches (sutures), skin glue, or skin tape (adhesive) strips. ??? A bandage (dressing) will be placed over your cut. The procedure may vary among doctors and hospitals. What happens after the procedure? You will be monitored often until your medicines have worn off. ??? You may continue to get fluids and medicines through an IV tube. ??? You may have some pain. There will be medicine to help you. ??? You may have X-rays. These will make sure that the stent is in the right place. ??? You may have to wear compression stockings. These help to prevent blood clots. They also help to reduce swelling in your legs. ??? Do not drive for 24 hours if you received a medicine to help you relax. This information is not intended to replace advice given to you by your health care provider. Make sure you discuss any questions you have with your health care provider. Document Released: 09/14/2014 Document Revised: 02/14/2017 Document Reviewed: 06/03/2016 [employer] Interactive Patient Education ?? 2019 [employer]. 12/01/2019 12:07:57 Carotid Angioplasty With Stent, Care After Carotid Angioplasty With Stent, Care After Refer to this sheet in the next few weeks. These instructions provide you with information about caring for yourself after your procedure. Your health care provider may also give you more specific instructions. Your treatment has been planned according to current medical practices, but problems sometimes occur. Call your health care provider if you have any problems or questions after your procedure. What can I expect after the procedure? After the procedure, it is common to have: ??? Bruising at the catheter site. This usually fades within 1???2 weeks. ??? A small amount of blood or clear fluid coming from your surgical cut (incision). ??? Blood collecting underneath your skin (hematoma) around the catheter site. This may form a lumpthat you can see and feel. The lump may be sore and tender. This usually lasts for 1???2 weeks. Follow these instructions at home: Medicines ??? Take pfad-xfk-kibsxxy and prescription medicines only as told by your health care provider. ??? If you were prescribed an antibiotic medicine, take it as told by your health care provider. Donot stop taking the antibiotic even if you start to feel better. Incision care ??? Keep your incision area clean and dry. ??? Follow instructions from your health care provider about how to take care of your incision. Make sure you: ??? Wash your hands with soap and water before you change your bandage (dressing). If soap and water are not available, use hand oven laborer. ??? Change your dressing as told by your health care provider. ??? Leave stitches (sutures), skin glue, or adhesive strips in place. These skin closures may need to stay in place for 2 weeks or longer. If adhesive strip edges start to loosen and curl up, you maytrim the loose edges. Do not remove adhesive strips completely unless your health care provider tells you to do that. ??? Check your incision area every day for signs of infection. Check for: ??? More redness, swelling, or pain. ??? More fluid or blood. ??? Warmth. ??? Pus or a bad smell. Activity ??? Return to your normal activities as told by your health care provider. Ask your health care provider what activities are safe for you. ??? Do not lift anything that is heavier than 10 lb (4.5 kg) until your health care provider says that you can do this. ??? Avoid sexual activity until your health care provider says that this is safe for you. ??? Exercise regularly, as told by your health care provider. Ask your health care provider what types of exercise are safe for you. Eating and drinking ??? Follow instructions from your health care provider about eating or drinking restrictions. ??? Drink enough fluid to keep your urine clear or pale yellow. ??? Eat a heart-healthy diet. This should include plenty of fresh fruits and vegetables. Meat should be lean cuts. Avoid foods that are: ??? High in salt, saturated fat, or sugar. ??? Canned or highly processed. ??? Fried. Lifestyle ??? Limit alcohol intake to no more than 1 drink per day for non women and 2 drinks per dayfor men. One drink equals 12 oz of beer, 5 oz of wine, or 1?? oz of hard liquor. ??? Do not use any tobacco products, such as cigarettes, chewing tobacco, or e- cigarettes. If you need help quitting, ask your health care provider. ??? Work with your health care provider to keep your blood pressure under control. ??? Maintain a healthy weight. General instructions ??? Do not drive or operate heavy machinery while taking prescription pain medicine. ??? Do not take baths, swim, or use a hot tub until your health care provider approves. ??? Tell all health care providers who care for you that you have a stent. ??? Keep all follow-up visits as told by your health care provider. This is important. Contact a health care provider if: ??? You have more redness, swelling, or pain around your incision. ??? You have more fluid or blood coming from your incision. ??? Your incision area feels warm to the touch. ??? You have pus or a bad smell coming from your incision. ??? You have a lump caused by a hematoma that does not go away after 2 weeks. ??? You have a fever. Get help right away if: ??? You have vision changes or loss of vision. ??? You have numbness or weakness on one side of your body. ??? You have difficulty talking. ??? You have slurred speech or you cannot speak (aphasia). ??? You suddenly feel very confused. ??? You notice a hematoma that is quickly getting larger (expanding). ??? You suddenly develop pain in the area where your stent was placed. ??? Your incision begins to bleed and does not stop after you hold pressure on it for 30 minutes. These symptoms may be an emergency. Do not wait to see if the symptoms will go away. Get medical help right away. Call your local emergency services (911 in the [place] Do not drive yourself to the hospital. This information is not intended to replace advice given to you by your health care provider. Make sure you discuss any questions you have with your health care provider. Document Released: 11/29/2006 Document Revised: 02/14/2017 Document Reviewed: 06/03/2016 [employer] Interactive Patient Education ?? 2019 [employer] Follow Up Care 11/27/2019 13:38:55 With:OP OT Address:Unknown When: Unknown With:Instructional Systems Designer Address: [facility] When:12/02/2019 11:00:00 Comments:[facility] Cardiology 4A - Zio patch placement With:Mario Williamson MD Address: [facility] When:12/11/2019 08:20:00 Comments:follow-up Appt with your PCP With:Neurology, [facility] Address: When: Unknown Comments:f/u stroke - Referral sent/Appt requested - office to call you at home with Appt With:[facility] Vascular Surgery Address: [place], [place] When:12/25/2019 13:45:00 Comments:[facility] Vascular Lab 3V @ 1:45pm, @ 2:15pm
--- OUTSIDE RECORDS SUMMARY | 2024-05-28 21:20 | XMS_ITS | Encounter Summary ---
Author Organization [facility] Address [facility] [place] [address] Care Team Providers Care Sow Farm Barn Technician Name Role Phone Mario Williamson MD Primary Care Provider [phone] Encounter Details Date Type Department Care Team (Late st Contact Info) Description 11/24/2019 4:30 PM EST Ancillary Procedure [place] [id number] Martha Price MD [facility] [place] [address] Social History Tobacco Use Types Packs/Day Years Used Date Smoking Tobacco: Never Assessed Sex and Gender Information Value Date Recorded Sex Assigned at Not on file Gender Identity Not on file Sexual Orientation Not on file documented as of this encounter Plan of Treatment Not on file documented as of this encounter Procedures Procedure Name Priority Date/Time Associated Diagnosis Comments FILM LIBRARY STORAGE ONLY DX CHEST Routine 11/24/2019 4:26 PM EST documented in this encounter Results * Film Library- Storage Only DX Chest (11/24/2019 4:26 PM EST) Narrative [facility] - 11/24/2019 4:26 PM EST This exam is auto-finalizing. It's purpose is for storage only. Martha Price MD IMG FILM LIBRARY O RDERABLES [place], [place] documented in this encounter Visit Diagnoses Not on filedocumented in this encounter Care Teams Sow Farm Barn Technician Relationship Specialty Start Date End Date Mario Williamson MD [address] [place] [address] PCP - General Family Medicine 11/24/19 documented as of this encounter
--- OUTSIDE RECORDS SUMMARY | 2024-05-28 21:20 | XMS_ITS | Encounter Summary ---
Author Organization [facility] Address [facility] [place] [address] Care Team Providers Care Commodity Analyst Name Role Phone Mario Williamson MD Primary Care Provider [phone] Encounter Details Date Type Department Care Team (Late st Contact Info) Description 11/24/2019 4:35 PM EST Ancillary Procedure [place] [address] Martha Price MD [facility] [place] [address] Social History Tobacco Use Types Packs/Day Years [...] Associated Diagnosis Comments FILM LIBRARY STORAGE ONLY CT HEAD AND SPINE Routine 11/24/2019 4:28 PM EST documented in this encounter Results * Film Library- Storage Only CT Head And Spine (11/24/2019 4:28 PM EST) Narrative [facility] - 11/24/2019 4:28 PM EST This exam is auto-finalizing. It's purpose is for storage only. Martha Price MD IMG FILM LIBRARY O RDERABLES [place], [place] documented in this encounter Visit Diagnoses Not on filedocumented in this encounter Care Teams Commodity Analyst Relationship Specialty Start Date End Date Mario Williamson MD [address] [place] [address] PCP - General Family Medicine 11/24/19 documented as of this encounter
--- OUTSIDE RECORDS SUMMARY | 2024-05-28 21:20 | XMS_ITS | Encounter Summary ---
Author Organization [facility] [place] [address] Care Team Providers Care Liquid Fertilizer Servicer Name Role Phone Mario Williamson MD Primary Care Provider [phone] Reason for Referral * Diagnostic Test (Routine) - Closed Specialty Diagnoses / Procedures Referred By Contac t Referred To Contact Diagnoses Cerebrovascular accident (CVA), unspecified mechanism Procedures Kiran Sorensen PA [facility] [place] [address] Referral ID Status Reason Start Date Expiration Date V isits Requested Visits Authorized [id number] Closed Specialty Service Requested 11/26/2019 11/25/2020 1 1 Reason for Visit * Auth/Cert Specialty Diagnoses / Procedures Referred By Contac t Referred To Contact Diagnoses Stroke CVA Procedures ER IPI Admit Referral ID Status Reason Start Date Expiration Date Visits Re quested Visits Authorized [id number] 1 1 Encounter Details Date Type Department Care Team (Latest Contact Info) Description 11/24/2019 7:17 PM EST - 11/27/2019 5:16 PM EST Hospital Encounter [facility] [place] [address] Martha Price MD [facility] [place] [address] Renetta Nice MD [facility] [place] [address] Cerebrovascular accident (CVA), unspecified mechanism Discharge Disposition: Rehab Center in a Facility Social History Tobacco Use Types Packs/Day Years Used Date Smoking Tobacco: Never Assessed Sex and Gender Information Value Date Recorded Sex Assigned at Not on file Gender Identity Not on file Sexual Orientation Not on file documented as of this encounter Last Filed Vital Signs Vital Sign Reading Time Taken Comments Blood Pressure 129/82 11/27/2019 12:00 PM EST Pulse 96 11/27/2019 2:00 PM EST Temperature 36.8 ??C (98.2 ??F) 11/27/2019 12:[address] Respiratory Rate 23 11/27/2019 2:00 PM EST Oxygen Saturation 100% 11/27/2019 2:00 PM EST Inhaled Oxygen Concentration - - Weight 91.6 kg (202 lb) 11/24/2019 7:30 PM EST Height - - Body Mass Index - - documented in this encounter Discharge Summaries * Renetta Nice MD - 11/27/2019 2:56 PM EST Inpatient - Discharge Summary Patient Name: Jeannie Morris Patient Age: 69 y.o. Birthdate: 1950 Admit date: 11/24/2019 Discharge date and time: 11/27/2019 Attending Physician: Renetta Nice MD Discharging Provider: MERYL MICHAEL RN Discharging Service: Vascular Surgery Operations/Major Procedures: 11/25/2019 (Renetta Nice MD): Right internal carotid artery TCAR (transcarotid artery revascularization) with ENROUTE transcarotid neuroprotection and stent system (10x30 Enroute Stent, 10x 40 Enroute Stent) Active Hospital Problems: Active Hospital Problems Diagnosis ??? Essential hypertension ??? Hyperlipidemia ??? At risk for falls ??? Dysphagia as late effect of stroke ??? Left arm weakness ??? Stroke Resolved Hospital Problems Diagnosis Date Resolved ??? Carotid artery stenosis, symptomatic, right 12/01/2019 Active Non Hospital Problems: There are no active non-hospital problems to display for this patient. History of Presentation: 69 y.o. M with hx smoking who is admitted after deferring TPA at OSH for RMCA symptoms of left hemiparesis, facial droop, dysarthria with low NIHSS with corresponding R ICA stenosis. Transferred for consideration of vascular surgery. Per Patient: He was sitting in the recliner eating his dinner around 2:30pm and he tried to get outof the recliner and realized that his left arm and left leg were not working he then kept trying to get up and was unable to push himself up in the chair. He called his daughter and she called the ambulance. By the time he got to [facility] he was able to lift leg and arm likely around 4pm. He is unsure about his face drooping but did notice when he picked up his milk to drink it that it fell out ofhis face. His daughter who is present mentions that he was also slurring his speech (and still is although it is much improved) and states that he also had issues getting words out. He had associatednumbness in his left arm and left leg at the time as well. Hospital Course: Pt admitted via ED and was evaluated by neurology and vascular surgery teams. CT noted large thrombus within R ICA concern for etiology of stroke. Discussion was had with patient andfamily and due to the distal extent of the thrombus within the ICA, a TCAR was offered. The patientunderwent right internal carotid artery TCAR (transcarotid artery revascularization) with ENROUTE transcarotid neuroprotection and stent system (10x30 Enroute Stent, 10x 40 Enroute Stent) on 11/25/2019. The procedure was performed successfully without any new neurologic events. Pt admitted to the floor for postop monitoring. MRI was performed postoperatively by neurology team to complete their workup. Pt had fall on POD2 and hit head, no residual contusion and head CT imaging resulted below. Pt's neuro exam remains the same following fall; pt is AOx3, neuro intact at time of d/c. Pt's postop stay was otherwise unremarkable with good PO intake, adequate output, VSS and incisional pain in good control. Pt worked with PT/OT who recommend rehab and pt is agreeable. Pt is discharged on ASA/Plavix. Neurology final recs: -Agree with DAPT and statin, no current indication for ongoing anticoagulation. -Discussed Code status with patient and son (had DNR suspended periprocedurally) and he would like to continue FULL CODE. -Asked CM to review MPOA and assist with advanced directives -Discussed with Dr. Nice this a.m. Will arrange for ziopatch placement at discharge to assess for alternate source of his carotid thrombus (scheduled as outpatient, could not schedule on day of d/c.) -Will arrange 4-6 week post-discharge visit in stroke clinic. BP 129/82 (BP Location (NBP): Right arm, Patient Position: Sitting) Pulse 96 Temp 36.8 ??C (98.2 ??F) (Tympanic) Resp 23 Wt 91.6 kg (202 lb) SpO2 100% Important Studies and Lab Data: Labs: Lab Results Component Value Date WBC 7.5 11/27/2019 RBC 4.57 (L) 11/27/2019 HGB 13.8 11/27/2019 HCT 40.7 11/27/2019 MCV 89.1 11/27/2019 MCH 30.2 11/27/2019 MCHC 33.9 11/27/2019 PLATELET 219 11/27/2019 RDWCV 13.1 11/27/2019 Recent Labs 11/26/19 0559 NA 139 K 3.8 CL 106 CO2 22 BUN 10 CREATININE 0.89 GLUCOSE 86 11/27/2019 CT Scan IMPRESSION?? Expected evolution of small sites of infarction within the right MCA distribution. No new intra-axial lesion.?? No acute intracranial hemorrhage. Extensive endodontal disease. 11/26/2019 MRI brain Cluster of small sites of recent infarction within the right MCA territory, most extensive in the perirolandic cortex. The largest confluent lesion shows probable minor petechial hemorrhage Discharge Condition: Good Discharge to: [facility] [address], [place] [address] Future Appointments and Orders Future Appointments and Orders Future Appointments Provider Department Dept Phone 12/01/2019 10:30 AM DIRECTOR INTEGRATED Non-Invasive Cardiology Lab [facility] Arrive at: [place] 4A [phone] 12/25/2019 2:00 PM Citlaly Nogueira Vascular Lab at [facility] Arrive at: [place] [facility] [phone] 12/25/2019 2:30 PM Renetta Nice MD Vascular Surgery at [facility] Arrive at: [place] 3[facility] [phone] Future Orders Complete By Expires Saritha [0298T CPT(R)] 11/26/2019 (Approximate) 05/27/2020 Process Instructions: Scheduling Instructions: Comments: Questions: Does the patient have a pacemaker? If yes provide HI/LO settings: Where will study be performed?: [facility] Carotid Duplex, Unilateral [VAS2 Custom] 12/28/2019 (Approximate) 11/26/2020 Process Instructions: There is no in-house vascular laboratory technology teacher available on weeknights (5pm-8am), weekends, or holidays. IF THIS IS A REQUEST FOR AN EMERGENT STUDY DURING THOSE HOURS, please have the senior provider responsible for the patient page the Vascular Surgery Fellow/Senior Resident contour stitcher to discuss options. Scheduling Instructions: Questions: Laterality: Right Indication for study/signs & symptoms: s/p R TCAR Question to be answered: patency Preferred location?: [facility] Clinics Anticoagulation & Antiplatelet: Anticoagulation: None Antiplatelet: Agent: Aspirin 81mg PO daily, Plavix 75mg PO daily Indication: CVA Intended Duration: Indefinintely For questions regarding these medications, please contact: Vascular Surgery/Neurology Discharge Medications: Your Medications New Medications Dose Details acetaminophen 500 mg Tab Commonly known as: Tylenol Take 1 tablet by mouth every 6 hours as needed for Pain or Fever (pain or temperature greater than 100 degrees F (measured by mouth)). 500 mg Quantity: 30 tablet Refills: 1 aspirin 81 mg Chew Take 81 mg by mouth daily. Start taking on: November 28, 2019 81 mg Quantity: 30 tablet Refills: 3 atorvastatin 80 mg Tab Commonly known as: Lipitor Take 1 tablet by mouth every evening. 80 mg Quantity: 90 tablet Refills: 3 clopidogreL 75 mg Tab Commonly known as: Plavix Take 1 tablet by mouth daily. Start taking on: November 28, 2019 75 mg Quantity: 90 tablet Refills: 3 Updated Allergies/ADRs: No Known Allergies Follow-up Recommendations for Providers: Right neck incision can remain open to air. Pt can shower with dressing removed, pat dry. Instructions Given to Patient at Discharge: Patient Instructions You were admitted to the hospital after having a right carotid stent placed. This operation went very well. Drs. Buckley/Yuniel with Vascular Surgery will want you to be seen in approximately one month with a carotid ultrasound of your neck first. This will be scheduled and sent to you in the mail. If for some reason you don't receive this in a week, please call our office at the number below asyour follow-up is very important. Call your doctor if: Any change in vision, numbness or inability to move any extremity, inability to speak and or a headache unresponsive to Tylenol. Activity level: up as tolerated but take it easy for a week or so. Diet: regular Driving: ok after a week if you feel perfect and you were driving before Shower/Bath: showering or bath is ok Wound Care: wash with soap and water, careful shaving as your neck may be a little numb. This will gradually disappear. You should see your Primary Care Physician within 1-2 weeks for a post hospital follow-up. For any problems or questions please call our office at [phone] For issues on weeknights after 5pm and weekends please call [phone] and ask for the Vascular Fellow contour stitcher. documented in this encounter Discharge Instructions * Patient Instructions* Meryl Michael RN - 11/25/2019 12:34 PM EST You were admitted to the hospital after having a right carotid stent placed. This operation went very well. Drs. Buckley/Yuniel with Vascular Surgery will want you to be seen in approximately one month with a carotid ultrasound of your neck first. This will be scheduled and sent to you in the mail. If for some reason you don't receive this in a week, please call our office at the number below asyour follow-up is very important. Call your doctor if: Any change in vision, numbness or inability to move any extremity, inability to speak and or a headache unresponsive to Tylenol. Activity level: up as tolerated but take it easy for a week or so. Diet: regular Driving: ok after a week if you feel perfect and you were driving before Shower/Bath: showering or bath is ok Wound Care: wash with soap and water, careful shaving as your neck may be a little numb. This will gradually disappear. You should see your Primary Care Physician within 1-2 weeks for a post hospital follow-up. For any problems or questions please call our office at [phone] For issues on weeknights after 5pm and weekends please call [phone] and ask for the Vascular Fellow contour stitcher. documented in this encounter Medications at Time of Discharge [...] 11/28/2019 09/26/2020 documented as of this encounter Progress Notes * Kiarra Bonilla - 11/27/2019 1:57 PM EST Images from the original note were not included. Office of Care Management/Road Manager Patient Name: Jeannie Morris : 1950 Patient has been offered an acute bed at [facility], today 11/27/2019. Son will transport pt to facility today. No MD to MD report necessary Please call Nursing Report to [phone], ask for cracking unit operator. Info to accompany patient: Narcotic Prescriptions Copies of Medication Administration Records and IV sheets for past 10 days. Plan: Road Manager will be available to the patient and Invasive Physician-RN and/or Social Workerfor further assistance. Patient will be discharged to: [address] [place] [address] Kiarra Bonilla, Road Manager * Ada Parks RN - 11/27/2019 1:32 PM EST Patient to Dc to [facility] today. Son's at bedside and will transport to facility. Patient andson's agree with Dc plan. RN can call report to [phone]. Dr. Mari to admit. No additional CM needs. Ada Parks RN CCM Legal Analyst # [id number] * Luis Mojica MSW - 11/27/2019 12:35 PM EST [place] AD's completed , signed, witnessed, photocopied, distributed, and sent to [facility] to be scanned to chart * Elodia Hodge - 11/27/2019 10:59 AM EST Nutrition Services - Initial Note Jeannie Morris : 1950 AGE: 69 y.o. Patient Active Problem List Diagnosis Date Noted ??? Hospital-Stroke 11/24/2019 Reason for Nutrition Intervention: Diet Order Diet Order: Dysphagia Soft Appetite: Good per pt Food allergies: NKFA noted Chewing/Swallowing difficulty: Tolerating current diet, FIELD MACHINIST following Ht Readings from Last 3 Encounters: No data found for Ht Wt Readings from Last 3 Encounters: 11/24/19 91.6 kg (202 lb) There is no height or weight on file to calculate BMI. Vitamins/Minerals: None noted. Assessment: Patient seen regarding diet order - dysphagia soft. Pt had family in room at time of visit. Sales And Service Representative informed pt of current diet order and its restrictions. Sales And Service Representative provided educational material Dysphagia Soft Diet, pt expressed good understanding of diet restrictions. Pt reported a goodappetite noting that he ate a full breakfast this AM, 11/26. Pt is tolerating current soft diet without difficulty chewing or swallowing and denies nausea or vomiting. Sales And Service Representative encouraged adequate protein intake and offered high protein snacks or supplements. Pt agreeable to Boost Plus 3x/day in between meals. Sales And Service Representative will set up with dietary. Patient had no further questions at this time. Provided contact information. Encouraged patient to contact Food and Nutrition services with any questions thatmay arise. Nutrition Plan: Continue current diet. Recommend Daily Multi Vitamins. Boost Plus 3x/day in between meals. Monitor weight. Encourage good po intake. Support and encouragement provided. Nutrition services to follow weekly through hospital course unless consulted in the interim. ZAIN Fierro Pager #[phone] * Kady Lacey APRN - 11/27/2019 8:31 AM EST Vascular Surgery Progress Note Patient Name: Jeannie Morris Patient Age: 69 y.o. Birthdate: 1950 Admit date: 11/24/2019 Attending Physician: Martha Price MD PATIENT ID: Jeannie Morris is a 69 y.o. male admitted to neurology with R MCA stroke and R ICA stenosis. OPERATIONS THIS HOSPITALIZATION: 11/25/19: R TCAR INTERVAL HX/SUBJECTIVE: Fluid bolus x 1 for SBP 88 Fell in bathroom yesterday evening, hit head on shower tile Neuro exam unchanged O: VITALS: T Temp: 37.1 ??C (98.8 ??F) Temp: [36.8 ??C (98.2 ??F)-37.6 ??C (99.7 ??F)] HR Heart Rate: 92 Heart Rate: [66-114] BP BP: 106/59 BP: (88-120)/(52-78) RR Resp: 23 Resp: [16-31] SpO2 SpO2: 95 % SpO2: [94 %-98 %] 24HR INS & OUTS: 11/25 0701 - 11/26 0700 In: 1400 [P.O.:900; I.V.:500] Out: 950 [Urine:950] PHYSICAL EXAM: General: NAD, resting comfortably, flat in bed CV: regular rate and rhythm HEENT: Incision dressings c/d/i. No evidence of hematoma. Pulm: breathing comfortably on RA ABD: obese, not distended, soft, nontender to palpation Extr: warm and well perfused, no notable edema Neuro: CN2-12 grossly intact. No dysarthria, no facial asymmetry, 4/5 strength in LUE. 5/5 strengthin RUE, RLE, LLE. Dysmetria on Left. LABORATORY: Recent Labs 11/27/19 0149 11/26/19 0559 11/25/19 0838 WBC 7.5 7.9 6.3 HGB 13.8 13.9 16.1 HCT 40.7 41.5 46.8 PLATELET 219 189 221 Recent Labs 11/26/19 0559 11/25/19 0217 NA 139 140 K 3.8 3.7 CL 106 106 CO2 22 24 BUN 10 15 CREATININE 0.89 0.88 GLUCOSE 86 -- Recent Labs 11/26/19 0559 11/25/19 0217 AST 17 17 ALT 14 14 ALKPHOS 56 62 BILITOT 0.8 0.5 BILIDIR 0.1 0.1 Recent Labs 11/26/19 0559 11/25/19 0217 CALCIUM 8.7 9.0 PHOS 3.1 3.0 MAGNESIUM 0.86 0.84 Recent Labs 11/26/19 0559 11/25/19 0217 PT 12.3 12.4 PTT 34 36 INR 1.1 1.1 Recent Labs 11/25/19 1522 PHART 7.43 [id number] 33* PO2ART 189* [id number] 21.2 IMAGING/STUDIES CTA with R ICA complex plaque at bifurcation with concerning thrombus burden MRI Head 11/26/19 Cluster of small sites of recent infarction within the right MCA territory, most extensive in the perirolandic cortex. The largest confluent lesion shows probable minor petechial hemorrhage ?? ASSESSMENT/PLAN: Jeannie Morris is a 69 y.o. 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 He is progressing well after surgery. FIELD MACHINIST yesterday, recommend dysphagia soft diet. - ASA, plavix -Obtain non con CT head today - dysphagia soft diet Dispo floor status, full code Kady Lacey APRN Vascular Surgery * Ana Sanchez - 11/26/2019 3:15 PM EST Office of Care Management-System Liaison Reviewed medical record, IDR and discussed with primary Invasive Physician, Ada Parks. Met with Jeannie Morris and daughter to discuss acute level of care and provided specific information about [facility], which patient has been referred to for inpatient rehabilitation. Informed Jeannie Morris and family of referral review process that occurs. Discussed discharge disposition post rehab. Answered patient's questions. Patient will be followed by primary registered nurse hh case manager for discuss all choices and options Provided my contact number if any further questions regarding rehab or specific facility Will continue to follow along with patient's primary registered nurse hh case manager. System Liaison will continue to assist with any discharge needs related to the above facility as needed. Ana Sanchez RN BSN CRRN System Liaison Invasive Physician Ada Ye RN - 11/26/2019 11:24 AM EST Based on discussions with the multi-disciplinary healthcare team, the patient would benefit from IPrehab level of care at discharge. ?? I have met with the patient/telephone claims representative to discuss discharge planning needs. I have provided the [facility], Office of Care Management letter from the Functional Analyst pertaining to rehab referrals. I have also provided a letter describing our affiliations within the [facility] and educated them about their right to choose where referrals are placed. ?? I reviewed the different levels of rehab including SNF, swing, acute and LTAC with the patient/telephone claims representative. ?? The patient/telephone claims representative has been provided a list of facilities within their preferred geographic area. ?? I have requested that the patient/telephone claims representative provide at least three choices for referral. ?? The patient/telephone claims representative have requested referrals to: 1. [facility] ([facility]) [address] [place] [address] [place] [address] ?? [phone] 2. [facility] Acute Rehabilitation and Sub-Acute (Swing) Rehab Levels of Care [address] [place] [id number] ? Expected date of discharge: tomorrow Note routed to Road Manager who will communicate referrals to facilities and provide any required information. * Gurinder Yeh MD - 11/26/2019 8:40 AM EST Vascular Surgery Progress Note Patient Name: Jeannie Morris Patient Age: 69 y.o. Birthdate: 1950 Admit date: 11/24/2019 Attending Physician: Martha Price MD PATIENT ID: Jeannie Morris is a 69 y.o. male admitted to neurology with R MCA stroke and R ICA stenosis. OPERATIONS THIS HOSPITALIZATION: 11/25/19: R TCAR INTERVAL HX/SUBJECTIVE: Went to OR yesterday for R TCAR. Unable to void and was straight cath'd for 700 cc overnight. AFVSS O: VITALS: T Temp: 36.8 ??C (98.2 ??F) Temp: [35.8 ??C (96.4 ??F)-37.6 ??C (99.7 ??F)] HR Heart Rate: 74 Heart Rate: [55-93] BP BP: 112/57 BP: (97-159)/(57-91) RR Resp: 20 Resp: [11-23] SpO2 SpO2: 95 % SpO2: [93 %-100 %] 24HR INS & OUTS: 11/24 07 - 11/25 0700 In: 1202 [P.O.:240; I.V.:962] Out: 1700 [Urine:1650] PHYSICAL EXAM: General: NAD, resting comfortably, flat in bed CV: regular rate and rhythm HEENT: Incision dressings c/d/i. No evidence of hematoma. Pulm: breathing comfortably on RA ABD: obese, not distended, soft, nontender to palpation Extr: warm and well perfused, no notable edema Neuro: CN2-12 grossly intact. No dysarthria, no facial asymmetry, 4/5 strength in LUE. 5/5 strengthin RUE, RLE, LLE. Dysmetria on Left. LABORATORY: Recent Labs 11/26/19 0559 11/25/19 0838 11/25/19 0217 WBC 7.9 6.3 7.5 HGB 13.9 16.1 15.2 HCT 41.5 46.8 44.6 PLATELET 189 221 221 Recent Labs 11/26/1959 11/25/19 021 NA 139 140 K 3.8 3.7 CL 106 106 CO2 22 24 BUN 10 15 CREATININE 0.89 0.88 GLUCOSE 86 -- Recent Labs 11/26/1959 11/25/19 021 AST 17 17 ALT 14 14 ALKPHOS 56 62 BILITOT 0.8 0.5 BILIDIR 0.1 0.1 Recent Labs 11/26/1959 11/25/19 021 CALCIUM 8.7 9.0 PHOS 3.1 3.0 MAGNESIUM 0.86 0.84 Recent Labs 11/26/19 0559 11/25/19 021 PT 12.3 12.4 PTT 34 36 INR 1.1 1.1 Recent Labs 11/25/19 1522 PHART 7.43 [id number] 33* PO2ART 189* [id number] 21.2 IMAGING/STUDIES CTA with R ICA complex plaque at bifurcation with concerning thrombus burden ASSESSMENT/PLAN: Jeannie Morris is a 69 y.o. 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 He is progressing well after surgery. We will plan to obtain an FIELD MACHINIST eval before advancing his diet. MRI is scheduled for today. - ASA, plavix -Obtain MRI brain today. - Advance diet following FIELD MACHINIST evaluation. - Will replace fung if patient continues to have urinary retention. Gurinder Yeh MD Vascular Surgery Resident [id number] Associated attestation - Renetta Nice MD - 11/26/2019 5:31 PM EST I have seen and examined the patient, providing recinos components as outlined below. I have reviewed the resident???s above note; my evaluation of the patient is below: POD1 s/p R TCAR Baseline neuro exam w/mild LUE weakness Continue asa and plavix Discussed w/neuro team, will DC anticoagulation. Plan for ziopatch as outpatient to r/o arrhythmia MRI today Renetta Nice MD * Renetta Nice MD - 11/26/2019 12:18 AM EST Surgery Post Op Check Jeannie Morris is a 69 y.o. male status post right TCAR S: Resting in bed comfortably. Reports some neck soreness. No nausea/vomiting, chest pain, SOB, pain well controlled, offers no complaints O: Temp: [35.8 ??C (96.4 ??F)-37.6 ??C (99.7 ??F)] Heart Rate: [55-93] Resp: [11-21] BP: (97-115)/(60-74) SpO2: [95 %-100 %] Heart Rate from SpO2: [55 bpm-81 bpm] I/O last 3 completed shifts: In: 1699 [P.O.:300; I.V.:1399] Out: 1890 [Urine:1840; Blood:50] I/O this shift: In: 200 [I.V.:200] Out: 700 [Urine:700] Physical Exam General: NAD, resting comfortably HEENT: PERRL, anicteric sclerae. Incision clean/dry/intact. Incision covered with gauze and tegaderm. No drainage on dressing. CVS: Regular rate Pulm: Breathing comfortably on room air Abd: soft, non tender, non distended Neuro: CN 2-12 grossly intact, nonfocal, moving all extremities. Sensation intact in extremities bilaterally symmetric. 4/5 machine operator hay stacker strength in left side. 5/5 right sided machine operator hay stacker strength. No speech dysarthria. AP Jeannie Morris is a 69 y.o. male status post right TCAR currently in stable condition and recovering well - pain well controlled - hemodynamically stable -Difficult fung placement, eventually successful with coute catheter with 2x urojets Moira Lindsay MD Vascular Surgery 11/26/19 * Brenda Bergeron RN - 11/25/2019 7:37 PM EST This note also relates to the following rows which could not be included: BP (Arterial Line) - Cannot attach notes to unvalidated device data Report from PHILOMENA Kirkland., care assumed. VSS SBP guidelines 100-140 per Vascular Service. Low dose Heparin to start at midnight. Neuro checks intact; slightly weaker LUE. 1929: Medicated for general discomfort in right neck, groin and knee with Tylenol. 1939: Family in to bedside. 2099: Unable to void. Attempted to straight cath X 2; unable to pass catheter. Urology RN placed straight cath after urojet. 2149: Report to PHILOMENA Rubio in NSCU; transported pt to room via bed on a monitor. * Jovanna Hagen MD - 11/25/2019 8:58 AM EST Vascular Surgery Inpatient Consult Note HPI: Jeannie Morris is a 69 y.o. M with hx smoking who is admitted to neurology after deferring TPA at OSH for R MCA symptoms of left hemiparesis, facial droop, dysarthria with low NIHSS with corresponding MERLENE stenosis seen on CTA. Patient reports he was in his chair eating around 1430 and tried to get up but could not move his left arm or lg. At this time his daughter called an ambulance. He got to [facility] around 1600 and was noted to have slurred speech. Per notes Patient was loaded with Plavix and ASA and started on high dose statin. CTA of head and neck reported R ICA complex plaque at bifurcation with stenosis. Vascular surgery is consulted for consideration of CEA. Of note, The patient was not taking an aspirin prior to admission. He was started on dual antiplatelet therapy on arrival. Interval/Subjective: -improving speech, improving left sided weakness and sensation -no new events overnight -started on therapeutic heparin gtt for unstable appearing thrombus in R ICA lesion -feels well this morning PMH: Significant TOB abuse HTN HLD PSH: Prior hip surgery, hernia repair MEDICATIONS: Lisinopril HCTZ ALLERGIES: None FAMILY HISTORY: No family history on file. - Denies history of bleeding or clotting disorders. Denies history of reactions to anesthesia. 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 REVIEW OF SYSTEMS: 12 point review of system otherwise negative except as above PHYSICAL EXAM: VS: (Temp: [36.1 ??C (97 ??F)-36.4 ??C (97.5 ??F)] ) Temp: 36.4 ??C (97.5 ??F), (Heart Rate: [60-91] ) Heart Rate: 69, (BP: (98-139)/(53-89) ) BP: 106/63, (Resp: [17-24] ) Resp: 17, (SpO2: [94 %-98 %] ) SpO2: 98 % GA: NAD, resting comfortably, flat in bed, sons at bedside CV: regular rate and rhythm HEENT: short, thick neck, good ROM Pulm: clear to auscultation bilaterally ABD: obese, not distended, soft, nontender to palpation Extr: warm and well perfused, no notable edema Neuro: faint dysarthria only noticed by family, no facial asymmetry, 4/5 strength LUE and LLE, decreased sensation of L side compared to right. 5/5 strength in RUE and LUE. LABS: Pending IMAGING: CTA second read pending. R ICA complex plaque at bifurcation with concerning thrombus burden ASSESSMENT and RECOMMENDATIONS: 69 y.o. M with hx smoking who is admitted to neurology after deferring TPA at OSH for R MCA symptoms of left hemiparesis, facial droop, dysarthria with low NIHSS with corresponding R ICA stenosis seen on CTA. Concerning appearing thrombus component to R ICA plaque which is high risk for a second CVA. Would proceed with procedure today to reduce risk of second event. Agree w/ continuing ASA, plavix, statin, heparin gtt. Will plan on performing Right TCAR today. Please obtain type and screen, please have patient be NPO for procedure today Jovanna Hagen MD Vascular Surgery * Kiran Galdamez PA - 11/25/2019 7:15 AM EST Vascular Neurology Progress Note Admit Date 11/24/2019 ( Hospital Day 1 day ) Responsible Attending: Martha Price MD Primary Provider: Arun Bailey MD (Inactive) [phone] Patient ID Jeannie Morris is a 69 y.o. right handed M with hx smoking (quit 10yrs ago) who is admittedafter deferring TPA at [facility] for R MCA symptoms of left hemiparesis, facial droop, dysarthria with NIHSS 3. CTA showed RI ICA bifurcation stenotic plaque. Transferred for consideration surgical interve ntion. Active Hospital Problems Diagnosis ??? Stroke Resolved Hospital Problems No resolved problems to display. Interval Events/PRNs -no interval events, no new concerns -Re: MRI safety - reports hx of baling wire injury to left eye >40 yrs ago, no retained metal, has since tolerated MRIs without issue -affirms suspension of DNR for surgery -bp soft overnight Objective: Physical Exam: Last value Range last 24 hrs Temperature Temp: 36.1 ??C (97 ??F) Temp: [36.1 ??C (97 ??F)-36.4 ??C (97.5 ??F)] Heart Rate Heart Rate: 69 Heart Rate: [60-91] Blood Pressure BP: 106/63 BP: (98-139)/(53-89) Respiratory Rate Resp: 17 Resp: [17-24] SpO2 SpO2: 98 % SpO2: [94 %-98 %] Gen: Patient of apparent stated age, well nourished, well developed, awake, alert, NAD CV: + S1, S2, RRR, no murmur Resp: Respirations full and unlabored Abd: +normoactive bowel sounds, soft, nontender, nondistended Ext: No edema. No bony deformity Neuro Exam: MS: AAOx4, clear language, minimal dysarthria, follows commands CN: PERRL, EOMI, visual bonilla full Facial sensation intact, +slight nasolabial flattening Hearing intact to finger rub Palate elevates symmetrically, tongue protrudes midline SCM and trap strength intact Motor: Normal bulk and tone. UE: 5/5 R, 3/5 L Arm abduction at shoulder 5/5 R, 4+/5 L Elbow extension 5/5 R, 4+/5 L Elbow flexion 5/5 R, 4+/5 L Manager Proposal LE: 5/5 R, 5/5 L Hip flexion 5/5 R, 5/5 L Knee extension 5/5 R, 5/5 L Knee flexion 5/5 R, 5/5 L Foot dorsiflexion 5/5 R, 5/5 L Foot plantar flexion Sensation: Decreased to light touch on left hemibody Reflexes: Toes - R down, L down Coordination: Finger to nose intact, + dysmetria on L Rapid alternating movements coarse and slow on the L Heel-coker intact No tremor Gait: Not assesssed ?? I/O last 3 completed shifts: In: 999 [P.O.:300; I.V.:699] Out: 890 [Urine:890] Scheduled Meds: ??? sodium chloride 0.9 % (flush) 5 mL Intravenous BID ??? senna-docusate 2 tablet Oral BID ??? polyethylene glycol (MIRALAX)oral powder 17 g Oral Daily ??? enoxaparin 40 mg Subcutaneous Nightly ??? clopidogreL 75 mg Oral Daily ??? atorvastatin 80 mg Oral QPM Continuous Infusions: ??? sodium chloride 0.9% 100 mL/hr (11/24/19 2300) PRN Meds:.sodium chloride 0.9 % (flush), lidocaine, magnesium hydroxide, bisacodyL, labetalol, enalaprilat, acetaminophen Labs Recent Labs 11/25/19216 WBC 7.5 HGB 15.2 HCT 44.6 PLATELET 221 NEUTROABS 4.40 Recent Labs 11/25/19216 NA 140 K 3.7 CL 106 CO2 24 BUN 15 CREATININE 0.88 Recent Labs 11/25/19216 CALCIUM 9.0 MAGNESIUM 0.84 PHOS 3.0 Recent Labs 11/25/19216 AST 17 ALT 14 ALKPHOS 62 BILITOT 0.5 BILIDIR 0.1 No results for input(s): TROPONINT, CK in the last 168 hours. No results for input(s): PHART, SYW0PHE, PO2ART, INV3WCX in the last 168 hours. Recent Labs 11/25/19216 INR 1.1 Lipid Panel Lab Results Component Value Date CHLPL 172 11/25/2019 HDL 30 11/25/2019 CHOLHDL 5.7 11/25/2019 TRIG 178 11/25/2019 LDLDIRECT 126 11/25/2019 Recent Labs 11/25/19216 HA1C 5.7* Imaging/EKG CTA personally reviewed - R ICA plaque at the bifurcation with extension of thrombus distally Assessment/Plan Jeannie Morris is a 69 y.o. right handed male admitted for suspected R MCA infarct, likely secondary to his R ICA stenosis. Facial droop and dysarthria have improved; still with distal LUE weakness and altered left hemibody sensation. Arrived on aspirin and plavix after plavix load prior to transfer. Requires [facility] [place] [facility] care for close neurological monitoring. -Will start heparin drip for triple therapy -Vascular surgery following closely -NPO (give meds) / MIVF 75cc/hr in anticipation of surgery -CUS, TTE, MRI pending #Stroke -Neuro check & vitals Q2/2 hrs -Permissive HTN, treat SBP >220 with prn labetalol, enalaprilat -mIVF 75cc/hr - ASA and plavix -heparin gtt -atorvastatin 80mg QD -TTE -12 lead EKG -Telemetry -CUS -MRI brain wo contrast - Vascular surgery consult -PT/OT/FIELD MACHINIST # Other - DVT ppx:heparin drip / SCD - RBOs: bisacodyl, miralax, pericolace - Diet: NPO diet (Give Meds) - Fluids: NS 75cc/hr (+hep ggt) - Dispo:pending hospital course - code status: DNR (with periprocedural suspension) JERMAIN BRYAN Personal Pager #[phone] Stroke Team Pager #[phone] Department [place] [address] * Edgardo Chopar RN - 11/24/2019 7:26 PM EST Jeannie Morris arrived to [facility] 524 @ 1915 from OSH. Oriented to room, call ogden within reach, educatedon importance of using prior to getting OOB, AVSS, belongings updated in eDH, bed locked in low position, purposeful hourly rounding, bed/chair alarm on. documented in this encounter H&P Notes * Martha Price MD - 11/24/2019 9:18 PM EST Neurology Admission History and Physical Patient name: Jeannie Morris Date of : 1950 PCP: Arun Bailey MD (Inactive) Onset of symptoms (if witnessed) or time of symptom discovery: 1430 Last known well: 1400 Stroke Alert Activated: N.A CC: Dysarthria, Left hemiparesis, facial droop HPI: Jeannie Morris is a 69 y.o. M with hx smoking who is admitted after deferring TPA at OSH for R MCA symptoms of left hemiparesis, facial droop, dysarthria with low NIHSS with corresponding R ICA stenosis. Transferred for consideration of vascular surgery. Per Patient: He was sitting in the recliner eating his dinner around 2:30pm and he tried to get outof the recliner and realized that his left arm and left leg were not working he then kept trying to get up and was unable to push himself up in the chair. He called his daughter and she called the ambulance. By the time he got to [facility] he was able to lift leg and arm likely around 4pm. He is unsure about his face drooping but did notice when he picked up his milk to drink it that it fell out ofhis face. His daughter who is present mentions that he was also slurring his speech (and still is although it is much improved) and states that he also had issues getting words out. He had associatednumbness in his left arm and left leg at the time as well. As per Dr. Epstein' telephone note from earlier today:?? 69 y/o male with long history of smoking presents with acute onset of left sided weakness and dysarthria. Was on the phone talking to a relative when relative noted acute slurred speech. Relative called 911, patient was found with dense left sided weakness and ?ipsilateral head deviation. Upon arrival to ED he was noted to have slurred speech and pronation of left arm and leg, no facial palsy. Following commands. NIHSS 3. ?? Discussed with provider that thrombolytic therapy could still be consider even with low NIHSS and advice to have discussion regarding risk vs benefit of thrombolytics in this situation with patient. Provider informed me that after conversation with the patient they decided against thrombolytic therapy. He also informed me that patient continue to improve with minimal dysarthria now. ?? CTA of head an neck reported a right ICA complex plaque at the bifurcation with significant stenosis and probably a thrombus distally to the plaque. I advice to give a loading dose of Plavix 600mg and aspirin 300 mg PO. IV fliuds and keep BP as is now. Patient was admitted in transfer for further management of symptomatic carotid disease. Will be admitted to [facility] [place] [facility] with evaluation by vascularsurgery upon arrival. Past Medical & Surgical History: No past medical history on file. No past surgical history on file. HTN HLD Total Hip replacement Hernia Repair Home Medications: No current facility-administered medications on file prior to encounter. No current outpatient medications on file prior to encounter. Allergy: Allergies not on file Family History: No family history on file. 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 Marital status: Not on file Spouse name: Not on file ??? Number of children: Not on file ??? Years of education: Not on file ??? Highest education level: Not on file Occupational History ??? Not on file Social Needs ??? Financial resource strain: Not on file ??? Food insecurity Worry: Not on file Inability: Not on file ??? Transportation needs Medical: Not on file Non-medical: Not on file Tobacco Use ??? Smoking status: Not on file Substance and Sexual Activity ??? Alcohol use: Not on file ??? Drug use: Not on file ??? Sexual activity: Not on file Lifestyle ??? Physical activity Days per week: Not on file Minutes per session: Not on file ??? Stress: Not on file Relationships ??? Social connections Talks on phone: Not on file Gets together: Not on file Attends mu-ism service: Not on file Active member of club or organization: Not on file Attends meetings of clubs or organizations: Not on file Relationship status: Not on file ??? Intimate partner violence Fear of current or ex partner: Not on file Emotionally abused: Not on file Physically abused: Not on file Forced sexual activity: Not on file Other Topics Concern ??? Not on file Social History Narrative ??? Not on file Review of systems: Constitutional: No fevers or chills Eyes: No vision changes, no diplopia, no blurry vision ENT: No rhinorrhea or pharyngitis, no meningismus CV: No chest pain or palpitations Resp: No cough, no shortness of breath GI: No nausea, vomiting, diarrhea or constipation : No dysuria, no incontinence Heme: No bleeding or bruising Endo: No polyuria or cold intolerance Neuro: See HPI Psych: No depression, normal sleep [x] Review of systems otherwise negative Physical Exam: Vitals: Temp: -- Heart Rate: -- Resp: -- BP: -- SpO2: -- Heart Rate from SpO2: -- Gen: Patient of apparent stated age, well nourished, well developed, awake, alert, NAD Neck: Supple, no meningismus, no carotid bruit, no occipital tenderness CV: + S1, S2, RRR, no murmur Resp: CTA B/L Abd: +normoactive bowel sounds, soft, nontender, nondistended Ext: No edema. No bony deformity Neuro Exam: MS: AAOx4, clear language, + dysarthria, follows commands CN: PERRL, EOMI, visual bonilla full Facial sensation intact, + L facial asymmetry (slight nasolabial flattening) Hearing intact to finger rub Palate elevates symmetrically, tongue protrudes midline SCM and trap strength intact Motor: Normal bulk and tone. UE: 5/5 R, 3/5 L Arm abduction at shoulder 5/5 R, 4+/5 L Elbow extension 5/5 R, 4+/5 L Elbow flexion 5/5 R, 4+/5 L Manager Proposal LE: 5/5 R, 5/5 L Hip flexion 5/5 R, 5/5 L Knee extension 5/5 R, 5/5 L Knee flexion 5/5 R, 5/5 L Foot dorsiflexion 5/5 R, 5/5 L Foot plantar flexion Sensation: Impaired to light touch on left hemibody Reflexes: DTRs 2+ R, 2+ L Biceps 2+ R, 2+ L Brachioradialis 2+ R, 2+ L Triceps 2+ R, 2+ L Patellar 2+ R, 2+ L Achilles tendon Toes - R down, L down Coordination: Finger to nose intact, + dysmetria on L Rapid alternating movements & finger tapping smooth and symmetric Heel-coker intact No tremor Gait: Not assesssed NIH Stroke Scale: (bold applicable choices) NIH Stroke Scale at Initial Evaluation: 1.a. Level of consciousness: 0-Alert 1-Not alert, but arousable with minimal stimulation 2-Not alert, requires repeat stimulation to attend 3-Coma 1.b. Ask patient the month and their age: 0-Answers both correctly 1-Answers one correctly 2-Both incorrect 1.c. Ask patient to open and close eyes: 0-Obeys both correctly 1-Obeys one correctly 2-Both incorrect 2. Best gaze (horizontal eye movement): 0-Normal 1-Partial gaze palsy 2-Forced deviation 3. Visual field testin-No visual field loss 1-Partial hemianopia 2-Complete hemianopia 3-Bilateral hemianopia (blind including cortical blindness) 4. Facial paresis (Ask patient to show teeth or raise eyebrows and close eyes tightly): 0-Normal symmetrical movement 1-Minor paralysis (flattened nasolabial fold, asymmetry on smiling) 2-Partial paralysis (total or near paralysis of lower face) 3-Complete paralysis of one or both sides (absence of facial movement in the upper and lower face) 5. Motor function right arm: 0-Normal (extends arm 90 degrees for 10 seconds without drift) 1-Drift 2-Some effort against gravity 3-No effort against gravity 4-No movement UT-Untestable (Joint fused or limb amputated) 5. Motor function- left arm: 0-Normal (extends arm 90 degrees for 10 seconds without drift) 1-Drift 2-Some effort against gravity 3-No effort against gravity (but baseline) 4-No movement UT-Untestable (Joint fused or limb amputated) 6. Motor function right le-Normal (extends leg 30 degrees for 5 seconds without drift) 1-Drift 2-Some effort against gravity 3-No effort against gravity 4-No movement UT-Untestable (Joint fused or limb amputated) 6. Motor function-left le-Normal (extends leg 30 degrees for 5 seconds without drift) 1-Drift 2-Some effort against gravity 3-No effort against gravity 4-No movement UT-Untestable (Joint fused or limb amputated) 7. Limb ataxia: 0-No ataxia 1-Present in one limb 2-Present in two limbs 8. Sensory (Use pinprick to test arms, legs, trunk and face compare side to side): 0-Normal 1-Mild to moderate decrease in sensation 2-Severe to total sensory loss 9. Best language (describe picture, name items, read sentences): 0-No aphasia 1-Mild to moderate aphasia 2-Severe aphasia 3-Mute 10. Dysarthria (read several words): 0-Normal articulation 1-Mild to moderate slurring of words 2-Near unintelligible or unable to speak UT-Intubated or other physical barrier 11. Extinction and inattention: 0-Normal 1-Inattention or extinction to bilateral simultaneous in one of the sensory modalities 2-Severe nerissa-inattention or nerissa-inattention to more than one modality TOTAL SCORE: 4 Labs: No results found for this or any previous visit (from the past 24 hour(s)). Diagnostic Tests and Imaging: OSH CTH- no acute findings Swallow Screen Results: PASSED (All YES responses) Time 2100 Assessment and Plan: Jeannie Morris is a 69 y.o. M with vascular RF of smoking who p/w left hemiparesis, dysarthria, facialdroop with significant R ICA disease. The symptoms localize to R MCA territory. The likely etiologyof this stroke is atherosclerotic disease due to R ICA plaque burden. Thrombolytics were consideredand not given secondary to Initial refusal by the patients at OSH after discussion with ED providerand pt/family, and pt improvement of symptoms at OSH. Was loaded with ASA and plavix prior to transfer. Expect that he may be still flow dependent despite clinical improvement prior to arrival. Will plan to continue mIVF support and DAPT for plaque burden. Will obtain full stroke workup as below with CUS and consultation to vascular surgery for possible R ICA intervention. Pt is appropriate for [facility] [place] level of care due to close neuro checks needed. # Left Arm Weakness # L Nasal Labial Flattening # Slurred Speech # Symptomatic R ICA disease -Admit to neurology, [facility] [place] level of care -Neuro check & vitals Q2/2 hrs -Permissive HTN, treat SBP >220 with prn labetalol, enalaprilat -mIVF 100cc/hr - ASA and plavix -Check CBC, BMP, LFT, lipid profile, HbA1c, Mg, Phos, UA - start highi ntensity statin -TTE -12 lead EKG -Telemetry -CUS -MRI brain wo contrast - Vascular surgery consult -PT/OT/FIELD MACHINIST # Prophylaxis -Lovenox 40mg SC daily -RBOs -SCDs # Supportive care -Regular diet -Tylenol PRN -Up with assistance # DNR/DNI Elva Alvarez MD 11/24/2019 Vascular Neurology Pager [phone] Neurology Attending Attestation I evaluated the patient with the Neurology Residents during bedside rounds on 11/25/2019. I have reviewed the medical records and patient's history, as well as the resident???s history and examination findings and I agree with the details as written. My neurologic examination confirms the resident???s findings. We formulated the assessment and plan after a detailed discussion, as documented. In addition, I certify that I am a [facility] credentialed attending provider with admitting privileges and that the patient meets or has met medical necessity to require an inpatient I level of care meeting a minimum of two midnights or is on the [facility] inpatient only procedure list (status C) due to: - neurologic instability requiring neurologic checks at least every 4 hours. - acute stroke requiring neurologic checks at least every 4 hours. MCCs and CCs on admission (Present if in bold): Clinically significant cerebral edema, vasogenic Hyponatremia CHF acute, systolic Brain compression Hypernatremia CHF acute on chronic, systolic Clinically significant cerebral edema, cytotoxic Cerebellar ataxia CHF acute on chronic, diastolic Coma Hypertension, malignant CHF acute diastolic Hemiplegia Hypertension accelerated CHFchronic diastolic Hemiparesis Hypertensive encephalopathy Dementia with delrium Quadraplegia Malnutrition BMI<19 Dementia with depression Encephalopathy, metabolic Cachexia Alzheimer's Dementia with behavioral disturbance Encephalopathy, toxic Morbid obesity, BMI>40 Anoxic brain damage Encephalopathy, other CKD stage 4 (eGFR 15-30ml/min/1.73m2) Acute Kidney Injury Delirium, drug induced CKD stage 5 or ESRD Martha Price MD Vascular Neurology Standard [facility] Swallow Screen: This screen is to be used to document a Swallow Screen prior to ingestion of water and /or oral medications for patients with possible stroke (Ischemic or Hemorrhagic). Exclusion Criteria: A swallow screen is not to be performed on patients who: ?? have a decreased level of consciousness. ?? are not able to follow simple commands. ?? are hypoxic, or have increasing O2 needs or may need to be intubated. ?? have a G/J tube for nutrition. ?? have a recent history of a swallowing disorder *These patients should remain NPO (HOLD MEDS) and the physician notified for further orders. Swallow Screen Using Water: None of the Exclusion Criteria as mentioned above is present? Patient is alert and sitting upright? Able to close lips and tongue is midline? Able to cough, manage oral secretions with dry voice? ONLY IF ABOVE ALL YES, Able to swallow 30 ml of water without coughing, displaying a wet voice or choking? Repeat Twice. ??? If YES to all responses, proceed with water and oral medications as well as diet as medical provider deems appropriate. Consider FIELD MACHINIST consult for full evaluation and diet recommendations. ??? If NO to any of the responses, stop immediately, keep patient NPO and notify physician. ??? documented in this encounter Procedure Notes * Abraham Recinos MD - 11/25/2019 5:16 PM EST Images from the original note were not included. Introduction pt is 69 yo man s/p R CVA 2 to CCA stenosis, with residual L UE weakness at baseline. For R TCAR w SEP and EEG. Anesth aware and will provide steadystate anesthesia and avoid boluses. Upper SSEP 05877 - Upper Extremities SSEP 89493 - Upper pSSEP Stimulation sites:Ulnar Nerve. Results: Somatosensory Evoked Potentials (SSEPs) were elicited bilaterally by asymmetrical and alternating and/or interleaved transdermal, electrical stimulation of the nerve(s) indicated above. Responses, recorded from subdermal electrodes at scalp sites above the approximate location of the somatosensory cortex and at neck, head or chin sites near the approximate location of subcortical structures, were reproducible, reliable and showed clearly identifiable obligate peaks at the time of recording of opening baselines. Throughout the procedure the responses were stable or changed acceptably in amplitude and/or latency (< 50% decrease and <10% increase, respectively). The surgeon and supervising physician were informed of and acknowledged SSEP opening baselines, SSEP observations throughout the procedure and the status of SSEPs at closing. EEG 50236 - EEG Results: Electroencephalographic (EEG) responses were recorded from subdermal electrodes placed in the scalp. Responses were recorded as free running sweeps and the pattern of EEG responses was evaluated. After an early, post-induction period, EEG showed a similarand consistent pattern of high frequency activity interspersed with short or absent periods of decreased activity. Throughout the procedure, EEG responses showed left vs right symmetry at equivalent recording sites. The surgeon and supervising physician and, when appropriate, the anesthesiology team, were notified of EEG opening baselines, EEG observations throughout the procedure and the status of EEG at closing. Upper pSSEP 87347 - Upper pSSEP Recording Sites:Ulnar Nerve. Results: Upper SSEP were recorded prior to incision. Summary - As indicated above no changes were noted throughout this procedure. Note: Surgical Neurophysiologist was present and provided continual monitoring throughout the entire procedure. Abraham Recinos M.D., Ph.D. Abrasive Worker of Neurology [facility] documented in this encounter Miscellaneous Notes * Plan of Care - Kita Bustillos, FIELD MACHINIST - 11/27/2019 5:16 PM EST Speech Therapy Note Patient Profile: Jeannie Morris is a 69 y.o. male admitted on 11/24/2019 for dysarthria, L hemiparesis and facial droop. Dx: R MCA symptoms. PMH significant for: smoker. Skilled FIELD MACHINIST evaluation warranted for dysphagia evaluation for TIA/CVA protocol. Interval History: Tolerating dysphagia soft diet. Subjective: Patient reports he has difficulty chewing uncooked vegetables at baseline due to missing dentition. Objective: Pt seen for dysphagia management and demonstrated the following: Pain: Patient did not demonstrate s/s of discomfort. Respiratory Status: Room air Current Diet: Dysphagia Soft Diet Feeding / Oral Care Status: Pt is independent Cognitive-Linguistic Status: alert, oriented to person, place, and time Command Following: Follows multi-step commands Positioning: Pt up to chair Oral / Laryngeal Mechanism Clinical Assessment: Inconsistent reduction in vocal projection with decreased intelligibility. Missing dentition. Bolus Presentation(s): ?? Thin liquid via straw, sequential sips ?? Dysphagia soft ?? Regular solid Oral Preparatory Phase: Mastication requires increased time. Otherwise functional. Pharyngeal Phase: No overt s/s of aspiration or pharyngeal dysphagia. Esophageal Phase: Appears WFL. Education: Patient educated on results and recommendations, and verbalized understanding. Patient status, treatment and swallow recommendations were discussed with nursing. Assessment: Pt was seen today for a follow-up FIELD MACHINIST visit. Patient seen for PO trials with regular solid consistencies. Patient required increased time for mastication of material with solids. His oralphase otherwise appeared functional. No overt s/s of aspiration or pharyngeal dysphagia. Patient appears appropriate for a diet upgrade to mechanical soft solids. This appears consistent with his baseline diet. Will follow-up to assess diet tolerance. Pt will benefit from continued therapeutic interventions to achieve therapy goals. Diagnosis: functionally appearing oropharyngeal swallow Recommendations: Diet: Regular solids, Thin liquids PO medications: whole with sip of liquid Aspiration Precautions: Upright position during meals and for at least 30 mins following Small sips and bites while eating Speech Therapy Goals: Pt will tolerate least restrictive diet without evidence of dysphagia / aspiration. Pt / caregiver will be independent with aspiration precautions, diet modifications, and safe swallowing strategies. Plan: Therapy Frequency: 2-4 times/wk Pt./family are in agreement with treatment plan. Total Evaluation Minutes, Speech Language Pathology: 14 Kita Bustillos, , CCC-FIELD MACHINIST Pager: [phone] Speech-Language Pathology Inpatient Rehabilitation Department * Consult Note - Krian Galdamez PA - 11/27/2019 7:48 AM EST Images from the original note were not included. Vascular Neurology Consult Note Admit Date 11/24/2019 ( Hospital Day 3 days ) Responsible Attending: Martha Price MD Primary Provider: Mario Williamson MD [phone] Patient ID Jeannie Morris is a 69 y.o. right handed M with hx smoking (quit 10yrs ago) who is admittedafter deferring TPA at [facility] for R MCA symptoms of left hemiparesis, facial droop, dysarthria with NIHSS 3. CTA showed RI ICA bifurcation stenotic plaque. Transferred for consideration surgical interve ntion. S/p TCAR 11/24; Vascular Surgery is primary service Active Hospital Problems Diagnosis ??? Stroke Resolved Hospital Problems No resolved problems to display. Interval Events/PRNs -fall in bathroom yesterday after BM, lightheaded after standing up from toilet fell backward, SBP <90, fluid bolused, no apparent head injury -denies headaches or new complaints -reports LUE strength/sensation continues to improve Objective: Physical Exam: Last value Range last 24 hrs Temperature Temp: 36.8 ??C (98.2 ??F) Temp: [36.8 ??C (98.2 ??F)-37.6 ??C (99.7 ??F)] Heart Rate Heart Rate: 86 Heart Rate: [66-114] Blood Pressure BP: 106/62 BP: (88-120)/(52-78) Respiratory Rate Resp: 16 Resp: [16-31] SpO2 SpO2: 95 % SpO2: [94 %-98 %] Gen: Patient of apparent stated age, well nourished, well developed, awake, alert, NAD CV: RRR Resp: Respirations full and unlabored Abd: soft, nontender, nondistended Ext: No edema. No bony deformity Neck: R neck incision healing well Neuro Exam: MS: AAOx4, fluent language, minimal dysarthria, voice mildly hoarse, follows commands CN: PERRL, EOMI, visual bonilla full Facial sensation intact, no facial asymmetry Hearing intact to finger rub Palate elevates symmetrically, tongue protrudes midline SCM and trap strength intact Motor: Normal bulk and tone. UE: 5/5 R, 4+/5 L Arm abduction at shoulder 5/5 R, 4+/5 L Elbow extension 5/5 R, 4+/5 L Elbow flexion 5/5 R, 4+/5 L Manager Proposal LE: 5/5 R, 5/5 L Hip flexion 5/5 R, 5/5 L Knee extension 5/5 R, 5/5 L Knee flexion 5/5 R, 5/5 L Foot dorsiflexion 5/5 R, 5/5 L Foot plantar flexion Sensation: intact throughout except altered/decreased LUE Reflexes: Toes - R down, L down Coordination: Finger to nose intact, + dysmetria on L Rapid alternating movements coarse and slow on the L Heel-coker intact No tremor Gait: Not assesssed ?? I/O last 3 completed shifts: In: 190 [P.O.:1140; I.V.:762] Out: 1649 [Urine:1650] Scheduled Meds: ??? heparin (Porcine) 5,000 Units Subcutaneous 2 times per day ??? aspirin 81 mg Oral Daily ??? sodium chloride 0.9 % (flush) 5 mL Intravenous BID ??? polyethylene glycol (MIRALAX)oral powder 17 g Oral Daily ??? clopidogreL 75 mg Oral Daily ??? atorvastatin 80 mg Oral QPM Continuous Infusions: PRN Meds:.iodixanoL, labetalol, acetaminophen Labs Recent Labs 11/27/19 0149 11/26/19 0559 11/25/19 0838 11/25/19 0217 WBC 7.5 7.9 6.3 7.5 HGB 13.8 13.9 16.1 15.2 HCT 40.7 41.5 46.8 44.6 PLATELET 219 189 221 221 NEUTROABS 5.12 5.79 3.93 4.40 Recent Labs 11/26/19 0559 11/25/19 0217 NA 139 140 K 3.8 3.7 CL 106 106 CO2 22 24 BUN 10 15 CREATININE 0.89 0.88 GLUCOSE 86 -- Recent Labs 11/26/19 0559 11/25/19 021 CALCIUM 8.7 9.0 MAGNESIUM 0.86 0.84 PHOS 3.1 3.0 Recent Labs 11/26/19 0559 11/25/19 021 AST 17 17 ALT 14 14 ALKPHOS 56 62 BILITOT 0.8 0.5 BILIDIR 0.1 0.1 No results for input(s): TROPONINT, CK in the last 168 hours. Recent Labs 11/25/19 1522 PHART 7.43 [id number] 33* PO2ART 189* UGU3CGF 21.2 Recent Labs 11/26/19 0559 11/25/19 021 INR 1.1 1.1 Lipid Panel Lab Results Component Value Date CHLPL 172 11/25/2019 HDL 30 11/25/2019 CHOLHDL 5.7 11/25/2019 TRIG 178 11/25/2019 LDLDIRECT 126 11/25/2019 Recent Labs 11/25/19216 HA1C 5.7* Imaging/EKG OSH CTA personally reviewed - R ICA plaque at the bifurcation with extension of thrombus distally CUS RIGHT: There is irregular plaque in the common carotid artery causing <50% stenosis by B-mode. There is irregular plaque in the proximal internal carotid artery causing 16-49% stenosis when compared to the more distal internal carotid artery. The bifurcation level is in the mid neck. MRI Brain: Cluster of small sites of recent infarction within the right MCA territory, most extensive in the perirolandic cortex. The largest confluent lesion shows probable minor petechial hemorrhage Assessment/Plan Jeannie Morris is a 69 y.o. right handed male admitted for suspected R MCA infarct in setting of R ICAstenosis and distal thrombus. Facial droop and dysarthria have improved; still with distal LUE weakness and altered sensation. S/p TCAR yesterday and doing well. -Stable from a stroke perspective and appears ready for discharge today if head CT is normal as anticipated -Antiplatelet and statin, duration of dual therapy per primary team. -no current indication for ongoing anticoagulation. -Discussed Code status with patient and son (had DNR suspended periprocedurally) and he would like to continue FULL CODE. -Please arrange for ziopatch placement at discharge to assess for alternate source of his carotid thrombus (order is pended but must be signed, and discharge order signed, then page [phone] prior to departure) -Will arrange 4-6 week post-discharge visit in stroke clinic. JERMAIN BRYAN Personal Pager #[phone] Stroke Team Pager #[phone] Department of Neurology [place] [phone] * Plan of Care - Jinny Allan RN - 11/27/2019 2:20 AM EST Problem: Patient Care Overview Goal: Plan of Care Review Outcome: Ongoing (Interventions Implemented as Appropriate) 11/27/19 0148 Plan of Care Review Progress progress towards functional goals is fair Coping/Psychosocial Plan Of Care Reviewed With patient OUTCOME EVALUATION NOTE: OUTCOME SUMMARY: A&O x4, moves all extremities - LUE 4/5 strength positive drift. C/o decreased sensation to LUE. Only pain complaint was stiff neck, accepted heat pack with good effect. BP soft overnight @ midnight (88/56) MD notified, 500ml fluid bolus of LR administered. 0200 BP 100/57. Remainder of VSS - apneic at times overnight, maintaining spO2 without issue. 1st degree AV block/NSR on telemetry. Voiding spontaneously with urinal. R groin & neck incisions CDI, no hematoma or bleeding. R pedal pulses +2 palpable. Will continue to monitor. PLAN MOVING FORWARD: Q2 hr neuro exams & Q2 hr vital signs Q4 hr neurovasc checks; FIELD MACHINIST - advance diet as tolerated PT/OT D/c planning INDIVIDUALIZED FALL PREVENTION INTERVENTIONS: Patient-specific fall risk factors per assessment: mobility slightly impaired; forgetful; SCDs Assistance: 1 assist, FWW, gait belt Supervision: Hands on Surveillance: Bed locked in low position, call ogden within reach, purposeful hourly rounding, bed/chair alarm on, clutter free room Patient-specific fall prevention interventions for sensory deficits provided: Yes CPG GOAL OUTCOME EVALUATION: Continue care plan as documented. Stroke Education Modifiable risk factors (Ischemic & Hemorrhagic): Checked box [x] indicates present [X] Hypertension [ ] Use of Oral Contraceptive [X] Smoker (or exposure to cigarette smoke) [X] Poor Diet/Nutrition [ ] Diabetes [ ] Physical Inactivity [X] Hyperlipidemia [X] Obesity [ ] Atrial Fibrillation [X] Sleep Apnea [ ] Asymptomatic carotid artery stenosis [ ] Post-menopausal hormone therapy (Hemorrhagic stroke specific) [ ] High alcohol intake [ ] Anticoagulation [ ] Use of sympathomimetic drugs (i.e. cocaine, amphetamine, methamphetamine) Patient Education Provided: Checked box [x] indicates done [X] Ischemic, Hemorrhagic, TIA education packet provided [ ] Supplemental Personalized Educational Material added to packet, including: [X] Personal Risk Factors [X] Warning signs of stroke [ ] Activation of an emergency medical system [X] Need for follow-up after discharge [x] Medications prescribed The above items were reviewed in detail today. Patient/family expresses understanding of the likelycauses of this stroke, personal risk factors, diagnostic considerations, hospital course thus far, and treatment plan going forward. Patient and/or family members have received personalized stroke edu cational materials to review and were allowed time for questions and answers. There are no further questions at this time. They were encouraged to review the educational handouts provided and write down any questions that may arise for the vascular neurology team to address at a later time. Patient discharge plans include: [ ] home discharge [X] Acute Rehab (per patient) [ ] home with family assistance [ ] Other [ ] home with VNA services [ ] Unknown at this time in hospital course [ ] Long-Term Facility * Plan of Care - Bela Desouza RN - 11/26/2019 6:15 PM EST Problem: Patient Care Overview Goal: Plan of Care Review Outcome: Ongoing (Interventions Implemented as Appropriate) 11/26/19 0800 11/26/19 1804 Plan of Care Review Progress -- progress toward functional goals as expected Coping/Psychosocial Plan Of Care Reviewed With patient;son -- OUTCOME EVALUATION NOTE: ?? OUTCOME SUMMARY: ?? Assumed care of Pt at 0700. Pt AOx4. Following commands. Clear speech. WFL. Mildly decreased strength in L upper extremity; some numbness in finger of LUE. Full strength in R upper extremity and bilateral lower extremities. L drift present. Patient states baseline mild pain and stiffness in his neck. PRN SBP maintained between 100 - 160 without interventions. Afebrile. Neurovascular checks completed q4. Neck dressing CDI. R groin dressing CDI. Heparin therapy DC'd at beginning of shift. RN in room with another Pt and Pt in bathroom with BUSINESS TRAVEL CONSULTANT. Pt told to call for BUSINESS TRAVEL CONSULTANT when done using bathroom, but Pt tried to get up unassisted and fell and bumped back of head on shower tile. Tm paged. RN notedno changes post-fall in Pt neuro status. Pt and family, bedside, educated and updated.Care clustered, rest promoted. Will continue to monitor. ?? PLAN MOVING FORWARD: ?? Q2 Neuro, Q2 VS ?? INDIVIDUALIZED FALL PREVENTION INTERVENTIONS: ?? Patient-specific fall risk factors per assessment: generalized weakness, L upper extremity weakness ?? Assistance: 1 assist with walker, gait belt ?? Supervision: Arms reach ?? Surveillance: Bed locked in low position, call ogden within reach, purposeful hourly rounding, clutter free environment, bed alarm on ?? Patient-specific fall prevention interventions for sensory deficits provided: N/A ?? CPG GOAL OUTCOME EVALUATION: ?? Continue care plan as documented. * Plan of Care - Jinny Vargas OT - 11/26/2019 2:44 PM EST Occupational Therapy Treatment Note Treatment Number OT: 2 ?? Patient profile: Jeannie Morris??is a 69 y.o.??right handed??male??admitted??for suspected R MCA infarct, likely secondary to his R ICA stenosis. Facial droop and dysarthria have improved; still with distal LUE weakness and altered left hemibody sensation. Arrived on aspirin and plavix after plavix load prior to transfer. ??Requires [facility] [place] level care for close neurological monitoring. 11/25/19: R TCAR ?? Past Medical History No past medical history on file. Past Surgical History No past surgical history on file. ?? Social History: Patient lives alone with a cat in a mobile home in [place], [place] Home Setup: Pt reports 3 [address] with one rail. Pt home is one level. Pt reports that he has a tub/shower combo. DME: None Baseline ADL/Mobility: Pt independent prior to admission with ADL and IADL routines. Pt drives short distances. Pt reports that he manages own groceries and meal preparation. ?? Precautions/Special Considerations: Bleeding precautions, DNR, up with assistance, LUE hemiparesis Interval History: Went to OR yesterday for R TCAR. Unable to void and was straight cath'd for 700 cc overnight. AFVSS S: Now I have so many exercises, regarding LUE O: Patient seen for therapeutic activities and demonstrated the following: ?? Self-care: ?? Pt CGA to stand at toilet with RUE support to urinate ?? Pt required setup for loading toothpaste to brush teeth at seated position ?? Pt able to open toothpaste using LUE as stablizer ?? Pt supervision to self feed while sitting ?? Functional Mobility: ?? Pt min A for sit to stand from recliner chair ?? CGA with gait belt to ambulate ~10 feet within room with L foot drag noted ?? CGA for stand to sit with cues for technique ?? Cognition: ?? Behavior / Mood: alert and cooperative ?? Alert and oriented to: person and situation ?? Follows commands: 1 step and 100% of the time ?? Attention: distractible ?? Safety awareness: decreased insight into deficits ?? Vitals: WFL on RA ?? BP 120/66 pre session ?? HR 110-130s ?? Strength/ROM: ?? Pt provided with theraputty exercise handout and able to carryover most of exercises; Pt and daughter educated on exercises to perform only when Pt has increased strength in L hand. (yellow theraputty) ?? Pt educated on positioning and contraindications of exercises ?? Pt provided with therasponge (red and blue) ?? Pt performed 10 shoulder flexion AROM to ~90 degrees Pain: Pt with reports of minimal pain at incision site Education: Pt/family/caregiver education ongoing regarding: Role of occupational therapy/rehabilitation, Transfers, ADL, Exercise, Safety, Functional Mobility, Activity pacing/Energy conservation, Home Management, Recommendations and Discharge planning. Staff Communication: Patient status, treatment, and mobility recommendations discussed with nursing/other staff. ASSESSMENT: Pt seen for OT services today. Pt continues with decreased strength in LUE and requiresassistance for all transfers and ADL routine at this time. Recommend Pt transfer to an inpatient acute rehab to maximize function prior to returning home. Pt will benefit from ongoing therapeutic interventions to achieve pt's and therapy goals Anticipated Discharge Disposition: inpatient rehabilitation facility Equipment Recommendations: TBD Other Recommendations: ?? Utilize upright chair position using bed features or transfer to recliner chair as appropriate with CGA with gait belt, ambulate as tolerated ?? Encourage participation in ADL's by providing set up A on tray table and physical assist only asneeded Goals: To be achieved by 12/06/19. 1. Pt will be conditional independent for LB dressing routines with AE as needed at seated/standinglevels 2. Pt will be conditional independent for toileting routine at ambulatory level 3. Pt will be conditional independent for simple snack prep at ambulatory level 4. Pt will be independent for HEP for BUEs 5. Pt will be able to stand for 8 minutes to perform sink level grooming task with LRAD?? All goals in progress Therapy Frequency: 3-5 times/wk Total Evaluation Minutes, Occupational Therapy: 36(1 SC and 1 KOTA) Pager: [phone] Jinny Vargas OT Occupational Therapy Rehabilitation Department * Plan of Care - Sheila Orellana, CARON - 11/26/2019 12:56 PM EST Speech Therapy Bedside Swallow Evaluation Patient Profile: Jeannie Morris is a 69 y.o. male admitted on 11/24/2019 for dysarthria, L hemiparesis and facial droop. Dx: R MCA symptoms. PMH significant for: smoker. Skilled FIELD MACHINIST evaluation warranted for dysphagia evaluation for TIA/CVA protocol. Prior Level of Swallow Function: no prior difficulty swallowing, missing teeth at baseline and avoids some harder to chew foods. Subjective: Per family at bedside, pt's speech is improving. Pt expresses hesitancy with more advanced solids diet textures. Objective: Pt seen for evaluation today. Pain: pt denies pain at this time Respiratory Status: Room air Vision: aided with glasses Hearing: WFL Current Diet: NPO Feeding / Oral Care Status: Pt is independent Cognitive-Linguistic Status: alert, oriented to person, place, and time Follows Commands: Follows multi-step commands Positioning: Pt up to chair Oral / Laryngeal Mechanism Clinical Assessment: ?? Lingual: WFL ?? Labial / Buccal: WFL ?? Velar: WFL ?? Sensation: WFL ?? Vocal fold function and airway protection: WFL ?? Speech Intelligibility: intermittently reduced vocal projection. Pt's daughter reports mumbling at times ?? Mucosa: WFL ?? Dentition: multiple missing teeth Bolus Presentation(s) ?? Ice chips ?? Thin liquid 3 mL, via spoon, via cup, via straw ?? Puree ?? Regular solid Oral Preparatory Phase ?? Mastication: Prolonged mastication likely due to dentition ?? Oral Transit: Mildly delayed oral transit ?? Bolus Cohesion: Mildly reduced bolus cohesion ?? Labial Seal / Loss: observed x1 with cracker ?? Oral Stasis: Mild oral residue Pharyngeal Phase ?? Laryngeal Elevation: Piecemeal swallow, reduced hyolaryngeal elevation/excursion ?? Vocal quality change: Not observed ?? Cough / throat clear: Not observed ?? Pt. complaint of food getting stuck: Did not endorse ?? Fatigue across trials: No ?? Respiratory rate and respiratory swallow pattern: No changes Esophageal Phase ?? Appears to be WFL, No overt clinical s/s of esophageal phase dysphagia noted during this evaluation. Compensatory Techniques: none indicated Education: Patient, Family educated on results and recommendations, and verbalized understanding. Patient status, treatment and swallow recommendations were discussed with nursing. Assessment: Pt seen at bedside for dysphagia evaluation. Pt was seen in chair position with family at bedside. He was seen with PO trials of ice chips, thin liquids, pureed solids and regular solids.He demonstrated reduced mastication and bolus formation with regular solids and some anterior spillage with regular solids, likely r/t dentition. Pt did self report some hesitancy in swallowing mechanics and piecemeal deglutition was noted with thin liquids (pt independently took 4+ swallows per bolus on first PO trial). No s/sx aspiration occurred with any PO trials, however patient requested softer foods at this time in order to regain strength in oropharyngeal swallowing musculature. Recommend dysphagia soft solids and thin liquids with strict adherence to safe swallow guidelines. Diagnosis: Mild-moderate oral phase dysphagia, suspected pharyngeal dysphagia Recommendations: Diet: Dysphagia soft, Thin liquids PO medications: whole with sip of liquid Aspiration precautions: Reduce environmental distractions Needs verbal cues to use recommended strategies Upright position during meals and for at least 30 mins following Small sips and bites while eating Slow rate; swallow between bites Alternate liquids and solids Excellent oral care Pt will benefit from continued FIELD MACHINIST services while hospitalized Speech Therapy Goals: (To be met by discharge) Pt will tolerate least restrictive diet without evidence of dysphagia / aspiration. Pt / caregiver will be independent with aspiration precautions, diet modifications, and safe swallowing strategies. Plan: Therapy Frequency: 2-4 times/wk Pt./family are in agreement with treatment plan. Total Evaluation Minutes, Speech Language Pathology: 10 Thank you for this consult with this patient. Please feel free to page me with any questions or concerns. Sheila Orellana M.A.,[facility]-FIELD MACHINIST Pager [phone] Speech-Language Pathology Inpatient Rehabilitation Department * Plan of Care - Sheila Orellana SLP - 11/26/2019 10:09 AM EST Speech-Language Pathology Progress Note Order received and acknowledged. Chart reviewed and discussed with nursing. Pt currently unavailable due to being in MRI. Attempted patient earlier this morning and he was with RECORD CLERK SALESPERSON. FIELD MACHINIST will re-attempt at later time as schedule permits. Sheila Orellana M.A., [facility]-FIELD MACHINIST, Inpatient Rehabilitation Medicine, pager #[phone] * Plan of Care - Heron Prakash PTA - 11/26/2019 10:09 AM EST Physical Therapy Note Treatment Number PT: 2 Patient profile: Jeannie Morris??is a 69 y.o.??right handed M with hx smoking (quit 10yrs ago) who is admitted after deferring TPA at [facility] for R MCA symptoms of left hemiparesis, facial droop, dysarthria with NIHSS 3. CTA showed RI ICA bifurcation stenotic plaque. Transferred for consideration surgical intervention. Patient with the following active problems: No past medical history on file. No past surgical history on file. There are no active non-hospital problems to display for this patient. Interval History: per vascular surgery 11/26/19: - Went to OR yesterday for R TCAR. - Unable to void and was straight cath'd for 700 cc overnight. AFVSS Social History: Home set-up: Lives in [place], [place] alone with his cat; son lives in [facility] Bathroom Set-up: tub shower, vanity next to toilet to assist with standin Stairs: 3 to enter with 1 railing then 1 level Baseline Mobility: independent, driving in town, sleeps in a regular bed, Independent prior Equipment at home: none Fall history: none reported Precautions/Special Considerations: SBP <220, up with assist, NSCU monitoring Mobility and Positioning Recommendations: ?? Pt. to utilize hand hold assist and 1A for ambulation and transfers with nursing. ?? Please encourage up to chair for meal times as able. ?? Pt encouraged to ambulate frequently with staff, getting into the bathroom for toileting and walking out in the maharaj >/= 3 times daily as able. Subjective: ???My hand still isn't working the way it was before Objective: Patient seen for physical therapy and demonstrated the following: Pain: stiffness in neck d/t R TCAR Vital Signs: VSS Mental Status: alert, oriented to person, place, and time Bed Mobility: Syed for legs scooting up toward HOB, bed features utilized Transfers: Sit to Stand: CGA Stand to Sit: CGA Neuromuscular Re-Education: Tendon glidesx8 hand over hand assist, picker box operator pen of table multiple techniques, placing pen in cup/removing pen from cup, stacking cups in pyramid, utilize remote pushing channel numbers; LUE, required extra time for techniques, min multimodal cues for techniques Gait: Distance: ~100' Device used: gait belt, initially FWW>no AD Level of assist: CGA Gait mechanics: forward flexed posture, motor control/balance deficits LLE during heel strike, increased AURORA Balance: Sitting Static: good Sitting Dynamic: good, able to don pants Standing Static: good Standing Dynamic / Gait: Fair, able to pull up pants without LOB Education: patient has been educated on Bed mobility, Transfers, Stairs, Precautions/protocol, Gait, Role of therapy, Balance and Discharge planning and needs reinforcement. understanding. Pt left on transport bed for MRI with nurse at end of session. Assessment: Jeannie Jermaine Damone was seen today for physical therapy treatment session for continuation of POC. Pt presented pleasant and motivated for therapy. Pt presented with decreased motor control (LUE>LLE) throughout session. Pt was educated on the importance of using LUE to re-train brain. Pt demonstrated decreased eccentric control during heel strike, increased AURORA, balance deficits. Pt would benefit from an inpatient rehabilitation stay upon discharge from hospital as pt lives alone and is below prior level of function. Pt will benefit from ongoing therapeutic interventions to achieve therapy goals. Discharge Recommendations: Based on the current findings, Anticipated Discharge Disposition: inpatient rehabilitation facilitywhen medically ready for hospital discharge. Consult Recommendations: No other consults recommended at this time. Equipment needs: No equipment necessary Goals: To be achieved by 12/11/2019: 1. Pt. to demonstrate knowledge of safety limitations and precautions and will appropriately request assistance for functional activities and to mobilize. 2. Pt. to perform bed mobility independently. 3. Pt. to perform sit to stand transfers independently using no assistive device. 4. Pt. to ambulate 200 feet independently using a no assistive device. 5. Pt. to ambulate up/down 3 step/stairs using one rail independently. 6. Pt to perform 5x sit to stand under 15s to demonstrate improved LE strength Goals ongoing as of 11/26/19 Plan: Therapy Frequency: 3-5 times/wk for therapy including balance training, bed mobility training, gait training, patient/family education, stair training, strengthening and transfer training. Patient/family understand and agree with plan as stated above. Total Evaluation Minutes, Physical Therapy: 42(TENx2, GTx1 Time in/out ([id number])) BETTINA Villanueva Physical Therapy Inpatient Rehabilitation Department Heron Prakash, RECORD CLERK SALESPERSON Pager: [phone] Physical Therapy Inpatient Rehabilitation Department * Consult Note - Kiran Galdamez PA - 11/26/2019 7:03 AM EST Images from the original note were not included. Vascular Neurology Consult Note Admit Date 11/24/2019 ( Hospital Day 2 days ) Responsible Attending: Martha Price MD Primary Provider: Mario Williamson MD [phone] Patient ID Jeannie Morris is a 69 y.o. right handed M with hx smoking (quit 10yrs ago) who is admittedafter deferring T[facility] at [facility] for R MCA symptoms of left hemiparesis, facial droop, dysarthria with NIHSS 3. CTA showed RI ICA bifurcation stenotic plaque. Transferred for consideration surgical interve ntion. Went for TCAR yesterday; Vascular Surgery is primary service Active Hospital Problems Diagnosis ??? Stroke Resolved Hospital Problems No resolved problems to display. Interval Events/PRNs -R TCAR yeterday, tolerated well, + R neck pain, no new neurological complaints this morning -no headache -reports strength and sensation improving - deficit most notable in the left arm now -awake and asking for breakfast, asking about discharge plan Objective: Physical Exam: Last value Range last 24 hrs Temperature Temp: 36.8 ??C (98.2 ??F) Temp: [35.8 ??C (96.4 ??F)-37.6 ??C (99.7 ??F)] Heart Rate Heart Rate: 74 Heart Rate: [55-93] Blood Pressure BP: 113/68 BP: (97-119)/(57-78) Respiratory Rate Resp: 20 Resp: [11-21] SpO2 SpO2: 95 % SpO2: [93 %-100 %] Gen: Patient of apparent stated age, well nourished, well developed, awake, alert, NAD CV: + S1, S2, RRR, no murmur Resp: Respirations full and unlabored Abd: soft, nontender, nondistended Ext: No edema. No bony deformity Neck: R neck dressing clean and dry Neuro Exam: MS: AAOx4, fluent language, minimal dysarthria, voice mildly hoarse, follows commands CN: PERRL, EOMI, visual bonilla full Facial sensation intact, no facial asymmetry Hearing intact to finger rub Palate elevates symmetrically, tongue protrudes midline SCM and trap strength intact Motor: Normal bulk and tone. UE: 5/5 R, 3/5 L Arm abduction at shoulder 5/5 R, 4+/5 L Elbow extension 5/5 R, 4+/5 L Elbow flexion 5/5 R, 4+/5 L Manager Proposal LE: 5/5 R, 5/5 L Hip flexion 5/5 R, 5/5 L Knee extension 5/5 R, 5/5 L Knee flexion 5/5 R, 5/5 L Foot dorsiflexion 5/5 R, 5/5 L Foot plantar flexion Sensation: intact throughout except altered/decreased LUE Reflexes: Toes - R down, L down Coordination: Finger to nose intact, + dysmetria on L Rapid alternating movements coarse and slow on the L Heel-coker intact No tremor Gait: Not assesssed ?? I/O last 3 completed shifts: In: 220 [P.O.:540; I.V.:1661] Out: 2590 [Urine:2540; Blood:50] Scheduled Meds: ??? aspirin 81 mg Oral Daily ??? sodium chloride 0.9 % (flush) 5 mL Intravenous BID ??? polyethylene glycol (MIRALAX)oral powder 17 g Oral Daily ??? clopidogreL 75 mg Oral Daily ??? atorvastatin 80 mg Oral QPM Continuous Infusions: PRN Meds:.iodixanoL, labetalol, acetaminophen Labs Recent Labs 11/26/1955811/25/19 0838 11/25/19 021 WBC 7.9 6.3 7.5 HGB 13.9 16.1 15.2 HCT 41.5 46.8 44.6 PLATELET 189 221 221 NEUTROABS 5.79 3.93 4.40 Recent Labs 11/26/1959 11/25/19 021 NA 139 140 K 3.8 3.7 CL 106 106 CO2 22 24 BUN 10 15 CREATININE 0.89 0.88 GLUCOSE 86 -- Recent Labs 11/26/19 0559 11/25/19 021 CALCIUM 8.7 9.0 MAGNESIUM 0.86 0.84 PHOS 3.1 3.0 Recent Labs 11/26/1959 11/25/19 021 AST 17 17 ALT 14 14 ALKPHOS 56 62 BILITOT 0.8 0.5 BILIDIR 0.1 0.1 No results for input(s): TROPONINT, CK in the last 168 hours. Recent Labs 11/25/19 1522 PHART 7.43 [id number] 33* PO2ART 189* PVI2NOP 21.2 Recent Labs 11/26/19 0559 11/25/19 021 INR 1.1 1.1 Lipid Panel Lab Results Component Value Date CHLPL 172 11/25/2019 HDL 30 11/25/2019 CHOLHDL 5.7 11/25/2019 TRIG 178 11/25/2019 LDLDIRECT 126 11/25/2019 Recent Labs 11/25/19 0217 HA1C 5.7* Imaging/EKG OSH CTA personally reviewed - R ICA plaque at the bifurcation with extension of thrombus distally CUS RIGHT: There is irregular plaque in the common carotid artery causing <50% stenosis by B-mode. There is irregular plaque in the proximal internal carotid artery causing 16-49% stenosis when compared to the more distal internal carotid artery. The bifurcation level is in the mid neck. MRI Brain: Cluster of small sites of recent infarction within the right MCA territory, most extensive in the perirolandic cortex. The largest confluent lesion shows probable minor petechial hemorrhage Assessment/Plan Jeannie Morris is a 69 y.o. right handed male admitted for suspected R MCA infarct in setting of R ICAstenosis and distal thrombus. Facial droop and dysarthria have improved; still with distal LUE weakness and altered sensation. S/p TCAR yesterday and doing well. -Ok for floor status -Agree with DAPT and statin, no current indication for ongoing anticoagulation. -Discussed Code status with patient and son (had DNR suspended periprocedurally) and he would like to continue FULL CODE. -Asked CM to review MPOA and assist with advanced directives -Discussed with Dr. Nice this a.m. Will arrange for ziopatch placement at discharge to assess for alternate source of his carotid thrombus -Will arrange 4-6 week post-discharge visit in stroke clinic. JERMAIN BRYAN Personal Pager #[phone] Stroke Team Pager #[phone] [place] [address] * Plan of Care - Joanne Tobar RN - 11/26/2019 6:33 AM EST Problem: Patient Care Overview Goal: Plan of Care Review Outcome: Ongoing (Interventions Implemented as Appropriate) 11/25/19 2300 Coping/Psychosocial Plan Of Care Reviewed With patient;son OUTCOME EVALUATION NOTE: OUTCOME SUMMARY: Received pt from PACU at 2300. Pt A + O x 4. Following commands. Clear speech. WFL. Mildly decreased strength in L upper extremity. Full strength in R upper extremity and bilateral lower extremities.L drift present. Pt endorses decreased sensation in L upper extremity, but states that his sensation is coming back slowly. Patient complains of mild pain and stiffness in his neck. PRN Tylenol administered with good effect. VSS. SBP maintained between 100 - 160. Afebrile. Neurovascular checks completed q4. Neck dressing CDI. R groin dressing CDI. Heparin therapy infusing. Q6 UFH completed. Heparin titrated according to UFH (see MAR). Care clustered, rest promoted. Will continue to monitor. PLAN MOVING FORWARD: Q2 Neuro, Q2 VS, continue heparin therapy INDIVIDUALIZED FALL PREVENTION INTERVENTIONS: Patient-specific fall risk factors per assessment: generalized weakness, L upper extremity weakness Assistance: 1 assist with walker Supervision: Arms reach Surveillance: Bed locked in low position, call ogden within reach, purposeful hourly rounding, clutter free environment, bed alarm on Patient-specific fall prevention interventions for sensory deficits provided: N/A CPG GOAL OUTCOME EVALUATION: Continue care plan as documented. Goal: Fall Prevention-Safe Patient Handling Outcome: Ongoing (Interventions Implemented as Appropriate) 11/25/19229911/26/19 0400 [place] Fall Risk History of Falling 0 -- Secondary Diagnosis 15 -- Ambulatory Aids 15 -- Intravenous Therapy/Heparin/Saline Lock 20 -- Gait/Transferring 10 -- Mental Status 15 -- Score 75 -- OTHER [place] Fall Risk High -- Restraint Interventions Safety Promotion/Fall Prevention -- safety round/check completed Positioning Body Position -- supine Activity Activity Type -- activity adjusted per tolerance Goal: Infection Control Outcome: Ongoing (Interventions Implemented as Appropriate) 11/25/19229911/26/19 0400 Safety Interventions Isolation Precautions -- standard precautions maintained Infection Prevention -- rest/sleep promoted Coping Strategies Supportive Measures active listening utilized -- Problem: Skin Integrity Impairment, Risk/Actual (Adult) Intervention: Promote/Optimize Nutrition 11/26/19 0605 Nutrition Interventions Oral Nutrition Promotion rest periods promoted Intervention: Prevent/Manage Excess Moisture 11/25/19229911/26/19 0000 Hygiene Care Perineal Care -- absorbent pad changed;perianal area cleansed;perineal area cleansed Bathing/Skin Care -- bath, partial;incontinence care;linen changed Skin Interventions Skin Protection adhesive use limited -- Intervention: Prevent/Minimize Sheer/Friction Injuries 11/25/190 11/26/19 0400 Skin Interventions Pressure Reduction Devices pressure-redistributing mattress utilized -- Pressure Reduction Techniques frequent weight shift encouraged -- Positioning Positioning/Transfer Devices -- pillows;in use Goal: Skin Integrity/Wound Healing Patient will demonstrate the desired outcomes by discharge/transition of care. Outcome: Ongoing (Interventions Implemented as Appropriate) 11/26/19 0605 Skin Integrity Impairment, Risk/Actual (Adult) Skin Integrity/Wound Healing making progress toward outcome * Op Note - Renetta Nice MD - 11/25/2019 6:32 PM EST [facility] Operative Note Patient Name: Jeannie Morris : [id number] MR#: [id number] Case Date: 11/25/2019 Surgeon: Surgeon(s) and Role: * Renetta Nice MD - Primary * Diaz Wallace MD - Fellow * Josias Buckley MD - Assisting Attending Preoperative diagnosis: Symptomatic right carotid stenosis, right MCA stroke Postoperative diagnosis: symptomatic right carotid stenosis, right MCA stroke Operation: Right internal carotid artery TCAR (transcarotid artery revascularization) with ENROUTE transcarotid neuroprotection and stent system (10x30 Enroute Stent, 10x 40 Enroute Stent) EBL: 50cc Urine Output: Not measured IV Fluid: 1000cc Heparin: 7000u Protamine: 30mg Fluoro: 2.4minutes Contrast: 20.5cc Clamptime: 10m 13s Implants: Implant Name Type Inv. Item Serial No. Forest[employer] Adviser Lot No. LRB No. Used Action STENT,TCAR,ENROUTE,[id number] ([id number]) (AutoReq) - [id number] IMPLANTS STENT,TCAR,ENROUTE,[id number] ([id number]) (AutoReq) [employer] [facility] [id number] Right 1 Implanted STENT,TCAR,ENROUTE,[id number] ([id number]) (AutoReq) - [id number] IMPLANTS STENT,TCAR,ENROUTE,[id number] ([id number]) (AutoReq) [employer] [facility] [employer] [id number] Right 1 Implanted Indications for the procedure: Jeannie Morris??is a [age] year old male who is admitted after development of symptoms of left hemiparesis, facial droop, dysarthria suggestive of stroke which corresponds to his RIGHT ICA stenosis seen on CTA. He was seen and evaluated by Dr Nice, and determined to be appropriate for the following operation. VQI Quality Improvement Project (11/2019): MICHAEL Variable Value Indication [] asymptomatic stenosis [x] symptomatic stenosis [] part of intracranial tx Pre-op Duplex both right and left sides Right PSV 82 (cm/s) Left PSV 54 (cm/s) Duplex Right Stenosis <50% Duplex Left Stenosis <50% Pre-op MRA no MRA Right Stenosis N/A MRA Left Stenosis N/A Pre-op CTA both right and left sides CTA Right Stenosis >70% CTA Left Stenosis <50% Pre-op Arteriogram no Arteriogram Right Stenosis N/A Arteriogram Left Stenosis N/A Details of Operation: The patient was correctly identified in the Preprocedure Holding Area. After a discussion of the risks, benefits and alternatives of the procedure and after answering all of the patients questions, the patient wished to proceed and then was consented for the operation. The EEG leads were applied. The patient was brought back to the Operating Room and placed supine on the operating table. He was intubated by the Anesthesia Service without difficulty. Additional IV access was obtained including aradial arterial line.The patient was then prepped and draped in the standard sterile fashion using a alcohol, chlorhexidine and iodine solutions. Pre-operative antibiotics were administered, and a full standard time out was completed prior to initiating the procedure. ? A transverse incision was made just above the right clavicle. We opened the plastyma with electrocautery. Subplatysmal flaps were made. We then dissected between the heads of the sternocleidomastoid,immediately above the clavicle. The heads of the sternocleidomastoid muscle were and the carotid sheath identified. The internal jugular vein was dissected sharply with metzenbaum scissors,then retracted laterally allowing the exposure of the common carotid artery and the vagus. The vagus was carefully preserved. The right common carotid artery was circumferentially dissected and encircled with umbilical tape. Systemic heparin was given. ACT was monitored serially throughout the case. A single U-stitch of 5-0 prolene with pledgets was placed in the common carotid artery for use later in the case. In the right groin, ultrasound guidance was used to obtain access to the CFV using micropuncture technique. Following this, the venous sheath was exchanged for the [address] GRE[place]T venous sheath over a J-wire. Next, micropuncture access of the right common carotid artery was obtained. A cope wire was inserted and a micropuncture sheath over this. Angiogram was performed to confirm level of the bifurcation.An .035 jwire was then introduced. Once this was achieved, the micropuncture sheath was exchanged for the Enroute Neuroprotection System (GREENBELT) arterial sheath. After confirming appropriate position, this was sutured in place with silk suture. Flow reversal was initiated and confirmed to be functioning. The common carotid artery was clamped proximal to the sheath. An .014 wire was then used to select the distal ICA. We did not pre-dilate. The Enroute stent ([id number]) was then deployed. A second En route Stent (10x30) was deployed more proximally to fully cover the lesion. We did not post-dilate.Completion angiogram showed widely patent common and internal carotid arteries with excellent stentplacement. The CCA clamp was removed, the flow reversal system was disconnected and the arterial sheath was removed. Protamine was administered. The previously placed pursestring was tied down after placement of a second pledget. Hemostasis was obtained with surgicel and electrocautery. Once hemostasis was obtained the neck incision was then closed with running 3-0 vicryl. Skin was reapproximatedwith 4-0 Monocryl. Skin glue was applied. The venous sheath was removed. Pressure was held for 10 minutes. The wound was covered with a sterile dressing and the operation was terminated. The patient tolerated the operation well. The patient was awakened and extubated in the operating room and transported in stable condition to the post- anesthesia care unit for further monitoring. Neuro exam was at the patient's pre-operative baseline prior to leaving the room. Dr Nice was present for the entire operation. Dictated by: Diaz Wallace Vascular Surgery Fellow [id number] 11/25/2019 6:34 PM Vascular Surgery Attending Staff Attestation: Case Date: 11/25/2019 I was present and I participated during the entire procedure (does not need to include opening and closing). Renetta Nice MD 11/26/2019 * Plan of Care - Jinny Vargas OT - 11/25/2019 1:18 PM EST Occupational Therapy Evaluation Patient profile: Jeannie Morris??is a 69 y.o.??right handed male admitted for suspected R MCA infarct,likely secondary to his R ICA stenosis. Facial droop and dysarthria have improved; still with distal LUE weakness and altered left hemibody sensation. Arrived on aspirin and plavix after plavix load prior to transfer. Requires [facility] [place] level care for close neurological monitoring. No past medical history on file. No past surgical history on file. Social History: Patient lives alone with a cat in a mobile home in [place], [place] Home Setup: Pt reports 3 EL[address] with one rail. Pt home is one level. Pt reports that he has a tub/shower combo. DME: None Baseline ADL/Mobility: Pt independent prior to admission with ADL and IADL routines. Pt drives short distances. Pt reports that he manages own groceries and meal preparation. Precautions/Special Considerations: Bleeding precautions, DNR, up with assistance, LUE hemiparesis Subjective: This arm isn't working, Pt reporting LUE weakness Objective: Seen today for OT evaluation. Cognitive Status/Behavior: ?? Behavior / Mood: alert and cooperative ?? Alert and oriented to: person, place and situation ?? Follows commands: 2 step, 100% of the time, requires increased time and requires repetition ?? Attention: distractible ?? Safety awareness: decreased insight into deficits and decreased impact of deficits of ADL function Vision & Perception: ?? WNL/WFL Communication: WFL Range of motion, strength, coordination: Hand dominance: right RUE is within functional limitations LUE: AROM ~100 degrees shoulder flexion/scaption, able to achieve 5/6 full IR and ER with extended time, elbow and below WFL for AROM; noted with decreased opposition to 4th digit. Pt able to achieve3/4 supination with compensation at shoulder. Pt noted with decreased FM and GM coordination in LUE with functional tasks. UE Left Strength Shoulder Flex 3 Abd 3 Int. Rot. 3 Ext. Rot 3 Elbow Flex 4 Ext 4- Wrist Flex NA Ext NA Pronation NA Supination NA Rad. Dev. NA Uln. Dev. NA Hand Gross Grasp 3+ LE limitations: Please see Pt note Sensation: Decreased to light touch in LUE Activities of Daily Living: Self-feeding: Did not assess Grooming: Anticipate min A overall Dressing: Max A for threading and hiking pants at standing level Bathing: Did not assess Toileting: Transfer: Recommend CGA with gait belt Hygiene: Did not assess Functional Mobility: Supine to sit: Supervision with extended time and effort towards the R Sit to stand: Supervision Ambulation: CGA with gait belt ~150 ft Stand to sit: Supervision Sit to supine: Did not assess; Pt left up in recliner chair with all needs within reach and chair alarm active at end of session Balance: Sitting balance: Good Standing balance: Good Vitals: WFL Pain: 0/10 Skin: Intact Education: patient have been educated on Role of occupational therapy/rehabilitation, Transfers, ADL, Positioning, Safety, Functional Mobility, Balance, Recommendations and Discharge planning and verbalize understanding. Patient status, treatment, and mobility recommendations discussed with nursing. Assessment: Pt has been seen for occupational therapy evaluation. Jeannie Morris presents with the following performance skill deficits and client factors: decreased activity tolerance, decreased strength, decreased sitting/standing balance, sensory deficits and compromised mobility status. These performance deficits have led to activity limitations and participation restrictions in the following areas of occupation: dressing, bathing, grooming, toileting, self- feeding, transfers/mobility, rest/sleep, home management, driving and community mobility. Pt seen for OT evaluation with PT. Pt noted with decreased strength and coordination in LUE and diminished sensation. Due to this; Pt requiring ass istance for ADL's and noted to require max A overall to don pants. Pt lives alone and needs to be highly independent in order to return home. At this time; recommend Pt discharge to an inpatient rehab facility to maximize function. Pt would benefit from further inpatient OT interventions to addressperformance deficits and maximize participation and independence with occupations of daily living. Equipment needs at discharge: TBD Anticipated Discharge Disposition: inpatient rehabilitation facility Other Recommendations: ?? Utilize upright chair position using bed features or transfer to recliner chair as appropriate with CGA with gait belt, ambulate as tolerated ?? Encourage participation in ADL's by providing set up A on tray table and physical assist only asneeded Other Recommendations: No other consults recommended at this time Goals: To be achieved by 12/06/19. 1. Pt will be conditional independent for LB dressing routines with AE as needed at seated/standinglevels 2. Pt will be conditional independent for toileting routine at ambulatory level 3. Pt will be conditional independent for simple snack prep at ambulatory level 4. Pt will be independent for HEP for BUEs 5. Pt will be able to stand for 8 minutes to perform sink level grooming task with LRAD?? Plan: OT: Therapy Frequency: 3-5 times/wk Planned OT interventions: Role of occupational therapy/rehabilitation, Transfers, Assistive device/technique, Adaptive equipment training, ADL, Exercise, Breathing exercises, Positioning, Safety, Precautions/Protocol, Functional Mobility, Activity pacing/Energy conservation, Home Program, Home Management, Balance, Recommendations, Family training and Discharge planning. Total Evaluation Minutes, Occupational Therapy: 33; low complexity evaluation 2017 OT Evaluation Code Rationale: ?? Diagnosis & Pertinent Co-Morbidities affecting Plan of Care: see PMHx ?? Occupational Profile & Client History: Brief Expanded Extensive x ?? Assessment of Occupational Performance: 1-3 performance deficits 3-5 performance deficits x 5 + performance deficits ?? Clinical Decision Making: Low Moderate High x Clinical decision making of low complexity using standardized patient assessment instrument and measurable assessment of functional outcome. Pager: [phone] Jinny Vargas OT 11/25/2019 Occupational Therapy Rehabilitation Department * Plan of Care - Jonnie Mccain, PT - 11/25/2019 9:35 AM EST Physical Therapy Evaluation Patient profile: Jeannie Morris??is a 69 y.o.??right handed M with hx smoking (quit 10yrs ago) who is admitted after deferring TPA at [facility] for R MCA symptoms of left hemiparesis, facial droop, dysarthria with NIHSS 3. CTA showed RI ICA bifurcation stenotic plaque. Transferred for consideration surgical intervention. Patient with the following active problems: No past medical history on file. No past surgical history on file. There are no active non-hospital problems to display for this patient. Social History: Home set-up: Lives in [place], [place] alone with his cat; son lives in [facility] Bathroom Set-up: tub shower, vanity next to toilet to assist with standin Stairs: 3 to enter with 1 railing then 1 level Baseline Mobility: independent, driving in town, sleeps in a regular bed, Independent prior Equipment at home: none Fall history: none reported Precautions/Special Considerations: SBP <220, up with assist, NSCU monitoring Mobility and Positioning Recommendations: ?? Pt. to utilize hand hold assist and 1A for ambulation and transfers with nursing. ?? Please encourage up to chair for meal times as able. ?? Pt encouraged to ambulate frequently with staff, getting into the bathroom for toileting and walking out in the maharaj >/= 3 times daily as able. Subjective: ???I haven't been up yet?? Objective: Pt seen for evaluation today. Pain: none reported Vital Signs: At Rest With Activity SpO2 (RA) 99% 99% BP (MAP) 114/83mmHg mmHg HR 77bpm bpm Mental Status: alert, oriented to person, place, and time Vision: intact Skin: WNL Musculoskeletal: ROM: LE WFL Strength: slightly weaker on LLE 4+/5 compared to 5/5 on RLE Sensation: intact to LLE See OT note for LUE details -impaired moderately Coordination: impaired with precision finger tap on LUE, impaired rapid alternating movement Bed Mobility: Supine to Sit: modA from flat bed, increased time Sit to Supine: not assessed Transfers: Sit to Stand: [facility] Stand to Sit: [facility] Bed to Chair: Gait: Distance: ~150' Device used: gait belt, initially hand hold assist Level of assist: [facility] Gait mechanics: forward flexed posture, steady gait Stairs: not assessed Five Times Sit to Stand Test Time to complete 5 stands:18s Comments: no use of UE's Normal Values: Greater than 13.6 seconds indicates increased disability and morbidity. - (Jelly, 2000) The optimal cutoff time for performing the FTSS test in predicting recurrent falls is 15 seconds. -(Juany et al., 2008) References: Vandana Reaves L. Ferrucci, et al. (2000). Lower extremity function and subsequent disability: consistency across studies, predictive models, and value of gait speed alone compared with the short physical performance battery. J Gerontol A Biol Sci Med Sci 55(4): M221-31. Juany S, Marshall D, Dash P, Sneha R, Denilson P, Lliy G et al. Five times sit to stand test is a predictor of recurrent falls in healthy community?living subjects aged 65 and older. J Am Geriatr Soc 2008; 56(8):1575?1577 Balance: Sitting Static: good Sitting Dynamic: good Standing Static: good Standing Dynamic / Gait: fair Education: patient has been educated on Bed mobility, Transfers, Stairs, Precautions/protocol, Gait, Role of therapy, Balance and Discharge planning and needs reinforcement. understanding. Patient status, treatment, and mobility recommendations discussed with nursing. Assessment: Jeannie Morris was seen today for physical therapy evaluation. Pt presents with LUE hemiparesis, impaired sensation, impaired balance, impaired coordination, impaired balance and righting reactions and impairments in overall functional mobility. Pt pleasant and conversant during today's session and motivated to reach discharge goals. Will continue to assess appropriate discharge plan as pt is here. Home vs rehab pending progress and s/p OR.The pt would benefit from skilled therapy services while in the hospital to maximize functional abilities. Discharge Recommendations: Based on the current findings, Anticipated Discharge Disposition: (home vs rehab pending progess) when medically ready for hospital discharge. Consult Recommendations: No other consults recommended at this time. Equipment needs: No equipment necessary Goals: To be achieved by 12/11/2019: 1. Pt. to demonstrate knowledge of safety limitations and precautions and will appropriately request assistance for functional activities and to mobilize. 2. Pt. to perform bed mobility independently. 3. Pt. to perform sit to stand transfers independently using no assistive device. 4. Pt. to ambulate 200 feet independently using a no assistive device. 5. Pt. to ambulate up/down 3 step/stairs using one rail independently. 6. Pt to perform 5x sit to stand under 15s to demonstrate improved LE strength Plan: Therapy Frequency: 3-5 times/wk for therapy including balance training, bed mobility training, gait training, patient/family education, stair training, strengthening and transfer training. Patient/family understand and agree with plan as stated above. 2017 PT Evaluation Code Rationale: ?? Diagnosis & Pertinent Co-Morbidities, personal factors, and present illness affecting Plan of Care: (see above); Additional personal factors or co- morbidities that impact plan: ?? Total # of Factors: 0 1-2 3+ x ?? Examination of body system impairments, functional limitations and behaviors, and/or participation restrictions. Addressing 1-2 elements Addressing 3 + elements Addressing 4 + elements x ?? Clinical presentation: See assessment above. Stable/Uncomplicated Evolving/Fluctuating Symptoms Unstable/Unpredictable x ?? Clinical decision making of low complexity based on pt's functional performance as outlined in this evaluation. Time IN / OUT: Total Evaluation Minutes, Physical Therapy: 33(eval, TEF) Jonnie Mccain PT Pager: [phone] Physical Therapy Inpatient Rehabilitation Department * Initial Assessments - Luis Mojica MSW - 11/25/2019 8:50 AM EST Office of Care Management Initial Assessment ELIZABETH Gutierrez reviewed record and discussed patient with Care Team. Source of Information: Patient, Chart, Treatment Team Introduced self/reviewed role; services accepted. Reason for Hospitalization: Dysarthria, Left hemiparesis, facial droop No past medical history on file. 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 if SNF Home Health: [place] DME: Pending evals Dialysis: NA Community Resources: Available Transportation: Family or ambulance Anticipated Barriers to Discharge/Special Considerations: none Assessment: 69 y.o.??M with hx smoking who is admitted to neurology after deferring TPA at O[facility] for R MCA symptoms of left hemiparesis, facial droop, dysarthria with low NIHSS with corresponding R ICAstenosis seen on CTA. Patient reports he was in his chair eating around 1430 and tried to get up but could not move his left arm or lg. At this time his daughter called an ambulance. He got to [facility] around 1600 and was noted to have slurred speech. Per notes Patient was loaded with Plavix and ASA and started on high dose statin. CTA of head and neck reported R ICA complex plaque at bifurcation with stenosis. Vascular surgery is consulted for consideration of CEA. Plan: Likely to rehab before home with services A member of the Care Management team will continue to monitor progress, follow for continuity of care and assist with transition of care planning. ELIZABETH Gutierrez Pager: [phone] * Consult Note - Luis Pablo MD - 11/24/2019 11:28 PM EST Vascular Surgery Inpatient Consult Note HPI: Jeannie Morris is a 69 y.o. M with hx smoking who is admitted to neurology after deferring TPA at OSH for R MCA symptoms of left hemiparesis, facial droop, dysarthria with low NIHSS with corresponding MERLENE stenosis seen on CTA. Patient reports he was in his chair eating around 1430 and tried to get up but could not move his left arm or lg. At this time his daughter called an ambulance. He got to [facility] around 1600 and was noted to have slurred speech. Per notes Patient was loaded with Plavix and ASA and started on high dose statin. CTA of head and neck reported R ICA complex plaque at bifurcation with stenosis. Vascular surgery is consulted for consideration of CEA. PMH: Significant TOB abuse HTN HLD PSH: No past surgical history on file. MEDICATIONS: None ALLERGIES: Allergies no known allergies FAMILY HISTORY: No family history on file. - Denies history of bleeding or clotting disorders. Denies history of reactions to anesthesia. 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 Otherwiseneuro intact. LABS: Pending IMAGING: No second reads at this point.R ICA complex plaque at bifurcation with stenosis. ASSESSMENT and RECOMMENDATIONS: 69 y.o. M with hx smoking who is admitted to neurology after deferring TPA at OSH for R MCA symptoms of left hemiparesis, facial droop, dysarthria with low NIHSS with corresponding R ICA stenosis seen on CTA. Agree w/ continuing ASA, plavix, statin, obtaining MRI and Carotid duplex in AM. Vascular Surgery will follow-up the results with further plans at that time. Please page [phone] with any questions. Luis Pablo MD General Surgery PGY-2 [id number] documented in this encounter Plan of Treatment Not on file documented as of this encounter Procedures Procedure Name Priority Date/Time Associated Diagnosis Comments CT HEAD WO CONTRAST (GENERIC) Routine 11/27/2019 8:35 AM EST HEMOGRAM Routine 11/27/2019 1:49 AM EST DIFFERENTIAL, AUTOMATED Routine 11/27/2019 1:49 AM EST HC VENIPUNCTURE Routine 11/27/2019 1:49 AM EST MRI BRAIN WO CONTRAST Routine 11/26/2019 11:18 AM EST HC UNFRACTIONATED HEPARIN (HEP UFH) STAT 11/26/2019 5:59 AM EST HEMOGRAM Routine 11/26/2019 5:59 AM EST DIFFERENTIAL, AUTOMATED Routine 11/26/2019 5:59 AM EST HC PARTIAL THROMBOPLASTIN TIME Routine 11/26/2019 5:59 AM EST HC PROTHROMBIN TIME Routine 11/26/2019 5 :59 AM EST HC CBC,PLT & AUTO DIFF Routine 0 5:59 AM EST HC PHOSPHORUS, SERUM Routine 11/26/2019 5:59 AM EST HC MAGNESIUM, SERUM Routine 11/26/2019 5 :59 AM EST HEPATIC FUNCTION PANEL Routine 0 5:59 AM EST BASIC METABOLIC PANEL Routine 11/26/2019 5:59 AM EST CAROTID DUPLEX, BILATERAL Routine 11/25/2019 9:16 PM EST Cerebrovascular accident (CVA), unspecified mechanism IR OR VASC ANGIOGRAM IMAGE STORAGE ONLY Routine 11/25/2019 4:48 PM EST ABORH RECHECK STATUS Routine 11/25/2019 3:50 PM EST ABO/RH TYPING Routine 11/25/2019 3:50 PM EST ANTIBODY SCREEN Routine 11/25/2019 3:50 PM EST HC ABO-MICROTITER Routine 11/25/2019 3:5 0 PM EST BLOOD GAS ARTERIAL POC Routine 0 3:[address]catheter Stent, Cca W Embolic Ect ([id number]) 11/25/2019 2:30 PM EST right carotid stenosis, symptomatic ECHO COMPLETE Routine 11/25/2019 1:24 PM EST Cerebrovascular accident (CVA), unspecified mechanism TRANSCATH INTRAVASCULAR STENT,CAROTID,PERC,W\E MBOLIC PROT. Routine 11/25/2019 8:50 AM EST HC VENIPUNCTURE STAT 11/25/2019 8:38 AM EST HEMOGRAM Routine 11/25/2019 8:38 AM EST DIFFERENTIAL, AUTOMATED Routine 11/25/2019 8:38 AM EST HC CBC,PLT & AUTO DIFF Routine 0 8:38 AM EST BMP W/FASTING GLUCOSE Routine 11/25/2019 2:17 AM EST HEMOGRAM Routine 11/25/2019 2:17 AM EST DIFFERENTIAL, AUTOMATED Routine 11/25/2019 2:17 AM EST HC PARTIAL THROMBOPLASTIN TIME Routine 11/25/2019 2:17 AM EST HC PROTHROMBIN TIME Routine 11/25/2019 2 :17 AM EST HC VENIPUNCTURE Routine 11/25/2019 2:17 AM EST HC TRIGLYCERIDES Routine 11/25/2019 2:17 AM EST HC PHOSPHORUS, SERUM Routine 11/25/2019 2:17 AM EST HC MAGNESIUM, SERUM Routine 11/25/2019 2 :17 AM EST HC LDL CHOLESTEROL, DIRECT Routine 11/25/2019 2:17 AM EST HC CHOLESTEROL Routine 11/25/2019 2:17 AM EST HC HEMOGLOBIN A1C Routine 11/25/2019 2:1 7 AM EST HEPATIC FUNCTION PANEL Routine 0 2:17 AM EST URINALYSIS WITH REFLEX CULTURE Routine 11/24/2019 9:46 PM EST documented in this encounter Results * [facility] (12/02/2019 10:40 AM EDT) Anatomical Region Laterality Modality Other Narrative 12/22/2019 8:31 AM EDT [facility] ? Zio Patch? Ambulatory Cardiac Event Monitor Report Indication: stroke Duration of recording ? 13 days 22 hours Summary Data Predominant rhythm ? sinus rhythm with prolonged KS interval Wenckebach physiology is noted during normal [...] AM Martha Price MD CARDIAC SERVICES O RDERABLES * CT Head wo Contrast (Generic) (11/27/2019 8:35 AM EST) Anatomical Region Laterality Modality Head Computed Tomogra phy Impressions 11/27/2019 8:43 AM EST Expected evolution of small sites of infarction within the right MCA distribution. No new intra-axial lesion. No acute intracranial hemorrhage. Extensive endodontal disease. Thank you for letting us participate in the care of this patient. For questions regarding this report, please contact the number below. ? Narrative 11/27/2019 8:43 AM EST EXAMINATION: CT HEAD WO CONTRAST (GENERIC) CLINICAL HISTORY: Head trauma, minor, normal mental status (Age 19-64y) TECHNIQUE: Axial sections through the head were obtained without intravenous contrast. COMPARISON: CT head of 11/24/2019. MRI of brain of 11/26/2019 FINDINGS: The areas of infarction within the right MCA distribution are evident on CT is subtle areas of loss of fortune-white differentiation and hypoattenuation. No new intra-axial lesion is evident. There is no intracranial hemorrhage, worsening ventriculomegaly, or extra-axial collection. The mucosal thickening or fluid within the left aspect of the sphenoid sinus is unchanged. Mastoid air cells are clear. There is no acute fracture. Several teeth appear to be carious. There is lucency about the roots of the left maxillary first premolar and right lateral incisor teeth consistent with periapical abscess or radicular cyst. There is a subcutaneous mass along the left occipital bone measuring 2.2 cm, unchanged from the prior CT. This most likely represents a sebaceous cyst. Procedure Note Pavel Tao MD - 11/27/2019 EXAMINATION: CT HEAD WO CONTRAST (GENERIC) CLINICAL HISTORY: Head trauma, minor, normal mental status (Age 19-64y) TECHNIQUE: Axial sections through the head were obtained withoutintravenous contrast. COMPARISON: CT head of 11/24/2019. MRI of brain of 11/26/2019 FINDINGS: The areas of infarction within the right MCA distribution areevident on CT is subtle areas of loss of fortune-white differentiation andhypoattenuation. No new intra-axial lesion is evident. There is no intracranialhemorrhage, worsening ventriculomegaly, or extra-axial collection. The mucosalthickening or fluid within the left aspect of the sphenoid sinus is unchanged. Mastoidair cells are clear. There is no acute fracture. Several teeth appear to be carious. There is lucency about the roots ofthe left maxillary first premolar and right lateral incisor teeth consistent with periapical abscess or radicular cyst. There is a subcutaneous mass along the left occipital bone measuring 2.2cm, unchanged from the prior CT. This most likely represents a sebaceouscyst. IMPRESSION Expected evolution of small sites of infarction within the right MCA distribution. No new intra-axial lesion. No acute intracranial hemorrhage. Extensive endodontal disease. Thank you for letting us participate in the care of this patient. Forquestions regarding this report, please contact the number below. Kady Jermaine Lacey APRN IMG CT ORDERABLES * Differential, Automated (11/27/2019 1:49 AM EST) Neutrophil % 68.6 % [facility] Neutrophil Absolute 5.12 1.70 - 6.10 x10(3)/[facility] Lymph % 18.3 % [facility] Lymphocytes Abs 1.4 0.9 - 3.2 x10(3)/[facility] Monocyte % 10.0 % [facility] Monocyte Abs 0.8 0.3 - 0.9 x10(3)/[facility] Eos % 2.3 % [facility] Eosinophils Abs 0.2 0.0 - 0.4 x10(3)/[facility] Basophil % 0.5 % [facility] Baso Absolute 0.0 0.0 - 0.1 x10(3)/[facility] Immature Gran % 0.30 % [facility] Comment: Immature granulocytes(IG's)percentage and absolute count will include metamyelocytes, myelocytes, and promyelocytes. Blood smears from CBCs yielding IG's will be scanned manually for concordance. If this scan disagrees with the automated IG or if promyelocytes are noted, a manual differential will be performed. Immature Gran Absolute 0.02 0.00 - 0.04 x10(3)/[facility] Blood specimen (specimen) 11/27/2019 1:49 AM EST 11/27/2019 2:01 AM EST Narrative Resulting Agency Comment Spec In Lab Diaz Wallace MD HEMATOLOGY ORDERABL ES Performing Organization Address [facility] [place] [address] * (ABNORMAL) Hemogram (11/27/2019 1:49 AM EST) White Blood Cell 7.5 4.0 - 9.5 x10(3)/mc L [facility] Red Blood Cell 4.57(L) 4.58 - 5.54 x10(6)/mc L [facility] Hemoglobin 13.8 13.7 - 16.5 gm/dL [facility] Hematocrit 40.7 40.5 - 48.5 % [facility] Mean Cell Volume 89.1 82.9 - 93.1 [facility] Mean Cell Hemoglobin 30.2 27.5 - 32.1 pg [facility] Mean Cell Hemoglobin Concentration 33.9 32.0 - 35.7 gm/dL [facility] Platelet 219 145 - 357 x10(3)/mc L [facility] RDW Standard Deviation 42.8 36.0 - 45.0 [facility] RDW coefficient of variation 13.1 11.4 - 13.8 % [facility] Mean Platelet Volume 9.9 7.6 - 12.9 [facility] NRBC% auto 0.0 % [facility] NRBC Absolute 0.000 0.000 - 0.000 x10(3)/mc L [facility] Blood specimen (specimen) 11/27/2019 1:49 AM EST 11/27/2019 2:01 AM EST Narrative Resulting Agency Comment Spec In Lab Diaz Wallace MD HEMATOLOGY ORDERABL ES Performing Organization Address City/[facility]/ZIP Co [place] [address] * MRI Brain wo Contrast (11/26/2019 11:18 AM EST) Anatomical Region Laterality Modality Head Magnetic Resonan ce Impressions 11/26/2019 11:36 AM EST Cluster of small sites of recent infarction within the right MCA territory, most extensive in the perirolandic cortex. The largest confluent lesion shows probable minor petechial hemorrhage Thank you for letting us participate in the care of this patient. For questions regarding this report, please contact the number below. ? Narrative 11/26/2019 11:36 AM EST EXAMINATION: MRI BRAIN WO CONTRAST CLINICAL HISTORY: Neuro deficit, acute, stroke suspected Px with left arm clumsiness, slight L facial droop found to have R ICA stenosis , concern for acute infarct TECHNIQUE: MRI of the brain performed without intravenous contrast administration. COMPARISON: CT head of 11/24/2019 FINDINGS: There is a cluster of small foci of T2 prolongation and decreased diffusion within the right MCA territory, predominantly about the central sulcus with the largest discrete area of infarction measures approximately 2 cm.. Subtle susceptibility was related signal loss is present within this largest confluent focus, likely reflecting minor petechial hemorrhage.. There is no mass effect or surrounding edema. No left-sided or posterior circulation infarction is evident. There is age-consistent enlargement of the ventricles and sulci. There are a few small scattered foci of T2 prolongation in the white matter of the bilateral cerebral hemispheres, a nonspecific finding most commonly reflecting small vessel ischemia. Intracranial flow-voids and orbits are of normal appearance. There is no extra-axial collection or mass. Procedure Note Pavel Tao MD - 11/26/2019 EXAMINATION: MRI BRAIN WO CONTRAST CLINICAL HISTORY: Neuro deficit, acute, stroke suspected Px with left arm clumsiness, slight L facial droop found to have R ICAstenosis , concern for acute infarct TECHNIQUE: MRI of the brain performed without intravenous contrast administration. COMPARISON: CT head of 11/24/2019 FINDINGS: There is a cluster of small foci of T2 prolongation and decreaseddiffusion within the right MCA territory, predominantly about the central sulcuswith the largest discrete area of infarction measures approximately 2 cm.. Subtle susceptibility was related signal loss is present within this largestconfluent focus, likely reflecting minor petechial hemorrhage.. There is no masseffect or surrounding edema. No left-sided or posterior circulation infarction isevident. There is age-consistent enlargement of the ventricles and sulci. There area few small scattered foci of T2 prolongation in the white matter of thebilateral cerebral hemispheres, a nonspecific finding most commonly reflectingsmall vessel ischemia. Intracranial flow-voids and orbits are of normal appearance. There is no extra-axial collection or mass. IMPRESSION Cluster of small sites of recent infarction within the right MCAterritory, most extensive in the perirolandic cortex. The largest confluent lesion shows probable minor petechial hemorrhage Thank you for letting us participate in the care of this patient. Forquestions regarding this report, please contact the number below. Martha Price MD IM MRI ORDERABLES * Heparin (unfractionated) Level (11/26/2019 5:59 AM EST) UF Heparin 0.07 IU/mL [facility] Comment: Guidelines for therapeutic unfractionated heparin levels are summarized below. Heparin (Anti-Xa) levels should be determined in a plasma sample that has been drawn 6 hours after a dose change i.e., steady-state has been reached. DRUG ?Dosing Schedule ? Target Peak Steady-State ?Heparin (Anti-Xa) Levels (Units/mL) Unfractionated ?Continuous infusion ?0.3-0.7 Heparin ?0.3-0.6 for some neurology indications Blood specimen (specimen) 11/26/2019 5:59 AM EST 11/26/2019 6:12 AM EST Narrative Resulting Agency Comment Spec In Lab Martha Price MD HEMATOLOGY ORDERAB LES [facility] [place] [address] * Differential, Automated (11/26/2019 5:59 AM EST) Neutrophil % 73.6 % [facility] Neutrophil Absolute 5.79 1.70 - 6.10 x10(3)/[facility] Lymph % 15.9 % [facility] [place] Lymphocytes Abs 1.2 0.9 - 3.2 x10(3)/[facility] Monocyte % 8.6 % [facility] Monocyte Abs 0.7 0.3 - 0.9 x10(3)/[facility] Eos % 1.1 % [facility] Eosinophils Abs 0.1 0.0 - 0.4 x10(3)/[facility] Basophil % 0.4 % [facility] Baso Absolute 0.0 0.0 - 0.1 x10(3)/[facility] Immature Gran % 0.40 % [facility] [place] Comment: Immature granulocytes(IG's)percentage and absolute count will include metamyelocytes, myelocytes, and promyelocytes. Blood smears from CBCs yielding IG's will be scanned manually for concordance. If this scan disagrees with the automated IG or if promyelocytes are noted, a manual differential will be performed. Immature Gran Absolute 0.03 0.00 - 0.04 x10(3)/[facility] Blood specimen (specimen) 11/26/2019 5:59 AM EST 11/26/2019 6:12 AM EST Narrative Resulting Agency Comment Spec In Lab Diaz Wallace MD HEMATOLOGY ORDERABL ES [facility] [place] [address] * Hemogram (11/26/2019 5:59 AM EST) White Blood Cell 7.9 4.0 - 9.5 x10(3)/[facility] Red Blood Cell 4.66 4.58 - 5.54 x10(6)/[facility] Hemoglobin 13.9 13.7 - 16.5 gm/dL [facility] Hematocrit 41.5 40.5 - 48.5 % [facility] Mean Cell Volume 89.1 82.9 - 93.1 [facility] Mean Cell Hemoglobin 29.8 27.5 - 32.1 pg [facility] Mean Cell Hemoglobin Concentration 33.5 32.0 - 35.7 gm/dL [facility] Platelet 189 145 - 357 x10(3)/[facility] RDW Standard Deviation 43.0 36.0 - 45.0 [facility] RDW coefficient of variation 13.2 11.4 - 13.8 % [facility] Mean Platelet Volume 10.0 7.6 - 12.9 [facility] NRBC% auto 0.0 % [facility] NRBC Absolute 0.000 0.000 - 0.000 x10(3)/[facility] Blood specimen (specimen) 11/26/2019 5:59 AM EST 11/26/2019 6:12 AM EST Narrative Resulting Agency Comment Spec In Lab Diaz Wallace MD HEMATOLOGY ORDERABL ES [facility] [place] [address] * Basic Metabolic Panel (non-fasting) (11/26/2019 5:59 AM EST) Glucose 86 65 - 199 mg/dL [facility] Comment:Diabetes: >=200 mg/d L plus symptoms Blood Urea Nitrogen 10 10 - 20 mg/dL [facility] Creatinine 0.89 0.80 - 1.50 mg/dL [facility] Sodium 139 135 - 145 mmol/L [facility] Potassium 3.8 3.5 - 5.0 mmol/L [facility] Comment: Please note: ??Patients with WBC >100,000 may have falsely elevated Potassium levels. ??For accurate Potassium quantification in these patients send serum separator tube (gold top) for subsequent determinations. ??Contact the Clinical Chemistry Laboratory if there are any questions. Chloride 106 98 - 107 mmol/L [facility] Carbon Dioxide 22 22 - 31 mmol/L [facility] Anion Gap 11 5 - 15 mmol/L [facility] Calcium 8.7 8.5 - 10.5 mg/dL [facility] Est Glomerular Filtration Rate 88 >=60 mL/min/1. 73 m?? [facility] Comment: The eGFR was calculated using the CKD-EPI equation. As with all creatinine based estimates of kidney function, eGFR values calculated with the CKD-EPI equation are not accurate in patients with acute kidney failure, extremes of body mass or the acutely ill. http://[employer]/DHMCnkf eGFR 102 >=60 mL/min/1. 73 m?? [facility] Comment: The eGFR was calculated using the CKD-EPI equation. As with all creatinine based estimates of kidney function, eGFR values calculated with the CKD-EPI equation are not accurate in patients with acute kidney failure, extremes of body mass or the acutely ill. http://[employer] [facility] [facility] [place]/[facility] Blood specimen (specimen) 11/26/2019 5:59 AM EST 11/26/2019 6:12 AM EST Narrative Resulting Agency Comment Spec In Lab Martha Price MD CHEMISTRY ORDERABL ES Performing Organization Address [facility] de Phone Number [facility] [place] [address] * APTT (11/26/2019 5:59 AM EST) Partial Thromboplastin Time 34 25 - 37 sec [facility] Comment: The PTT is NOT appropriate for heparin monitoring. Use the Anti-Xa level for heparin monitoring (HEP UFH) or LMWH monitoring (HEP LMW). A PTT less than 37 seconds generally indicates adequate hemostasis. Blood specimen (specimen) 11/26/2019 5:59 AM EST 11/26/2019 6:12 AM EST Narrative Resulting Agency Comment Spec In Lab Martha Price MD HEMATOLOGY ORDERAB LES Performing Organization Address [facility] de Phone Number [facility] [place] [address] * Prothrombin Time (11/26/2019 5:59 AM EST) Prothrombin Time 12.3 9.4 - 12.5 sec [facility] International Normalization Ratio 1.1 [facility] Comment: An INR <2.0 indicates adequate procoagulant activity for hemostasis in most patients without underlying bleeding disorders, though the INR may not adequately reflect hemostatic capacity in patients with liver disease and synthetic impairment. The recommended target INR range for therapeutic anticoagulation is 2.0 ? 3.0 for most applications, though lower and higher ranges may be appropriate depending on clinical circumstances. Blood specimen (specimen) 11/26/2019 5:59 AM EST 11/26/2019 6:12 AM EST Narrative Resulting Agency Comment Spec In Lab Martha Price MD HEMATOLOGY ORDERAB LES Performing Organization Address [facility] Co de Phone Number [facility] [place] [address] * Hepatic Function Panel (11/26/2019 5:59 AM EST) Protein, Total 6.1 6.1 - 8.0 gm/dL [facility] Albumin 3.3 3.2 - 5.2 gm/dL [facility] Aspartate Aminotransferase 17 0 - 39 unit/L [facility] Alanine Aminotransferase 14 0 - 55 unit/L [facility] Alkaline Phosphatase 56 40 - 130 unit/L [facility] Bilirubin, Total 0.8 0.2 - 1.3 mg/dL [facility] Bilirubin, Direct 0.1 0.0 - 0.3 mg/dL [facility] Blood specimen (specimen) 11/26/2019 5:59 AM EST 11/26/2019 6:12 AM EST Narrative Resulting Agency Comment Spec In Lab Martha Price MD CHEMISTRY ORDERABL ES Performing Organization Address [facility] Phone Number [facility] [place] [address] * Phosphorus (11/26/2019 5:59 AM EST) Phosphorus 3.1 2.5 - 4.5 mg/dL [facility] Blood specimen (specimen) 11/26/2019 5:59 AM EST 11/26/2019 6:12 AM EST Narrative Resulting Agency Comment Spec In Lab Martha Price MD CHEMISTRY ORDERABL ES Performing Organization Address [facility] Co de Phone Number [facility] [place] [address] * Magnesium (11/26/2019 5:59 AM EST) Magnesium 0.86 0.69 - 1.07 mmol/L [facility] Blood specimen (specimen) 11/26/2019 5:59 AM EST 11/26/2019 6:12 AM EST Narrative Resulting Agency Comment Spec In Lab Martha Price MD CHEMISTRY ORDERABL ES [facility] [place] [phone] * Carotid Duplex, Bilateral (11/25/2019 9:16 PM EST) VB Text Report Department: Vascular Surgery Lab Patient: [id number] (JEANNIE MORRIS) CPT: 84565 ICD10: I63.9 Referring Physician: MARTHA PRICE ?? Phone: Indications: R ICA stenosis, L sided weakness/facial droop/ dysarthria, ? degree of stenosis ICD10 Diagnosis Code: I63.9 Findings: ICA Proximal, Right ? PSV (cm/s): 82 ? EDV (cm/s): 29 ? ICA/CCA: 1.0 ? Plaque Structure: Echogenic ? Plaque Surface: Irregular ? %Stenosis: 16-49% ICA Distal, Right ? PSV (cm/s): 64 ? EDV (cm/s): 23 ? ICA/CCA: 0.8 CCA Distal, Right ? PSV (cm/s): 80 ? EDV (cm/s): 21 ? %Stenosis: <50% CCA Proximal, Right ? PSV (cm/s): 68 ? EDV (cm/s): 16 External Carotid Artery, Right ? PSV (cm/s): 78 ? EDV (cm/s): 15 ? %Stenosis: <50% Vertebral, Right ? PSV (cm/s): 31 ? EDV (cm/s): 12 ? Direction of Flow: Antegrade ICA Proximal, Left ? PSV (cm/s): 54 ? EDV (cm/s): 17 ? ICA/CCA: 1.1 ? Plaque Structure: Echogenic ? Plaque Surface: Irregular ? %Stenosis: <15% ICA Distal, Left ? PSV (cm/s): 56 ? EDV (cm/s): 24 ? ICA/CCA: 1.1 CCA Distal, Left ? PSV (cm/s): 50 ? EDV (cm/s): 18 ? %Stenosis: Minimal CCA Proximal, Left ? PSV (cm/s): 140 ? EDV (cm/s): 28 External Carotid Artery, Left ? PSV (cm/s): 84 ? EDV (cm/s): 14 ? %Stenosis: <50% Vertebral, Left ? PSV (cm/s): 36 ? EDV (cm/s): 13 ? Direction of Flow: Antegrade Interpretation: RIGHT: There is irregular plaque in the common carotid artery causing <50% stenosis by B-mode. There is irregular plaque in the proximal internal carotid artery causing 16-49% stenosis by velocity criteria when compared to the more distal internal carotid artery. The bifurcation level is in the mid neck. Technical comment: CT imaging noted significant soft plaque/thrombus in the mid ICA region which was not well visualized on this exam. The distal ICA Doppler waveforms did not demonstrate post stenotic turbulence. LEFT: A thin layer of circumferential plaque is present in the common carotid artery causing minimal stenosis. There is irregular plaque in the proximal internal carotid artery causing 16-49% stenosis when compared to the more distal internal carotid artery. The bifurcation level is in the mid neck. Vertebral Artery Data: Patent vertebral arteries with normal antegrade Doppler waveforms and velocities bilaterally. Comparison: No previous study in our vascular lab database for comparison. Electronically Signed by: JOSIAS BUCKLEY on 2019-11-27 12:43:08 PM [facility] VB Text Report End of Report [facility] 11/25/2019 9:16 PM EST Martha Price MD VASCULAR ORDERABLE S [facility] * IR OR VASC Aniogram Image Storage Only (11/25/2019 4:48 PM EST) Narrative [place] - 11/25/2019 3:44 PM EST This exam is auto-finalizing. It's purpose is for storage only. Josias Buckley MD IMG FILM LIBRARY ORD ERABLES [place], [place] * ABORH Recheck Status (11/25/2019 3:50 PM EST) ABORH Recheck Order Order Placed [facility] ABORH Type Recheck Complete [facility] Blood specimen (specimen) 11/25/2019 3:50 PM EST 11/25/2019 4:04 PM EST Narrative Resulting Agency Comment Spec In Lab Genet Daly MD BLOOD BANK LAB ORDER EDDIE Performing Organization Address City/[facility]/ZIP Co de Phone Number [facility] [place] [address] * Antibody screen (11/25/2019 3:50 PM EST) Ab Screen Interp Negative [facility] Expires at [id number] on: 11/28/2019 [facility] Blood specimen (specimen) 11/25/2019 3:50 PM EST 11/25/2019 4:04 PM EST Narrative Resulting Agency Comment Spec In Lab Genet Daly MD BLOOD BANK LAB ORDER EDDIE Performing Organization Address City/[facility]/ZIP Co de Phone Number [facility] [place] [address] * ABO/Rh Typing (11/25/2019 3:50 PM EST) ABORH Type O Neg [facility] Blood specimen (specimen) 11/25/2019 3:50 PM EST 11/25/2019 4:04 PM EST Narrative Resulting Agency Comment Spec In Lab Genet Daly MD BLOOD BANK LAB ORDER EDDIE [facility] [place] [address] * (ABNORMAL) BLOOD GAS 2 ARTERIAL (11/25/2019 3:22 PM EST) pH, Arterial 7.43 7.35 - 7.45 [facility] PCO2, Arterial 33(L) 35 - 45 mmHg [facility] PO2, Arterial 189(H) 85 - 104 mmHg [facility] Bicarbonate, Arterial 21.2 20.0 - 26.0 mmol/L [facility] Base Excess, Arterial -3.2(L) -3.0 - 3.0 mmol/L [facility] Hgb Blood Gas 13.7 13.7 - 16.5 gm/dL [facility] Oxyhemoglobin, Arterial 98.2(H) 94.0 - 97.0 % [facility] Carboxyhemoglob in, Arterial 0.5 % [facility] Comment: Nonsmokers: 0.5-1.5% COHB Smokers: Variable, but usually less than 10% Toxic: 20-30% COHB Lethal: Greater than 60% COHB Methemoglobin, Arterial 0.3 <=1.5 % [facility] Na Whole Blood 141 135 - 145 mmol/L [facility] K Whole Blood 3.2(L) 3.5 - 5.0 mmol/L [facility] Comment: Please note: Patients with WBC >100,000 may have falsely elevated Potassium levels. Contact the Clinical Chemistry Laboratory if there are any questions. ICa Whole Blood 1.11(L) 1.15 - 1.33 mmol/L [facility] Comment: Note: ??Total bilirubin higher than 20 mg/dL may lead to falsely low ionized calcium. CL Whole Blood 114(H) 98 - 107 mmol/L [facility] Gluc Whole Bld 81 65 - 199 mg/dL [facility] Comment:Diabetes: >=200 mg/d L plus symptoms. Lactate WB 1.4 0.5 - 2.2 mmol/L [facility] Blood specimen (specimen) 11/25/2019 3:22 PM EST 11/25/2019 3:22 PM EST Martha Price MD POINT OF CARE TEST ORDERABLES Performing Organization Address City/State/[facility] Co de Phone Number [facility] [place] [address] * ECHO COMPLETE (11/25/2019 1:24 PM EST) EF 65 HEARTLAB SYSTEM Anatomical Region Laterality Modality Other 11/25/2019 Narrative 11/25/2019 1:55 PM EST Procedure: ?Transthoracic Echocardiogram Patient: ?ROSANNA DENNIS C ? (Age): 1950(69y) Med Rec#: ? [id number] ?Sex: ?M ? Site Loc: ? [facility] ?Ht / Wt: ??167.64(cm)/92(k Pt. Loc: ?Adult Floor ? BSA: ?2.01 Study Date: ?? 11/25/2019 ?Pt. Type: Inpatient Tape: ? Referring: RAYMOND JACKSON Reading: Lonnie Trammell ([id number]) Sales Service Executive: Kartik Kulkarni RDCS Diagnosis: *Cerebral infarction, unspecified (I63.9) BP: ? 159/91 SUMMARY: 1. The left ventricular chamber size is [...] are no prior echocardiograms available for comparison. Findings ? : Study Quality: ? Adequate Left Ventricle: ? The left ventricular chamber size is normal. ?Basal septal hypertrophy is observed. ?There is no evidence of LVOT obstruction. ?No ventricular septal defect is visualized. ?There is normal global left ventricular systolic function. ?The quantitative left ventricular ejection fraction by biplane Valles's method is 65%. ?There are no left ventricular segmental wall motion abnormalities. ?Left ventricular diastolic function is normal. ?Doppler assessment is consistent with normal left sided filling pressure. Left Atrium: ? The left atrium is normal in size. Right Ventricle: ? The right ventricle is normal in size. ?Right ventricular global systolic function is normal. ?Pulmonary artery hypertension could not be assessed due to inadequate tricuspid regurgitation jet. Right Atrium: ? The right atrium appears normal. Aortic Valve: ? The aortic valve is tricuspid. ?The aortic valve leaflets are mildly thickened. ?Systolic excursion of the aortic valve is normal. ?There is aortic annular calcification. ?There is no evidence of aortic valve stenosis. ?There is no evidence of aortic regurgitation. Mitral Valve: ? The mitral valve leaflets appear normal. ?There is posterior mitral annular calcification. ?There is no evidence of mitral stenosis. ?There is trace mitral regurgitation present. Tricuspid Valve: ? The tricuspid valve is not well visualized. ?The tricuspid valve is probably normal. ?Doppler evaluation of tricuspid valve regurgitation is inadequate. Pulmonic Valve: ? The pulmonic valve is not well visualized. ?The pulmonic valve is probably normal. Pericardium: ? The pericardium appears normal and there is no evidence of a pericardial effusion. ?A pericardial fat pad is visualized. Aorta: ? The aortic root is normal in size. ?The ascending aorta is normal in size. Pulmonary Artery: ? The main pulmonary artery is not well visualized. Venous: ? The inferior vena cava is poorly visualized. Chambers 2D ?Value ?Units (Range) ? IVSd (2D) ? 1.4 ?cm ? LVPWd (2D) ?0.96 ? cm ? IVS:LVPW ratio (2D) 1.47 ? ratio ? RWT (2D) ?0.57 ? ratio ? RWT PW (2D) ? 0.46 ? ratio ? LVIDd (2D) ?4.14 ? cm ? LVIDs (2D) ?2.39 ? cm ? LVIDd (2D) index ?2.06 ? cm/m2 ? LVIDs (2D) index ?1.19 ? cm/m2 ? LV FS (2D) ?42.27 ?% ? EF Teichholz (2D) ?? 73.73 ?% ? Ao root diameter (2D3.5 ?cm (2.1 - 3.6) ? Ascending Ao ?3.2 ?cm (2 - 3.5) ? Volumes/Mass ?Value ?Units (Range) ? LA Area 4 CH ?15 ? cm2 (<21) ? RA AREA 4CH ? 17 ? cm2 ? LA ESV BP (MOD) inde19.88 ?ml/m2 ? LV ESV SP 4CH (MOD) 27 ? ml ? LV ESV SP 2CH (MOD) 19 ? ml ? LV EDV BP ? 65 ? ml ? LV ESV BP ? 23 ? ml ? LV EDV BP index ? 32.3 ? ml/m2 ? LV ESV BP index ? 11.43 ?ml/m2 ? BP EF (MOD) ? 64.62 ?% ? LV mass (2D) ?169.52 ? g ? LV mass (2D) index ??84.25 ?g/m2 ? Diastolic/Systolic Function ?Value ?Units (Range) ? MV E-wave Vmax ?0.71 ? m/sec ? MV deceleration [id number] ?msec ? MV A-wave Vmax ?0.7 ?m/sec ? MV E:A ratio ?1.02 ? ratio ? LV septal e' Vmax ?? 0.07 ? m/sec ? LV lateral e' Vmax ??0.12 ? m/sec ? LV average e' Vmax ??0.09 ? m/sec ? LV E:e' septal ratio10.67 ?ratio ? LV E:e' lateral rati5.85 ? ratio ? LV average E:e' rati7.56 ? ratio ? Wall Motion: Segment Name ?Rest ? Base-Anteroseptal ?? Normal ? Base-Anterior ? Normal ? Base-Anterolateral ??Normal ? Base-Posterolateral Normal ? Base-Inferior ? Normal ? Base-Inferoseptal ?? Normal ? Mid-Anteroseptal ?Normal ? Mid-Anterior ?Normal ? Mid-Anterolateral ?? Normal ? Mid-Posterolateral ??Normal ? Mid-Inferior ?Normal ? Mid-Inferoseptal ?Normal ? [place]-Septal ? Normal ? [place]-Anterior ? Normal ? [place]-Lateral ?Normal ? [place]-Inferior ? Normal ? [place]-Tip ?Normal ? This report has been electronically signed by: Lonnie Trammell MD ? 11/25/2019 13:45:21 Images reviewed and interpretation verified [facility]ound [facility] Procedure Note Lonnie Trammell MD - 11/25/2019 Procedure: Transthoracic Echocardiogram Patient: ROSANNA Dean (Age): 1950(69y) Med Rec#: [id number] Sex: M Site Loc: [facility] Ht / Wt: 167.64(cm)/92(k Pt. Loc: Adult Floor BSA: 2.01 Study Date: 11/25/2019 Pt. Type: Inpatient Tape: Referring: RAYMOND JACKSON Reading: Lonnie Trammell ([id number]) Sales Service Executive: Kartik Kulkarni [facility] Diagnosis: *Cerebral infarction, unspecified (I63.9) BP: 159/91 SUMMARY: 1. The left ventricular chamber size is [...] are no prior echocardiograms available for comparison. Findings : Study Quality: Adequate Left Ventricle: The left ventricular chamber size is normal. Basal septal hypertrophy is observed. There is no evidence of LVOT obstruction. No ventricular septal defect is visualized. There is normal global left ventricular systolic function. The quantitative left ventricular ejection fraction by biplane Valles's method is 65%. There are no left ventricular segmental wall motion abnormalities. Left ventricular diastolic function is normal. Doppler assessment is consistent with normal left sided filling pressure. Left Atrium: The left atrium is normal in size. Right Ventricle: The right ventricle is normal in size. Right ventricular global systolic function is normal. Pulmonary artery hypertension could not be assessed due to inadequate tricuspid regurgitation jet. Right Atrium: The right atrium appears normal. Aortic Valve: The aortic valve is tricuspid. The aortic valve leaflets are mildly thickened. Systolic excursion of the aortic valve is normal. There is aortic annular calcification. There is no evidence of aortic valve stenosis. There is no evidence of aortic regurgitation. Mitral Valve: The mitral valve leaflets appear normal. There is posterior mitral annular calcification. There is no evidence of mitral stenosis. There is trace mitral regurgitation present. Tricuspid Valve: The tricuspid valve is not well visualized. The tricuspid valve is probably normal. Doppler evaluation of tricuspid valve regurgitation is inadequate. Pulmonic Valve: The pulmonic valve is not well visualized. The pulmonic valve is probably normal. Pericardium: The pericardium appears normal and there is no evidence of a pericardial effusion. A pericardial fat pad is visualized. Aorta: The aortic root is normal in size. The ascending aorta is normal in size. Pulmonary Artery: The main pulmonary artery is not well visualized. Venous: The inferior vena cava is poorly visualized. Chambers 2D Value Units (Range) IVSd (2D) 1.4 cm LVPWd (2D) 0.96 cm IVS:LVPW ratio (2D) 1.47 ratio RWT (2D) 0.57 ratio RWT PW (2D) 0.46 ratio LVIDd (2D) 4.14 cm LVIDs (2D) 2.39 cm LVIDd (2D) index 2.06 cm/m2 LVIDs (2D) index 1.19 cm/m2 LV FS (2D) 42.27 % EF Teichholz (2D) 73.73 % Ao root diameter (2D3.5 cm (2.1 - 3.6) Ascending Ao 3.2 cm (2 - 3.5) Volumes/Mass Value Units (Range) LA Area 4 CH 15 cm2 (<21) RA AREA 4CH 17 cm2 LA ESV BP (MOD) inde19.88 ml/m2 LV ESV SP 4CH (MOD) 27 ml LV ESV SP 2CH (MOD) 19 ml LV EDV BP 65 ml LV ESV BP 23 ml LV EDV BP index 32.3 ml/m2 LV ESV BP index 11.43 ml/m2 BP EF (MOD) 64.62 % LV mass (2D) 169.52 g LV mass (2D) index 84.25 g/m2 Diastolic/Systolic Function Value Units (Range) MV E-wave Vmax 0.71 m/sec MV deceleration [id number] msec MV A-wave Vmax 0.7 m/sec MV E:A ratio 1.02 ratio LV septal e' Vmax 0.07 m/sec LV lateral e' Vmax 0.12 m/sec LV average e' Vmax 0.09 m/sec LV E:e' septal ratio10.67 ratio LV E:e' lateral rati5.85 ratio LV average E:e' rati7.56 ratio Wall Motion: Segment Name Rest Base-Anteroseptal Normal Base-Anterior Normal Base-Anterolateral Normal Base-Posterolateral Normal Base-Inferior Normal Base-Inferoseptal Normal Mid-Anteroseptal Normal Mid-Anterior Normal Mid-Anterolateral Normal Mid-Posterolateral Normal Mid-Inferior Normal Mid-Inferoseptal Normal [place]-Septal Normal [place]-Anterior Normal [place]-Lateral Normal [place]-Inferior Normal [place]-Tip Normal This report has been electronically signed by: Lonnie Trammell MD 11/25/2019 13:45:21 Images reviewed and interpretation verified [facility]ound [facility] Martha Price MD ECHO ORDERABLES * Differential, Automated (11/25/2019 8:38 AM EST) Neutrophil % 62.4 % [facility] LABORATORY Neutrophil Absolute 3.93 1.70 - 6.10 x10(3)/[facility] Lymph % 24.1 % [facility] Lymphocytes Abs 1.5 0.9 - 3.2 x10(3)/[facility] Monocyte % 10.6 % [facility] Monocyte Abs 0.7 0.3 - 0.9 x10(3)/[facility] Eos % 1.9 % [facility] Eosinophils Abs 0.1 0.0 - 0.4 x10(3)/[facility]OR[facility] Basophil % 0.8 % [facility] Baso Absolute 0.0 0.0 - 0.1 x10(3)/[facility]ORAT[facility] Immature Gran % 0.20 % [facility] Comment: Immature granulocytes(IG's)percentage and absolute count will include metamyelocytes, myelocytes, and promyelocytes. Blood smears from CBCs yielding IG's will be scanned manually for concordance. If this scan disagrees with the automated IG or if promyelocytes are noted, a manual differential will be performed. Immature Gran Absolute 0.01 0.00 - 0.04 x10(3)/[facility] Blood specimen (specimen) 11/25/2019 8:38 AM EST 11/25/2019 8:43 AM EST Narrative Resulting Agency Comment Spec In Lab Kiran ALY HEMATOLOGY ORDERABLE S [facility] [place] [address] * Hemogram (11/25/2019 8:38 AM EST) White Blood Cell 6.3 4.0 - 9.5 x10(3)/[facility] Red Blood Cell 5.39 4.58 - 5.54 x10(6)/[facility] Hemoglobin 16.1 13.7 - 16.5 gm/dL [facility] Hematocrit 46.8 40.5 - 48.5 % [facility] Mean Cell Volume 86.8 82.9 - 93.1 fL [facility] Mean Cell Hemoglobin 29.9 27.5 - 32.1 pg [facility] Mean Cell Hemoglobin Concentration 34.4 32.0 - 35.7 gm/dL [facility] Platelet 221 145 - 357 x10(3)/[facility]OR[facility] RDW Standard Deviation 41.1 36.0 - 45.0 [facility] LABORATORY RDW coefficient of variation 13.1 11.4 - 13.8 % [facility] Mean Platelet Volume 9.6 7.6 - 12.9 [facility] LABORATORY NRBC% auto 0.0 % [facility] NRBC Absolute 0.000 0.000 - 0.000 x10(3)/[facility] Blood specimen (specimen) 11/25/2019 8:38 AM EST 11/25/2019 8:43 AM EST Narrative Resulting Agency Comment Spec In Lab Kiran ALY HEMATOLOGY ORDERABLE S Performing Organization Address City/State/[facility] Co de Phone Number [facility] [place] [address] * Heparin (unfractionated) Level (11/25/2019 8:38 AM EST) UF Heparin 0.12 IU/mL [facility] Comment: Guidelines for therapeutic unfractionated heparin levels are summarized below. Heparin (Anti-Xa) levels should be determined in a plasma sample that has been drawn 6 hours after a dose change i.e., steady-state has been reached. DRUG ?Dosing Schedule ? Target Peak Steady-State ?Heparin (Anti-Xa) Levels (Units/mL) Unfractionated ?Continuous infusion ?0.3-0.7 Heparin ?0.3-0.6 for some neurology indications Blood specimen (specimen) 11/25/2019 8:38 AM EST 11/25/2019 8:43 AM EST Narrative Resulting Agency Comment Spec In Lab Martha Price MD HEMATOLOGY ORDERAB LES [facility] [place] [address] * (ABNORMAL) BMP w/fasting Glucose (11/25/2019 2:17 AM EST) Glucose Fasting 103(H) 65 - 99 mg/dL [facility] Comment: ?Fasting* Glucose Interpretive Criteria Normal ?65-99 mg/dL Impaired Fasting glucose ?100-125 mg/dL Consistent with Diabetes Mellitus ? >or= 126 mg/dL *Fasting is defined as no caloric intake for at least 8 hours In the absence of unequivocal hyperglycemia a plasma glucose value of >or= 126 mg/dL should be repeated on a subsequent day. Diagnosis and Classification of Diabetes Mellitus, Position Statement from the [employer]. ??Diabetes Care, Volume 33, Supplement 1, Sep 2009 Blood Urea Nitrogen 15 10 - 20 mg/dL [facility] Creatinine 0.88 0.80 - 1.50 mg/dL [facility] Sodium 140 135 - 145 mmol/L [facility] Potassium 3.7 3.5 - 5.0 mmol/L [facility] Comment: Please note: ??Patients with WBC >100,000 may have falsely elevated Potassium levels. ??For accurate Potassium quantification in these patients send serum separator tube (gold top) for subsequent determinations. ??Contact the Clinical Chemistry Laboratory if there are any questions. Chloride 106 98 - 107 mmol/L [facility] Carbon Dioxide 24 22 - 31 mmol/L [facility] Anion Gap 10 5 - 15 mmol/L [facility] Calcium 9.0 8.5 - 10.5 mg/dL [facility] Est Glomerular Filtration Rate 88 >=60 mL/min/1. 73 m?? [facility] Comment: The eGFR was calculated using the CKD-EPI equation. As with all creatinine based estimates of kidney function, eGFR values calculated with the CKD-EPI equation are not accurate in patients with acute kidney failure, extremes of body mass or the acutely ill. http://[employer]/[facility] TULSAnkf eGFR 102 >=60 mL/min/1. 73 m?? [facility] Comment: The eGFR was calculated using the CKD-EPI equation. As with all creatinine based estimates of kidney function, eGFR values calculated with the CKD-EPI equation are not accurate in patients with acute kidney failure, extremes of body mass or the acutely ill. http://[employer] [place]/[facility] TULSAnkf Blood specimen (specimen) 11/25/2019 2:17 AM EST 11/25/2019 2:26 AM EST Narrative Resulting Agency Comment Spec In Lab Elva Alvarez MD CHEMISTRY ORDERABLES [facility] [place] [address] * Differential, Automated (11/25/2019 2:17 AM EST) Neutrophil % 58.8 % [facility] Neutrophil Absolute 4.40 1.70 - 6.10 x10(3)/[facility] Lymph % 28.8 % [facility] Lymphocytes Abs 2.2 0.9 - 3.2 x10(3)/[facility] Monocyte % 9.9 % [facility] Monocyte Abs 0.7 0.3 - 0.9 x10(3)/[facility] Eos % 1.6 % [facility] Eosinophils Abs 0.1 0.0 - 0.4 x10(3)/[facility] Basophil % 0.5 % [facility] Baso Absolute 0.0 0.0 - 0.1 x10(3)/[facility] Immature Gran % 0.40 % [facility] Comment: Immature granulocytes(IG's)percentage and absolute count will include metamyelocytes, myelocytes, and promyelocytes. Blood smears from CBCs yielding IG's will be scanned manually for concordance. If this scan disagrees with the automated IG or if promyelocytes are noted, a manual differential will be performed. Immature Gran Absolute 0.03 0.00 - 0.04 x10(3)/[facility] Blood specimen (specimen) 11/25/2019 2:17 AM EST 11/25/2019 2:26 AM EST Narrative Resulting Agency Comment Spec In Lab Elva Alvarez MD HEMATOLOGY ORDERABLE S [facility] [place] [address] * Hemogram (11/25/2019 2:17 AM EST) White Blood Cell 7.5 4.0 - 9.5 x10(3)/[facility] Red Blood Cell 4.96 4.58 - 5.54 x10(6)/[facility] Hemoglobin 15.2 13.7 - 16.5 gm/dL [facility] Hematocrit 44.6 40.5 - 48.5 % [facility] Mean Cell Volume 89.9 82.9 - 93.1 fL [facility] Mean Cell Hemoglobin 30.6 27.5 - 32.1 pg [facility] Mean Cell Hemoglobin Concentration 34.1 32.0 - 35.7 gm/dL [facility] Platelet 221 145 - 357 x10(3)/[facility] RDW Standard Deviation 42.6 36.0 - 45.0 fL [facility] RDW coefficient of variation 13.0 11.4 - 13.8 % [facility] Mean Platelet Volume 9.9 7.6 - 12.9 fL [facility] NRBC% auto 0.0 % [facility] NRBC Absolute 0.000 0.000 - 0.000 x10(3)/mcL [facility] Blood specimen (specimen) 11/25/2019 2:17 AM EST 11/25/2019 2:26 AM EST Narrative Resulting Agency Comment Spec In Lab Elva Alvarez MD HEMATOLOGY ORDERABLE S Performing Organization Address [facility] de Phone Number [facility] [place] [address] * APTT (11/25/2019 2:17 AM EST) Partial Thromboplastin Time 36 25 - 37 sec [facility] Comment: The PTT is NOT appropriate for heparin monitoring. Use the Anti-Xa level for heparin monitoring (HEP UFH) or LMWH monitoring (HEP LMW). A PTT less than 37 seconds generally indicates adequate hemostasis. Blood specimen (specimen) 11/25/2019 2:17 AM EST 11/25/2019 2:26 AM EST Narrative Resulting Agency Comment Spec In Lab Martha Price MD HEMATOLOGY ORDERAB LES Performing Organization Address [facility] de Phone Number [facility] [place] [address] * Prothrombin Time (11/25/2019 2:17 AM EST) Prothrombin Time 12.4 9.4 - 12.5 sec [facility] International Normalization Ratio 1.1 [facility] Comment: An INR <2.0 indicates adequate procoagulant activity for hemostasis in most patients without underlying bleeding disorders, though the INR may not adequately reflect hemostatic capacity in patients with liver disease and synthetic impairment. The recommended target INR range for therapeutic anticoagulation is 2.0 ? 3.0 for most applications, though lower and higher ranges may be appropriate depending on clinical circumstances. Blood specimen (specimen) 11/25/2019 2:17 AM EST 11/25/2019 2:26 AM EST Narrative Resulting Agency Comment Spec In Lab Martha Price MD HEMATOLOGY ORDERAB LES Performing Organization Address [facility] Co de Phone Number [facility] [place] [address] * Triglyceride (11/25/2019 2:17 AM EST) Triglyceride 178 mg/dL [facility] Comment: Average Risk/Lower Risk: <150 mg/dL Borderline High Risk: 150-199 mg/dL High Risk: 200-499 mg/dL Very High Risk: >gl=233 mg/dL Blood specimen (specimen) 11/25/2019 2:17 AM EST 11/25/2019 2:26 AM EST Narrative Resulting Agency Comment Spec In Lab Martha Price MD CHEMISTRY ORDERABL ES Performing Organization Address [facility] Co de Phone Number [facility] [place] [address] * HDL/Cholesterol Profile (11/25/2019 2:17 AM EST) Cholesterol, Total 172 mg/dL [facility] Comment: Lower Risk: <200 mg/dL Average Risk: 200-239 mg/dL Higher Risk: >zc=530 mg/dL HDL Cholesterol 30 mg/dL [facility] Comment: Males: ?? Higher Risk: <40 mg/dL Females: ?? HIgher Risk: <50 mg/dL Cholesterol/HDL Ratio 5.7 ratio [facility] Chol/HDL Interpretation See Note [facility] Comment: Lipid management should be guided by a patient? s ASCVD risk, goals and preferences. ACC/AHA Guidelines recommend high intensity statin if clinical ASCVD or LDL greater than or equal to 190 mg/dL. http://tinyurl.com/VSK-VWZ-Omlnwjyyh Measure LDL if Total Cholesterol minus HDL Cholesterol is greater than 220 mg/dL. Adults aged 40-75 with LDL 70-189 mg/dL should have their 10 year ASCVD risk estimated with the ACC/AHA ASCVD risk automobile repair service estimator http://tools.acc.org/CNAWH-Vpxi-Poicwdazo/ Statin should be discussed if risk greater than or equal to 7.5% in non-diabetics. With diabetes, moderate intensity statin is recommended if risk less than 7.5%, high intensity if risk greater than or equal to 7.5%. Annual lipid monitoring on statins is not necessary. Lifestyle modification is a critical component of ASCVD risk reduction. Blood specimen (specimen) 11/25/2019 2:17 AM EST 11/25/2019 2:26 AM EST Narrative Resulting Agency Comment Spec In Lab Martha Price MD CHEMISTRY ORDERABL ES Performing Organization Address [facility] Co de Phone Number [facility] [place] [address] * LDL Cholesterol, Direct (11/25/2019 2:17 AM EST) LDL Cholesterol, Direct 126 mg/dL [facility] Comment: Lowest Risk: <100 mg/dL Lower Risk: 100-129 mg/dL Borderline High Risk: 130-159 mg/dL High Risk: 160-189 mg/dL Very High Risk: >wf=093 mg/dL Blood specimen (specimen) 11/25/2019 2:17 AM EST 11/25/2019 2:26 AM EST Narrative Resulting Agency Comment Spec In Lab Martha Price MD CHEMISTRY ORDERABL ES Performing Organization Address [facility] Co de Phone Number [facility] [place] [address] * (ABNORMAL) Hemoglobin A1c (11/25/2019 2:17 AM EST) Hemoglobin A1c 5.7(H) 4.3 - 5.6 % [facility] Comment: Reference Range: 4.3 - 5.6% 5.7 - 6.4% - Increased Risk of Developing Diabetes Mellitus >= 6.5% - Consistent with diagnosis of Diabetes Mellitus In the absence of hyperglycemia (i.e. plasma glucose > 200 mg/dL) or classic symptoms of hyperglycemia a repeat measurement of HbA1c should be performed on a separate sample to confirm the diagnosis. Diagnosis and Classification of Diabetes Mellitus, Diabetes Care 2013; 36: Suppl. 1, F57-22 Estimated Average Glucose 118 mg/dL [facility] Comment: eAG equivalents for HbA1c percentages: HbA1c(%) ?eAG(mg/dL) 6.0 ?126 6.5 ?140 7.0 ?154 7.5 ?169 8.0 ?183 8.5 ?197 9.0 ?212 9.5 ?226 10.0 ? 240 Limitations: The eAG calculation has not been validated on women, individuals below 18 years old and above 70 years old, and individuals with hemoglobinopathies. Additional resources are available on the ADA website. Branden SHELLEY, Gail J, Jamarcus R, et al. ??Translating the A1C assay into estimated average glucose values. ??Diabetes Care 2008:31(8):2726-2631. Blood specimen (specimen) 11/25/2019 2:17 AM EST 11/25/2019 2:26 AM EST Narrative Resulting Agency Comment Spec In Lab Martha Price MD CHEMISTRY ORDERABL ES [facility] [place] [address] * Hepatic Function Panel (11/25/2019 2:17 AM EST) Protein, Total 6.6 6.1 - 8.0 gm/dL [facility] Albumin 3.8 3.2 - 5.2 gm/dL [facility] Aspartate Aminotransferase 17 0 - 39 unit/L [facility] Alanine Aminotransferase 14 0 - 55 unit/L [facility] Alkaline Phosphatase 62 40 - 130 unit/L [facility] Bilirubin, Total 0.5 0.2 - 1.3 mg/dL [facility] Bilirubin, Direct 0.1 0.0 - 0.3 mg/dL [facility] Blood specimen (specimen) 11/25/2019 2:17 AM EST 11/25/2019 2:26 AM EST Narrative Resulting Agency Comment Spec In Lab Martha Price MD CHEMISTRY ORDERABL ES Performing Organization Address [facility] Co de Phone Number [facility] [place] [address] * Phosphorus (11/25/2019 2:17 AM EST) Phosphorus 3.0 2.5 - 4.5 mg/dL [facility] Blood specimen (specimen) 11/25/2019 2:17 AM EST 11/25/2019 2:26 AM EST Narrative Resulting Agency Comment Spec In Lab Martha Price MD CHEMISTRY ORDERABL ES Performing Organization Address [facility] Co de Phone Number [facility] [place] [address] * Magnesium (11/25/2019 2:17 AM EST) Magnesium 0.84 0.69 - 1.07 mmol/L [facility] Blood specimen (specimen) 11/25/2019 2:17 AM EST 11/25/2019 2:26 AM EST Narrative Resulting Agency Comment Spec In Lab Martha Price MD CHEMISTRY ORDERABL ES Performing Organization Address [facility] Co de Phone Number [facility] [place] [address] * Urinalysis with reflex Culture (11/24/2019 9:46 PM EST) Glucose, Urine Dipstick Negative Negative mg/dL [facility] Protein, Urine Dipstick Negative Negative mg/dL [facility] Bilirubin, Urine Dipstick Negative Negative mg/dL [facility] Comment: Clinical correlation required for positive Urine Bilirubin results as false positive may occur with some drugs and drug related products. If a false positive is suspected a serum total bilirubin should be considered if clinically indicated. Urobilinogen, Urine Dipstick Normal Normal mg/dL [facility] pH, Urn (dipstick) 6.5 5.0 - 8.0 [facility] Blood, Urine Dipstick Negative Negative mg/dL [facility] Ketone, Urine Dipstick Negative Negative mg/dL [facility] Nitrite, Urine Dipstick Negative Negative [facility] Leukocytes, Urine Dipstick Negative Negative [facility] Appearance, Urine Dipstick Clear Clear [facility] Specific [place] Urine Automated >=1.030 1.002 - 1.030 [facility] Color, Urine Dipstick Yellow Yellow [facility] Reflex to Culture No [facility] Urine specimen obtained by clean catch procedure (specimen) 11/24/2019 9:46 PM EST 11/24/2019 10:50 PM EST Narrative Resulting Agency Comment Spec In Lab Martha Price MD URINE ORDERABLES [facility] [place] [address] documented in this encounter Visit Diagnoses Diagnosis Cerebrovascular accident (CVA), unspecified mechanism Stroke Unspecified cerebral artery occlusion with cerebral infarction Carotid stenosis, symptomatic w/o infarct, right Cerebrovascular accident (CVA), unspecified mechanism documented in this encounter Admitting Diagnoses Diagnosis Stroke Unspecified cerebral artery occlusion with cerebral infarction documented in this encounter Administered Medications Inactive Administered Medications - up to 3 most recent administrations Medication Order MAR Action Action Date Dose Rate Site acetaminophen (Tylenol) tablet 500 mg 500 mg, Oral, EVERY 6 HOURS PRN, Starting on Sat11/24/19 at 2143, Until Sat11/27/19 at 1917, Pain, Fever, pain or temperature greater than 100 degrees F (measured by mouth), Maximum dose of acetaminophen is 4000 mg from all sources in 24 hours., Routine Given 11/26/2019 1:50 AM EST 500 mg Given 11/25/2019 6:55 PM EST 500 mg aspirin chewable tablet 81 mg 81 mg, Oral, DAILY, First dose on Sat11/25/19 at 1015, Until Discontinued, Routine Given 11/27/2019 8:06 AM EST 81 mg Given 11/26/2019 8:59 AM EST 81 mg Given 11/25/2019 10:36 AM EST 81 mg atorvastatin (Lipitor) tablet 80 mg 80 mg, Oral, EVERY EVENING, First dose on Sat11/24/19 at 2200, Until Discontinued, Routine Given 11/26/2019 5:08 PM EST 80 mg Given 11/24/2019 10:58 PM EST 80 mg clopidogreL (Plavix) tablet 75 mg 75 mg, Oral, DAILY, First dose on Sat11/25/19 at 0900, Until Discontinued, Routine Given 11/27/2019 8:06 AM EST 75 mg Given 11/26/2019 8:59 AM EST 75 mg Given 11/25/2019 9:05 AM EST 75 mg enoxaparin (LOVENOX) injection 40 mg 40 mg, Subcutaneous, NIGHTLY, First dose on Sat11/24/19 at 2200, Until Discontinued, Routine Given 11/24/2019 10:58 PM EST 40 mg heparin (porcine) injection 0-8,000 Units 0-8,000 Units, Intravenous, BOLUS PER HEPARIN PROTOCOL, Starting on Cristal 11/26/19 at 0553, Until Cristal 11/26/19 at 0758, Per Protocol, START ADJUSTMENT SCHEDULE 6 HOURS AFTER STARTING INFUSION Heparin UFH Level between 0.1 - 0.29 IU/mL: Bolus 3,200 units Heparin UFH Level less than 0.1 IU/mL: Bolus 6,400 units, Routine Given 11/26/2019 6:41 AM EST 6,400 Units heparin (Porcine) subcutaneous injection 5,000 Units 5,000 Units, Subcutaneous, EVERY 12 HOURS SCHEDULED (2 times per day), First dose on Cristal 11/26/19 at 2100, Until Discontinued, Routine Given 11/27/2019 8:06 AM EST 5,000 Units Given 11/26/2019 8:43 PM EST 5,000 Units heparin 25,000 units in sodium chloride 0.45% 500 mL infusion 0-5,000 Units/hr (0-100 mL/hr), Intravenous, CONTINUOUS, Starting on Sat11/25/19 at 0845, Until Sat11/25/19 at 1841, Begin infusion at 1,350 units per hr (15 units/kg/hr). MAX INITIAL infusion rate is 1,750 units/hr Target Heparin UFH Level (anti-Xa activity) = 0.3 - 0.6 IU/mL Start adjustment schedule 6 hours after starting infusion. If Heparin UFH Level is: - less than 0.1 IU/mL, increase rate by 350 units per hr (4 units/kg/hr) - 0.1 - 0.29 IU/mL, increase rate by 200 units per hr (2 units/kg/hr) - 0.3 - 0.6 IU/mL, No Change - 0.61 - 0.7 IU/mL, decrease rate by 100 units per hr (1 units/kg/hr) - 0.71 - 0.9 IU/mL, stop infusion for 30 minutes, then decrease rate by 200 units per hr (2 units/kg/hr) - Greater than 0.9 IU/mL, stop infusion for 60 minutes, then decrease rate by 250 units per hour (3 units/kg/hr) Repeat Heparin UFH Level 6 hours after initiating heparin. Then 6 hours after each dose adjustment. When 2 consecutive Heparin UFH Level within target range of 0.3 - 0.6 IU/mL, change Heparin UFH Level to once every 24 hours with A.M. labs while on heparin. RN to order required Heparin UFH Level - Per Protocol, Routine, Indication: Stroke New Bag 11/25/2019 9:35 AM EST 1,350 Units/hr 27 mL/hr heparin 25,000 units in sodium chloride 0.45% 500 mL infusion 500 Units/hr (10 mL/hr), Intravenous, CONTINUOUS, Starting on Cristal 11/26/19 at 0000, Until Cristal 11/26/19 at 0554, Routine New Bag 11/26/2019 12:06 AM EST 500 Units/hr 10 mL/hr heparin 25,000 units in sodium chloride 0.45% 500 mL infusion 0-5,000 Units/hr (0-100 mL/hr), Intravenous, CONTINUOUS, Starting on Cristal 11/26/19 at 0615, Until Cristal 11/26/19 at 0758, Begin infusion at 1,350 units per hr (15 units/kg/hr). MAX INITIAL infusion rate is 1,750 units/hr Target Heparin UFH Level (anti-Xa activity) = 0.3 - 0.7 IU/mL Start adjustment schedule 6 hours after starting infusion. If Heparin UFH Level is: - less than 0.1 IU/mL, administer PRN bolus and increase rate by 350 units per hr (4 units/kg/hr) - 0.1 - 0.29 IU/mL, administer PRN bolus and increase rate by 200 units per hr (2 units/kg/hr) - 0.3 - 0.7 IU/mL, No Change - 0.71 - 0.85 IU/mL, decrease rate by 100 units per hr (1 units/kg/hr) - 0.86 - 1.05 IU/mL, stop infusion for 30 minutes, then decrease rate by 200 units per hr (2 units/kg/hr) - Greater than 1.05 IU/mL, stop infusion for 60 minutes, then decrease rate by 250 units per hour (3 units/kg/hr) Repeat Heparin UFH Level 6 hours after initiating heparin. Then 6 hours after each dose adjustment. When 2 consecutive Heparin UFH Level within target range of 0.3 - 0.7 IU/mL, change Heparin UFH Level to once every 24 hours with A.M. labs while on heparin. RN to order required Heparin UFH Level - Per Protocol, Routine, Indication: Stroke New Bag 11/26/2019 6:36 AM EST 850 Units/hr 17 mL/hr lactated Ringers 500 mL IV bolus Intravenous, ONCE, 1 dose, On Sat11/27/19 at 0100 New Bag 11/27/2019 12:58 AM EST 250 mL/hr lidocaine ((GLYDO)) 2 % gel 11 mL 11 mL, INTRA-URETHRAL, ONCE, 1 dose, On Sat11/25/19 at 2215, Routine Given 11/25/2019 10:06 PM EST 11 mLs lidocaine ((GLYDO)) 2 % gel 11 mL 11 mL, INTRA-URETHRAL, ONCE, 1 dose, On Sat11/25/19 at 2215, Routine Given 11/25/2019 10:06 PM EST 11 mLs lidocaine ((GLYDO)) 2 % gel 1 dose, Starting on Sat11/25/19 at 2149, Until Sat11/25/19 at 2206, BRENDA BERGERON: cabinet override polyethylene glycol (Miralax) packet 17 g 17 g, Oral, DAILY, First dose on Sat11/25/19 at 0900, Until Discontinued, Routine Given 11/27/2019 8:06 AM EST 17 g Given 11/26/2019 8:59 AM EST 17 g sodium chloride 0.9 % (flush) flush 5 mL 5 mL, Intravenous, 2 TIMES DAILY, First dose on Sat11/24/19 at 2200, Until Discontinued, Routine Given 11/27/2019 9:00 AM EST 5 mLs Given 11/26/2019 8:43 PM EST 5 mLs Given 11/26/2019 8:48 AM EST 5 mLs sodium chloride 0.9% infusion 100 mL/hr, Intravenous, CONTINUOUS, Starting on Sat11/24/19 at 2200, Until Sat11/25/19 at 0859 New Bag 11/24/2019 11:00 PM EST 100 mL/hr 100 mL/hr sodium chloride 0.9% infusion 75 mL/hr, Intravenous, CONTINUOUS, Starting on Sat11/25/19 at 0945, Until Sat11/25/19 at 1844 New Bag 11/25/2019 10:27 AM EST 75 mL/hr 75 mL/hr documented in this encounter Active and Recently Administered Medications Times are shown in EST. Scheduled Medication Order 11/25/2019 11/26/2019 11/27/2019 aspirin chewable tablet 81 mg 81 mg, Oral, DAILY, First dose on Sat11/25/19 at 1015, Until Discontinued, Routine 1036 (Given - Provider: Elsi Santos RN)1429 (NOV Hold - Provider: Admin Adt - Reason: Transfer to a Procedural area)2242 (NOV Unhold - Provider: Admin Adt) 0859 (Given - Provider: Bela Desouza RN) 0806 (Given - Provider: Bela Desouza RN) atorvastatin (Lipitor) tablet 80 mg 80 mg, Oral, EVERY EVENING, First dose on Sat11/24/19 at 2200, Until Discontinued, Routine 1429 (NOV Hold - Provider: Admin Adt - Reason: Transfer to a Procedural area)1700 (Automatically Held - Provider: Admin Adt)2242 (NOV Unhold - Provider: Admin Adt) 1708 (Given - Provider: Bela Desouza RN) 1700 (Due - Provider: Admin Adt) clopidogreL (Plavix) tablet 75 mg 75 mg, Oral, DAILY, First dose on Sat11/25/19 at 0900, Until Discontinued, Routine 0905 (Given - Provider: Elsi Santos RN)142 (MAR Hold - Provider: Admin Adt - Reason: Transfer to a Procedural area)224 (NOV Unhold - Provider: Admin Adt) 0859 (Given - Provider: Bela Desouza RN) 0806 (Given - Provider: Bela Desouza RN) heparin (Porcine) subcutaneous injection 5,000 Units 5,000 Units, Subcutaneous, EVERY 12 HOURS SCHEDULED (2 times per day), First dose on Sat11/26/19 at 2100, Until Discontinued, Routine 2042 (Given - Provider: Jinny Allan RN) 0806 (Given - Provider: Bela Desouza RN) lactated Ringers 500 mL IV bolus (COMPLETED) Intravenous, ONCE, 1 dose, On Sat11/27/19 at 0100 0058 (New Bag - Provider: Jinny Allan RN) lidocaine ((GLYDO)) 2 % gel 11 mL (COMPLETED) 11 mL, INTRA-URETHRAL, ONCE, 1 dose, On Sat11/25/19 at 2215, Routine 220 (Given - Provider: Brenda Bergeron, PHILOMENA) lidocaine ((GLYDO)) 2 % gel 11 mL (COMPLETED) 11 mL, INTRA-URETHRAL, ONCE, 1 dose, On Sat11/25/19 at 2215, Routine 220 (Given - Provider: Brenda Bergeron RN) polyethylene glycol (Miralax) packet 17 g 17 g, Oral, DAILY, First dose on Sat11/25/19 at 0900, Until Discontinued, Routine 0900 (Not Given - Provider: Elsi Santos RN - Reason: Patient/family refused)1429 (MAR Hold - Provider: Admin Adt - Reason: Transfer to a Procedural area)2242 (NOV Unhold - Provider: Admin Adt) 0859 (Given - Provider: Bela Desouza, PHILOMENA) 0806 (Given - Provider: Bela Desouza RN) sodium chloride 0.9 % (flush) flush 5 mL 5 mL, Intravenous, 2 TIMES DAILY, First dose on Sat11/24/19 at 2200, Until Discontinued, Routine 0900 (Not Given - Provider: Elsi Santos RN - Reason: See comment)1429 (NOV Hold - Provider: Admin Adt - Reason: Transfer to a Procedural area)2100 (Automatically Held - Provider: Admin Adt)224 (NOV Unhold - Provider: Admin Adt) 0848 (Given - Provider: Bela Desouza RN)204 (Given - Provider: Jinny Allan RN) 0900 (Given - Provider: Bela Desouza RN) Continuous Medication Order 11/25/2019 11/26/2019 11/27/2019 heparin 25,000 units in sodium chloride 0.45% 500 mL infusion (CANCELED) 0-5,000 Units/hr (0-100 mL/hr), Intravenous, CONTINUOUS, Starting on Sat11/25/19 at 0845, Until Sat11/25/19 at 1841, Begin infusion at 1,350 units per hr (15 units/kg/hr). MAX INITIAL infusion rate is 1,750 units/hr Target Heparin UFH Level (anti-Xa activity) = 0.3 - 0.6 IU/mL Start adjustment schedule 6 hours after starting infusion. If Heparin UFH Level is: - less than 0.1 IU/mL, increase rate by 350 units per hr (4 units/kg/hr) - 0.1 - 0.29 IU/mL, increase rate by 200 units per hr (2 units/kg/hr) - 0.3 - 0.6 IU/mL, No Change - 0.61 - 0.7 IU/mL, decrease rate by 100 units per hr (1 units/kg/hr) - 0.71 - 0.9 IU/mL, stop infusion for 30 minutes, then decrease rate by 200 units per hr (2 units/kg/hr) - Greater than 0.9 IU/mL, stop infusion for 60 minutes, then decrease rate by 250 units per hour (3 units/kg/hr) Repeat Heparin UFH Level 6 hours after initiating heparin. Then 6 hours after each dose adjustment. When 2 consecutive Heparin UFH Level within target range of 0.3 - 0.6 IU/mL, change Heparin UFH Level to once every 24 hours with A.M. labs while on heparin. RN to order required Heparin UFH Level - Per Protocol, Routine, Indication: Stroke 0935 ( Bag - Provider: Elsi Santos RN)1429 (NOV Hold - Provider: Admin Adt - Reason: Transfer to a Procedural area)1841 (NOV Unhold - Provider: Diaz Wallace MD) heparin 25,000 units in sodium chloride 0.45% 500 mL infusion (CANCELED) 500 Units/hr (10 mL/hr), Intravenous, CONTINUOUS, Starting on Cristal 3//20 at 0000, Until Cristal 3/20 at 0554, Routine 0006 (New Bag - Provider: Joanne Tobar RN) heparin 25,000 units in sodium chloride 0.45% 500 mL infusion (CANCELED)(Linked Group 1) 0-5,000 Units/hr (0-100 mL/hr), Intravenous, CONTINUOUS, Starting on Cristal 3//20 at 0615, Until Cristal 3/5/20 at 0758, Begin infusion at 1,350 units per hr (15 units/kg/hr). MAX INITIAL infusion rate is 1,750 units/hr Target Heparin UFH Level (anti-Xa activity) = 0.3 - 0.7 IU/mL Start adjustment schedule 6 hours after starting infusion. If Heparin UFH Level is: - less than 0.1 IU/mL, administer PRN bolus and increase rate by 350 units per hr (4 units/kg/hr) - 0.1 - 0.29 IU/mL, administer PRN bolus and increase rate by 200 units per hr (2 units/kg/hr) - 0.3 - 0.7 IU/mL, No Change - 0.71 - 0.85 IU/mL, decrease rate by 100 units per hr (1 units/kg/hr) - 0.86 - 1.05 IU/mL, stop infusion for 30 minutes, then decrease rate by 200 units per hr (2 units/kg/hr) - Greater than 1.05 IU/mL, stop infusion for 60 minutes, then decrease rate by 250 units per hour (3 units/kg/hr) Repeat Heparin UFH Level 6 hours after initiating heparin. Then 6 hours after each dose adjustment. When 2 consecutive Heparin UFH Level within target range of 0.3 - 0.7 IU/mL, change Heparin UFH Level to once every 24 hours with A.M. labs while on heparin. RN to order required Heparin UFH Level - Per Protocol, Routine, Indication: Stroke 0636 (New Bag - Provider: Joanne Tobar, RN)0847 (Stopped - Provider: Bela Desouza RN) sodium chloride 0.9% infusion (CANCELED) 75 mL/hr, Intravenous, CONTINUOUS, Starting on Sat11/25/19 at 0945, Until Sat11/25/19 at 1844 1027 (New Bag - Provider: Elsi Santos RN)1429 (NOV Hold - Provider: Admin Adt - Reason: Transfer to a Procedural area)1844 (NOV Unhold - Provider: Diaz Wallace MD) PRN Medication Order 11/25/2019 11/26/2019 11/27/2019 acetaminophen (Tylenol) tablet 500 mg 500 mg, Oral, EVERY 6 HOURS PRN, Starting on Sat11/24/19 at 2143, Until Sat11/27/19 at 1917, Pain, Fever, pain or temperature greater than 100 degrees F (measured by mouth), Maximum dose of acetaminophen is 4000 mg from all sources in 24 hours., Routine 1429 (MAR Hold - Provider: Admin Adt - Reason: Transfer to a Procedural area)1839 (MAR Unhold - Provider: Brenda Bergeron, PHILOMENA)1855 (Given - Provider: Brenda Bergeron, PHILOMENA) 0150 (Given - Provider: Joanne Tobar, PHILOMENA) heparin (porcine) injection 0-8,000 Units (CANCELED)(Linked Group 1) 0-8,000 Units, Intravenous, BOLUS PER HEPARIN PROTOCOL, Starting on Cristal 11/26/19 at 0553, Until Cristal 11/26/19 at 0758, Per Protocol, START ADJUSTMENT SCHEDULE 6 HOURS AFTER STARTING INFUSION Heparin UFH Level between 0.1 - 0.29 IU/mL: Bolus 3,200 units Heparin UFH Level less than 0.1 IU/mL: Bolus 6,400 units, Routine 0641 (Given - Provider: Joanne Tobar RN) iodixanoL (VISIPAQUE) 320 mg iodine/mL injection (CANCELED) ONCE PRN, Starting on Sat11/25/19 at 1718, Until Sat11/27/19 at 1917, Intra-Operative (Intra-Procedure), Routine 1718 (Given - Provider: Renetta Nice MD) labetalol (NORMODYNE,TRANDATE) injection 10-20 mg 10-20 mg, Intravenous, Administer over 2 Minutes, EVERY 15 MIN PRN, Starting on Sat11/25/19 at 1839, Until Sat11/27/19 at 1917, High Blood Pressure, - Systolic blood pressure (SBP) goal Less Than 160, Routine Linked Groups Order Group 1: heparin (porcine) injection 0-8,000 Units (CANCELED)Jump to med 0-8,000 Units, Intravenous, BOLUS PER HEPARIN PROTOCOL, Starting on Cristal 11/26/19 at 0553, Until Cristal 11/26/19 at 0758, Per Protocol, START ADJUSTMENT SCHEDULE 6 HOURS AFTER STARTING INFUSION Heparin UFH Level between 0.1 - 0.29 IU/mL: Bolus 3,200 units Heparin UFH Level less than 0.1 IU/mL: Bolus 6,400 units, Routine And heparin 25,000 units in sodium chloride 0.45% 500 mL infusion (CANCELED)Jump to med 0-5,000 Units/hr (0-100 mL/hr), Intravenous, CONTINUOUS, Starting on Cristal 11/26/19 at 0615, Until Cristal 11/26/19 at 0758, Begin infusion at 1,350 units per hr (15 units/kg/hr). MAX INITIAL infusion rate is 1,750 units/hr Target Heparin UFH Level (anti-Xa activity) = 0.3 - 0.7 IU/mL Start adjustment schedule 6 hours after starting infusion. If Heparin UFH Level is: - less than 0.1 IU/mL, administer PRN bolus and increase rate by 350 units per hr (4 units/kg/hr) - 0.1 - 0.29 IU/mL, administer PRN bolus and increase rate by 200 units per hr (2 units/kg/hr) - 0.3 - 0.7 IU/mL, No Change - 0.71 - 0.85 IU/mL, decrease rate by 100 units per hr (1 units/kg/hr) - 0.86 - 1.05 IU/mL, stop infusion for 30 minutes, then decrease rate by 200 units per hr (2 units/kg/hr) - Greater than 1.05 IU/mL, stop infusion for 60 minutes, then decrease rate by 250 units per hour (3 units/kg/hr) Repeat Heparin UFH Level 6 hours after initiating heparin. Then 6 hours after each dose adjustment. When 2 consecutive Heparin UFH Level within target range of 0.3 - 0.7 IU/mL, change Heparin UFH Level to once every 24 hours with A.M. labs while on heparin. RN to order required Heparin UFH Level - Per Protocol, Routine, Indication: Stroke documented in this encounter Care Teams [employer] Relationship Specialty Start Date End Date Mario Williamson MD [address] [place] [address] PCP - General Family Medicine 11/24/19 documented as of this encounter
--- OUTSIDE RECORDS SUMMARY | 2024-05-28 21:20 | XMS_ITS | Encounter Summary ---
Author Organization Formerly [facility] [place] [address] Care Team Providers Care Ultrasonic Seaming Machine Operator Name Role Phone Mario Williamson MD Primary Care Provider [phone] Reason for Visit * Auth/Cert Specialty Diagnoses / Procedures Referred By Wes fregoso Referred To Contact Diagnoses Stroke CVA Procedures ER IPI Admit Referral ID Status Reason Start Date Expiration Date Visits Re quested Visits Authorized [id number] 1 1 Encounter Details Date Type Department Care Team (Late st Contact Info) Description 11/25/2019 2:00 PM EST - 11/25/2019 5:23 PM EST Surgery [place] [id number] Renetta Nice MD [facility] DR VASCULAR [place] [address] @TRANSCATH INTRAVASCULAR STENT,CAROTID,PERC,W\EM BOLIC PROT. (WRVU 17.75) Social History Tobacco Use Types Packs/Day Years Used Date Smoking Tobacco: Never Assessed Sex and Gender Information Value Date Recorded Sex Assigned at Not on file Gender Identity Not on file Sexual Orientation Not on file documented as of this encounter Last Filed Vital Signs Vital Sign Reading Time Taken Comments Blood Pressure 148/87 11/25/2019 2:00 PM EST Pulse 79 11/25/2019 2:00 PM EST Temperature 36.6 ??C (97.9 ??F) 11/25/2019 12:[address] Respiratory Rate 16 11/25/2019 2:00 PM EST Oxygen Saturation 97% 11/25/2019 2:00 PM EST Inhaled Oxygen Concentration - [...] ambulance. By the time he got to [facility] he was able to lift leg [...] petechial hemorrhage Discharge Condition: Good Discharge to: [facility] [address] [place] [address] Future Appointments and Orders Future Appointments and Orders Future Appointments Provider Department Dept Phone 12/01/2019 10:30 AM MECHANIC ASSISTANT Non-Invasive Cardiology Lab [facility] Arrive at: [facility] 4A [phone] 12/25/2019 2:00 PM Citlaly Nogueira Vascular Lab at [facility] Arrive at: [facility] 3V [phone] 12/25/2019 2:30 PM Renetta Nice MD Vascular Surgery at [facility] Arrive at: [facility] Future Orders Complete By Gideon Melara [0298T CPT(R)] 11/26/2019 (Approximate) 05/27/2020 Process Instructions: Scheduling Instructions: Comments: Questions: Does the patient have a pacemaker? If yes provide HI/LO settings: Where will study be performed?: [facility] Carotid Duplex, Unilateral [VAS2 Custom] 12/28/2019 (Approximate) 11/26/2020 Process Instructions: There is no in-house vascular laboratory assistant available on weeknights (5pm-8am), weekends, or holidays. IF THIS IS A REQUEST FOR AN EMERGENT STUDY DURING THOSE HOURS, please have the senior provider responsible for the patient page the Vascular Surgery Fellow/Senior Resident international affairs vice president to discuss options. Scheduling Instructions: Questions: Laterality: Right Indication for study/signs & symptoms: s/p R TCAR Question to be answered: patency Preferred location?: [facility] Clinics Anticoagulation & Antiplatelet: Anticoagulation: None Antiplatelet: [...] or questions please call our office at [phone] For issues on weeknights after 5pm and weekends please call [phone] and ask for the Vascular Fellow international affairs vice president. documented in this encounter Discharge Instructions * [...] or questions please call our office at [phone] For issues on weeknights after 5pm and weekends please call [phone] and ask for the Vascular Fellow international affairs vice president. documented in this encounter Medications at Time [...] note were not included. Office of Care Management/Convertible Top Installer Patient Name: Jeannie Morris : 1950 Patient has been offered an acute bed at [facility], today 11/27/2019. Son will transport pt to facility today. No MD to MD report necessary Please call Nursing Report to [phone], ask for electrical logger. Info to accompany patient: Narcotic Prescriptions Copies of Medication Administration Records and IV sheets for past 10 days. Plan: Convertible Top Installer will be available to the patient and Hay Farmer-RN and/or Social Workerfor further assistance. Patient will be discharged to: [place] [address] Kiarra Bonilla Convertible Top Installer * Ada Parks RN - 11/27/2019 1:32 PM EST Patient to Dc to [facility] today. Son's at bedside and will transport to facility. Patient andson's agree with Dc plan. RN can call report to [phone]. Dr. Mari to admit. No additional CM needs. Ada Parks RN [facility] Staff Radiation Therapist # [phone] * Luis Mojica MSW - 11/27/2019 12:35 PM EST [place] AD's completed , signed, witnessed, photocopied, distributed, and sent to [facility] to be scanned to chart * Elodia Hodge - 11/27/2019 10:59 AM EST Nutrition Services - Initial Note Jeannie Morris : 1950 AGE: 69 y.o. Patient Active Problem List Diagnosis Date Noted ??? Hospital-Stroke 11/24/2019 Reason for Nutrition Intervention: Diet Order Diet Order: Dysphagia Soft Appetite: Good per pt Food allergies: NKFA noted Chewing/Swallowing difficulty: Tolerating current diet, SECURITY SYSTEM SALES CONSULTANT following Ht Readings from Last 3 Encounters: No data found for Ht Wt Readings from Last 3 Encounters: 11/24/19 91.6 kg (202 lb) There is no height or weight on file to calculate BMI. Vitamins/Minerals: None noted. Assessment: Patient seen regarding diet order - dysphagia soft. Pt had family in room at time of visit. Lotteries Agent informed pt of current diet order and its restrictions. Lotteries Agent provided educational material Dysphagia Soft Diet, pt expressed good understanding of diet restrictions. Pt reported a goodappetite noting that he ate a full breakfast this AM, 3/6. Pt is tolerating current soft diet without difficulty chewing or swallowing and denies nausea or vomiting. Lotteries Agent encouraged adequate protein intake and offered high protein snacks or supplements. Pt agreeable to Boost Plus 3x/day in between meals. Lotteries Agent will set up with dietary. Patient had [...] consulted in the interim. ZAIN Fierro Pager #[phone] * Kady Lacey APRN - 11/27/2019 8:31 [...] 1.1 Recent Labs 11/25/19 1522 PHART 7.43 [id number] 33* PO2ART 189* [id number] 21.2 IMAGING/STUDIES CTA with R ICA complex [...] (11/25/19). He is progressing well after surgery. SECURITY SYSTEM SALES CONSULTANT yesterday, recommend dysphagia soft diet. - ASA, plavix -Obtain non con CT head today - dysphagia soft diet Dispo floor status, full code Kady Lacey APRN Vascular Surgery * Ana Sanchez - 11/26/2019 3:15 PM EST Office of Care Management-System Liaison Reviewed medical record, IDR and discussed with primary Hay Farmer, Ada Parks. Met with Jeannie Morris and daughter to discuss acute level of care and provided specific information about [facility], which patient has been referred to for inpatient rehabilitation. Informed Jeannie Morris and family of referral review process that occurs. Discussed discharge disposition post rehab. Answered patient's questions. Patient will be followed by primary case liner for discuss all choices and options Provided my contact number if any further questions regarding rehab or specific facility Will continue to follow along with patient's primary case liner. System Liaison will continue to assist with any discharge needs related to the above facility as needed. Ana Sanchez RN BSN CRRN System Liaison Hay Farmer * Ada Parks RN - 11/26/2019 11:24 AM EST Based on discussions with the multi-disciplinary healthcare team, the patient would benefit from IPrehab level of care at discharge. ?? I have met with the patient/pharmacy sales representative to discuss discharge planning needs. I have provided the [facility], Office of Care Management letter from the Formula Maker pertaining to rehab referrals. I have also provided a letter describing our affiliations within the [facility] and educated them about their right to choose where referrals are placed. ?? I reviewed the different levels of rehab including SNF, swing, acute and LTAC with the patient/pharmacy sales representative. ?? The patient/pharmacy sales representative has been provided a list of facilities within their preferred geographic area. ?? I have requested that the patient/pharmacy sales representative provide at least three choices for referral. ?? The patient/pharmacy sales representative have requested referrals to: 1. [facility] [place] ([facility]) [address] [place] [phone] ?? [phone] 2. [facility] Acute Rehabilitation and Sub-Acute (Swing) Rehab Levels of Care [address] [place] [phone] ? Expected date of discharge: tomorrow Note routed to Convertible Top Installer who will communicate referrals to facilities and [...] %-100 %] 24HR INS & OUTS: 11/24 0701 - 11/25 0700 In: 1202 [P.O.:240; I.V.:962] [...] 3.1 3.0 MAGNESIUM 0.86 0.84 Recent Labs 11/26/1959 11/25/19 021 PT 12.3 12.4 PTT 34 36 INR 1.1 1.1 Recent Labs 11/25/19 1522 PHART 7.43 [id number] 33* PO2ART 189* [id number] 21.2 IMAGING/STUDIES CTA with R ICA complex plaque at bifurcation with concerning thrombus burden ASSESSMENT/PLAN: Jeannie Morris is a 69 y.o. 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 He is progressing well after surgery. We will plan to obtain an SECURITY SYSTEM SALES CONSULTANT eval before advancing his diet. MRI is scheduled for today. - ASA, plavix -Obtain MRI brain today. - Advance diet following SECURITY SYSTEM SALES CONSULTANT evaluation. - Will replace fung if patient continues to have urinary retention. Gurinder Yhe MD Vascular Surgery Resident [id number] Associated attestation - Renetta Nice MD - [...] Sensation intact in extremities bilaterally symmetric. 4/5 welder fitter gas strength in left side. 5/5 right sided welder fitter gas strength. No speech dysarthria. AP Jeannie Morris is a 69 y.o. male status post right TCAR currently in stable condition and recovering well - pain well controlled - hemodynamically stable -Difficult fung placement, eventually successful with coute catheter with 2x urojets Moira Lindsay MD Vascular Surgery 11/26/19 * Kerry Bergeron RN - 11/25/2019 7:37 PM EST [...] daughter called an ambulance. 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 right handed M with hx smoking (quit 10yrs ago) who is admittedafter deferring TPA at [facility] for R MCA symptoms of left hemiparesis, [...] L Elbow flexion 5/5 R, 4+/5 L Masonry Contractor Administrator LE: 5/5 R, 5/5 L Hip flexion [...] 168 hours. No results for input(s): PHART, NLF6ZSD, PO2ART, BRS9MPC in the last 168 hours. Recent Labs 11/25/19216 INR 1.1 Lipid Panel Lab Results Component Value Date CHLPL 172 11/25/2019 HDL 30 11/25/2019 CHOLHDL 5.7 11/25/2019 TRIG 178 11/25/2019 LDLDIRECT 126 11/25/2019 Recent Labs 11/25/19 0217 HA1C 5.7* Imaging/EKG CTA personally reviewed - [...] after plavix load prior to transfer. Requires [facility] level care for close neurological monitoring. -Will [...] brain wo contrast - Vascular surgery consult -PT/OT/SECURITY SYSTEM SALES CONSULTANT # Other - DVT ppx:heparin drip / SCD - RBOs: bisacodyl, miralax, pericolace - Diet: NPO diet (Give Meds) - Fluids: NS 75cc/hr (+hep ggt) - Dispo:pending hospital course - code status: DNR (with periprocedural suspension) JERMAIN BRYAN Personal Pager #[phone] Stroke Team Pager #[phone] Department of Neurology [place] [phone] * Edgardo Chopra RN - 11/24/2019 7:26 PM EST Jeannie Morris [facility] @ 1915 from O[facility]. Oriented to room, call ogden within reach, educatedon importance of using prior to getting OOB, AVSS, belongings updated in eDH, bed locked in low position, purposeful hourly rounding, bed/chair alarm on. documented in this encounter H&P Notes * Martha Price MD - 11/24/2019 9:18 PM EST Neurology Admission History and Physical Patient name: Jenanie Morris Date of : 1950 PCP: Arun [...] ambulance. By the time he got to [facility] he was able to lift leg [...] the time as well. As per Dr. Jackson' telephone note from earlier today:?? 69 y/o [...] symptomatic carotid disease. Will be admitted to [facility] level with evaluation by vascularsurgery upon arrival. 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 Marital status: [...] file Gets together: Not on file Attends christianity service: Not on file Active member of [...] L Elbow flexion 5/5 R, 4+/5 L Masonry Contractor Administrator LE: 5/5 R, 5/5 L Hip flexion [...] R ICA intervention. Pt is appropriate for [facility] level of care due to close neuro checks needed. # Left Arm Weakness # L Nasal Labial Flattening # Slurred Speech # Symptomatic R ICA disease -Admit to neurology, NSCU level of care -Neuro check & vitals Q2/2 hrs -Permissive HTN, treat SBP >220 with prn labetalol, enalaprilat -mIVF 100cc/hr - ASA and plavix -Check CBC, BMP, LFT, lipid profile, HbA1c, Mg, Phos, UA - start highi ntensity statin -TTE -12 lead EKG -Telemetry -CUS -MRI brain wo contrast - Vascular surgery consult -PT/OT/SECURITY SYSTEM SALES CONSULTANT # Prophylaxis -Lovenox 40mg SC daily -RBOs -SCDs # Supportive care -Regular diet -Tylenol PRN -Up with assistance # DNR/DNI Elva Alvarez MD 11/24/2019 Vascular Neurology Pager [phone] Neurology Attending Attestation I evaluated the patient [...] met medical necessity to require an inpatient IPI level of care meeting a minimum of two midnights or is on the [facility] inpatient only procedure list (status C) due [...] ESRD Martha Price MD Vascular Neurology Standard [facility] Swallow Screen: This screen is to be [...] diet as medical provider deems appropriate. Consider SECURITY SYSTEM SALES CONSULTANT consult for full evaluation and diet recommendations. [...] steadystate anesthesia and avoid boluses. Upper SSEP 37053 - Upper Extremities SSEP 56987 - Upper pSSEP Stimulation sites:Ulnar Nerve. Results: [...] the status of SSEPs at closing. EEG 62112 - EEG Results: Electroencephalographic (EEG) responses were [...] status of EEG at closing. Upper pSSEP 25838 - Upper pSSEP Recording Sites:Ulnar Nerve. Results: Upper SSEP were recorded prior to incision. Summary - As indicated above no changes were noted throughout this procedure. Note: Surgical Neurophysiologist was present and provided continual monitoring throughout the entire procedure. Abraham Recinos M.D., Ph.D. Certified Physician Assistant of Neurology [facility] documented in this encounter Miscellaneous Notes * Plan of Care - Kita Bustillos, SECURITY SYSTEM SALES CONSULTANT - 11/27/2019 5:16 PM EST Speech Therapy Note Patient Profile: Jeannie Morris is a 69 y.o. male admitted on 11/24/2019 for dysarthria, L hemiparesis and facial droop. Dx: R MCA symptoms. PMH significant for: smoker. Skilled SECURITY SYSTEM SALES CONSULTANT evaluation warranted for dysphagia evaluation for TIA/CVA [...] Pt was seen today for a follow-up SECURITY SYSTEM SALES CONSULTANT visit. Patient seen for PO trials with [...] Evaluation Minutes, Speech Language Pathology: 14 Kita Bustillos MS, CCC-SECURITY SYSTEM SALES CONSULTANT Pager: [phone] Speech-Language Pathology Inpatient Rehabilitation Department * Consult Note - Kiran Galdamez PA - 11/27/2019 7:48 AM EST Images from the original note were not included. Vascular Neurology Consult Note Admit Date 11/24/2019 ( Hospital Day 3 days ) Responsible Attending: Martha Price MD Primary Provider: Mario Williamson MD [phone] Patient ID Jeannie Morris is a 69 y.o. right handed M with hx smoking (quit 10yrs ago) who is admittedafter deferring TPA at [facility] for R MCA symptoms of left hemiparesis, [...] L Elbow flexion 5/5 R, 4+/5 L Masonry Contractor Administrator LE: 5/5 R, 5/5 L Hip flexion [...] 11/27/19 0149 11/26/19 0559 11/25/19 0838 11/25/19 021 WBC 7.5 7.9 6.3 7.5 HGB 13.8 13.9 16.1 15.2 HCT 40.7 41.5 46.8 44.6 PLATELET 219 189 221 221 NEUTROABS 5.12 5.79 3.93 4.40 Recent Labs 11/26/1959 11/25/19 [...] hours. Recent Labs 11/25/19 1522 PHART 7.43 [id number] 33* PO2ART 189* [id number] 21.2 Recent Labs 11/26/19 0559 11/25/19 021 [...] signed, and discharge order signed, then page [phone] prior to departure) -Will arrange 4-6 week post-discharge visit in stroke clinic. JERMAIN BRYAN Personal Pager #[phone] Stroke Team Pager #[phone] [place] [address] * Plan of Care - Jinny Allan [...] hr vital signs Q4 hr neurovasc checks; SECURITY SYSTEM SALES CONSULTANT - advance diet as tolerated PT/OT D/c [...] this time in hospital course [ ] [facility] Facility * Plan of Care - Bela [...] another Pt and Pt in bathroom with ASSEMBLER TUBING. Pt told to call for ASSEMBLER TUBING when done using bathroom, but Pt tried [...] after plavix load prior to transfer. ??Requires [facility] level care for close neurological monitoring. 11/25/19: R TCAR ?? Past Medical History No past medical history on file. Past Surgical History No past surgical history on file. ?? Social History: Patient lives alone with a cat in a mobile home in [place], [place] Home Setup: Pt reports 3 ELISABETH [...] Therapy: 36(1 SC and 1 KOTA) Pager: [phone] Jinny Vargas OT Occupational Therapy Rehabilitation Department * Plan of Care - Sheila Orellana, SECURITY SYSTEM SALES CONSULTANT - 11/26/2019 12:56 PM EST Speech Therapy Bedside Swallow Evaluation Patient Profile: Jeannie Morris is a 69 y.o. male admitted on 11/24/2019 for dysarthria, L hemiparesis and facial droop. Dx: R MCA symptoms. PMH significant for: smoker. Skilled SECURITY SYSTEM SALES CONSULTANT evaluation warranted for dysphagia evaluation for TIA/CVA [...] oral care Pt will benefit from continued SECURITY SYSTEM SALES CONSULTANT services while hospitalized Speech Therapy Goals: (To [...] with any questions or concerns. Sheila Orellana M.A.,[facility]-SECURITY SYSTEM SALES CONSULTANT Pager [phone] Speech-Language Pathology Inpatient Rehabilitation Department * Plan of Care - Sheila Orellana, SECURITY SYSTEM SALES CONSULTANT - 11/26/2019 10:09 AM EST Speech-Language Pathology Progress Note Order received and acknowledged. Chart reviewed and discussed with nursing. Pt currently unavailable due to being in MRI. Attempted patient earlier this morning and he was with EDUCATION SPECIALIST. SECURITY SYSTEM SALES CONSULTANT will re-attempt at later time as schedule permits. Sheila Orellana M.A., [facility]-SECURITY SYSTEM SALES CONSULTANT, Inpatient Rehabilitation Medicine, pager #[phone] * Plan of Care - Heron Prakash PTA - 11/26/2019 10:09 AM EST Physical Therapy Note Treatment Number PT: 2 Patient profile: Jeannie Morris??is a 69 y.o.??right handed M with hx smoking (quit 10yrs ago) who is admitted after deferring TPA at [facility] for R MCA symptoms of left hemiparesis, [...] AFVSS Social History: Home set-up: Lives in [place], [place] alone with his cat; son lives in [facility] Bathroom Set-up: tub shower, vanity next [...] Tendon glidesx8 hand over hand assist, picker feeder pen of table multiple techniques, placing pen [...] nurse at end of session. Assessment: Jeannie Morris was seen today for physical therapy treatment [...] Minutes, Physical Therapy: 42(TENx2, GTx1 Time in/out ([id number])) Azra Barnett SPTSh[facility] Physical Therapy Inpatient Rehabilitation Department Heron Prakash, EDUCATION SPECIALIST Pager: [phone] Physical Therapy Inpatient Rehabilitation Department * Consult Note - Kiran Galdamez PA - 11/26/2019 7:03 AM EST Images from the original note were not included. Vascular Neurology Consult Note Admit Date 11/24/2019 ( Hospital Day 2 days ) Responsible Attending: Martha Price MD Primary Provider: Mario Williamson MD [phone] Patient ID Jeannie Morris is a 69 y.o. right handed M with hx smoking (quit 10yrs ago) who is admittedafter deferring TPA at [facility] for R MCA symptoms of left hemiparesis, [...] L Elbow flexion 5/5 R, 4+/5 L Masonry Contractor Administrator LE: 5/5 R, 5/5 L Hip flexion [...] ?? I/O last 3 completed shifts: In: 2200 [P.O.:540; I.V.:1661] Out: 2590 [Urine:2540; Blood:50] Scheduled Meds: ??? aspirin 81 mg Oral Daily ??? sodium chloride 0.9 % (flush) 5 mL Intravenous BID ??? polyethylene glycol (MIRALAX)oral powder 17 g Oral Daily ??? clopidogreL 75 mg Oral Daily ??? atorvastatin 80 mg Oral QPM Continuous Infusions: PRN Meds:.iodixanoL, labetalol, acetaminophen Labs Recent Labs 11/26/19 0559 11/25/19 0838 11/25/19 0217 WBC 7.9 6.3 7.5 HGB 13.9 16.1 15.2 HCT 41.5 46.8 44.6 PLATELET 189 221 221 NEUTROABS 5.79 3.93 4.40 Recent Labs 11/26/19 0559 11/25/19 021 NA 139 140 K 3.8 [...] hours. Recent Labs 11/25/19 1522 PHART 7.43 [id number] 33* PO2ART 189* SGJ8TPD 21.2 Recent Labs 11/26/19 0559 11/25/19 0217 INR 1.1 1.1 Lipid Panel Lab Results Component Value Date CHLPL 172 11/25/2019 HDL 30 11/25/2019 CHOLHDL 5.7 11/25/2019 TRIG 178 11/25/2019 LDLDIRECT 126 11/25/2019 Recent Labs 11/25/19 021 HA1C 5.7* Imaging/EKG OSH CTA personally reviewed [...] in stroke clinic. JERMAIN BRYAN Personal Pager #[phone] Stroke Team Pager #[phone] Department of Neurology [place] [phone] * Plan of Care - Joanne Tobar [...] completed. Heparin titrated according to UFH (see NOV). Care clustered, rest promoted. Will continue to [...] Handling Outcome: Ongoing (Interventions Implemented as Appropriate) 11/25/19229911/26/19399 [place] Fall Risk History of Falling 0 [...] Control Outcome: Ongoing (Interventions Implemented as Appropriate) 11/25/19229911/26/19399 Safety Interventions Isolation Precautions -- standard precautions maintained Infection Prevention -- rest/sleep promoted Coping Strategies Supportive Measures active listening utilized -- Problem: Skin Integrity Impairment, Risk/Actual (Adult) Intervention: Promote/Optimize Nutrition 11/26/19604 Nutrition Interventions Oral Nutrition Promotion rest periods promoted Intervention: Prevent/Manage Excess Moisture 11/25/19229911/26/19 0000 Hygiene Care Perineal Care -- absorbent pad changed;perianal area cleansed;perineal area cleansed Bathing/Skin Care -- bath, partial;incontinence care;linen changed Skin Interventions Skin Protection adhesive use limited -- Intervention: Prevent/Minimize Sheer/Friction Injuries 11/25/19229911/26/19399 Skin Interventions Pressure Reduction Devices pressure-redistributing mattress utilized -- Pressure Reduction Techniques frequent weight shift encouraged -- Positioning Positioning/Transfer Devices -- pillows;in use Goal: Skin Integrity/Wound Healing Patient will demonstrate the desired outcomes by discharge/transition of care. Outcome: Ongoing (Interventions Implemented as Appropriate) 11/26/19604 Skin Integrity Impairment, Risk/Actual (Adult) Skin Integrity/Wound Healing making progress toward outcome * Op Note - Renetta Nice MD - 11/25/2019 6:32 PM EST [facility] Operative Note Patient Name: Jeannie Morris : [id number] MR#: [id number] Case Date: 11/25/2019 Surgeon: Surgeon(s) and Role: [...] Implant Name Type Inv. Item Serial No. Ship Liner Lot No. LRB No. Used Action STENT,TCAR,ENROUTE,[id number] ([id number]) (AutoReq) - [id number] IMPLANTS STENT,TCAR,ENROUTE,[id number] ([id number]) (AutoReq) PhotoTLC [facility] [id number] Right 1 Implanted STENT,TCAR,ENROUTE,[id number] ([id number]) (AutoReq) - [id number] IMPLANTS STENT,TCAR,ENROUTE,[id number] ([id number]) (AutoReq) [employer] [facility] Dajie [facility] [id number] Right 1 Implanted Indications for the procedure: [...] was exchanged for the [address] HEBREW CANTOR venous sheath over a J-wire. Next, micropuncture access of the right common carotid artery was obtained. A cope wire was inserted and a micropuncture sheath over this. Angiogram was performed to confirm level of the bifurcation.An .035 jwire was then introduced. Once this was achieved, the micropuncture sheath was exchanged for the Enroute Neuroprotection System (HEBREW CANTOR) arterial sheath. After confirming appropriate position, this was sutured in place with silk suture. Flow reversal was initiated and confirmed to be functioning. The common carotid artery was clamped proximal to the sheath. An .014 wire was then used to select the distal ICA. We did not pre-dilate. The Enroute stent ([id number]) was then deployed. A second En route [...] after plavix load prior to transfer. Requires [facility] level care for close neurological monitoring. No past medical history on file. No past surgical history on file. Social History: Patient lives alone with a cat in a mobile home in [place], [place] Home Setup: Pt reports 3 ELISABETH [...] and measurable assessment of functional outcome. Pager: [phone] Jinny Vargas OT 11/25/2019 Occupational Therapy Rehabilitation Department * Plan of Care - Jonnie Mccain, PT - 11/25/2019 9:35 AM EST Physical Therapy Evaluation Patient profile: Jeannie Morris??is a 69 y.o.??right handed M with hx smoking (quit 10yrs ago) who is admitted after deferring TPA at [facility] for R MCA symptoms of left hemiparesis, facial droop, dysarthria with NIHSS 3. CTA showed RI ICA bifurcation stenotic plaque. Transferred for consideration surgical intervention. Patient with the following active problems: No past medical history on file. No past surgical history on file. There are no active non-hospital problems to display for this patient. Social History: Home set-up: Lives in [place], [place] alone with his cat; son lives in [facility] Bathroom Set-up: tub shower, vanity next [...] Supine: not assessed Transfers: Sit to Stand: cgA Stand to Sit: [facility] Bed to Chair: Gait: Distance: ~150' Device used: gait belt, initially hand hold assist Level of assist: [facility] Gait mechanics: forward flexed posture, steady gait Stairs: not assessed Five Times Sit to Stand Test Time to complete 5 stands:18s Comments: no use of UE's Normal Values: Greater than 13.6 seconds indicates increased disability and morbidity. - (Jelly, 2000) The optimal cutoff time for performing the FTSS test in predicting recurrent falls is 15 seconds. -(Juany et al., 2008) References: Vandana Reaves, Karthik Shaw et al. (2000). Lower extremity function and subsequent disability: consistency across studies, predictive models, and value of gait speed alone compared with the short physical performance battery. J Gerontol A Biol Sci Med Sci 55(4): M221-31. Juany S, Marshall D, Dash P, Sneha R, Denilson P, Lily G et al. Five times sit to [...] / OUT: Total Evaluation Minutes, Physical Therapy: 33(MELANIA calabrese) Jonnie Mccain, PT Pager: [phone] Physical Therapy Inpatient Rehabilitation Department * Initial [...] Illicits: Nil Other Pertinent/Service Specific Information: Retired [employer]/Prescription Coverage: Primary Insurance: N/A Medicare Secondary Insurance: N/A perhaps Medicaid Prescription Coverage: dont know Preferred Pharmacy: Primary Care Provider: Arun Bailey MD (Inactive) [phone] Patient/Caregiver Goals of Treatment: Get back home Potential Needs Rehab Id A if acute; [facility] if SNF Home Health: [place] DME: Pending evals Dialysis: NA Community Resources: [...] daughter called an ambulance. He got to [facility] around 1600 and was noted to [...] transition of care planning. ELIZABETH Gutierrez Pager: [phone] * Consult Note - Luis Pablo MD [...] daughter called an ambulance. 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 Please page [phone] with any questions. Luis Pablo MD General [...] Place Transcatheter Stent, Cca W Embolic Ect ([id number]) 11/25/2019 2:30 PM EST right carotid stenosis, [...] Modality Other Narrative 12/22/2019 8:31 AM EDT [facility] ? Zio Patch? Ambulatory Cardiac Event Monitor Report Indication: stroke Duration of recording ? 13 days 22 hours Summary Data Predominant rhythm ? sinus rhythm with prolonged [place] interval Wenckebach physiology is noted during normal [...] report, please contact the number below. Kady Lacey APRN IMG CT ORDERABLES * Differential, Automated (11/27/2019 1:49 AM EST) Neutrophil % 68.6 % [facility] Neutrophil Absolute 5.12 1.70 - 6.10 x10(3)/[facility] Lymph % 18.3 % [facility] Lymphocytes Abs 1.4 0.9 - 3.2 x10(3)/[facility] Monocyte % 10.0 % [facility] Monocyte Abs 0.8 0.3 - 0.9 x10(3)/[facility] Eos % 2.3 % [facility] Eosinophils Abs 0.2 0.0 - 0.4 x10(3)/[facility] Basophil % 0.5 % [facility] Baso Absolute 0.0 0.0 - 0.1 x10(3)/[facility] Immature Gran % 0.30 % [facility] Comment: Immature granulocytes(IG's)percentage and absolute count will include metamyelocytes, myelocytes, and promyelocytes. Blood smears from CBCs yielding IG's will be scanned manually for concordance. If this scan disagrees with the automated IG or if promyelocytes are noted, a manual differential will be performed. Immature Gran Absolute 0.02 0.00 - 0.04 x10(3)/[facility] Blood specimen (specimen) 11/27/2019 1:49 AM EST 11/27/2019 2:01 AM EST Narrative Resulting Agency Comment Spec In Lab Diaz Wallace MD HEMATOLOGY ORDERABL ES [facility] [place] [address] * (ABNORMAL) Hemogram (11/27/2019 1:49 AM EST) White Blood Cell 7.5 4.0 - 9.5 x10(3)/mc L [facility] Red Blood Cell 4.57(L) 4.58 - 5.54 x10(6)/ L [facility] Hemoglobin 13.8 13.7 - 16.5 gm/dL [facility] Hematocrit 40.7 40.5 - 48.5 % [facility] Mean Cell Volume 89.1 82.9 - 93.1 fL [facility] Mean Cell Hemoglobin 30.2 27.5 - 32.1 pg [facility] Mean Cell Hemoglobin Concentration 33.9 32.0 - 35.7 gm/dL [facility] Platelet 219 145 - 357 x10(3)/mc L [facility] RDW Standard Deviation 42.8 36.0 - 45.0 fL [facility] RDW coefficient of variation 13.1 11.4 - 13.8 % [facility] Mean Platelet Volume 9.9 7.6 - 12.9 [facility] NRBC% auto 0.0 % [facility] NRBC Absolute 0.000 0.000 - 0.000 x10(3)/mc L [facility] Blood specimen (specimen) 11/27/2019 1:49 AM EST 11/27/2019 2:01 AM EST Narrative Resulting Agency Comment Spec In Lab Diaz Wallace MD HEMATOLOGY ORDERABL ES Performing Organization Address City/State/[facility] Co de Phone Number [facility] [place] [phone] * MRI Brain wo Contrast (11/26/2019 11:18 [...] contact the number below. Martha Price MD IMG MRI ORDERABLES * Heparin (unfractionated) Level (11/26/2019 5:59 AM EST) UF Heparin 0.07 IU/mL [facility] Comment: Guidelines for therapeutic unfractionated [...] Lab Martha Price MD [place] [address] * Differential, Automated (11/26/2019 5:59 AM EST) Pathologist [facility] Neutrophil % 73.6 % [facility] Neutrophil Absolute 5.79 1.70 - 6.10 x10(3)/[facility] Lymph % 15.9 % [facility] Lymphocytes Abs 1.2 0.9 - 3.2 x10(3)/[facility] Monocyte % 8.6 % [facility] Monocyte Abs 0.7 0.3 - 0.9 x10(3)/[facility] Eos % 1.1 % [facility] Eosinophils Abs 0.1 0.0 - 0.4 x10(3)/[facility] Basophil % 0.4 % [facility] Baso Absolute 0.0 0.0 - 0.1 x10(3)/[facility] Immature Gran % 0.40 % [facility] Comment: Immature granulocytes(IG's)percentage and absolute count will include metamyelocytes, myelocytes, and promyelocytes. Blood smears from CBCs yielding IG's will be scanned manually for concordance. If this scan disagrees with the automated IG or if promyelocytes are noted, a manual differential will be performed. Immature Gran Absolute 0.03 0.00 - 0.04 x10(3)/[facility] Blood specimen (specimen) 11/26/2019 5:59 AM EST 11/26/2019 6:12 AM EST Narrative Resulting Agency Comment Spec In Lab Diaz Wallace [place] [address] * Hemogram (11/26/2019 5:59 AM EST) Pathologist [facility] White Blood Cell 7.9 4.0 - 9.5 x10(3)/[facility] Red Blood Cell 4.66 4.58 - 5.54 x10(6)/[facility] Hemoglobin 13.9 13.7 - 16.5 gm/dL [facility] Hematocrit 41.5 40.5 - 48.5 % [facility] Mean Cell Volume 89.1 82.9 - 93.1 fL [facility] Mean Cell Hemoglobin 29.8 27.5 - 32.1 pg [facility] Mean Cell Hemoglobin Concentration 33.5 32.0 - 35.7 gm/dL [facility] Platelet 189 145 - 357 x10(3)/[facility] RDW Standard Deviation 43.0 36.0 - 45.0 [facility] RDW coefficient of variation 13.2 11.4 - 13.8 % [facility] Mean Platelet Volume 10.0 7.6 - 12.9 [facility] NRBC% auto 0.0 % [facility] NRBC Absolute 0.000 0.000 - 0.000 x10(3)/[facility] Blood specimen (specimen) 11/26/2019 5:59 AM EST 11/26/2019 6:12 AM EST Narrative Resulting Agency Comment Spec In Lab Diaz Wallace MD HEMATOLOGY ORDERABL ES Performing Organization Address City/State/[facility] Co de Phone Number [facility] [place] [address] * Basic Metabolic Panel (non-fasting) (11/26/2019 5:59 AM EST) Glucose 86 65 - 199 mg/dL [facility] Comment:Diabetes: >=200 mg/d L plus symptoms Blood Urea Nitrogen 10 10 - 20 mg/dL [facility] Creatinine 0.89 0.80 - 1.50 mg/dL [facility] Sodium 139 135 - 145 mmol/L [facility] Potassium 3.8 3.5 - 5.0 mmol/L [facility] Comment: Please note: ??Patients with WBC >100,000 may have falsely elevated Potassium levels. ??For accurate Potassium quantification in these patients send serum separator tube (gold top) for subsequent determinations. ??Contact the Clinical Chemistry Laboratory if there are any questions. Chloride 106 98 - 107 mmol/L [facility] Carbon Dioxide 22 22 - 31 mmol/L [facility] Anion Gap 11 5 - 15 mmol/L [facility] Calcium 8.7 8.5 - 10.5 mg/dL [facility] Est Glomerular Filtration Rate 88 >=60 mL/min/1. 73 m?? [facility] Comment: The eGFR was calculated using the CKD-EPI equation. As with all creatinine based estimates of kidney function, eGFR values calculated with the CKD-EPI equation are not accurate in patients with acute kidney failure, extremes of body mass or the acutely ill. [email or web address] eGFR 102 >=60 mL/min/1. 73 m?? [facility] Comment: The eGFR was calculated using the CKD-EPI equation. As with all creatinine based estimates of kidney function, eGFR values calculated with the CKD-EPI equation are not accurate in patients with acute kidney failure, extremes of body mass or the acutely ill. [email or web address] Blood specimen (specimen) 11/26/2019 5:59 AM EST 11/26/2019 6:12 AM EST Narrative Resulting Agency Comment Spec In Lab Martha Price MD CHEMISTRY ORDERABL ES [facility] [place] [address] * APTT (11/26/2019 5:59 AM EST) Partial Thromboplastin Time 34 25 - 37 sec [facility] Comment: The PTT is NOT appropriate for heparin monitoring. Use the Anti-Xa level for heparin monitoring (HEP UFH) or LMWH monitoring (HEP LMW). A PTT less than 37 seconds generally indicates adequate hemostasis. Blood specimen (specimen) 11/26/2019 5:59 AM EST 11/26/2019 6:12 AM EST Narrative Resulting Agency Comment Spec In Lab Martha Price MD HEMATOLOGY ORDERAB LES Performing Organization Address [facility] de Phone Number [facility] [place] [address] * Prothrombin Time (11/26/2019 5:59 AM EST) Prothrombin Time 12.3 9.4 - 12.5 sec [facility] International Normalization Ratio 1.1 [facility] Comment: An INR <2.0 indicates adequate [...] MD HEMATOLOGY ORDERAB LES Performing Organization Address [facility] de Phone Number [facility] [place] [address] * Hepatic Function Panel (11/26/2019 5:59 AM EST) Protein, Total 6.1 6.1 - 8.0 gm/dL [facility] Albumin 3.3 3.2 - 5.2 gm/dL [facility] Aspartate Aminotransferase 17 0 - 39 unit/L [facility] Alanine Aminotransferase 14 0 - 55 unit/L [facility] Alkaline Phosphatase 56 40 - 130 unit/L [facility] Bilirubin, Total 0.8 0.2 - 1.3 mg/dL [facility] Bilirubin, Direct 0.1 0.0 - 0.3 mg/dL [facility] Blood specimen (specimen) 11/26/2019 5:59 AM EST 11/26/2019 6:12 AM EST Narrative Resulting Agency Comment Spec In Lab Martha Price MD CHEMISTRY ORDERABL ES Performing Organization Address [facility] Co de Phone Number [facility] [place] [address] * Phosphorus (11/26/2019 5:59 AM EST) Phosphorus 3.1 2.5 - 4.5 mg/dL [facility] Blood specimen (specimen) 11/26/2019 5:59 AM EST 11/26/2019 6:12 AM EST Narrative Resulting Agency Comment Spec In Lab Martha Price MD CHEMISTRY ORDERABL ES Performing Organization Address [facility] Co de Phone Number [facility] [place] [address] * Magnesium (11/26/2019 5:59 AM EST) Magnesium 0.86 0.69 - 1.07 mmol/L [facility] Blood specimen (specimen) 11/26/2019 5:59 AM EST 11/26/2019 6:12 AM EST Narrative Resulting Agency Comment Spec In Lab Martha Price MD CHEMISTRY ORDERABL ES Performing Organization Address [facility] Co de Phone Number [facility] [place] [address] * Carotid Duplex, Bilateral (11/25/2019 9:16 PM EST) VB Text Report Department: Vascular Surgery Lab Patient: [id number] (JEANNIE MORRIS) CPT: 32153 ICD10: I63.9 Referring Physician: MARTHA JACKSON-OBREGON ?? Phone: Indications: R ICA stenosis, L [...] EST Martha Price MD VASCULAR ORDERABLE S Performing Organization Address City/[facility]/ZIP Co de Phone Number [facility] * IR OR VASC Aniogram Image Storage Only (11/25/2019 4:48 PM EST) Narrative [facility] - 11/25/2019 3:44 PM EST This exam is auto-finalizing. It's purpose is for storage only. Josias Buckley MD IM FILM LIBRARY ORD ERABLES Performing Organization Address City/[facility]/ZIP Co de Phone Number [facility] [place] * ABORH Recheck Status (11/25/2019 3:50 PM EST) ABORH Recheck Order Order Placed [facility] ABORH Type Recheck Complete [facility] Blood specimen (specimen) 11/25/2019 3:50 PM EST 11/25/2019 4:04 PM EST Narrative Resulting Agency Comment Spec In Lab Genet Daly MD BLOOD BANK LAB ORDER EDDIE Performing Organization Address City/[facility]/ZIP Co de Phone Number [facility] [place] [address] * Antibody screen (11/25/2019 3:50 PM EST) Ab Screen Interp Negative [facility] Expires at [id number] on: 11/28/2019 [facility] Blood specimen (specimen) 11/25/2019 3:50 PM EST 11/25/2019 4:04 PM EST Narrative Resulting Agency Comment Spec In Lab Genet Daly MD BLOOD BANK LAB ORDER EDDIE Performing Organization Address City/[facility]/ZIP Co de Phone Number [facility] [place] [address] * ABO/Rh Typing (11/25/2019 3:50 PM EST) ABORH Type O Neg [facility] Blood specimen (specimen) 11/25/2019 3:50 PM EST 11/25/2019 4:04 PM EST Narrative Resulting Agency Comment Spec In Lab Genet Daly MD BLOOD BANK LAB ORDER EDDIE Performing Organization Address City/[facility] Co de Phone Number [facility] [place] [address] * (ABNORMAL) BLOOD GAS 2 ARTERIAL (11/25/2019 3:22 PM EST) pH, Arterial 7.43 7.35 - 7.45 [facility] PCO2, Arterial 33(L) 35 - 45 mmHg [facility] PO2, Arterial 189(H) 85 - 104 mmHg [facility] Bicarbonate, Arterial 21.2 20.0 - 26.0 mmol/L [facility] Base Excess, Arterial -3.2(L) -3.0 - 3.0 mmol/L [facility] Hgb Blood Gas 13.7 13.7 - 16.5 gm/dL [facility] Oxyhemoglobin, Arterial 98.2(H) 94.0 - 97.0 % [facility] Carboxyhemoglob in, Arterial 0.5 % [facility] Comment: Nonsmokers: 0.5-1.5% COHB Smokers: Variable, but usually less than 10% Toxic: 20-30% COHB Lethal: Greater than 60% COHB Methemoglobin, Arterial 0.3 <=1.5 % [facility] Na Whole Blood 141 135 - 145 mmol/L [facility] K Whole Blood 3.2(L) 3.5 - 5.0 mmol/L [facility] Comment: Please note: Patients with WBC >100,000 may have falsely elevated Potassium levels. Contact the Clinical Chemistry Laboratory if there are any questions. ICa Whole Blood 1.11(L) 1.15 - 1.33 mmol/L [facility] Comment: Note: ??Total bilirubin higher than 20 mg/dL may lead to falsely low ionized calcium. CL Whole Blood 114(H) 98 - 107 mmol/L [facility] Gluc Whole Bld 81 65 - 199 mg/dL [facility] Comment:Diabetes: >=200 mg/d L plus symptoms. Lactate WB 1.4 0.5 - 2.2 mmol/L [facility] Blood specimen (specimen) 11/25/2019 3:22 PM EST 11/25/2019 3:22 PM EST Martha Price MD POINT OF CARE TEST ORDERABLES [facility] [place] [address] * ECHO COMPLETE (11/25/2019 1:24 PM EST) EF 65 HEART[facility] SYSTEM Anatomical Region Laterality Modality Other 11/25/2019 Narrative 11/25/2019 1:55 PM EST Procedure: ?Transthoracic Echocardiogram Patient: ?ROSANNA Dean ? (Age): 1950(69y) Med Rec#: ? [id number] ?Sex: ?M ? Site Loc: ? [facility] ?Ht / Wt: ??167.64(cm)/92(k Pt. Loc: ?Adult Floor ? BSA: ?2.01 Study Date: ?? 11/25/2019 ?Pt. Type: Inpatient Tape: ? Referring: RAYMOND JACKSON Reading: Lonnie Trammell ([id number]) Nurse Tech: Kartik Kulkarni RDCS Diagnosis: *Cerebral infarction, unspecified [...] Vmax ?0.71 ? m/sec ? MV deceleration [id number] ?msec ? MV A-wave Vmax ?0.7 ?m/sec [...] ? Mid-Inferior ?Normal ? Mid-Inferoseptal ?Normal ? [place]-Septal ? Normal ? [place]-Anterior ? Normal ? [place]-Lateral ?Normal ? [place]-Inferior ? Normal ? [place]-Tip ?Normal ? This report has been electronically signed by: Lonnie Trammell MD ? 11/25/2019 13:45:21 Images reviewed and interpretation verified [facility] Cardiac Ultrasound Laboratory Procedure Note Lonnie Trammell MD - 11/25/2019 Procedure: Transthoracic Echocardiogram Patient: ROSANNA Dean (Age): 1950(69y) Med Rec#: [id number] Sex: M Site Loc: [facility] Ht / Wt: 167.64(cm)/92(k Pt. Loc: Adult Floor BSA: 2.01 Study Date: 11/25/2019 Pt. Type: Inpatient Tape: Referring: RAYMOND JACKSON Reading: Lonnie Trammell ([id number]) Nurse Tech: Kartik Kulkarni [facility] Diagnosis: *Cerebral infarction, unspecified (I63.9) BP: 159/91 [...] MV E-wave Vmax 0.71 m/sec MV deceleration [id number] msec MV A-wave Vmax 0.7 m/sec MV [...] Normal Mid-Posterolateral Normal Mid-Inferior Normal Mid-Inferoseptal Normal [place]-Septal Normal [place]-Anterior Normal [place]-Lateral Normal [place]-Inferior Normal [place]-Tip Normal This report has been electronically signed by: Lonnie Trammell MD 11/25/2019 13:45:21 Images reviewed and interpretation verified [facility] Cardiac Ultrasound [facility] Martha Price MD ECHO ORDERABLES * Differential, Automated (11/25/2019 8:38 AM EST) Neutrophil % 62.4 % [facility] Neutrophil Absolute 3.93 1.70 - 6.10 x10(3)/[facility] Lymph % 24.1 % [facility] Lymphocytes Abs 1.5 0.9 - 3.2 x10(3)/[facility] Monocyte % 10.6 % [facility] Monocyte Abs 0.7 0.3 - 0.9 x10(3)/[facility] Eos % 1.9 % [facility] Eosinophils Abs 0.1 0.0 - 0.4 x10(3)/[facility] Basophil % 0.8 % [facility] Baso Absolute 0.0 0.0 - 0.1 x10(3)/[facility] Immature Gran % 0.20 % [facility] Comment: Immature granulocytes(IG's)percentage and absolute count will include metamyelocytes, myelocytes, and promyelocytes. Blood smears from CBCs yielding IG's will be scanned manually for concordance. If this scan disagrees with the automated IG or if promyelocytes are noted, a manual differential will be performed. Immature Gran Absolute 0.01 0.00 - 0.04 x10(3)/[facility] Blood specimen (specimen) 11/25/2019 8:38 AM EST 11/25/2019 8:43 AM EST Narrative Resulting Agency Comment Spec In Lab Kiran ALY HEMATOLOGY ORDERABLE S [facility] [place] [address] * Hemogram (11/25/2019 8:38 AM EST) White Blood Cell 6.3 4.0 - 9.5 x10(3)/[facility] Red Blood Cell 5.39 4.58 - 5.54 x10(6)/[facility] Hemoglobin 16.1 13.7 - 16.5 gm/dL [facility] Hematocrit 46.8 40.5 - 48.5 % [facility] LABORATORY Mean Cell Volume 86.8 82.9 - 93.1 fL [facility] Mean Cell Hemoglobin 29.9 27.5 - 32.1 pg [facility] Mean Cell Hemoglobin Concentration 34.4 32.0 - 35.7 gm/dL [facility] Platelet 221 145 - 357 x10(3)/[facility] LABORATORY RDW Standard Deviation 41.1 36.0 - 45.0 [facility] LABORATORY RDW coefficient of variation 13.1 11.4 - 13.8 % [facility] Mean Platelet Volume 9.6 7.6 - 12.9 [facility] LABORATORY NRBC% auto 0.0 % [facility] NRBC Absolute 0.000 0.000 - 0.000 x10(3)/[facility] LABORATORY Blood specimen (specimen) 11/25/2019 8:38 AM EST 11/25/2019 8:43 AM EST Narrative Resulting Agency Comment Spec In Lab Kiran ALY HEMATOLOGY ORDERABLE S Performing Organization Address [facility] de Phone Number [facility] [place] [address] * Heparin (unfractionated) Level (11/25/2019 8:38 AM EST) Pathologist [facility] UF Heparin 0.12 IU/mL [facility] Comment: Guidelines for therapeutic unfractionated [...] MD HEMATOLOGY ORDERAB LES Performing Organization Address [facility] Co de Phone Number [facility] [place] [address] * (ABNORMAL) BMP w/fasting Glucose (11/25/2019 2:17 AM EST) [facility] Glucose Fasting 103(H) 65 - 99 mg/dL [facility] Comment: ?Fasting* Glucose Interpretive Criteria Normal [...] of Diabetes Mellitus, Position Statement from the [place] [employer]. ??Diabetes Care, Volume 33, Supplement 1, Sep 2009 Blood Urea Nitrogen 15 10 - 20 mg/dL [facility] Creatinine 0.88 0.80 - 1.50 mg/dL [facility] Sodium 140 135 - 145 mmol/L [facility] Potassium 3.7 3.5 - 5.0 mmol/L [facility] Comment: Please note: ??Patients with WBC >100,000 may have falsely elevated Potassium levels. ??For accurate Potassium quantification in these patients send serum separator tube (gold top) for subsequent determinations. ??Contact the Clinical Chemistry Laboratory if there are any questions. Chloride 106 98 - 107 mmol/L [facility] Carbon Dioxide 24 22 - 31 mmol/L [facility] Anion Gap 10 5 - 15 mmol/L [facility] Calcium 9.0 8.5 - 10.5 mg/dL [facility] Est Glomerular Filtration Rate 88 >=60 mL/min/1. 73 m?? [facility] Comment: The eGFR was calculated using the CKD-EPI equation. As with all creatinine based estimates of kidney function, eGFR values calculated with the CKD-EPI equation are not accurate in patients with acute kidney failure, extremes of body mass or the acutely ill. [email or web address] [email or web address] eGFR 102 >=60 mL/min/1. 73 m?? [facility] Comment: The eGFR was calculated using the CKD-EPI equation. As with all creatinine based estimates of kidney function, eGFR values calculated with the CKD-EPI equation are not accurate in patients with acute kidney failure, extremes of body mass or the acutely ill. [email or web address] [email or web address] Blood specimen (specimen) 11/25/2019 2:17 AM EST 11/25/2019 2:26 AM EST Narrative Resulting Agency Comment Spec In Lab Elva Alvarez MD CHEMISTRY ORDERABLES [facility] [place] [address] * Differential, Automated (11/25/2019 2:17 AM EST) Neutrophil % 58.8 % [facility] Neutrophil Absolute 4.40 1.70 - 6.10 x10(3)/[facility] LABORATORY Lymph % 28.8 % [facility] Lymphocytes Abs 2.2 0.9 - 3.2 x10(3)/[facility] LABORATORY Monocyte % 9.9 % [facility] Monocyte Abs 0.7 0.3 - 0.9 x10(3)/[facility] LABORATORY Eos % 1.6 % [facility] Eosinophils Abs 0.1 0.0 - 0.4 x10(3)/[facility] LABORATORY Basophil % 0.5 % [facility] Baso Absolute 0.0 0.0 - 0.1 x10(3)/[facility] LABORATORY Immature Gran % 0.40 % [facility] Comment: Immature granulocytes(IG's)percentage and absolute count will include metamyelocytes, myelocytes, and promyelocytes. Blood smears from CBCs yielding IG's will be scanned manually for concordance. If this scan disagrees with the automated IG or if promyelocytes are noted, a manual differential will be performed. Immature Gran Absolute 0.03 0.00 - 0.04 x10(3)/[facility] LABORATORY Blood specimen (specimen) 11/25/2019 2:17 AM EST 11/25/2019 2:26 AM EST Narrative Resulting Agency Comment Spec In Lab Elva Alvarez MD HEMATOLOGY ORDERABLE S [facility] [place] [address] * Hemogram (11/25/2019 2:17 AM EST) [facility] White Blood Cell 7.5 4.0 - 9.5 x10(3)/[facility] LABORATORY Red Blood Cell 4.96 4.58 - 5.54 x10(6)/[facility] LABORATORY Hemoglobin 15.2 13.7 - 16.5 gm/dL [facility] Hematocrit 44.6 40.5 - 48.5 % [facility] Mean Cell Volume 89.9 82.9 - 93.1 fL [facility] Mean Cell Hemoglobin 30.6 27.5 - 32.1 pg [facility] Mean Cell Hemoglobin Concentration 34.1 32.0 - 35.7 gm/dL [facility] Platelet 221 145 - 357 x10(3)/[facility] LABORATORY RDW Standard Deviation 42.6 36.0 - 45.0 [facility] LABORATORY RDW coefficient of variation 13.0 11.4 - 13.8 % [facility] Mean Platelet Volume 9.9 7.6 - 12.9 [facility] LABORATORY NRBC% auto 0.0 % [facility] NRBC Absolute 0.000 0.000 - 0.000 x10(3)/[facility] LABORATORY Blood specimen (specimen) 11/25/2019 2:17 AM EST 11/25/2019 2:26 AM EST Narrative Resulting Agency Comment Spec In Lab Elva Alvarez MD HEMATOLOGY ORDERABLE S [facility] [place] [address] * APTT (11/25/2019 2:17 AM EST) [facility] Partial Thromboplastin Time 36 25 - 37 sec [facility] Comment: The PTT is NOT appropriate for heparin monitoring. Use the Anti-Xa level for heparin monitoring (HEP UFH) or LMWH monitoring (HEP LMW). A PTT less than 37 seconds generally indicates adequate hemostasis. Blood specimen (specimen) 11/25/2019 2:17 AM EST 11/25/2019 2:26 AM EST Narrative Resulting Agency Comment Spec In Lab Martha Price MD HEMATOLOGY ORDERAB LES Performing Organization Address [facility] de Phone Number [facility] [place] [address] * Prothrombin Time (11/25/2019 2:17 AM EST) Prothrombin Time 12.4 9.4 - 12.5 sec [facility] International Normalization Ratio 1.1 [facility] Comment: An INR <2.0 indicates adequate [...] MD HEMATOLOGY ORDERAB LES Performing Organization Address [facility] de Phone Number [facility] [place] [address] * Triglyceride (11/25/2019 2:17 AM EST) Triglyceride 178 mg/dL [facility] Comment: Average Risk/Lower Risk: <150 mg/dL Borderline High Risk: 150-199 mg/dL High Risk: 200-499 mg/dL Very High Risk: >lb=796 mg/dL Blood specimen (specimen) 11/25/2019 2:17 AM EST 11/25/2019 2:26 AM EST Narrative Resulting Agency Comment Spec In Lab Martha Price MD CHEMISTRY ORDERABL ES Performing Organization Address City/[facility]/ZIP Co de Phone Number [facility] [place] [address] * HDL/Cholesterol Profile (11/25/2019 2:17 AM EST) Cholesterol, Total 172 mg/dL [facility] Comment: Lower Risk: <200 mg/dL Average Risk: 200-239 mg/dL Higher Risk: >yx=496 mg/dL HDL Cholesterol 30 mg/dL [facility] Comment: Males: ?? Higher Risk: <40 mg/dL Females: ?? HIgher Risk: <50 mg/dL Cholesterol/HDL Ratio 5.7 ratio [facility] Chol/HDL Interpretation See Note [facility] Comment: Lipid management should be guided by a patient? s ASCVD risk, goals and preferences. ACC/AHA Guidelines recommend high intensity statin if clinical ASCVD or LDL greater than or equal to 190 mg/dL. http://Doocuments.com/EFH-VJU-Fhvoleawh Measure LDL if Total Cholesterol minus HDL Cholesterol is greater than 220 mg/dL. Adults aged 40-75 with LDL 70-189 mg/dL should have their 10 year ASCVD risk estimated with the ACC/AHA ASCVD risk nursing scheduler http://tools.acc.org/FCOAO-Zfne-Trbsinffj/ Statin should be discussed if risk greater [...] MD CHEMISTRY ORDERABL ES Performing Organization Address City/[facility]/ZIP Co de Phone Number [facility] [place] [address] * LDL Cholesterol, Direct (11/25/2019 2:17 AM EST) LDL Cholesterol, Direct 126 mg/dL [facility] Comment: Lowest Risk: <100 mg/dL Lower Risk: 100-129 mg/dL Borderline High Risk: 130-159 mg/dL High Risk: 160-189 mg/dL Very High Risk: >zd=109 mg/dL Blood specimen (specimen) 11/25/2019 2:17 AM EST 11/25/2019 2:26 AM EST Narrative Resulting Agency Comment Spec In Lab Martha Price MD CHEMISTRY ORDERABL ES [facility] [place] [address] * (ABNORMAL) Hemoglobin A1c (11/25/2019 2:17 AM EST) Hemoglobin A1c 5.7(H) 4.3 - 5.6 % [facility] Comment: Reference Range: 4.3 - 5.6% [...] Mellitus, Diabetes Care 2013; 36: Suppl. 1, M17-71 Estimated Average Glucose 118 mg/dL [facility] Comment: eAG equivalents for HbA1c percentages: [...] into estimated average glucose values. ??Diabetes Care 2008:31(8):7091-1950. Blood specimen (specimen) 11/25/2019 2:17 AM EST 11/25/2019 2:26 AM EST Narrative Resulting Agency Comment Spec In Lab Martha Price MD CHEMISTRY ORDERABL ES Performing Organization Address [facility] de Phone Number [facility] [place] [phone] * Hepatic Function Panel (11/25/2019 2:17 AM EST) Protein, Total 6.6 6.1 - 8.0 gm/dL [facility] Albumin 3.8 3.2 - 5.2 gm/dL [facility] Aspartate Aminotransferase 17 0 - 39 unit/L [facility] Alanine Aminotransferase 14 0 - 55 unit/L [facility] Alkaline Phosphatase 62 40 - 130 unit/L [facility] Bilirubin, Total 0.5 0.2 - 1.3 mg/dL [facility] Bilirubin, Direct 0.1 0.0 - 0.3 mg/dL [facility] Blood specimen (specimen) 11/25/2019 2:17 AM EST 11/25/2019 2:26 AM EST Narrative Resulting Agency Comment Spec In Lab Martha Price MD CHEMISTRY ORDERABL ES Performing Organization Address [facility]/State/ZIP Co de Phone Number [facility] [place] [address] * Phosphorus (11/25/2019 2:17 AM EST) Phosphorus 3.0 2.5 - 4.5 mg/dL [facility] Blood specimen (specimen) 11/25/2019 2:17 AM EST 11/25/2019 2:26 AM EST Narrative Resulting Agency Comment Spec In Lab Martha Price MD CHEMISTRY ORDERABL ES Performing Organization Address [facility] Co de Phone Number [facility] [place] [address] * Magnesium (11/25/2019 2:17 AM EST) Magnesium 0.84 0.69 - 1.07 mmol/L [facility] Blood specimen (specimen) 11/25/2019 2:17 AM EST 11/25/2019 2:26 AM EST Narrative Resulting Agency Comment Spec In Lab Martha Price MD CHEMISTRY ORDERABL ES Performing Organization Address [facility] Co de Phone Number [facility] [place] [address] * Urinalysis with reflex Culture (11/24/2019 9:46 PM EST) Glucose, Urine Dipstick Negative Negative mg/dL [facility] Protein, Urine Dipstick Negative Negative mg/dL [facility] Bilirubin, Urine Dipstick Negative Negative mg/dL [facility] Comment: Clinical correlation required for positive Urine Bilirubin results as false positive may occur with some drugs and drug related products. If a false positive is suspected a serum total bilirubin should be considered if clinically indicated. Urobilinogen, Urine Dipstick Normal Normal mg/dL [facility] pH, Urn (dipstick) 6.5 5.0 - 8.0 [facility] Blood, Urine Dipstick Negative Negative mg/dL [facility] Ketone, Urine Dipstick Negative Negative mg/dL [facility] Nitrite, Urine Dipstick Negative Negative [facility] Leukocytes, Urine Dipstick Negative Negative [facility] Appearance, Urine Dipstick Clear Clear [facility] Specific Mobile Urine Automated >=1.030 1.002 - 1.030 [facility] Color, Urine Dipstick Yellow Yellow [facility] Reflex to Culture No [facility] Urine specimen obtained by clean catch procedure (specimen) 11/24/2019 9:46 PM EST 11/24/2019 10:50 PM EST Narrative Resulting Agency Comment Spec In Lab Martha Price MD URINE ORDERABLES [facility] [place] [address] documented in this encounter Visit Diagnoses Not on filedocumented in this encounter Admitting Diagnoses Diagnosis Stroke [...] Given 11/25/2019 9:05 AM EST 75 mg heparin (Porcine) subcutaneous injection 5,000 Units 5,000 Units, Subcutaneous, EVERY 12 HOURS SCHEDULED (2 times per day), First dose on Sat11/26/19 at 2100, Until Discontinued, Routine Given 11/27/2019 8:06 AM EST 5,000 Units Given 11/26/2019 8:43 PM EST 5,000 Units iodixanoL (VISIPAQUE) 320 mg iodine/mL injection ONCE PRN, Starting on Sat11/25/19 at 1718, Until Sat11/27/19 at 1917, Intra-Operative (Intra-Procedure), Routine Given 11/25/2019 5:18 PM EST 20.5 mLs 19- Surgical Site polyethylene glycol (Miralax) packet 17 g 17 [...] Given 11/26/2019 8:48 AM EST 5 mLs documented in this encounter Active and Recently Administered Medications Times are shown in EST. Scheduled Medication Order 11/25/2019 11/26/2019 11/27/2019 aspirin chewable tablet 81 mg 81 mg, Oral, DAILY, First dose on Sat11/25/19 at 1015, Until Discontinued, Routine 1036 (Given - Provider: Elsi Santos RN)1429 (NOV Hold - Provider: Admin Adt - Reason: Transfer to a Procedural area)2242 (MAR Unhold - Provider: Admin Adt) 0859 (Given [...] on Sat11/25/19 at 0900, Until Discontinued, Routine 09 (Given - Provider: Elsi Santos RN)1429 (NOV [...] 1 dose, On Sat11/25/19 at 2215, Routine 2205 (Given - Provider: Kerry Bergeron, PHILOMENA) lidocaine ((GLYDO)) 2 % gel 11 mL (COMPLETED) 11 mL, INTRA-URETHRAL, ONCE, 1 dose, On Sat11/25/19 at 2215, Routine 220 (Given - Provider: Kerry Bergeron, PHILOMENA) polyethylene glycol (Miralax) packet 17 g 17 g, Oral, DAILY, First dose on Sat11/25/19 at 0900, Until Discontinued, Routine 0900 (Not Given - Provider: Elsi Santos RN - Reason: Patient/family refused)1429 (NOV Hold - Provider: Admin Adt - [...] Adt) 0848 (Given - Provider: Bela Desouza RN)2043 (Given - Provider: Jinny Allan RN) 0900 [...] (10 mL/hr), Intravenous, CONTINUOUS, Starting on Cristal 320 at 0000, Until Cristal 320 at 0554, Routine 0006 (New Bag - Provider: Joanne Tobar RN) heparin 25,000 units in sodium chloride 0.45% 500 mL infusion (CANCELED)(Linked Group 1) 0-5,000 Units/hr (0-100 mL/hr), Intravenous, CONTINUOUS, Starting on Cristal 320 at 0615, Until Cristal 3//20 at 0758, Begin infusion at 1,350 units [...] 0636 (New Bag - Provider: Joanne Tobar, PHILOMENA)0847 (Stopped - Provider: Bela Desouza RN) sodium [...] Oral, EVERY 6 HOURS PRN, Starting on Tu11/24/19 at 2143, Until Sat11/27/19 at 1917, Pain, Fever, pain or temperature greater than 100 degrees F (measured by mouth), Maximum dose of acetaminophen is 4000 mg from all sources in 24 hours., Routine 1429 (NOV Hold - Provider: Admin Adt - Reason: Transfer to a Procedural area)1839 (MAR Unhold - Provider: Kerry Bergeron, PHILOMENA)1855 (Given - Provider: Kerry Bergeron, PHILOMENA) 0150 (Given - Provider: Joanne [...] Stroke documented in this encounter Care Teams [employer] Machine Operator Relationship Specialty Start Date End Date Mario Williamson MD [address] [place] [address] PCP - General Family Medicine 11/24/19 documented as of this encounter
--- OUTSIDE RECORDS SUMMARY | 2024-05-28 21:20 | XMS_ITS | Encounter Summary ---
Author Organization [facility] [place] [address] Care Team Providers Care Cafeteria Team Leader Name Role Phone Mario Williamson MD Primary Care Provider [phone] Encounter Details Date Type Department Care Team (Late st Contact Info) Description 11/24/2019 [place] [address] Martha Price MD [facility] [place] [address] Social History Tobacco Use Types Packs/Day Years Used Date Smoking Tobacco: Never Assessed Sex and Gender Information Value Date Recorded Sex Assigned at Not on file Gender Identity Not on file Sexual Orientation Not on file documented as of this encounter Miscellaneous Notes * Telephone Encounter - Martha Price MD - 11/24/2019 4:52 PM EST TeleStroke Advice Documentation Caller: [facility]. K[facility]: [facility] Time of onset / Last known well: 1500 11/24/2019 Time of ED Arrival: 1530 Time of call to [facility]: [id number] Clinical Synopsis: 69 y/o male with long history of [...] no facial palsy. Following commands. NIHSS 3. Discussed with provider that thrombolytic therapy could still be consider even with low NIHSS and advice to have discussion regarding risk vs benefit of thrombolytics in this situation with patient. Provider informed me that after conversation with the patient they decided against thrombolytic therapy. He also informed me that patient continue to improve with minimal dysarthria now. CTA of head an neck reported a [...] symptomatic carotid disease. Will be admitted to [facility] level with evaluation by vascularsurgery upon arrival. Current BP: 141/90 NIHSS: [address]: No acute findings Disposition: _X_Immediate transfer to [facility] ED for further care __Further input/transfer to [facility] not currently required __Other: N.B. Since we have not evaluated this patient, this is not an official consultation and we are not stating that a specific treatment decision is correct or incorrect. documented in this encounter Plan of Treatment Not on file documented as of this encounter Visit Diagnoses Not on filedocumented in this encounter Care Teams Cafeteria Team Leader Relationship Specialty Start Date End Date Mario iWlliamson MD [address] [facility] [place] [address] PCP - General Family Medicine 11/24/19 documented as of this encounter
--- OUTSIDE RECORDS SUMMARY | 2024-05-28 21:20 | XMS_ITS | Encounter Summary ---
[place] [address] Care Team Providers Care Refrigerated Company Driver Name Role Phone Mario Williamson MD Primary Care Provider [phone] Encounter Details Date Type Department Care Team (Late st Contact Info) Description 11/25/2019 3:45 PM EST Ancillary [place] [id number] Social History Tobacco Use Types Packs/Day Years Used Date Smoking Tobacco: Never Assessed Sex and Gender Information Value Date Recorded Sex Assigned at Not on file Gender Identity Not on file Sexual Orientation Not on file documented as of this encounter Plan of Treatment Not on file documented as of this encounter Procedures Procedure Name Priority Date/Time Associated Diagnosis Comments IR OR VASC ANGIOGRAM IMAGE STORAGE ONLY Routine 11/25/2019 4:48 PM EST documented in this encounter Results * IR OR VASC Aniogram Image Storage Only (11/25/2019 4:48 PM EST) Narrative [facility] - 11/25/2019 3:44 PM EST This exam is auto-finalizing. It's purpose is for storage only. Josias Buckley MD IMG FILM LIBRARY ORD ERABLES [place], [place] documented in this encounter Visit Diagnoses Not on filedocumented in this encounter Care Teams Refrigerated Company Driver Relationship Specialty Start Date End Date Mario Williamson MD [address] [place] [address] PCP - General Family Medicine 11/24/19 documented as of this encounter
--- OUTSIDE RECORDS SUMMARY | 2024-05-28 21:20 | XMS_ITS | Encounter Summary ---
Author Organization [facility] [place] [address] Care Team Providers Care Anode Builder Name Role Phone Mario Williamson MD Primary Care Provider [phone] Reason for Visit * Auth/Cert Specialty Diagnoses / Procedures Referred By Wes fregoso Referred To Contact Diagnoses Stroke CVA Procedures ER IPI Admit Referral ID Status Reason Start Date Expiration Date Visits Re quested Visits Authorized [id number] 1 1 Encounter Details Date Type Department Care Team (Late st Contact Info) Description 11/25/2019 2:30 PM EST Anesthesia Event [place] [address] David Kendrick MD [facility] DR [place] [address] Anesthesia Record Procedure Summary Procedure Name Responsible Anesthesiologist Anesthesia Start Time Anesthesia Stop Time @TRANSCATH INTRAVASCULAR STENT,CAROTID,PERC,W\E MBOLIC PROT. (WRVU 17.75) (Right: Neck) David Kendrick MD 11/25/19 1430 11/25/19 1757 Events Date Time Event Comment 11/25/2019 1314 1430 AN Verify 1430 Start 1430 An Start Data 1441 An Induction 1445 An Intubation 1521 Anesthesia Ready 1522 ABG Data Arterial Blood Gas result: pH 7.43 pCO2 32.7 pO2 189.3 %O2 Sat 98.2 FiO2 0.5 HCO3 21.2 BE -3.2 Hb 13.7 K 3.15 Glucose 81 Lactate 1.44 1545 Procedure Start 1604 Heparin 1634 Vascular Clamp ON 1635 Quick Note 1635 Quick Note Present mdk 1645 Vascular Clamp OFF 1651 Protamine 1719 Handoff Intra-procedure anesthesia care was transferred after review of the patient's history, current anesthetic/surgical status and procedural plan, anticipated issues and expected post-operative course (including disposition.) David Hill, TUTOR 1726 Procedure Stop 1749 Extubation/LMA Out 1749 an stop data 1757 Recovery or ICU Handoff Sonia ent care was transferred to the destination unit staff after review of the patient's medical history, current anesthetic/surgical status and plan, according to the Provider Handoff Checklist. 1757 Stop Meds Name Total IV Lidocaine 50 mg Propofol 200 mg Propofol INF 549.6 mg Rocuronium 120 mg PHENYLephrine 640 mcg ePHEDrine 15 mg Heparin 7,000 Units Protamine 30 mg Ondansetron 8 mg Neostigmine 4 mg Glycopyrrolate 0.4 mg ceFAZolin 2 g PHENYLephrine INF 3,440 mcg Lactated Ringers 700 mL Lactated Ringers 0 mL * Agents Name O2 Air N2O Sevoflurane (et) Isoflurane (et) * Blood No blood administrations on file. Lines, Drains, and Airways Type Details Placement Removal (RETIRED) Peripheral IV Line - Single Lumen 11/24/191999; median cubital vein (antecubital fossa), left; 18 gauge; prsent on admission; 11/27/19; 1446 11/24/191999 by Shahida Dean RN 11/27/19 1446 by Bela Desouza RN (RETIRED) Peripheral IV Line - Single Lumen 11/24/191999; cephalic vein (lateral side of arm), right; 18 gauge; present on admission; 11/27/19; 1445 11/24/191999 by Shahida Dean RN 11/27/19 1445 by Bela Desouza RN ETT Mask Ventilation: Adjunct (2); ETT Type: Cuffed, Oral; ETT Size: 7.5 mm; Mac Blade: 4; Notes: Asleep, Pre-O2, Stylette; Attempts: 1; Laryngoscopy Grade: 1; ETT Placement Verified By: Auscultation, Capnometry, Visual; Secured at Teeth: 22 cm; Inserted by: Edvin LEE; Removal Date: 11/25/19; Removal Time: 174811/25/19 1445 by Sneha Jasso 11/25/19 1749 by David Kendrick MD Arterial Line 11/25/19; 1518; radi al artery, left; 20 gauge; MD Mireille; Sterile Prep, Sterile Gloves; 11/25/19; 220311/25/19 1518 by Sneha Jasso 11/25/19 2204 by Kerry Bergeron RN Incision 11/25/19; 1545; neck ; 11/27/19; 1513 11/25/19 1545 by Leigh Bolaños RN 11/27/19 1513 by Bela Desouza RN Incision 11/25/19; 1545; leg; non-laparascopic puncture; 11/27/19; 1514 11/25/19 1545 by Leigh Bolaños RN 11/27/19 1514 by Bela Desouza RN documented in this encounter Social History Tobacco Use Types Packs/Day Years Used Date Smoking Tobacco: Never Assessed Sex and Gender Information Value Date Recorded Sex Assigned at Not on file Gender Identity Not on file Sexual Orientation Not on file documented as of this encounter OR Notes * Anesthesia Postprocedure Evaluation - David Kendrick MD - 11/25/2019 6:37 PM EST Department of Anesthesiology Post-procedure Note Patient: Skye Morris Procedure Summary Date: 11/25/19 Room / Location: [facility] OR [address] [place] [address] MAIN OR Anesthesia Start: 1430 Anesthesia Stop: 1756 Procedure: @TRANSCATH INTRAVASCULAR STENT,CAROTID,PERC,W\EMBOLIC PROT. (WRVU 18) (Right Neck) Diagnosis: (right carotid stenosis, symptomatic) Surgeon: Renetta Nice MD Responsible Provider: David Kendrick MD Anesthesia Type: general ASA Status: 4 - Emergent All Anesthesia Providers: Anesthesiologist: David Kendrick MD TUTOR: Carlos Vega CRNA; David Hill CRNA Student Nurse Industrial Mechanic: Sneha Jasso Vitals Value Taken Time BP 101/69 11/25/2019 6:30 PM Temp 36.4 ??C (97.5 ??F) 11/25/2019 6:00 PM Pulse 57 11/25/2019 6:36 PM Resp 18 11/25/2019 6:36 PM SpO2 96 % 11/25/2019 6:36 PM Pain Level 5 11/25/2019 6:00 PM Vitals shown include unvalidated device data. Patient Location: PACU/[facility] Level of Consciousness: Awake and Alert Pain Management: Satisfactory Analgesia PONV: None Cardiovascular Status: At Baseline and Hemodynamically Stable Respiratory Status: At Baseline and Room Air Postoperative Fluid Status: Intravascular EUvolemia Possible Anesthetic Complications: NONE apparent at time of evaluation Final Primary Anesthesia Type: General (The anesthetic type performed was the same as planned.) Comments: DAVID KENDRICK MD * Anesthesia Preprocedure Evaluation - David Kendrick MD - 11/25/2019 1:13 PM EST Images from the original note were not included. Pre-Anesthesia Evaluation for: Skye Morris a 69 y.o. male. Procedure(s): @TRANSCATH INTRAVASCULAR STENT,CAROTID,PERC,W\EMBOLIC PROT. (WRVU 18) Patient Active Problem List Diagnosis ??? Stroke No past medical history on file. No past surgical history on file. Social History Tobacco Use ??? Smoking status: Not on file Substance Use Topics ??? Alcohol use: Not on file Social History Substance and Sexual Activity Drug Use Not on file Allergies no known allergies Medications: MAR and/or home medications have been reviewed. Physical Exam: Most Recent Vitals: 11/25/19 1200 BP: (!) 159/91 Pulse: 80 Resp: 23 Temp: 36.6 ??C (97.9 ??F) SpO2: 99% There is no height or weight on file to calculate BMI. Weight: 91.6 kg (202 lb) Airway Assessment: Mallampati: II TM distance: >3 FB Neck ROM: full Cardiovascular Assessment: cardiovascular exam normal Pulmonary Assessment: pulmonary exam normal Dental Assessment: Misc Assessment: Patient is wearing No contact(s). IV access: Peripheral line Anesthesia Plan: ASA 4 emergent general, with a(n) intravenous induction 69 y.o. M with hx smoking who is admitted to neurology after deferring TPA at OSH for R MCA symptoms of left hemiparesis, facial droop, dysarthria with low NIHSS with corresponding R ICA stenosis seen on CTA. Concerning appearing thrombus component to R ICA plaque for TCAR. Region - Other Informed Consent: Anesthetic plan and risks discussed with patient. Plan discussed with TUTOR. PAT Clinic Note documented in this encounter Plan of Treatment Not on file documented as of this encounter Visit Diagnoses Not on filedocumented in this encounter Administered Medications Inactive Administered Medications - up to 3 most recent administrations Medication Order MAR Action Action Date Dose Rate Site ceFAZolin (ANCEF) 1g in dextrose 5% 50mL PRN, Starting on Sat11/25/19 at 1528, Until Sat11/25/19 at 1757, Administer over 30 Minutes, Anesthesia Intra-op Given 11/25/2019 3:28 PM EST 2 g ePHEDrine 5 mg/mL multi-dose injection PRN, Starting on Sat11/25/19 at 1618, Until Sat11/25/19 at 1757, Anesthesia Intra-op, Routine Given 11/25/2019 4:31 PM EST 10 mg Given 11/25/2019 4:18 PM EST 5 mg glycopyrrolate (ROBINUL) multi-dose injection PRN, Starting on Sat11/25/19 at 1722, Until Sat11/25/19 at 1757, Anesthesia Intra-op, Routine Given 11/25/2019 5:22 PM EST 0.4 mg heparin (porcine) 1,000 unit/mL injection PRN, Starting on Sat11/25/19 at 1604, Until Sat11/25/19 at 1757, Anesthesia Intra-op, Routine Given 11/25/2019 4:04 PM EST 7,000 Units lactated ringers infusion CONTINUOUS PRN, Starting on Sat11/25/19 at 1433, Until Sat11/25/19 at 1757, Anesthesia Intra-op New Bag 11/25/2019 2:33 PM EST lactated ringers infusion CONTINUOUS PRN, Starting on Sat11/25/19 at 1513, Until Sat11/25/19 at 1757, Anesthesia Intra-op New Bag 11/25/2019 3:13 PM EST lidocaine (PF) (XYLOCAINE) 100 mg/5 mL (2 %) injection PRN, Starting on Sat11/25/19 at 1434, Until Sat11/25/19 at 1757, Anesthesia Intra-op, Routine Given 11/25/2019 2:41 PM EST 50 mg neostigmine (BLOXIVERZ) injection PRN, Starting on Sat11/25/19 at 1722, Until Sat11/25/19 at 1757, Anesthesia Intra-op, Routine Given 11/25/2019 5:22 PM EST 4 mg ondansetron (ZOFRAN) injection PRN, Starting on Sat11/25/19 at 1722, Until Sat11/25/19 at 1757, Anesthesia Intra-op, Routine Given 11/25/2019 5:22 PM EST 8 mg PHENYLephrine (OLESYA-SYNEPHRINE) 20 mg in sodium chloride 250 mL (standard ADULT & Pedi greater than 20kg) infusion CONTINUOUS PRN, Starting on Sat11/25/19 at 1539, Until Sat11/25/19 at 1757, Anesthesia Intra-op, Routine Rate/Dose Change 11/25/2019 4:49 PM EST 20 mcg/min 15 mL/hr Rate/Dose Change 11/25/2019 4:38 PM EST 40 mcg/min 30 mL/h r Rate/Dose Change 11/25/2019 4:35 PM EST 20 mcg/min 15 mL/h r PHENYLephrine in NS (PF) (OLESYA-SYNEPHRINE) 0.8 mg/10 mL (80 mcg/mL) multi-dose injection Syrg PRN, Starting on Sat11/25/19 at 1533, Until Sat11/25/19 at 1757, Anesthesia Intra-op, Routine Given 11/25/2019 4:17 PM EST 160 mcg Given 11/25/2019 3:44 PM EST 80 mcg Given 11/25/2019 3:40 PM EST 80 mcg propofol (DIPRIVAN) 10 mg/mL bolus injection (Anesthesia) PRN, Starting on Sat11/25/19 at 1434, Until Sat11/25/19 at 1757, Anesthesia Intra-op Given 11/25/2019 2:41 PM EST 200 mg propofol (DIPRIVAN) infusion CONTINUOUS PRN, Starting on Sat11/25/19 at 1516, Until Sat11/25/19 at 1757, Anesthesia Intra-op, Routine New Bag 11/25/2019 3:16 PM EST 50 mcg/kg/min 27.5 mL/hr protamine injection PRN, Starting on Sat11/25/19 at 1651, Until Sat11/25/19 at 1757, Anesthesia Intra-op, Routine Given 11/25/2019 4:51 PM EST 30 mg rocuronium (ZEMURON) multi-dose injection PRN, Starting on Sat11/25/19 at 1434, Until Sat11/25/19 at 1757, Anesthesia Intra-op, Routine Given 11/25/2019 4:24 PM EST 20 mg Given 11/25/2019 3:37 PM EST 20 mg Given 11/25/2019 2:42 PM EST 80 mg documented in this encounter Care Teams Anode Builder Relationship Specialty Start Date End Date Mario Williamson MD [address] [place] [address] PCP - General Family Medicine 11/24/19 documented as of this encounter
[2024-05-28 21:33] LABS: Abs Immature Grans 0.04 10^3/uL (0.0-0.06); Absolute Basophil Count 0.05 10^3/uL (0.0-0.2); Absolute Eosinophil Count 0.08 10^3/uL (0.0-0.7); Absolute Lymphocyte Count 1.29 10^3/uL (1.2-3.4); Absolute Neutrophil Count 8.08 10^3/uL (1.2-6.7); Basophils % 0.5 %; Eosinophils % 0.8 %; HCT 47.2 % (40.0-50.0); HGB 16.4 g/dL (13.5-17.5); Immature Grans % 0.4 %; Lymphocytes % 12.7 %; MCH 31.2 pg (27.0-33.0); MCHC 34.7 % (32.0-36.0); MCV 90 fL (80-95); MPV 9.5 fL (8.0-11.0); Monocytes % 5.9 %; Neutrophils % 79.7 %; Platelet Count 231 10^3/uL (130-400); RBC 5.25 10^6/uL (4.36-5.78); RDW 12.8 % (11.8-14.1); RDW-SD 42.1 fL; WBC 10.14 10^3/uL (4.4-10.8)
[2024-05-28 21:49] LABS: ALT 37 U/L (16-63); AST 30 U/L (15-37); Albumin 4.3 g/dL (3.4-5.0); Alkaline Phosphatase 101 U/L (46-116); Anion Gap 8.1 mmol/L (3-11); BUN 14 mg/dL (7-18); Bilirubin, Total 0.58 mg/dL (0.2-1.0); CO2 29.9 mmol/L (21.0-32.0); CREATININE 1.1 mg/dL (0.70-1.30); Calcium 9.6 mg/dL (8.5-10.1); Chloride 101 mmol/L (98-107); ETHANOL BLOOD 162.9 mg/dL (<10); Estimated GFR 71.32 (mL/min/1.73m2); Glucose 104 mg/dL (74-106); Sodium 139 mmol/L (136-145)
--- NOTE | 2024-05-28 22:27 | ED.GENADUL_ITS ---
Discharge Plan Disposition Patient Disposition: Home Condition: Stable Discharge Details Clinical Impression: Fall, Osteoarthritis, Essential hypertension, Abrasion, Laceration of nose, Alcohol intoxication Primary Care Provider: Mario Williamson ED Provider: Jinny Martinez Home Meds and New Rx's Prescriptions: No Action metoprolol succinate 50 mg tablet extended release 24 hr 50 mg PO DAILY Qty: 90 3RF Centrum Silver Men 300-600-300 mcg tablet 1 tab PO DAILY acetaminophen [Tylenol] 325 MG tablet 650 mg PO Q6H PRN aspirin [Adult Low Dose Aspirin] 81 mg tablet,delayed release (DR/EC) 81 mg PO DAILY donepezil 10 mg tablet 10 mg PO DAILY Qty: 30 5RF atorvastatin 80 mg tablet 80 mg PO QHS Qty: 90 3RF calcium carbonate [Tums] 200 MG tablet,chewable 200 mg PO PRN PRN Patient Comments: 06/28/16 uses PRN. LR Discharge Instructions Instructions: Preventing Falls ED Additional Instructions: You were seen in the emergency department today for evaluation after a fall. In our department you had a full physical examination performed, had laboratory studies that were reassuring though your alcohol is above the legal limit. You had a small laceration on your nose that was repaired with Steri-Strips, and had CT imaging of your head and cervical spine that did not show any acute injuries. Is safe for you to go home and follow-up with your primary care provider in the next few days to discuss this visit and any symptoms change, worsen, or persist. Thank you for allowing us to be part of your care. HPI General Mode of arrival: ambulatory . Date/Time Provider Initiated Documentation: 05/28/24 21:09 . Limitations to Documentation: no limitations . Information obtained by: patient and old records reviewed . HPI Narrative: MDM: This is a 73-year-old male patient presenting for evaluation of facial injuries after a fall. My differential includes but is not limited to intracranial hemorrhage, skull fracture, facial bone fracture. Certainly considered laceration/abrasion, spine fracture, though the patient is reassuringly neurovascularly intact, making spinal cord injury less likely. I considered intoxication, withdrawal syndromes, metabolic electrolyte derangement, kidney injury, liver disease, anemia. The patient was reassuringly without syncope, chest pain, dizziness, or other medical complaints prior to this event to suggest a nonmechanical reason for his fall. We will obtain imaging to include CT of the head and C-spine without contrast. Obtain laboratory studies to include CBC, CMP, and ethanol level. Will obtain an EKG to evaluate for arrhythmia or evidence of ischemia. The patient's tetanus was last administered in 2012 and we will provide a booster. Will perform wound care on his facial laceration and abrasions. ED Course: I independently interpreted the laboratory studies, which show no significant leukocytosis, anemia, or thrombocytopenia. The chemistry panel is without evidence of electrolyte abnormality, kidney dysfunction, or liver injury. Ethanol elevated to 162. I independently interpreted the patient's CT imaging, which shows no intracranial hemorrhage, skull fracture, spinal fracture, or other acute abnormality as a result of his trauma. Wound care was provided and the laceration on his nose was secured with Steri-Strips. The C-spine was clinically cleared, patient ambulated without difficulty, and at this time, the patient has had a full medical evaluation and is safe for discharge to home. They are hemodynamically stable, ambulatory, and tolerating PO. They are understanding of the follow-up plan and return precautions. They left our facility without incident. Jinny Martinez MD HPI: This is a 73-year-old male patient presenting for evaluation of a fall with facial injury. The patient reports that tonight he had a red solo cup that was 50% follow-up whiskey, 50% full of beer, and that he had been drinking when he got up to walk and tripped over something. He reports that he fell straight down onto his face onto the grass. He did not attempt to break his fall with his hands, states that he did not lose consciousness upon striking the ground. Prior to this event he reports that he did not feel dizzy, have a loss of consciousness, or experience chest pain. He states that he was able to get up and ambulate but his daughter wanted him to come to the emergency department to be evaluated. The patient reports that he is not a daily drinker, states that he has never been through alcohol withdrawal in the past. Experiencing some pain over his nasal bridge and forehead but otherwise without complaint at this time. He does not use blood thinning medications but does take a baby aspirin daily due to a history of stroke (no residual deficits reported by patient or family) Exam: Gen: Awake and alert, in no apparent distress HEENT: Abrasion anterior/central forehead, 1-1/2 cm laceration that is well- approximated over the bridge of the nose with no underlying deformity, crepitus. The patient had left-sided epistaxis with no septal hematoma, currently not bleeding. Non-icteric sclera, pupils equal and reactive at 3 mm bilaterally, EOMs are full with extinguishable horizontal nystagmus bilaterally. Teeth and tongue are not injured. Neck: Supple, no midline cervical spine tenderness, c-collar in place from triage Lungs: No apparent respiratory distress, normal respiratory effort. CV: Appears well perfused, strong distal pulses Abdomen: Non-distended, soft, nontender to palpation MSK: Moves 4 extremities without apparent limitation in ROM. The patient has no tenderness to palpation of the T or L-spine, clavicles and chest wall are stable and without deformity. Pelvis is stable to AP compression. Skin: Visualized skin without rashes, cyanosis. Neuro: Normal Gait, no obvious focal deficits or facial asymmetry. Speaks in full, clear sentences. Psych: Appropriate for situation. Related Data Home Medications ?Medication ?Instructions ?Recorded ?Confirmed acetaminophen 325 mg tablet 650 mg PO Q6H PRN 11/25/12 05/28/24 (Tylenol) calcium carbonate (Tums) 200 mg PO PRN PRN 12/27/12 05/28/24 aspirin 81 mg tablet,delayed 81 mg PO DAILY 12/11/19 05/28/24 release (Adult Low Dose Aspirin) [id number] 300 mcg-K 60 1 tab PO DAILY 02/12/20 05/28/24 mcg-lycop 600 mcg-lutein 300 mcg tablet (Centrum Silver Men) metoprolol succinate 50 mg 50 mg PO DAILY #90 tabs 01/23/23 05/28/24 tablet,extended release 24 hr donepezil 10 mg tablet 10 mg PO DAILY #30 tabs 01/25/24 05/28/24 atorvastatin 80 mg tablet 80 mg PO QHS #90 tabs 05/18/24 05/28/24 Previous Rx's ?Medication ?Instructions ?Recorded metoprolol succinate 50 mg 50 mg PO DAILY #90 tabs 01/23/23 tablet,extended release 24 hr donepezil 10 mg tablet 10 mg PO DAILY #30 tabs 01/25/24 atorvastatin 80 mg tablet 80 mg PO QHS #90 tabs 05/18/24 Allergies Allergy/AdvReac Type Severity Reaction Status Date / Time No Known Allergies Allergy Verified 01/01/24 10:44 General Stated Complaint: Fall/Non TraumaCriteria EDEL: 3 Course Vital Signs Vital signs: Vital Signs Temperature 36.8 C 05/28/24 20:58 Pulse 85 05/28/24 20:58 Respiratory Rate 15 05/28/24 20:58 Blood Pressure 136/83 05/28/24 20:58 Pulse Oximetry 96 05/28/24 20:58 Temperature 36.8 C 05/28/24 20:58 Pulse 85 05/28/24 20:58 Respiratory Rate 15 05/28/24 20:58 Respiratory Effort Normal, Non-Labored 05/28/24 22:07 Blood Pressure 136/83 05/28/24 20:58 Blood Pressure Position Sitting 05/28/24 20:58 Pulse Oximetry 96 05/28/24 20:58 Oxygen Delivery Method Room Air 05/28/24 20:58 Oxygen Flow Rate 0 05/28/24 20:58 Pain Level 2 05/28/24 22:07 Lab/Test Results Lab/Test Results: Laboratory Tests Range/Units 05/28/24 21:25 WBC (4.4-10.8) 10^3/uL 10.14 RBC (4.36-5.78) 10^6/uL 5.25 Hgb (13.5-17.5) g/dL 16.4 Hct (40.0-50.0) % 47.2 MCV (80-95) fL 90 MCH (27.0-33.0) pg 31.2 MCHC (32.0-36.0) % 34.7 RDW (11.8-14.1) % 12.8 Plt Count (130-400) 10^3/uL 231 MPV (8.0-11.0) fL 9.5 Immature Gran % % 0.4 Neutrophils % % 79.7 Lymphocytes % % 12.7 Monocytes % % 5.9 Eosinophils % % 0.8 Basophils % % 0.5 Nucleated RBC % (0.0-0.3) % 0.0 Absolute Neutrophils (1.2-6.7) 10^3/uL 8.08 H Absolute Lymphocytes (1.2-3.4) 10^3/uL 1.29 Absolute Monocytes (0.1-0.8) 10^3/uL 0.60 Absolute Eosinophils (0.0-0.7) 10^3/uL 0.08 Absolute Basophils (0.0-0.2) 10^3/uL 0.05 Sodium (136-145) mmol/L 139 Potassium (3.5-5.1) mmol/L 4.0 Chloride (98-107) mmol/L 101 Carbon Dioxide (21.0-32.0) mmol/L 29.9 Anion Gap (3-11) mmol/L 8.1 BUN (7-18) mg/dL 14 Creatinine (0.70-1.30) mg/dL 1.1 Est GFR (CKD-EPI 2020) (mL/min/1.73m2) 71.32 Glucose (74-106) mg/dL 104 Calcium (8.5-10.1) mg/dL 9.6 Total Bilirubin (0.2-1.0) mg/dL 0.58 AST (15-37) U/L 30 ALT (16-63) U/L 37 Alkaline Phosphatase (46-116) U/L 101 Total Protein (6.4-8.2) g/dL 8.0 Albumin (3.4-5.0) g/dL 4.3 Ethyl Alcohol (<10) mg/dL 162.9 H Medical Decision Making Quality:SDOH Health Related Social Needs: No Data to Display PFSH All Active Problems Alcohol intoxication (Acute) Laceration of nose (Acute) Abrasion (Acute) Fall (Acute) Hand tingling (Acute) Neck pain (Acute) Memory loss (Acute) Eczema (Acute) Allergic sinusitis (Acute) Diverticula of colon (Acute) Minor disease confined to the sigmoid colon Family history of malignant neoplasm of colon in relative diagnosed when older than 50 years of age (Acute) Osteoarthritis of right knee (Acute) Screening for colon cancer (Acute) Carotid stenosis, symptomatic w/o infarct (Acute ~11/24/19) 11/25/19 [facility] [place] Right Internal Carotid Artery TCAR (2 stents) History of right MCA stroke (Acute ~11/25/19) [facility] [place] WITH LEFT HEMIparesis s/p rt ICA stent Hypertension (Chronic) check some BPs at home EKG at next visit Essential hypertension (Acute 09/14/13) Osteoarthritis (Acute 11/25/12) RT Hip Replacement 2008 Lt Hip Replacement 1995 x 2 Primary osteoarthritis of right knee (Acute 07/29/17) Smoker (Acute 03/15/14) occas cigar Medical History (Updated 05/28/24 @ 23:27 by Jinny Martinez MD) Cellulitis of foot, right Cold extremities Arthralgia Increased BMI better Primary malignant neoplasm of prostate (05/23/10) prostatectomy 2009 se[facility] amarjit 6 Hypertriglyceridemia Essential hypertension History of prostate cancer Ileus SBO (small bowel obstruction) Surgical History (Updated 10/18/21 @ 14:17 by Yojana Ramos RN) History of colonoscopy (~09/29/21) Status post hip replacement History of prostatectomy Status post total knee replacement Replacement of total knee joint BILATERAL WITH A RECURRANCE ON THE LEFT WITH REPAIR AGAIN 2009 Total replacement of hip 1996 LEFT 2009 RIGHT Prostatectomy 2009; [facility] Repair of inguinal hernia Bilateral 03/25/18-LEFT;DR. MORSE Family History Mother , 83 COPD (chronic obstructive pulmonary disease) Diabetes Father , 83 Asthma Sister Stroke Brother No problems noted. Paternal Grandfather , 72 COPD (chronic obstructive pulmonary disease) Maternal Grandfather , 95 No problems noted. Paternal Grandmother , 97 No problems noted. Brother No problems noted. Brother Alcohol abuse Son Alcohol abuse Daughter Depression Son Substance abuse Brother No problems noted. Maternal Grandmother , 80 No problems noted. Social History Smoking/Tobacco Use Status: Former Tobacco Use tobacco type: cigars Quit Date: 09/23/00 Tobacco: How many years used: 15 Second Hand Exposure: Yes Smoking risk assessment performed?: Yes Alcohol Intake: current Alcohol Intake frequency: a few times a week Alcohol type: beer and hard liquor Drug use: Never Substance use type: does not use Caregiver/Support person: No Household members: none Housing: house Communication Needs: None Do you need help understanding health information?: Always Pets and animals: Yes Pets and animals: cat(s) Sexually active: No Do you think of yourself as: straight/heterosexual Current gender identity: male What is your relationship status?: How often do you talk on the phone with friends or family?: three or more times per week How often do you get together with friends or relatives?: once per week How often do you attend scientology or zoroastrianism services?: decline to answer Do you belong to any clubs or organized social groups?: no Panel score (0-1 are the most socially isolated patients): 1 What type of physical activity do you participate in: none Ana/Episcopalian: No preference Special ana needs: No Seatbelt use: always Helmet use: Yes Helmet use: sometimes Drive intox or ride w/intox route 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: No Additional Social history: Unable to assess filipe SCHMIDT Have you Been Recently Intoxicated or Drunk Within the Last 30 days?: No Have you Ever Experienced Previous Episodes of Alcohol Withdrawal?: No Have you ever Experienced Withdrawal Seizures?: No Have you ever Experienced Delirium Tremens(DT)s?: No Have you ever undergone Alcohol Rehabilitation Treatment (i.e, inpt ot outpatient treatment programs)?: No Have you ever Experienced Blackouts?: No Have you ever Combined Alcohol with other Downers within the last 90 days?: No Have you ever Combined Alcohol with any other Substance of Abuse during the last 90 days?: No Positive Blood Alcohol level on Presentation? [PCS.BAL]: Yes Evidence of Increased Autonomic Activity (i.e. HR>120, tremor, sweating, agitation, nausea)?: No Result: 1
--- NOTE | 2024-05-28 23:22 | DI.VRAD_ITS ---
PROCEDURE INFORMATION: Exam: CT Head Without Contrast Exam date and time: 05/28/2024 10:23 PM Age: 73 years old Clinical indication: Other: Fall, forehead strike TECHNIQUE: Imaging protocol: Computed tomography of the head without contrast. COMPARISON: CT BRAIN NECK CTA 11/24/2019 3:48 PM FINDINGS: Brain: There is no acute intracranial hemorrhage, mass effect or midline shift. There is no large acute territorial cerebral infarct. Cerebral ventricles: No ventriculomegaly. Paranasal sinuses: Visualized sinuses are unremarkable. No fluid levels. Mastoid air cells: Visualized mastoid air cells are well aerated. Bones: Unremarkable. No acute fracture. Soft tissues: Unremarkable. IMPRESSION: No acute intracranial hemorrhage, mass effect or midline shift. PROCEDURE INFORMATION: Exam: CT Cervical Spine Without Contrast Exam date and time: 05/28/2024 10:23 PM Age: 73 years old Clinical indication: Other: Fall, forehead strike TECHNIQUE: Imaging protocol: Computed tomography of the cervical spine without contrast. COMPARISON: CR XR CERVICAL SPINE COMP 4-5V 10/31/2023 9:01 AM FINDINGS: Tubes, catheters and devices: A vascular stent noted in the right neck. Bones: No acute fracture. There is multilevel degenerative disc disease and bilateral uncovertebral and facet arthropathy causing bilateral neural foraminal narrowing most prominent at C3-C4, C4-C5 and C5-C6, greater on the left. No significant spinal canal stenosis. Lungs: Lung apices are normal. Soft tissues: Unremarkable. IMPRESSION: No acute fracture. Multilevel degenerative changes as described. Dictated and Authenticated by: Rupal Shi MD. Ordering:NORMA Aguilar MD
[2024-05-28 23:39] VITALS: BP 126/76; PULSE 70; RESP 16; O2SAT 99
== END 2024-05-28 23:39 | disposition home or self-care (01) ==
PROVIDERS: Emergency Provider Emergency Medicine; PCP Family Medicine
DX: S01.21XA Laceration without foreign body of nose, initial encounter (principal); Z23 Encounter for immunization; W19.XXXA Unspecified fall, initial encounter; F10.929 Alcohol use, unspecified with intoxication, unspecified
CPT/HCPCS: 36415; 80053; 90471; 90715; 93005; 99284; 70450; 72125; 80320; 85025; 93010; 99283

== ENCOUNTER 2024-06-25 01:21 | Outpatient (CLI) | payer MEDICARE, SELFPAY ==
--- NOTE | 2024-06-25 07:45 | DI.US_ITS ---
Exam(s) US THYROID EXAM: US THYROID CLINICAL HISTORY: evaluate nodule seen on CT,nodule lt lower lobe,e04.1. TECHNIQUE: Ultrasound thyroid performed using standard protocol. COMPARISON: CT CT BRAIN NECK CTA from 11/24/[address] HEAD CERVICAL SPINE WO from 05/28/2024 FINDINGS: ISTHMUS: 4 mm RIGHT LOBE: Size: 5.4 x 1.9 x 1.8 cm Echogenicity: Normal. Vascularity: Normal. Nodules: None. LEFT LOBE: Size: 5.3 x 1.7 x 1.9 cm Echogenicity: Normal. Vascularity: Normal. Nodules: Nodule lower pole measuring 1.8 x 1.5 x 1.2 cm. Solid hypoechoic, taller than wide, smoothl y marginated without echogenic foci. TR 5. FNA recommended. OTHER FINDINGS: None. IMPRESSION: TR 5 nodule lower pole left lobe. FNA recommended. DATA REPOSITORY:
== END 2024-06-25 01:41 ==
LOC: DI 01:21
PROVIDERS: PCP Family Medicine; Visit Provider Family Medicine
DX: E04.1 Nontoxic single thyroid nodule (principal)
CPT/HCPCS: 76536

== ENCOUNTER 2024-07-14 01:15 | Outpatient (CLI) | payer MEDICARE, SELFPAY ==
--- NOTE | 2024-07-14 11:20 | DI.US_ITS ---
Exam(s) US NEEDLE LOCAL OTHER WO RAD EXAM: Left-sided thyroid nodule,ULTRASOUND GUIDED BX,E04.1 COMPARISON: No exams were available for comparison TECHNIQUE: Ultrasound performed using standard protocol. FINDINGS: Sonography was provided for Dr. Sosa during the performance of a thyroid nodule biopsy. Please re chris to the procedure report for complete details. DATA REPOSITORY:
--- NOTE | 2024-07-14 11:40 | PAPNONF_PTH ---
PATIENT: Skye Morris LOC: [facility] U#:[id number] AGE/SX: 73/M ROOM: RE07/14/[address]: Meagan Dimas : 1950 BED: DIS: 07/14/2024 SPEC #: [id number] RECD: 07/14/24 13:02 STATUS: KARSON JI #: [id number] PEACE: 07/14/24 11:[address]: Meagan Dimas [facility] RECD BY: Alissa Salomon ENTERED: 07/14/24 13:03 SP TYPE: JESS HERNANDEZ DR: Mario Williamson MD Tissues: 1 - BODY FLUID CYTO-FINE NEEDLE [facility] Procedures: BODY FLUID CYTO-FINE NEEDLE ASPIRATE[facility] Comments: [id number] (PATH FNA CONSULT) (REFRIGERATED)
--- NOTE | 2024-07-14 12:05 | OPPNE_ITS ---
Date of service: 07/14/24 Time of Service: 12:05 Procedure Note Date of procedure: 07/14/24 Procedure: Ultrasound-guided FNA, left thyroid nodule, pathology present Procedure Diagnosis: Left TR 5 thyroid nodule, incidentally found Procedure Indications: The patient has a left-sided TR 5 nodule meeting criteria for biopsy. Options were explained to the patient and his daughter regarding options. They elected to undergo the above procedure. Consent was filled out and signed prior to the procedure. The below was then performed. Procedure Description: The patient was positioned in supine position and prepped and draped with his neck slightly extended. 1% lidocaine with 1/100,000 epinephrine was injected in the skin and subcutaneous tissues overlying the thyroid nodules. A 25-gauge needle was then carefully introduced into the thyroid nodule and used to obtain adequate cellularity. It took 3 passes to have adequate cellularity as judged b y pathology. Following this, 2 additional passes were made for potential Afirma testing. The patient tolerated the procedure well. Bleeding was minimal and self-limited. A sterile dressing was applied, the patient was allowed to sit, stand, and then ambulate. His vital signs remained stable. He will remove the bandage later on today and not replace it. He will avoid anything strenuous today. He will call with any signs of infection or if he does not hear from me within 1 week with regard to pathology results. He had no further questions. He is comfortable with the plan. His daughter had no further questions and is comfortable with the plan.
== END 2024-07-14 01:35 ==
LOC: DI 01:16
PROVIDERS: PCP Family Medicine; Visit Provider Registered Nurse Maternal Newborn
DX: E04.1 Nontoxic single thyroid nodule (principal)
CPT/HCPCS: 10005; 76942; 88104

== ENCOUNTER 2025-05-25 11:18 | Outpatient (CLI) | payer MEDICARE, SELFPAY ==
[2025-05-25 12:52] LABS: Abs Immature Grans 0.01 10^3/uL (0.0-0.06); HCT 44.5 % (40.0-50.0); HGB 15.2 g/dL (13.5-17.5); Immature Grans % 0.2 %; MCH 30.6 pg (27.0-33.0); MCHC 34.2 % (32.0-36.0); MCV 90 fL (80-95); MPV 9.9 fL (8.0-11.0); Platelet Count 176 10^3/uL (130-400); RBC 4.96 10^6/uL (4.36-5.78); RDW 12.9 % (11.8-14.1); RDW-SD 42.4 fL; WBC 6.21 10^3/uL (4.4-10.8)
[2025-05-25 14:14] LABS: ALT 44 U/L (16-63); AST 28 U/L (15-37); Albumin 4.1 g/dL (3.4-5.0); Alkaline Phosphatase 98 U/L (46-116); Anion Gap 9.7 mmol/L (3-11); BUN 24 mg/dL (7-18); Bilirubin, Total 0.7 mg/dL (0.2-1.0); CO2 27.3 mmol/L (21.0-32.0); Calcium 9.3 mg/dL (8.5-10.1); Chloride 106 mmol/L (98-107); Estimated GFR 79.47 (mL/min/1.73m2); Glucose 92 mg/dL (74-106); Potassium 4.1 mmol/L (3.5-5.1); Sodium 143 mmol/L (136-145); Total Protein 7.6 g/dL (6.4-8.2)
== END 2025-05-25 11:19 | disposition home or self-care (01) ==
LOC: LOS 11:19
PROVIDERS: PCP Family Medicine; Referring Provider Family Medicine; Visit Provider Family Medicine
DX: D64.9 Anemia, unspecified (principal); R10.9 Unspecified abdominal pain
CPT/HCPCS: 36415; 80053; 85025

== ENCOUNTER 2025-06-30 01:15 | Outpatient (CLI) | payer MEDICARE, SELFPAY ==
--- NOTE | 2025-06-30 07:30 | DI.US_ITS ---
Exam(s) US THYROID EXAM: US THYROID CLINICAL HISTORY: Assess for change, benign biopsy,NODULE LT LOBE THYROID GLAND,E04.1. TECHNIQUE: Ultrasound thyroid performed using standard protocol. COMPARISON: US US THYROID from 06/25/2024 US US NEEDLE LOCAL OTHER WO RAD from 07/14/2024 FINDINGS: This patient underwent ultrasound-guided FNA of a nodule in left thyroid lobe performed on 07/14/2024. This appears stable as described below and there are no new nodules evident. RIGHT THYROID LOBE: Measures 1.6 cm AP x 1.7 cm wide x 5.2 cm craniocaudal There are no nodules evident in the right thyroid lobe. ISTHMUS: Normal thickness. There are no nodules in the isthmus. LEFT THYROID LOBE: Measures 2.3 cm AP x 1.8 wide x 0.0 cm craniocaudal The previously described solitary and previously biopsied nodule today exhibits characteristics as follows: Size: Measures 1.8 x 1.5 x 1.1 cm, unchanged Composition: Solid-2 points Echogenicity: Hypoechoic-2 points Shape: Taller than wider in the transverse plane-3 points Margin: Smooth-0 points Echogenic Foci: None-0 points Total points for this nodule: 7 ACR Ti-Rads Category: 5 This TR 5 level nodule qualifies for ultrasound-guided FNA as it measures greater than 1 cm. LYMPH NODES: There is no significant adenopathy. Small benign-appearing lymph nodes noted bilaterally. IMPRESSION: 1. There remains a solitary left-sided nodule with characteristics as described above. This TR 5 level nodule qualifies for ultrasound-guided FNA as it measures greater than 1 cm. However, it apparently did undergo this procedure on 07/14/2024. Please refer to that pathology report. This nodule has not increased in size since prior ultrasound of June 2024. 2. No new nodules evident in either lobe nor in the isthmus. 3. There is no significant lymphadenopathy. DATA REPOSITORY:
== END 2025-06-30 01:35 ==
PROVIDERS: PCP Family Medicine; Visit Provider Otolaryngology
DX: E04.1 Nontoxic single thyroid nodule (principal)
CPT/HCPCS: 76536